=== PATIENT | female | born 1960 | race Two or more races ===

== ENCOUNTER 2017-01-08 14:06 | Inpatient (IN) | payer MEDICAID ==
[~2017-01-08] VITALS: Ht 175.3 cm; Wt 51.3 kg
[2017-01-08 14:10] VITALS: BP 156/83
[2017-01-08] MEDS ORDERED: NS 250 ML IV ONE (14:16)
--- NOTE | 2017-01-08 14:25 | Emergency Room Report ---
History of Present Illness General Chief Complaint: Syncope Source: Patient, Friend, EMS Present Illness HPI Patient presents emergency department today with dizziness and headache and chest pain and syncope. Patient was noted to have 2 syncopal event. Patient does have a history of diabetes and hypertension. Symptoms noted to be moderate to severe. 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 We have requested for any destination sign repairer.No other modifying factors. No other associated signs and symptoms. No other complaints were noted. Allergies: Coded Allergies: No Known Allergies (Unverified , 01/08/17) Patient History Past Medical History: DM, HTN, other - deaf and mute Past Surgical History: none Pertinent Family History: none Social History: Denies: smoking, alcohol use, drug use Reviewed Nursing Documentation: PMH: Agreed, PSxH: Agreed Nursing Documentation-PMH Hx Hypertension: Yes Hx Diabetes: Yes Review of Systems All Other Systems: negative except mentioned in HPI Physical Exam Vital Signs Date Time Temp Pulse Resp B/P (MAP) Pulse Ox O2 Delivery O2 Flow Rate FiO2 01/08/17 13:53 98.2 86 24 188/107 99 Room Air Sp02 EP Interpretation: reviewed, normal General Appearance: normal inspection, well appearing, no apparent distress, alert, GCS 15, non-toxic Head: atraumatic Eyes: bilateral eye normal inspection ENT: normal ENT inspection, hearing grossly normal, normal voice Neck: normal inspection, full range of motion, supple, no bony tend Respiratory: normal inspection, lungs clear, normal breath sounds, no respiratory distress, no retraction, no wheezing Cardiovascular #1: regular rate, rhythm, no edema Gastrointestinal: normal inspection, normal bowel sounds, non tender, soft, no guarding, no hernia Genitourinary: no CVA tenderness Musculoskeletal: normal inspection, back normal, normal range of motion Neurologic: normal inspection, alert, responsive, speech normal Psychiatric: normal inspection, mood/affect normal Skin: normal inspection, normal color, no rash Medical Decision Making Diagnostic Impression: Primary Impression: ACS (acute coronary syndrome) Additional Impression: Syncope Qualified Codes: R55 - Syncope and collapse ER Course Patient presented to the emergency department today complaining of chest pain associate syncope. Differential diagnoses include acute coronary syndrome, pulmonary embolism, pneumothorax, chest wall pain, pleurisy, pericarditis, acute anxiety reaction, CVA, gastritis Just to name a few. Given the severity of the patient's presentation I felt this is a highly complex patient. This patient required extensive workup. CBC, chemistry, EKG, chest x-ray, cardiac enzymes, liver profile were all obtained. 12-lead EKG performed for nontraumatic chest pain. [facility] documentation: EKG was performed. Please refer to below for interpretation. Patient had CBC and chemistry obtained. Both of which were normal. Patient's cardiac enzymes also normal. Patient had normal chest x-ray. Patient's EKG and rhythm strip are also normal. Head CT was normal. However given patient's syncope and chest discomfort felt the patient require admission to the hospital. Case was discussed with Dr. Beto Low who agree with the admission. Patient will be admitted to telemetry for further treatment. Patient also is deaf and mute. Patient was evaluated with a destination sign repairer via the computer monitor. Labs Test 01/08/17 14:57 01/08/17 17:05 White Blood Count 9.9 K/UL (4.8-10.8) Red Blood Count 4.31 M/UL (4.20-5.40) Hemoglobin 12.6 G/DL (12.0-16.0) Hematocrit 38.9 % (37.0-47.0) Mean Corpuscular Volume 90 FL (80-99) Mean Corpuscular Hemoglobin 29.4 PG (27.0-31.0) Mean Corpuscular Hemoglobin Concent 32.5 G/DL (32.0-36.0) Red Cell Distribution Width 11.3 % (11.6-14.8) Platelet Count 274 K/UL (150-450) Mean Platelet Volume 7.9 FL (6.5-10.1) Neutrophils (%) (Auto) 76.9 % (45.0-75.0) Lymphocytes (%) (Auto) 16.8 % (20.0-45.0) Monocytes (%) (Auto) 4.9 % (1.0-10.0) Eosinophils (%) (Auto) 0.6 % (0.0-3.0) Basophils (%) (Auto) 0.8 % (0.0-2.0) Sodium Level 141 MMOL/L (136-145) Potassium Level 3.7 MMOL/L (3.5-5.1) Chloride Level 101 MMOL/L (98-107) Carbon Dioxide Level 29 MMOL/L (21-32) Anion Gap 11 mmol/L (5-15) Blood Urea Nitrogen 19 mg/dL (7-18) Creatinine 0.7 MG/DL (0.55-1.30) Estimat Glomerular Filtration Rate > 60 mL/min (>60) Glucose Level 101 MG/DL (74-106) Calcium Level 9.7 MG/DL (8.5-10.1) Total Bilirubin 0.3 MG/DL (0.2-1.0) Aspartate Amino Transf (AST/SGOT) 19 U/L (15-37) Alanine Aminotransferase (ALT/SGPT) 30 U/L (12-78) Alkaline Phosphatase 88 U/L (46-116) Total Creatine Kinase 48 U/L (26-308) Creatine Kinase MB < 0.5 NG/ML (0.0-3.6) Creatine Kinase MB Relative Index Troponin I 0.009 ng/mL (0.000-0.056) Pro-B-Type Natriuretic Peptide 111 pg/mL (0-125) Total Protein 7.1 G/DL (6.4-8.2) Albumin 3.8 G/DL (3.4-5.0) Globulin 3.3 g/dL Albumin/Globulin Ratio 1.2 (1.0-2.7) Lipase 137 U/L (73-393) EKG Diagnostic Results Rate: normal Rhythm: NSR ST Segments: no acute changes Rhythm Strip Diag. Results EP Interpretation: yes Rate: 85 Rhythm: NSR Chest X-Ray Diagnostic Results Chest X-Ray Diagnostic Results : Chest X-Ray Ordered: Yes # of Views/Limited/Complete: 1 View Indication: Chest Pain EP Interpretation: No Impression: No acute disease CT/MRI/US Diagnostic Results CT/MRI/US Diagnostic Results : Imaging Test Ordered: head CT: Negative Last Vital Signs Date Time Temp Pulse Resp B/P (MAP) Pulse Ox O2 Delivery O2 Flow Rate FiO2 01/08/17 13:53 98.2 86 24 188/107 99 Room Air Status: improved Disposition: ADMITTED INPATIENT Condition: Serious TEENA RAMIREZ M.D. Jan 08, 2017 14:25
[2017-01-08 15:00] VITALS: BP 155/77
--- NOTE | 2017-01-08 15:10 | Diagnostic Imaging Report ---
Indications: Dizziness and headache and syncope, 2 recent syncopal events Technique: Spiral acquisitions obtained through the brain. Angled axial and coronal 5 x 5 mm slices were reconstructed. Total dose length product 1274 mGycm. CTDI vol(s) 70 mGy. Dose reduction achieved using automated exposure control Comparison: None Findings: Normal size ventricles and extra-axial CSF spaces. Calcification is seen at the left high parietal posterior parasagittal wheat-white junction. No acute intracranial hemorrhage or edema. No mass effect nor midline shift. Normal wheat-white differentiation. Intact calvarium. Visualized orbits and sinuses are unremarkable the mastoids are clear. 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
[2017-01-08] MEDS ORDERED: AMLODIPINE BESYL5 MG ORAL (15:13)
[2017-01-08] MEDS ORDERED: BENAZEPRIL HCL10 MG ORAL (15:13)
[2017-01-08] MEDS ORDERED: GABAPENTIN300 MG ORAL (15:13)
[2017-01-08] MEDS ORDERED: VITAMIN D250000 UNI1 ORAL (15:13)
--- NOTE | 2017-01-08 15:16 | Diagnostic Imaging Report ---
Indication: COUGH Technique: One view of the chest Comparison: none Findings: The heart is mildly enlarged. Lungs and pleural spaces are clear. Impression: Cardiomegaly. No acute process
[2017-01-08 15:21] LABS: BASOPHILS % (AUTO) 0.8 % (0.0-2.0); EOSINOPHILS % (AUTO) 0.6 % (0.0-3.0); LYMPHOCYTES % (AUTO) 16.8 % (20.0-45.0); MEAN CORPUSCULAR HEMOGLOBIN 29.4 PG (27.0-31.0); MEAN CORPUSCULAR HGB CONC 32.5 G/DL (32.0-36.0); MEAN CORPUSCULAR VOLUME 90 FL (80-99); MEAN PLATELET VOLUME 7.9 FL (6.5-10.1); MONOCYTES % (AUTO) 4.9 % (1.0-10.0); NEUTROPHILS % (AUTO) 76.9 % (45.0-75.0); PLATELET COUNT 274 K/UL (150-450); RED BLOOD COUNT 4.31 M/UL (4.20-5.40); RED CELL DISTRIBUTION WIDTH 11.3 % (11.6-14.8); WHITE BLOOD COUNT 9.9 K/UL (4.8-10.8)
[2017-01-08 15:56] LABS: ALANINE AMINOTRANSFERASE 30 U/L (12-78); ALBUMIN/GLOBULIN RATIO 1.2 (1.0-2.7); ANION GAP 11 mmol/L (5-15); ASPARTATE AMINO TRANSFERASE 19 U/L (15-37); CALCIUM 9.7 MG/DL (8.5-10.1); CARBON DIOXIDE 29 MMOL/L (21-32); CHLORIDE 101 MMOL/L (98-107); CKMB < 0.5 NG/ML (0.0-3.6); CREATININE 0.7 MG/DL (0.55-1.30); GLOMERULAR FILTRATION RATE > 60 mL/min (>60); LIPASE 137 U/L (73-393); POTASSIUM 3.7 MMOL/L (3.5-5.1); SODIUM 141 MMOL/L (136-145); TOTAL PROTEIN 7.1 G/DL (6.4-8.2)
[2017-01-08 16:00] VITALS: BP 166/78
[2017-01-08] MEDS ORDERED: Norco 5mg/325mg tab ORAL ONE (16:30)
[2017-01-08] MEDS ORDERED: Aspirin Baby 81mg ORAL ONE (16:30)
[2017-01-08] MEDS ORDERED: Nitroglycerin Subl 0.4mg tab SL PRN (16:45)
[2017-01-08] MEDS ORDERED: Enalaprilat 2.5mg/2ml Inj IV PRN (16:45)
[2017-01-08] MEDS ORDERED: dilTIAZem HCl 25mg/5ml Inj IV PRN (16:45)
[2017-01-08] MEDS ORDERED: Morphine Sulfate 2mg/ml Inj IVP PRN (16:45)
[2017-01-08] MEDS ORDERED: Albuterol/Ipratropium 3ml neb HHN PRN (16:45)
[2017-01-08 17:00] VITALS: BP 166/78
[2017-01-08 17:27] LABS: APPEARANCE,URINE CLEAR; KETONES,URINE NEGATIVE (NEGATIVE); LEUKOCYTE ESTERASE ,URINE 1+ (NEGATIVE); NITRITE,URINE NEGATIVE (NEGATIVE); PH,URINE 7 (4.5-8.0); PROTEIN,URINE NEGATIVE (NEGATIVE); UROBILINOGEN,URINE NORMAL MG/DL (0.0-1.0)
[2017-01-08 17:46] LABS: RBC,URINE 0-2 /HPF (0 - 2); SQUAMOUS EPITHELIAL CELL,UR OCCASIONAL /LPF (NONE/OCC); WBC,URINE 0-2 /HPF (0 - 2)
[2017-01-08 17:47] LABS: BACTERIA,URINE FEW /HPF
[2017-01-08 18:55] VITALS: BP 156/83
[2017-01-08 20:00] VITALS: BP 141/87
[2017-01-08] MEDS ORDERED: HYDROCHLOROTHIA25 MG ORAL (20:31)
[2017-01-08] MEDS: Heparin 5000 units/ml inj SUBQ SCH (21:44)
[2017-01-09 00:21] VITALS: BP 154/85
[2017-01-09 04:11] VITALS: BP 151/82
[2017-01-09 07:58] LABS: BASOPHILS % (AUTO) 1.1 % (0.0-2.0); EOSINOPHILS % (AUTO) 2.2 % (0.0-3.0); LYMPHOCYTES % (AUTO) 34.9 % (20.0-45.0); MEAN CORPUSCULAR HEMOGLOBIN 30.9 PG (27.0-31.0); MEAN CORPUSCULAR HGB CONC 34.7 G/DL (32.0-36.0); MEAN CORPUSCULAR VOLUME 89 FL (80-99); MEAN PLATELET VOLUME 8.4 FL (6.5-10.1); MONOCYTES % (AUTO) 6.5 % (1.0-10.0); NEUTROPHILS % (AUTO) 55.4 % (45.0-75.0); PLATELET COUNT 283 K/UL (150-450); RED CELL DISTRIBUTION WIDTH 11.4 % (11.6-14.8); WHITE BLOOD COUNT 6.5 K/UL (4.8-10.8)
[2017-01-09 08:03] LABS: INR 0.9 (0.9-1.1); PROTHROMBIN TIME 9.7 SEC (9.30-11.50)
[2017-01-09 08:17] VITALS: BP 135/81
[2017-01-09] MEDS: Benazepril 10mg tab ORAL SCH (08:27)
[2017-01-09] MEDS: Aspirin Baby 81mg ORAL SCH (08:28)
[2017-01-09] MEDS: Heparin 5000 units/ml inj SUBQ SCH ×2 (08:30→21:22)
[2017-01-09 08:44] LABS: CHOLESTEROL 199 MG/DL (< 200); CHOLESTEROL/HDL RATIO 4.6 (3.3-4.4); THYROID STIMULATING HORMONE 0.686 uiU/mL (0.360-3.740)
[2017-01-09 08:49] LABS: CRP QUANT < 0.4 mg/dL (0.00-0.90)
[2017-01-09 11:23] VITALS: BP 132/76
--- NOTE | 2017-01-09 15:23 | Consultation ---
History of Present Illness General Date patient seen: Jan 09, 2017 Chief Complaint: Syncope Reason for Consultation: chest pain Present Illness HPI 56 year old female with hx of DM, HTN presented to emergency department today with dizziness and headache and chest pain and syncope. . 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 she is admitted to telemetry for further work up. Allergies: Coded Allergies: No Known Allergies (Unverified , 01/08/17) Medication History Scheduled Amlodipine Besylate* (Amlodipine Besylate*), 5 MG ORAL DAILY, (Reported) Benazepril Hcl* (Benazepril Hcl*), 10 MG ORAL DAILY, (Reported) Ergocalciferol (Vitamin D2)* (Vitamin D*), 50,000 UNIT ORAL ONCE A WEEK, ( Reported) Gabapentin* (Gabapentin*), 300 MG ORAL THREE TIMES A DAY, (Reported) Hydrochlorothiazide* (Hydrochlorothiazide*), 25 MG ORAL DAILY, (Reported) Patient History Healthcare decision maker Resuscitation status Full Code Advanced Directive on File Review of Systems All Other Systems: negative except mentioned in HPI Physical Exam General Appearance: WD/WN, alert, lethargic Lines, tubes and drains: peripheral, central line HEENT: normocephalic, atraumatic Neck: non-tender, normal alignment Respiratory/Chest: chest wall non-tender, lungs clear Breasts: no masses Cardiovascular/Chest: normal peripheral pulses, regular rhythm Last 24 Hour Vital Signs Date Time Temp Pulse Resp B/P (MAP) Pulse Ox O2 Delivery O2 Flow Rate FiO2 01/09/17 11:23 97.8 70 18 132/76 99 Room Air 01/09/17 08:27 135/81 01/09/17 08:27 65 135/81 01/09/17 08:17 97.9 65 18 135/81 98 Room Air 01/09/17 08:00 68 01/09/17 04:11 96.0 69 16 151/82 96 Room Air 01/09/17 04:00 68 01/09/17 00:21 97.1 67 16 154/85 97 Room Air 01/09/17 00:00 66 01/08/17 20:00 97.2 79 16 141/87 97 Room Air 01/08/17 20:00 69 01/08/17 18:55 81 20 156/83 94 Room Air 01/08/17 18:55 98.2 81 20 156/83 94 Room Air 01/08/17 17:00 81 18 166/78 93 Room Air 01/08/17 16:00 81 20 166/78 95 Room Air Intake and Output 01/09/17 01/10/17 19:00 07:00 Intake Total 490 ml Balance 490 ml Intake Oral 490 ml # Voids 1 Laboratory Tests Test 01/08/17 17:05 01/09/17 04:50 01/09/17 04:55 Urine Color Pale yellow Urine Appearance Clear Urine pH 7 (4.5-8.0) Urine Specific [place] 1.010 (1.005-1.035) Urine Protein Negative (NEGATIVE) Urine Glucose (UA) Negative (NEGATIVE) Urine Ketones Negative (NEGATIVE) Urine Occult Blood Negative (NEGATIVE) Urine Nitrite Negative (NEGATIVE) Urine Bilirubin Negative (NEGATIVE) Urine Urobilinogen Normal MG/DL (0.0-1.0) Urine Leukocyte Esterase 1+ (NEGATIVE) H Urine RBC 0-2 /HPF (0 - 2) Urine WBC 0-2 /HPF (0 - 2) Urine Squamous Epithelial Cells Occasional /LPF Urine Bacteria Few /HPF (NONE) Prothrombin Time 9.7 SEC (9.30-11.50) Prothromb Time International Ratio 0.9 (0.9-1.1) Activated Partial Thromboplast Time 25 SEC (23-33) Troponin I 0.009 ng/mL (0.000-0.056) C-Reactive Protein, Quantitative < 0.4 mg/dL (0.00-0.90) Triglycerides Level 298 MG/DL (0-200) H Cholesterol Level 199 MG/DL (< 200) LDL Cholesterol 118 mg/dL (<100) H HDL Cholesterol 43 MG/DL (40-60) Cholesterol/HDL Ratio 4.6 (3.3-4.4) H Thyroid Stimulating Hormone (TSH) 0.686 uiU/mL (0.360-3.740) White Blood Count 6.5 K/UL (4.8-10.8) Red Blood Count 4.30 M/UL (4.20-5.40) Hemoglobin 13.3 G/DL (12.0-16.0) Hematocrit 38.3 % (37.0-47.0) Mean Corpuscular Volume 89 FL (80-99) Mean Corpuscular Hemoglobin 30.9 PG (27.0-31.0) Mean Corpuscular Hemoglobin Concent 34.7 G/DL (32.0-36.0) Red Cell Distribution Width 11.4 % (11.6-14.8) L Platelet Count 283 K/UL (150-450) Mean Platelet Volume 8.4 FL (6.5-10.1) Neutrophils (%) (Auto) 55.4 % (45.0-75.0) Lymphocytes (%) (Auto) 34.9 % (20.0-45.0) Monocytes (%) (Auto) 6.5 % (1.0-10.0) Eosinophils (%) (Auto) 2.2 % (0.0-3.0) Basophils (%) (Auto) 1.1 % (0.0-2.0) Height (Feet): 5 Height (Inches): 9.00 Weight (Pounds): 113 Medications Current Medications Medications (Trade) Dose Ordered Sig/Olegario Route PRN Reason Start Time Stop Time Status Last Admin Dose Admin Acetaminophen (Tylenol) 650 mg Q4H PRN ORAL Fever/Headache/Mild Pain 01/09/17 00:45 02/08/17 00:44 01/09/17 12:17 Albuterol/ Ipratropium (Albuterol/ Ipratropium) 3 ml Q4H PRN HHN Shortness of Breath 01/08/17 16:45 01/13/17 16:44 Amlodipine Besylate (Norvasc) 5 mg DAILY ORAL 01/09/17 09:00 02/08/17 08:59 01/09/17 08:27 Aspirin (ASA) 162 mg DAILY ORAL 01/09/17 09:00 02/08/17 08:59 01/09/17 08:28 Benazepril HCl (Lotensin) 10 mg DAILY ORAL 01/09/17 09:00 02/08/17 08:59 01/09/17 08:27 Diltiazem HCl (Cardizem) 10 mg Q1H PRN IV heart rate more than 120, 01/08/17 16:45 02/07/17 16:44 Enalaprilat (Vasotec) 2.5 mg Q6H PRN IV sbp more than 160 01/08/17 16:45 02/07/17 16:44 Gabapentin (Neurontin) 300 mg THREE TIMES A DAY ORAL 01/08/17 18:30 02/07/17 18:29 01/09/17 12:17 Heparin Sodium (Porcine) (Heparin 5000 units/ml) 5,000 units EVERY 12 HOURS SUBQ 01/08/17 21:00 02/07/17 20:59 01/09/17 08:30 Ketorolac Tromethamine (Toradol 30mg) 30 mg Q6H PRN IV moderate pain ( 4-6) 01/08/17 16:45 01/13/17 16:44 Morphine Sulfate (Morphine Sulfate) 2 mg Q4H PRN IVP severe Pain (Pain Scale 7-10) 01/08/17 16:45 01/15/17 16:44 Nitroglycerin (Ntg) 0.4 mg Every 5 Minutes PRN SL Prn Chest Pain 01/08/17 16:45 02/07/17 16:44 Ondansetron HCl (Zofran) 4 mg Q6H PRN IVP Nausea & Vomiting 01/08/17 16:45 02/07/17 16:44 Polyethylene Glycol (Miralax) 17 gm DAILYPRN PRN ORAL Constipation 01/08/17 16:45 02/07/17 16:44 Temazepam (Restoril) 15 mg HSPRN PRN ORAL Insomnia 01/08/17 16:45 01/15/17 16:44 Assessment/Plan Problem List: (1) ACS (acute coronary syndrome) ICD Codes: I24.9 - Acute ischemic heart disease, unspecified SNOMED: 199227908 (2) Diabetes mellitus ICD Codes: E11.9 - Type 2 diabetes mellitus without complications SNOMED: 63945762 (3) Hypertension ICD Codes: I10 - Essential (primary) hypertension SNOMED: 20911578 (4) Syncope ICD Codes: R55 - Syncope and collapse SNOMED: 809286315 Qualifiers: Qualified Codes: R55 - Syncope and collapse (5) Deaf nonspeaking, not elsewhere classifiable ICD Codes: H91.3 - Deaf nonspeaking, not elsewhere classified SNOMED: 92821783 Assessment/Plan serial ekg, troponin sliding scale diabetic diet. RODY HUBBARD Jan 09, 2017 15:23
[2017-01-09 16:00] VITALS: BP 125/58
[2017-01-09] MEDS: Ketorolac 30mg Inj IV PRN (16:40)
--- NOTE | 2017-01-09 17:14 | History & Physical ---
History and Physical History & Physicial Dictated for Int Med-Dr Low no. [id number]. CINDY GARCIA Jan 09, 2017 17:14
[2017-01-09] MEDS ORDERED: Morphine Sulfate 4mg/ml Inj IVP PRN (17:30)
[2017-01-09 20:00] VITALS: BP 133/82
[2017-01-10] VITALS (7 sets, daily range): BP systolic 127–147; BP diastolic 70–85
--- NOTE | 2017-01-10 03:00 | History and Physical Report ---
DATE OF ADMISSION: 01/08/2017 CHIEF COMPLAINT: The patient is a 56-year-old deaf, mute female, presents with chief complaint of chest pain and syncopal episode. HISTORY OF PRESENT ILLNESS: The patient is deaf, mute. There is no magnetic tape typewriter operator present. Much of the history and physical is obtained from the patient's chart. The patient has limited conversation by reading lips. The patient presented to [place] emergency room. The patient was complaining of dizziness and headache for one day. The patient then passed out. The patient complained of chest pain. The patient presented to [place] emergency room. The patient was admitted for chest pain to rule out acute coronary syndrome. REVIEW OF SYSTEMS: CONSTITUTIONAL: The patient denies weight loss or weight gain. The patient denies fevers or chills. HEENT: The patient denies ear or throat pain. The patient denies headache. CARDIOVASCULAR: The patient denies palpitations. The patient complains of chest pain as above. CHEST: The patient denies wheezes or shortness of breath. ABDOMINAL: The patient denies nausea, vomiting, diarrhea, or constipation. GENITOURINARY: The patient denies dysuria or increased frequency of urination. NEUROMUSCULAR: The patient denies seizures or generalized weakness. PAST MEDICAL HISTORY: Significant for: 1. Diabetes type 2. 2. Hypertension. 3. The patient is deaf and mute. PAST SURGICAL HISTORY: The patient denies. CURRENT MEDICATIONS: 1. Amlodipine 5 mg 1 tablet p.o. daily. 2. Benazepril 10 mg 1 tablet p.o. daily. 3. Ergocalciferol 50,000 units weekly on Thursday. 4. Gabapentin 300 mg 1 tablet p.o. 3 times daily. 5. Hydrochlorothiazide 25 mg 1 tablet p.o. daily. ALLERGIES: No known drug allergies. SOCIAL HISTORY: The patient denies tobacco or alcohol use. PHYSICAL EXAMINATION: VITAL SIGNS: Temperature 96.0, respirations 16, pulse 69, and blood pressure 151/82. GENERAL: The patient is a well-developed, well-nourished female, in no apparent distress. HEENT: Eyes, pupils are equal and responsive to light and accommodation. Extraocular movements are intact. NECK: Supple without lymphadenopathy. CHEST: Lungs are clear to auscultation bilaterally without wheezes or rales. CARDIOVASCULAR: Regular rhythm and rate. S1, S2 are normal without murmurs, rubs, or gallops. ABDOMEN: Soft, nontender, and nondistended. Positive bowel sounds. No evidence of hepatosplenomegaly. Currently, no rebound or guarding noted. EXTREMITIES: Negative for clubbing, cyanosis, or edema. RECTAL/GENITAL: Refused. NEUROLOGIC: Cranial nerves II through XII are grossly intact without focal deficits. Motor strength is 5/5 bilaterally. Deep tendon reflexes are 2+ plantar. LABORATORY STUDIES: WBC 9.9, hemoglobin 12.6, hematocrit 38.9, and platelets 274,000. Sodium 141, potassium 3.7, chloride 101, CO2 29, BUN 19, creatinine 0.7, and glucose 101. Troponin 0.009. ASSESSMENT: This is a 56-year-old female with: 1. Chest pain. 2. Diabetes type 2. 3. Hypertension. 4. Dyspnea. 5. Syncopal episode. TREATMENT: 1. Syncopal episode/chest pain. Cardiology consultation is pending with Dr. Jorgito Miramontes. We will follow recommendations of Dr. Miramontes. A Neurology consultation has been obtained with Dr. Hector. We will follow recommendations of Neurology. 2. Diabetes type 2. A regular insulin sliding scale has been instituted. 3. Hypertension. Continue amlodipine and benazepril as above. 4. Deaf and mute. Chencho Jacobson M.D. DR: CARLYLE JOB#: [id number] CC:
[2017-01-10] MEDS: Ketorolac 30mg Inj IV PRN (05:14)
[2017-01-10] MEDS: Aspirin Baby 81mg ORAL SCH (08:34)
[2017-01-10] MEDS: Benazepril 10mg tab ORAL SCH (08:37)
[2017-01-10] MEDS: Heparin 5000 units/ml inj SUBQ SCH ×2 (08:38→21:30)
--- NOTE | 2017-01-10 11:27 | Cardiology Progress Note ---
Assessment/Plan Assessment/Plan syncope htn dm chest wall tender ness ortho static vital all torp neg cpreproduccile ekg neg echo neg if nto orthosttic ok to dc ho if psotive will need ivf aand dc home after no abn so far on tele [id number] Objective Last 24 Hour Vital Signs Date Time Temp Pulse Resp B/P (MAP) Pulse Ox O2 Delivery O2 Flow Rate FiO2 01/10/17 08:37 147/74 01/10/17 08:34 59 147/74 01/10/17 08:00 97.9 70 18 135/77 95 Room Air 01/10/17 08:00 68 01/10/17 04:00 59 01/10/17 04:00 97.3 63 18 147/74 96 Room Air 01/10/17 00:00 72 01/10/17 00:00 98.1 68 18 135/74 95 Room Air 01/09/17 20:00 70 01/09/17 20:00 98.1 71 18 133/82 96 Room Air 01/09/17 16:00 71 01/09/17 16:00 97.5 73 18 125/58 100 Room Air 01/09/17 12:00 70 Intake and Output 01/10/17 01/11/17 19:00 07:00 Intake Total 360 ml Balance 360 ml Intake Oral 360 ml # Voids 1 CHELI PATEL Jan 10, 2017 11:27
--- NOTE | 2017-01-10 12:01 | Neurology Progress Note ---
Objective Physical Exam Last Vital Signs Date Time Temp Pulse Resp B/P (MAP) Pulse Ox O2 Delivery O2 Flow Rate FiO2 01/10/17 11:40 68 68 67 01/10/17 11:37 137/81 147/85 144/78 01/10/17 08:00 97.9 18 95 Room Air Impression/Recommendations Problems: (1) recurrent syncope. (2) HTN (hypertension), malignant (3) Deaf nonspeaking, not elsewhere classifiable (4) ACS (acute coronary syndrome) Status: stable Recommendations # [id number] MAXIMO MEDINA Jan 10, 2017 12:01
--- NOTE | 2017-01-10 12:49 | Internal Med Progress Note ---
Subjective Date of Service: Jan 10, 2017 Physician Name IndiraCindy Attending Physician Beto Low MD Current Medications Medications (Trade) Dose Ordered Sig/Olegario Route PRN Reason Start Time Stop Time Status Last Admin Dose Admin Acetaminophen (Tylenol) 650 mg Q4H PRN ORAL Fever/Headache/Mild Pain 01/09/17 00:45 02/08/17 00:44 01/09/17 12:17 Albuterol/ Ipratropium (Albuterol/ Ipratropium) 3 ml Q4H PRN HHN Shortness of Breath 01/08/17 16:45 01/13/17 16:44 Amlodipine Besylate (Norvasc) 5 mg DAILY ORAL 01/09/17 09:00 02/08/17 08:59 01/10/17 08:34 Aspirin (ASA) 162 mg DAILY ORAL 01/09/17 09:00 02/08/17 08:59 01/10/17 08:34 Benazepril HCl (Lotensin) 10 mg DAILY ORAL 01/09/17 09:00 02/08/17 08:59 01/10/17 08:37 Diltiazem HCl (Cardizem) 10 mg Q1H PRN IV heart rate more than 120, 01/08/17 16:45 02/07/17 16:44 Enalaprilat (Vasotec) 2.5 mg Q6H PRN IV sbp more than 160 01/08/17 16:45 02/07/17 16:44 Gabapentin (Neurontin) 300 mg THREE TIMES A DAY ORAL 01/08/17 18:30 02/07/17 18:29 01/10/17 12:28 Heparin Sodium (Porcine) (Heparin 5000 units/ml) 5,000 units EVERY 12 HOURS SUBQ 01/08/17 21:00 02/07/17 20:59 01/10/17 08:38 Ketorolac Tromethamine (Toradol 30mg) 30 mg Q6H PRN IV moderate pain ( 4-6) 01/08/17 16:45 01/13/17 16:44 01/10/17 05:14 Morphine Sulfate (Morphine Sulfate) 2 mg Q4H PRN IVP severe Pain (Pain Scale 7-10) 01/09/17 17:30 01/15/17 16:44 Nitroglycerin (Ntg) 0.4 mg Every 5 Minutes PRN SL Prn Chest Pain 01/08/17 16:45 02/07/17 16:44 Ondansetron HCl (Zofran) 4 mg Q6H PRN IVP Nausea & Vomiting 01/08/17 16:45 02/07/17 16:44 Polyethylene Glycol (Miralax) 17 gm DAILYPRN PRN ORAL Constipation 01/08/17 16:45 02/07/17 16:44 Temazepam (Restoril) 15 mg HSPRN PRN ORAL Insomnia 01/08/17 16:45 01/15/17 16:44 Allergies: Coded Allergies: No Known Allergies (Unverified , 01/08/17) ROS Limited/Unobtainable: No Constitutional: Reports: no symptoms HEENT: Reports: no symptoms Cardiovascular: Reports: chest pain Respiratory: Reports: no symptoms Gastrointestinal/Abdominal: Reports: no symptoms Genitourinary: Reports: no symptoms Neurologic/Psychiatric: Reports: no symptoms Subjective 56 YO F admitted with chest pain and syncope. Cover for Int Med-Dr Low. Objective Last Vital Signs Date Time Temp Pulse Resp B/P (MAP) Pulse Ox O2 Delivery O2 Flow Rate FiO2 01/10/17 11:40 68 68 67 01/10/17 11:37 137/81 147/85 144/78 01/10/17 08:00 97.9 18 95 Room Air General Appearance: WD/WN, no apparent distress, alert EENT: PERRL/EOMI, normal ENT inspection, TMs normal Neck: non-tender, normal alignment, supple, normal inspection Cardiovascular: normal peripheral pulses, normal rate, regular rhythm, no gallop/murmur, no JVD Respiratory/Chest: chest wall non-tender, lungs clear, normal breath sounds, no respiratory distress, no accessory muscle use Abdomen: normal bowel sounds, non tender, soft, no organomegaly, no mass Extremities: normal range of motion 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 Complete Intake and Output 01/10/17 01/11/17 19:00 07:00 Intake Total 360 ml Balance 360 ml Intake Oral 360 ml # Voids 1 Assessment/Plan Problem List: (1) Syncope Assessment & Plan: ?iorthostatic? See cardiology note. (2) Diabetes mellitus Assessment & Plan: stable off meds (3) HTN (hypertension), malignant Assessment & Plan: Cont norvasc and lotensin (4) Deaf nonspeaking, not elsewhere classifiable Status: not improved CINDY GARCIA Jan 10, 2017 12:49
[2017-01-10] MEDS: Miralax 17gm pkt ORAL PRN (21:26)
--- NOTE | 2017-01-10 22:00 | Consultation ---
DATE OF CONSULTATION: 01/10/2017 CARDIOLOGY CONSULTATION CONSULTING PHYSICIAN: Jorgito Miramontes M.D. REFERRING PHYSICIAN: 1. Luz Arnold M.D. 2. Beto Low M.D. ATTENDING PHYSICIAN: Beto Low M.D. REASON FOR REFERRAL: Syncope and chest pain. HISTORY OF PRESENT ILLNESS: This is a very unfortunate 56-year-old female, who is deaf and mute. Information through video interpretive services hand and sign language. She tells me she has had for the past few days 3 to 4 episodes of chest pains and she has passed out. She has been dizzy when she sits up or stands up. These episodes of chest pain she thinks have lasted approximately 1 or 2 minutes and sometimes she passes out and does not recall the duration. She has been a diabetic. She has been started on some medications approximately a few weeks ago. She has been taking the medication. Unfortunately, she is not able to tell me what the name of her medication. She takes one diabetic medication twice a day and one high blood pressure medication once a day. She does not recall the name. She has had no problems with nausea, vomiting, or diarrhea and her p.o. intake has been okay, but she has been sweating a lot, she indicates. She has not noticed any change in the pain with activity that she is capable of doing. Apparently for the first few days, a few times that she passed out. Nobody saw her, but yesterday apparently somebody saw her and they summoned the paramedics, who eventually brought her to the hospital here at [facility]. Intern Product Marketing Manager run sheet was reviewed. They found the patient supine lay down on the floor of assisted living and by the time paramedics got there, she was alert and oriented x3. They found her to be acting appropriately, but that episode had happened sometime before the paramedics arrival. She was noted to have a blood pressure of 221/119 at the time the paramedics were summoned, subsequently 220/122 and 188/107. She has no PND or orthopnea, but she does get dizzy or lightheaded when she stands up. PAST MEDICAL HISTORY: Positive for diabetes and high blood pressure. ALLERGIES: She has no known drug allergies. SOCIAL HISTORY: She does not smoke. Does not drink alcoholic beverages. 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 MEDICATIONS: The grinder tender run sheet indicates she is on gabapentin, amlodipine, benazepril, and hydrochlorothiazide and I think unfortunately, she is also on a diabetic medication that she does not recall the name of. REVIEW OF SYSTEMS: GASTROINTESTINAL: Apparently negative except for constipation. GENITOURINARY: Negative. PULMONARY: Negative. PHYSICAL EXAMINATION: GENERAL: Physical examination shows her to be middle-aged female, in no apparent respiratory distress. NECK: Supple. No jugular venous distention. No abdominojugular reflux noted. LUNGS: Clear to auscultation and percussion. CARDIAC: S1 is normal. S2 is normal. Regular rate and rhythm. No heaves, thrills, or gallops noted. ABDOMEN: Soft and nontender. Positive bowel sounds. EXTREMITIES: There is no clubbing, cyanosis, or edema. MUSCULOSKELETAL: Chest wall is tender and reproduces the patient's pain that she was experiencing at this time. This, we confirmed on several multiple occasions with hand cloth examiner services that the pain that I am able to reproduce on palpation of the chest wall is exactly the same pain that she has been experiencing for the past few days. LABORATORY VALUES: White count 6.5, hemoglobin 13.3, and platelet count 283,000. Her cardiac enzymes on 2 separate occasions were negative. Her proBNP was only 111. Her triglycerides are 298, her cholesterol was 199, LDL of 118, and HDL of 43. TSH is 0.66. Lipase of 137. Coags, INR was 0.7. Her urinalysis is unremarkable. She did have vital signs performed here. Her blood pressures have been in the 135 to 150s here. They have not documented the blood pressure readings that they have been documented at the time of paramedics arrival at all being that high. She has been receiving amlodipine 5 mg a day as well as aspirin and benazepril 10 mg a day here as well as gabapentin. Hydrochlorothiazide has not been administered here. ASSESSMENT AND PLAN: 1. Chest pain. Chest wall pain. No evidence of myonecrosis. No abnormalities on the electrocardiogram and normal echocardiogram. 2. History of syncope. The etiology not yet apparent. Telemetry data so far is unremarkable. There are no arrhythmias. The patient's electrocardiogram does not show any evidence of arrhythmias. She has been constantly in sinus rhythm. No sinus bradycardia. No sinus tachycardia. No other ventricular arrhythmias noted on the telemetry. She has been started on some medication. She has been on diuretics at home, which may make sense that she would have some component of dehydration. She will require orthostatic vitals to be checked, although she may have already received some fluids. Her blood pressures here have not been significantly elevated despite the fact that she is off of hydrochlorothiazide and I suspect the pain in the chest is likely musculoskeletal in origin as it cannot be reproduced on palpation. We would monitor orthostatic vitals and administer some intravenous fluids if those are positive, otherwise, we will allow her to be discharged home. Jorgito Miramontes M.D. DR: ESTHELA JOB#: [id number] CC:
--- NOTE | 2017-01-10 22:30 | Consultation ---
DATE OF CONSULTATION: 01/10/2017 NEUROLOGICAL CONSULTATION CONSULTING PHYSICIAN: Ananth Hector M.D. REQUESTING PHYSICIAN: Beto Low M.D. HISTORY OF PRESENT ILLNESS: This 56-year-old female is seen in neurological consultation to evaluate recurrent episodes of unresponsiveness. The patient is a resident of a [facility], where paramedics were called to the scene after she had an episode of transient loss of consciousness. This occurred about 10 to 15 minutes prior to the arrival. On examination, she was fully awake with no complaints. Denying using drugs or alcohol. According to the facility personnel, the patient had another similar episode approximately 6 to 7 hours prior. She was described as acting appropriately, answering questions appropriately. Her vital signs in the field with blood pressure 221/119. With this, she was brought to emergency room. The patient, who is deaf and mute, was able to communicate through design drafter chief. Blood pressure on admission down to 188/107, heart rate of 99, and she was afebrile. Her diagnostic studies included laboratory work revealing normal CBC, coagulation, urinalysis. Her chemistry panel unremarkable except BUN of 19, also elevated triglycerides of 298, LDL of 118. Normal TSH, lipase, and troponin. Imaging studies included CAT scan of the brain revealing no evidence of acute abnormalities. 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 Chest x-ray, mildly enlarged heart, no acute process noted. Since admission till present, the patient's condition improved and stabilized. Blood pressure went down to 140/85. PAST MEDICAL HISTORY: The patient has a history of hypertension and coronary artery disease. MEDICATIONS: She was treated with gabapentin, amlodipine, benazepril, and hydrochlorothiazide. No history of seizures. ALLERGIES: None reported. SOCIAL HISTORY: A resident of [facility]. There is no evidence of previous alcohol or drug abuse. Nonsmoker. She is unemployed. REVIEW OF SYSTEMS: At this time, the patient was indicating that she is feeling well except continuous discomfort in her left side of the chest. She denies headache or dizziness. Denies previous seizure activity. No respiratory difficulties. Denies urine or bowel incontinence. PHYSICAL EXAMINATION: GENERAL: A well-developed, well-nourished, pleasant lady, not in acute distress, lying comfortably in bed. VITAL SIGNS: Her blood pressure 138/80 and respirations 14. HEENT: Head, normocephalic. No evidence of injuries. Eyes, ears, and throat are clear. NECK: Supple. No meningeal signs. MUSCULOSKELETAL: Unremarkable. There are no deformities. Peripheral pulses 1+ and symmetric. MENTAL STATUS: The patient is alert, follows all instructions given in sign language, appears coherent. CRANIAL NERVE II: Pupils both responding to light and accommodation. Extraocular movements intact. No nystagmus. CRANIAL NERVE V: Normal corneal responses. CRANIAL NERVE VII: No facial asymmetry. CRANIAL NERVE VIII: Deaf. CRANIAL NERVE IX THROUGH XII: Tongue is in midline. The patient is mute. MOTOR EXAMINATION: Normal muscle tone. Strength 5/5 in all extremities. No involuntary movement. Deep tendon reflexes 1+ and symmetric with downgoing toes on both sides. SENSORY: Normal to pinprick and light touch. Gait is stable. IMPRESSION: 1. History of recurrent syncopal episode, probably vasovagal, rule out cardiogenic causes. 2. Hypertension, out of control on admission. 3. Hyperlipidemia. 4. History of diabetes. RECOMMENDATION: 1. Orthostatic blood pressure measurements. 2. Proper p.o. hydration. 3. Cardiac workup to rule out arrhythmia. 4. Add aspirin 81 mg daily in the setting of multiple stroke risk factors. Thank you for allowing me to see this interesting patient in neurological consultation. Ananth Hector M.D. DR: XIOMY JOB#: [id number] CC:
[2017-01-11] VITALS (8 sets, daily range): BP systolic 126–153; BP diastolic 67–87
[2017-01-11 05:28] LABS: EOSINOPHILS % (AUTO) 1.4 % (0.0-3.0); LYMPHOCYTES % (AUTO) 27.2 % (20.0-45.0); MEAN CORPUSCULAR HEMOGLOBIN 32.8 PG (27.0-31.0); MEAN CORPUSCULAR HGB CONC 36.9 G/DL (32.0-36.0); MEAN CORPUSCULAR VOLUME 89 FL (80-99); MEAN PLATELET VOLUME 8.8 FL (6.5-10.1); MONOCYTES % (AUTO) 5.9 % (1.0-10.0); NEUTROPHILS % (AUTO) 64.5 % (45.0-75.0); PLATELET COUNT 247 K/UL (150-450); RED BLOOD COUNT 3.98 M/UL (4.20-5.40); RED CELL DISTRIBUTION WIDTH 11.4 % (11.6-14.8); WHITE BLOOD COUNT 8.5 K/UL (4.8-10.8)
[2017-01-11 06:04] LABS: ANION GAP 6 mmol/L (5-15); CARBON DIOXIDE 30 MMOL/L (21-32); CHLORIDE 106 MMOL/L (98-107); CREATININE 0.7 MG/DL (0.55-1.30); GLOMERULAR FILTRATION RATE > 60 mL/min (>60); POTASSIUM 3.7 MMOL/L (3.5-5.1); SODIUM 142 MMOL/L (136-145)
[2017-01-11] MEDS: Benazepril 10mg tab ORAL SCH (08:55)
[2017-01-11] MEDS: Aspirin Baby 81mg ORAL SCH (08:56)
[2017-01-11] MEDS: Heparin 5000 units/ml inj SUBQ SCH ×2 (09:00→20:31)
[2017-01-11] MEDS: Miralax 17gm pkt ORAL PRN (09:05)
--- NOTE | 2017-01-11 09:36 | Pulmonology Progress Note ---
Assessment/Plan Problems: (1) Syncope (2) ACS (acute coronary syndrome) (3) Diabetes mellitus (4) Hypertension (5) Deaf nonspeaking, not elsewhere classifiable Assessment/Plan cardio, neuro evaluation in process BP controlled check echo Subjective Interval Events: late note for 01/11 Constitutional: Reports: no symptoms HEENT: Repors: no symptoms Allergies: Coded Allergies: No Known Allergies (Unverified , 01/08/17) Objective Last 24 Hour Vital Signs Date Time Temp Pulse Resp B/P (MAP) Pulse Ox O2 Delivery O2 Flow Rate FiO2 01/11/17 08:57 97.8 76 18 140/76 98 Room Air 01/11/17 08:55 143/85 01/11/17 08:55 70 143/85 01/11/17 04:28 71 70 70 01/11/17 04:18 97.7 71 22 140/81 98 Room Air 01/11/17 04:00 68 01/11/17 00:00 68 01/11/17 00:00 97.7 68 20 147/67 98 Room Air 01/10/17 20:25 98.2 70 20 129/74 96 Room Air 01/10/17 20:00 71 01/10/17 16:57 98.0 75 18 127/70 99 Room Air 01/10/17 16:00 70 01/10/17 12:00 64 01/10/17 12:00 98.7 65 18 141/84 98 Room Air 01/10/17 11:40 68 68 67 01/10/17 11:37 137/81 147/85 144/78 Intake and Output 01/11/17 01/12/17 19:00 07:00 Intake Total 360 ml Balance 360 ml Intake Oral 360 ml # Voids 1 General Appearance: WD/WN HEENT: normocephalic, atraumatic Respiratory/Chest: chest wall non-tender, lungs clear Cardiovascular: normal peripheral pulses, regular rhythm, no JVD Abdomen: normal bowel sounds, soft, non tender Genitourinary: normal external genitalia Extremities: no clubbing Skin: no lesions Neurologic/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 Complete Laboratory Tests 01/10/17 16:15: Troponin I 0.000 01/11/17 04:15: White Blood Count 8.5, Red Blood Count 3.98L, Hemoglobin 13.1, Hematocrit 35.4L , Mean Corpuscular Volume 89, Mean Corpuscular Hemoglobin 32.8H, Mean Corpuscular Hemoglobin Concent 36.9H, Red Cell Distribution Width 11.4L, Platelet Count 247, Mean Platelet Volume 8.8, Neutrophils (%) (Auto) 64.5, Lymphocytes (%) (Auto) 27.2, Monocytes (%) (Auto) 5.9, Eosinophils (%) (Auto) 1.4, Basophils (%) (Auto) 1.0, Sodium Level 142, Potassium Level 3.7, Chloride Level 106, Carbon Dioxide Level 30, Anion Gap 6, Blood Urea Nitrogen 23H, Creatinine 0.7, Estimat Glomerular Filtration Rate > 60, Glucose Level 138H, Calcium Level 9.0 Current Medications Medications (Trade) Dose Ordered Sig/Olegario Route PRN Reason Start Time Stop Time Status Last Admin Dose Admin Acetaminophen (Tylenol) 650 mg Q4H PRN ORAL Fever/Headache/Mild Pain 01/09/17 00:45 02/08/17 00:44 01/11/17 05:01 Albuterol/ Ipratropium (Albuterol/ Ipratropium) 3 ml Q4H PRN HHN Shortness of Breath 01/08/17 16:45 01/13/17 16:44 Amlodipine Besylate (Norvasc) 5 mg DAILY ORAL 01/09/17 09:00 02/08/17 08:59 01/11/17 08:55 Aspirin (ASA) 162 mg DAILY ORAL 01/09/17 09:00 02/08/17 08:59 01/11/17 08:56 Benazepril HCl (Lotensin) 10 mg DAILY ORAL 01/09/17 09:00 02/08/17 08:59 01/11/17 08:55 Diltiazem HCl (Cardizem) 10 mg Q1H PRN IV heart rate more than 120, 01/08/17 16:45 02/07/17 16:44 Enalaprilat (Vasotec) 2.5 mg Q6H PRN IV sbp more than 160 01/08/17 16:45 02/07/17 16:44 Gabapentin (Neurontin) 300 mg THREE TIMES A DAY ORAL 01/08/17 18:30 02/07/17 18:29 01/11/17 08:54 Heparin Sodium (Porcine) (Heparin 5000 units/ml) 5,000 units EVERY 12 HOURS SUBQ 01/08/17 21:00 02/07/17 20:59 01/11/17 09:00 Ketorolac Tromethamine (Toradol 30mg) 30 mg Q6H PRN IV moderate pain ( 4-6) 01/08/17 16:45 01/13/17 16:44 01/10/17 05:14 Morphine Sulfate (Morphine Sulfate) 2 mg Q4H PRN IVP severe Pain (Pain Scale 7-10) 01/09/17 17:30 01/15/17 16:44 Nitroglycerin (Ntg) 0.4 mg Every 5 Minutes PRN SL Prn Chest Pain 01/08/17 16:45 02/07/17 16:44 Ondansetron HCl (Zofran) 4 mg Q6H PRN IVP Nausea & Vomiting 01/08/17 16:45 02/07/17 16:44 Polyethylene Glycol (Miralax) 17 gm DAILYPRN PRN ORAL Constipation 01/08/17 16:45 02/07/17 16:44 01/11/17 09:05 Temazepam (Restoril) 15 mg HSPRN PRN ORAL Insomnia 01/08/17 16:45 01/15/17 16:44 RODY HUBBARD Jan 11, 2017 09:36
--- NOTE | 2017-01-11 09:37 | Pulmonology Progress Note ---
Assessment/Plan Problems: (1) Syncope (2) ACS (acute coronary syndrome) (3) Diabetes mellitus (4) Hypertension (5) Deaf nonspeaking, not elsewhere classifiable Assessment/Plan orthostatic evaluation cardio, neuro evaluation in process BP controlled check echo Subjective ROS Limited/Unobtainable: No Interval Events: 7 beats of PVC Allergies: Coded Allergies: No Known Allergies (Unverified , 01/08/17) Objective Last 24 Hour Vital Signs Date Time Temp Pulse Resp B/P (MAP) Pulse Ox O2 Delivery O2 Flow Rate FiO2 01/11/17 08:57 97.8 76 18 140/76 98 Room Air 01/11/17 08:55 143/85 01/11/17 08:55 70 143/85 01/11/17 04:28 71 70 70 01/11/17 04:18 97.7 71 22 140/81 98 Room Air 01/11/17 04:00 68 01/11/17 00:00 68 01/11/17 00:00 97.7 68 20 147/67 98 Room Air 01/10/17 20:25 98.2 70 20 129/74 96 Room Air 01/10/17 20:00 71 01/10/17 16:57 98.0 75 18 127/70 99 Room Air 01/10/17 16:00 70 01/10/17 12:00 64 01/10/17 12:00 98.7 65 18 141/84 98 Room Air 01/10/17 11:40 68 68 67 01/10/17 11:37 137/81 147/85 144/78 Intake and Output 01/11/17 01/12/17 19:00 07:00 Intake Total 360 ml Balance 360 ml Intake Oral 360 ml # Voids 1 General Appearance: WD/WN HEENT: normocephalic, atraumatic, mucous membranes moist Respiratory/Chest: lungs clear, normal breath sounds Breasts: no masses Cardiovascular: normal peripheral pulses Abdomen: normal bowel sounds, no organomegaly Extremities: no cyanosis Skin: no rash 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 Complete Laboratory Tests 01/10/17 16:15: Troponin I 0.000 01/11/17 04:15: White Blood Count 8.5, Red Blood Count 3.98L, Hemoglobin 13.1, Hematocrit 35.4L , Mean Corpuscular Volume 89, Mean Corpuscular Hemoglobin 32.8H, Mean Corpuscular Hemoglobin Concent 36.9H, Red Cell Distribution Width 11.4L, Platelet Count 247, Mean Platelet Volume 8.8, Neutrophils (%) (Auto) 64.5, Lymphocytes (%) (Auto) 27.2, Monocytes (%) (Auto) 5.9, Eosinophils (%) (Auto) 1.4, Basophils (%) (Auto) 1.0, Sodium Level 142, Potassium Level 3.7, Chloride Level 106, Carbon Dioxide Level 30, Anion Gap 6, Blood Urea Nitrogen 23H, Creatinine 0.7, Estimat Glomerular Filtration Rate > 60, Glucose Level 138H, Calcium Level 9.0 Current Medications Medications (Trade) Dose Ordered Sig/Olegario Route PRN Reason Start Time Stop Time Status Last Admin Dose Admin Acetaminophen (Tylenol) 650 mg Q4H PRN ORAL Fever/Headache/Mild Pain 01/09/17 00:45 02/08/17 00:44 01/11/17 05:01 Albuterol/ Ipratropium (Albuterol/ Ipratropium) 3 ml Q4H PRN HHN Shortness of Breath 01/08/17 16:45 01/13/17 16:44 Amlodipine Besylate (Norvasc) 5 mg DAILY ORAL 01/09/17 09:00 02/08/17 08:59 01/11/17 08:55 Aspirin (ASA) 162 mg DAILY ORAL 01/09/17 09:00 02/08/17 08:59 01/11/17 08:56 Benazepril HCl (Lotensin) 10 mg DAILY ORAL 01/09/17 09:00 02/08/17 08:59 01/11/17 08:55 Diltiazem HCl (Cardizem) 10 mg Q1H PRN IV heart rate more than 120, 01/08/17 16:45 02/07/17 16:44 Enalaprilat (Vasotec) 2.5 mg Q6H PRN IV sbp more than 160 01/08/17 16:45 02/07/17 16:44 Gabapentin (Neurontin) 300 mg THREE TIMES A DAY ORAL 01/08/17 18:30 02/07/17 18:29 01/11/17 08:54 Heparin Sodium (Porcine) (Heparin 5000 units/ml) 5,000 units EVERY 12 HOURS SUBQ 01/08/17 21:00 02/07/17 20:59 01/11/17 09:00 Ketorolac Tromethamine (Toradol 30mg) 30 mg Q6H PRN IV moderate pain ( 4-6) 01/08/17 16:45 01/13/17 16:44 01/10/17 05:14 Morphine Sulfate (Morphine Sulfate) 2 mg Q4H PRN IVP severe Pain (Pain Scale 7-10) 01/09/17 17:30 01/15/17 16:44 Nitroglycerin (Ntg) 0.4 mg Every 5 Minutes PRN SL Prn Chest Pain 01/08/17 16:45 02/07/17 16:44 Ondansetron HCl (Zofran) 4 mg Q6H PRN IVP Nausea & Vomiting 01/08/17 16:45 02/07/17 16:44 Polyethylene Glycol (Miralax) 17 gm DAILYPRN PRN ORAL Constipation 01/08/17 16:45 02/07/17 16:44 01/11/17 09:05 Temazepam (Restoril) 15 mg HSPRN PRN ORAL Insomnia 01/08/17 16:45 01/15/17 16:44 RODY HUBBARD Jan 11, 2017 09:37
--- NOTE | 2017-01-11 14:52 | Internal Med Progress Note ---
Subjective Date of Service: Jan 11, 2017 Physician Name IndiraCindy Attending Physician Beto Low MD Current Medications Medications (Trade) Dose Ordered Sig/Olegario Route PRN Reason Start Time Stop Time Status Last Admin Dose Admin Acetaminophen (Tylenol) 650 mg Q4H PRN ORAL Fever/Headache/Mild Pain 01/09/17 00:45 02/08/17 00:44 01/11/17 05:01 Albuterol/ Ipratropium (Albuterol/ Ipratropium) 3 ml Q4H PRN HHN Shortness of Breath 01/08/17 16:45 01/13/17 16:44 Amlodipine Besylate (Norvasc) 5 mg DAILY ORAL 01/09/17 09:00 02/08/17 08:59 01/11/17 08:55 Aspirin (ASA) 162 mg DAILY ORAL 01/09/17 09:00 02/08/17 08:59 01/11/17 08:56 Benazepril HCl (Lotensin) 10 mg DAILY ORAL 01/09/17 09:00 02/08/17 08:59 01/11/17 08:55 Diltiazem HCl (Cardizem) 10 mg Q1H PRN IV heart rate more than 120, 01/08/17 16:45 02/07/17 16:44 Enalaprilat (Vasotec) 2.5 mg Q6H PRN IV sbp more than 160 01/08/17 16:45 02/07/17 16:44 Gabapentin (Neurontin) 300 mg THREE TIMES A DAY ORAL 01/08/17 18:30 02/07/17 18:29 01/11/17 14:16 Heparin Sodium (Porcine) (Heparin 5000 units/ml) 5,000 units EVERY 12 HOURS SUBQ 01/08/17 21:00 02/07/17 20:59 01/11/17 09:00 Ketorolac Tromethamine (Toradol 30mg) 30 mg Q6H PRN IV moderate pain ( 4-6) 01/08/17 16:45 01/13/17 16:44 01/10/17 05:14 Morphine Sulfate (Morphine Sulfate) 2 mg Q4H PRN IVP severe Pain (Pain Scale 7-10) 01/09/17 17:30 01/15/17 16:44 Nitroglycerin (Ntg) 0.4 mg Every 5 Minutes PRN SL Prn Chest Pain 01/08/17 16:45 02/07/17 16:44 Ondansetron HCl (Zofran) 4 mg Q6H PRN IVP Nausea & Vomiting 01/08/17 16:45 02/07/17 16:44 Polyethylene Glycol (Miralax) 17 gm DAILYPRN PRN ORAL Constipation 01/08/17 16:45 02/07/17 16:44 01/11/17 09:05 Temazepam (Restoril) 15 mg HSPRN PRN ORAL Insomnia 01/08/17 16:45 01/15/17 16:44 Allergies: Coded Allergies: No Known Allergies (Unverified , 01/08/17) ROS Limited/Unobtainable: No Constitutional: Reports: no symptoms HEENT: Reports: no symptoms Cardiovascular: Reports: no symptoms Respiratory: Reports: no symptoms Gastrointestinal/Abdominal: Reports: no symptoms Genitourinary: Reports: no symptoms Neurologic/Psychiatric: Reports: no symptoms Subjective 56 YO F admitted with chest pain and syncope. Cover for Int Med-Dr Low. Objective Last Vital Signs Date Time Temp Pulse Resp B/P (MAP) Pulse Ox O2 Delivery O2 Flow Rate FiO2 01/11/17 12:43 98.0 97 18 145/80 98 Room Air Laboratory Tests Test 01/10/17 16:15 01/11/17 04:15 Troponin I 0.000 ng/mL (0.000-0.056) White Blood Count 8.5 K/UL (4.8-10.8) Red Blood Count 3.98 M/UL (4.20-5.40) L Hemoglobin 13.1 G/DL (12.0-16.0) Hematocrit 35.4 % (37.0-47.0) L Mean Corpuscular Volume 89 FL (80-99) Mean Corpuscular Hemoglobin 32.8 PG (27.0-31.0) H Mean Corpuscular Hemoglobin Concent 36.9 G/DL (32.0-36.0) H Red Cell Distribution Width 11.4 % (11.6-14.8) L Platelet Count 247 K/UL (150-450) Mean Platelet Volume 8.8 FL (6.5-10.1) Neutrophils (%) (Auto) 64.5 % (45.0-75.0) Lymphocytes (%) (Auto) 27.2 % (20.0-45.0) Monocytes (%) (Auto) 5.9 % (1.0-10.0) Eosinophils (%) (Auto) 1.4 % (0.0-3.0) Basophils (%) (Auto) 1.0 % (0.0-2.0) Sodium Level 142 MMOL/L (136-145) Potassium Level 3.7 MMOL/L (3.5-5.1) Chloride Level 106 MMOL/L (98-107) Carbon Dioxide Level 30 MMOL/L (21-32) Anion Gap 6 mmol/L (5-15) Blood Urea Nitrogen 23 mg/dL (7-18) H Creatinine 0.7 MG/DL (0.55-1.30) Estimat Glomerular Filtration Rate > 60 mL/min (>60) Glucose Level 138 MG/DL (74-106) H Calcium Level 9.0 MG/DL (8.5-10.1) Microbiology Date/Time Source Procedure Growth Status 01/09/17 06:28 Nasal Nares Right MRSA Culture - Final NO METHICILLIN RESISTANT STAPH AUREUS... Complete 01/09/17 06:28 Rectal Mucosa VRE Culture - Final NO VANCOMYCIN RESISTANT ENTEROCOCCUS ... Complete Intake and Output 01/11/17 01/12/17 19:00 07:00 Intake Total 1080 ml Balance 1080 ml Intake Oral 1080 ml # Voids 3 Objective General Appearance: WD/WN, no apparent distress, alert EENT: PERRL/EOMI, normal ENT inspection, TMs normal Neck: non-tender, normal alignment, supple, normal inspection Cardiovascular: normal peripheral pulses, normal rate, regular rhythm, no gallop/murmur, no JVD Respiratory/Chest: chest wall non-tender, lungs clear, normal breath sounds, no respiratory distress, no accessory muscle use Abdomen: normal bowel sounds, non tender, soft, no organomegaly, no mass Extremities: normal range of motion 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 See cardiology note. (2) Diabetes mellitus Assessment & Plan: stable off meds (3) HTN (hypertension), malignant Assessment & Plan: Cont norvasc and lotensin (4) Deaf nonspeaking, not elsewhere classifiable Status: CIND[employer] Gaming Jan 11, 2017 14:52
--- NOTE | 2017-01-11 17:55 | Cardiology Report ---
APPROVED REPORT EXAM: Two-dimensional and M-mode echocardiogram with Doppler and color Doppler. INDICATION LV function M-Mode DIMENSIONS IVSd1.6 (0.7-1.1cm)Left Atrium (MM)3.2 (1.6-4.0cm) LVDd3.7 (3.5-5.6cm)Aortic Root2.8 (2.0-3.7cm) PWd1.6 (0.7-1.1cm)Aortic Cusp Exc.1.6 (1.5-2.0cm) LVDs1.8 (2.5-4.0cm) PWs2.6 cm Normal left ventricular chamber size, systolic function and wall motion. Left ventricular ejection fraction estimated to be 60-65 %. Mild left ventricular hypertrophy. No evidence of pericardial effusion. All other cardiac chamber sizes are within normal limits. Mild focal aortic valve sclerosis with adequate cusp excursion. Mildly thickened mitral valve leaflets with normal excursion. Mild mitral annulus and aortic root calcification. Pulmonic valve not well visualized. Normal tricuspid valve structure. IVC at normal size with physiologic collapse. A color flow and spectral Doppler study was performed and revealed: Trace aortic regurgitation. Trace mitral regurgitation. Mitral diastolic velocities showed normal diastolic function. Trace tricuspid regurgitation. Tricuspid systolic velocities suggests peak right ventricular systolic pressure of 25 mmHg Mild pulmonic regurgitation present.
--- NOTE | 2017-01-11 18:46 | Cardiology Report ---
APPROVED REPORT EKG Measurement Heart [id number] Normal sinus rhythm Incomplete right bundle branch block Anterior infarct, age undetermined Abnormal ECG
[2017-01-11] MEDS: Fleet's Mineral Oil Enema RECTAL SCH (20:29)
[2017-01-11] MEDS: Sennosides 8.6mg ORAL SCH (20:30)
[2017-01-12 03:55] VITALS: BP 145/72
[2017-01-12 04:47] LABS: BASOPHILS % (AUTO) 1.2 % (0.0-2.0); EOSINOPHILS % (AUTO) 2.2 % (0.0-3.0); LYMPHOCYTES % (AUTO) 34.7 % (20.0-45.0); MEAN CORPUSCULAR HEMOGLOBIN 31.7 PG (27.0-31.0); MEAN CORPUSCULAR HGB CONC 35.3 G/DL (32.0-36.0); MEAN CORPUSCULAR VOLUME 90 FL (80-99); MEAN PLATELET VOLUME 8.8 FL (6.5-10.1); MONOCYTES % (AUTO) 5.4 % (1.0-10.0); NEUTROPHILS % (AUTO) 56.5 % (45.0-75.0); PLATELET COUNT 266 K/UL (150-450); RED BLOOD COUNT 4.04 M/UL (4.20-5.40); RED CELL DISTRIBUTION WIDTH 11.5 % (11.6-14.8); WHITE BLOOD COUNT 8.3 K/UL (4.8-10.8)
[2017-01-12 05:16] LABS: ANION GAP 10 mmol/L (5-15); CALCIUM 9.1 MG/DL (8.5-10.1); CARBON DIOXIDE 25 MMOL/L (21-32); CHLORIDE 105 MMOL/L (98-107); CREATININE 0.8 MG/DL (0.55-1.30); GLOMERULAR FILTRATION RATE > 60 mL/min (>60); POTASSIUM 3.7 MMOL/L (3.5-5.1); SODIUM 139 MMOL/L (136-145)
[2017-01-12 07:57] VITALS: BP 134/93
[2017-01-12] MEDS ORDERED: Fleet's Mineral Oil Enema RECTAL SCH (09:00)
[2017-01-12] MEDS: Benazepril 10mg tab ORAL SCH (09:00)
[2017-01-12] MEDS: Aspirin Baby 81mg ORAL SCH (09:00)
[2017-01-12] MEDS: Sennosides 8.6mg ORAL SCH (09:34)
[2017-01-12] MEDS: Fleet's Mineral Oil Enema RECTAL SCH (09:37)
[2017-01-12] MEDS: Heparin 5000 units/ml inj SUBQ SCH (09:38)
--- NOTE | 2017-01-12 10:25 | Internal Med Progress Note ---
Subjective Date of Service: Jan 12, 2017 Physician Name Garcia,Cindy Attending Physician Beto Low MD Current Medications Medications (Trade) Dose Ordered Sig/Olegario Route PRN Reason Start Time Stop Time Status Last Admin Dose Admin Acetaminophen (Tylenol) 650 mg Q4H PRN ORAL Fever/Headache/Mild Pain 01/09/17 00:45 02/08/17 00:44 01/12/17 09:34 Albuterol/ Ipratropium (Albuterol/ Ipratropium) 3 ml Q4H PRN HHN Shortness of Breath 01/08/17 16:45 01/13/17 16:44 Amlodipine Besylate (Norvasc) 5 mg DAILY ORAL 01/09/17 09:00 02/08/17 08:59 01/12/17 09:36 Aspirin (ASA) 162 mg DAILY ORAL 01/09/17 09:00 02/08/17 08:59 01/12/17 09:00 Benazepril HCl (Lotensin) 10 mg DAILY ORAL 01/09/17 09:00 02/08/17 08:59 01/12/17 09:00 Diltiazem HCl (Cardizem) 10 mg Q1H PRN IV heart rate more than 120, 01/08/17 16:45 02/07/17 16:44 Enalaprilat (Vasotec) 2.5 mg Q6H PRN IV sbp more than 160 01/08/17 16:45 02/07/17 16:44 Gabapentin (Neurontin) 300 mg THREE TIMES A DAY ORAL 01/08/17 18:30 02/07/17 18:29 01/12/17 09:32 Heparin Sodium (Porcine) (Heparin 5000 units/ml) 5,000 units EVERY 12 HOURS SUBQ 01/08/17 21:00 02/07/17 20:59 01/12/17 09:38 Ketorolac Tromethamine (Toradol 30mg) 30 mg Q6H PRN IV moderate pain ( 4-6) 01/08/17 16:45 01/13/17 16:44 01/10/17 05:14 Mineral Oil (Fleet's Mineral Oil Enema) 133 ml DAILY RECTAL 01/11/17 20:00 02/10/17 19:59 01/12/17 09:37 Morphine Sulfate (Morphine Sulfate) 2 mg Q4H PRN IVP severe Pain (Pain Scale 7-10) 01/09/17 17:30 01/15/17 16:44 Nitroglycerin (Ntg) 0.4 mg Every 5 Minutes PRN SL Prn Chest Pain 01/08/17 16:45 02/07/17 16:44 Ondansetron HCl (Zofran) 4 mg Q6H PRN IVP Nausea & Vomiting 01/08/17 16:45 02/07/17 16:44 Polyethylene Glycol (Miralax) 17 gm DAILYPRN PRN ORAL Constipation 01/08/17 16:45 02/07/17 16:44 01/11/17 09:05 Sennosides (Senokot) 8.6 mg DAILY ORAL 01/11/17 20:00 02/10/17 19:59 01/12/17 09:34 Temazepam (Restoril) 15 mg HSPRN PRN ORAL Insomnia 01/08/17 16:45 01/15/17 16:44 Allergies: Coded Allergies: No Known Allergies (Unverified , 01/08/17) ROS Limited/Unobtainable: No Constitutional: Reports: no symptoms HEENT: Reports: no symptoms Cardiovascular: Reports: no symptoms Respiratory: Reports: no symptoms Gastrointestinal/Abdominal: Reports: no symptoms Genitourinary: Reports: no symptoms Neurologic/Psychiatric: Reports: no symptoms Subjective 56 YO F admitted with chest pain and syncope. Cover for Int J Luis-Dr Low. Objective Last Vital Signs Date Time Temp Pulse Resp B/P (MAP) Pulse Ox O2 Delivery O2 Flow Rate FiO2 01/12/17 09:36 71 134/93 01/12/17 07:57 97.3 18 98 Room Air Laboratory Tests Test 01/12/17 04:06 White Blood Count 8.3 K/UL (4.8-10.8) Red Blood Count 4.04 M/UL (4.20-5.40) L Hemoglobin 12.8 G/DL (12.0-16.0) Hematocrit 36.2 % (37.0-47.0) L Mean Corpuscular Volume 90 FL (80-99) Mean Corpuscular Hemoglobin 31.7 PG (27.0-31.0) H Mean Corpuscular Hemoglobin Concent 35.3 G/DL (32.0-36.0) Red Cell Distribution Width 11.5 % (11.6-14.8) L Platelet Count 266 K/UL (150-450) Mean Platelet Volume 8.8 FL (6.5-10.1) Neutrophils (%) (Auto) 56.5 % (45.0-75.0) Lymphocytes (%) (Auto) 34.7 % (20.0-45.0) Monocytes (%) (Auto) 5.4 % (1.0-10.0) Eosinophils (%) (Auto) 2.2 % (0.0-3.0) Basophils (%) (Auto) 1.2 % (0.0-2.0) Sodium Level 139 MMOL/L (136-145) Potassium Level 3.7 MMOL/L (3.5-5.1) Chloride Level 105 MMOL/L (98-107) Carbon Dioxide Level 25 MMOL/L (21-32) Anion Gap 10 mmol/L (5-15) Blood Urea Nitrogen 21 mg/dL (7-18) H Creatinine 0.8 MG/DL (0.55-1.30) Estimat Glomerular Filtration Rate > 60 mL/min (>60) Glucose Level 152 MG/DL (74-106) H Calcium Level 9.1 MG/DL (8.5-10.1) Intake and Output 01/12/17 01/13/17 19:00 07:00 Intake Total 240 ml Balance 240 ml Intake Oral 240 ml Objective General Appearance: WD/WN, no apparent distress, alert EENT: PERRL/EOMI, normal ENT inspection, TMs normal Neck: non-tender, normal alignment, supple, normal inspection Cardiovascular: normal peripheral pulses, normal rate, regular rhythm, no gallop/murmur, no JVD Respiratory/Chest: chest wall non-tender, lungs clear, normal breath sounds, no respiratory distress, no accessory muscle use Abdomen: normal bowel sounds, non tender, soft, no organomegaly, no mass Extremities: normal range of motion Neurologic: outbound sales executive II-XII grossly normal, no motor/sensory deficits, alert Skin: normal pigmentation, warm/dry Assessment/Plan Problem List: (1) Syncope Assessment & Plan: ?iorthostatic? See cardiology note. (2) Diabetes mellitus Assessment & Plan: stable off meds (3) HTN (hypertension), malignant Assessment & Plan: Cont norvasc and lotensin (4) Deaf nonspeaking, not elsewhere classifiable Assessment/Plan D/C home today. F/U PCP in 1 week. CINDY GARCIA Jan 12, 2017 10:25
[2017-01-12 11:39] VITALS: BP 132/80
[2017-01-12] MEDS ORDERED: Magnesium Citrate Liq Btl ORAL ONE (12:00)
--- NOTE | 2017-01-12 12:09 | Pulmonology Progress Note ---
Assessment/Plan Problems: (1) Syncope (2) ACS (acute coronary syndrome) (3) Diabetes mellitus (4) Hypertension (5) Deaf nonspeaking, not elsewhere classifiable Assessment/Plan cardio, neuro cleared BP controlled dc planning Subjective ROS Limited/Unobtainable: No Constitutional: Reports: no symptoms HEENT: Repors: no symptoms Respiratory: Reports: no symptoms Allergies: Coded Allergies: No Known Allergies (Unverified , 01/08/17) Objective Last 24 Hour Vital Signs Date Time Temp Pulse Resp B/P (MAP) Pulse Ox O2 Delivery O2 Flow Rate FiO2 01/12/17 11:39 97.5 69 18 132/80 99 Room Air 01/12/17 09:36 71 134/93 01/12/17 09:00 71 01/12/17 09:00 134/93 01/12/17 08:55 70 01/12/17 08:50 72 01/12/17 07:57 97.3 71 18 134/93 98 Room Air 01/12/17 04:00 62 01/12/17 03:55 97.3 62 20 145/72 96 Room Air 01/12/17 00:16 67 66 68 01/12/17 00:00 74 01/11/17 23:58 97.9 67 20 141/84 96 Room Air 01/11/17 20:00 66 01/11/17 19:55 98.2 64 20 126/77 96 Room Air 01/11/17 16:08 97.7 69 18 153/87 99 Room Air 01/11/17 16:00 69 01/11/17 12:43 98.0 97 18 145/80 98 Room Air Intake and Output 01/12/17 01/13/17 19:00 07:00 Intake Total 240 ml Balance 240 ml Intake Oral 240 ml # Voids 2 General Appearance: WD/WN HEENT: normocephalic, atraumatic Respiratory/Chest: chest wall non-tender, lungs clear, chest wall tender Breasts: no masses Cardiovascular: normal peripheral pulses Abdomen: no organomegaly Genitourinary: normal external genitalia Extremities: no clubbing Skin: no lesions Laboratory Tests 01/12/17 04:06: White Blood Count 8.3, Red Blood Count 4.04L, Hemoglobin 12.8, Hematocrit 36.2L , Mean Corpuscular Volume 90, Mean Corpuscular Hemoglobin 31.7H, Mean Corpuscular Hemoglobin Concent 35.3, Red Cell Distribution Width 11.5L, Platelet Count 266, Mean Platelet Volume 8.8, Neutrophils (%) (Auto) 56.5, Lymphocytes (%) (Auto) 34.7, Monocytes (%) (Auto) 5.4, Eosinophils (%) (Auto) 2.2, Basophils (%) (Auto) 1.2, Sodium Level 139, Potassium Level 3.7, Chloride Level 105, Carbon Dioxide Level 25, Anion Gap 10, Blood Urea Nitrogen 21H, Creatinine 0.8, Estimat Glomerular Filtration Rate > 60, Glucose Level 152H, Calcium Level 9.1 Current Medications Medications (Trade) Dose Ordered Sig/Olegario Route PRN Reason Start Time Stop Time Status Last Admin Dose Admin Acetaminophen (Tylenol) 650 mg Q4H PRN ORAL Fever/Headache/Mild Pain 01/09/17 00:45 02/08/17 00:44 01/12/17 09:34 Albuterol/ Ipratropium (Albuterol/ Ipratropium) 3 ml Q4H PRN HHN Shortness of Breath 01/08/17 16:45 01/13/17 16:44 Amlodipine Besylate (Norvasc) 5 mg DAILY ORAL 01/09/17 09:00 02/08/17 08:59 01/12/17 09:36 Aspirin (ASA) 162 mg DAILY ORAL 01/09/17 09:00 02/08/17 08:59 01/12/17 09:00 Benazepril HCl (Lotensin) 10 mg DAILY ORAL 01/09/17 09:00 02/08/17 08:59 01/12/17 09:00 Diltiazem HCl (Cardizem) 10 mg Q1H PRN IV heart rate more than 120, 01/08/17 16:45 02/07/17 16:44 Enalaprilat (Vasotec) 2.5 mg Q6H PRN IV sbp more than 160 01/08/17 16:45 02/07/17 16:44 Gabapentin (Neurontin) 300 mg THREE TIMES A DAY ORAL 01/08/17 18:30 02/07/17 18:29 01/12/17 09:32 Heparin Sodium (Porcine) (Heparin 5000 units/ml) 5,000 units EVERY 12 HOURS SUBQ 01/08/17 21:00 02/07/17 20:59 01/12/17 09:38 Ketorolac Tromethamine (Toradol 30mg) 30 mg Q6H PRN IV moderate pain ( 4-6) 01/08/17 16:45 01/13/17 16:44 01/10/17 05:14 Mineral Oil (Fleet's Mineral Oil Enema) 133 ml DAILY RECTAL 01/11/17 20:00 02/10/17 19:59 01/12/17 09:37 Morphine Sulfate (Morphine Sulfate) 2 mg Q4H PRN IVP severe Pain (Pain Scale 7-10) 01/09/17 17:30 01/15/17 16:44 Nitroglycerin (Ntg) 0.4 mg Every 5 Minutes PRN SL Prn Chest Pain 01/08/17 16:45 02/07/17 16:44 Ondansetron HCl (Zofran) 4 mg Q6H PRN IVP Nausea & Vomiting 01/08/17 16:45 02/07/17 16:44 Polyethylene Glycol (Miralax) 17 gm DAILYPRN PRN ORAL Constipation 01/08/17 16:45 02/07/17 16:44 01/11/17 09:05 Sennosides (Senokot) 8.6 mg DAILY ORAL 01/11/17 20:00 02/10/17 19:59 01/12/17 09:34 Temazepam (Restoril) 15 mg HSPRN PRN ORAL Insomnia 01/08/17 16:45 01/15/17 16:44 RODY HUBBARD Jan 12, 2017 12:09
[2017-01-13] MEDS ORDERED: ASPIR 8181 MG ORAL (10:50)
[2017-01-13] MEDS ORDERED: ATORVASTATIN CA10 MG ORAL (10:50)
--- NOTE | 2017-01-13 10:56 | Discharge Summary ---
Discharge Summary Hospital Course Date of Admission Jan 08, 2017 at 16:00 Date of Discharge Jan 12, 2017 at 13:10 Admitting Diagnosis ACUTE CORONARY SYNDROM HPI Stella Horne is a 56 year old female who was admitted on Jan 08, 2017 at 16:00 for Acute Coronary Syndrome Hospital Course dc summary #[id number] Discharge Medications New Medications: Aspirin* (Aspir 81*) 81 Mg Tablet.dr 81 MG ORAL DAILY, #30 TAB Atorvastatin Calcium* (Lipitor*) 10 Mg Tablet 10 MG ORAL BEDTIME, #30 TAB Continued Medications: Amlodipine Besylate* (Amlodipine Besylate*) 5 Mg Tablet 5 MG ORAL DAILY, TAB Benazepril Hcl* (Benazepril Hcl*) 10 Mg Tablet 10 MG ORAL DAILY, TAB Ergocalciferol (Vitamin D2)* (Vitamin D*) 50,000 Unit Capsule [id number] UNIT ORAL ONCE A WEEK, CAP Gabapentin* (Gabapentin*) 300 Mg Capsule 300 MG ORAL THREE TIMES A DAY, CAP 0 Refills Discontinued Medications: Hydrochlorothiazide* (Hydrochlorothiazide*) 25 Mg Tablet 25 MG ORAL DAILY, TAB Discharge Discharge Disposition Patient was discharged to [facility] ([facility]) Discharge Diagnoses: Mirza (Vancbereketein)Kassy NP Jan 13, 2017 10:56
--- NOTE | 2017-01-13 21:00 | Discharge Summary 2 SIG ---
DATE OF ADMISSION: 01/08/2017 DATE OF DISCHARGE: 01/12/2017 REASON FOR ADMISSION: 56-year-old female, deaf and mute, with history of diabetes and hypertension, presented to emergency room with dizziness, headache, chest pain, and recurrent syncopal episodes. Workup in the emergency room revealed uncontrolled blood pressure- 188/107, otherwise vital signs were stable. Troponin was negative. No leukocytosis. Stable hemoglobin and hematocrit. Stable electrolytes. CT of the head revealed no evidence of acute intracranial pathology. EKG revealed normal sinus rhythm. Troponin was negative. Chest x-ray revealed no acute cardiopulmonary pathology. The patient was admitted for chest pain, rule out acute coronary syndrome and recurrent syncopal episodes. HOSPITAL STAY: The patient was admitted to telemetry floor. Neurology, Cardiology, and Pulmonology consults were requested. According to architecture internship, the patient had a chest wall pain reproducible on palpation, likely of musculoskeletal origin. The patient denied any associated shortness of breath. Pulse oximetry was stable on the room air. Echocardiogram revealed preserved ejection fraction of 60% to 65%, right ventricular systolic pressure of 25, and mild left ventricular hypertrophy. Lipid panel revealed elevated triglycerides of 298 and elevated LDL of 118 with total cholesterol borderline 199. TSH was within normal limits. The patient was educated on cardiac, low fat, low-cholesterol diabetic diet and started on the statin. The patient had no paroxysmal nocturnal dyspnea. No orthopnea. There was no evidence of arrhythmia on EKG. EKG revealed sinus rhythm. Telemetry was personally reviewed by architecture internship. Kitchen Bath Designer recommended orthostatic vital signs. Orthostatic vital signs revealed no evidence of orthostatic changes. Syncope was likely vasovagal. Neurologist closely followed the patient. As mentioned above, CT of the head was negative. Neurologist also recommended orthostatic vital signs check and hydrate with IV fluids if positive. There was no orthostatic changes as mentioned above. Proper oral hydration was encouraged. Due to the multiple stroke risk factors, the patient was started on low dose aspirin. DVT prophylaxis was provided. Per neurologist, syncope was likely vasovagal in origin. The patient was on diuretic prior to admission, at home. Diuretics were stopped. Blood pressure was controlled with HANNAH inhibitor and calcium channel xavi. As mentioned above, statin and aspirin were added to existing regimen. Pro BNP was only 111. Pulse oximetry was stable on room air. No evidence of respiratory insufficiency. No dizziness. No chest pain. Blood sugar was managed with sliding scale of insulin and was stable. Pain management was provided. Bowel regimen was instituted. The patient was stable for discharge. FINAL DIAGNOSES: 1. Chest wall pain, likely of musculoskeletal origin. 2. Recurrent syncope, likely vasovagal. 3. Possible dehydration. 4. Hyperlipidemia. 5. Diabetes. 6. Hypertension. DISCHARGE MEDICATIONS: See medication reconciliation list. DISCHARGE INSTRUCTIONS: The patient was discharged to [facility] FOLLOWUP: Follow up with the primary medical doctor. Beto Low M.D. I have been assigned to dictate discharge summary on this account and I was not involved in the patient's management. Kassy LomasBath Va Medical CenterRio N.PGarland DR: LEE JOB#: [id number] CC: ROME
== END 2017-01-12 13:10 | disposition home or self-care (01) | DRG 313 ==
LOC: EDBD 14:06 → EMR 14:44 → 2E 16:00 → EDBEDREQ 17:47 → 2E 01-09 14:46
DX: R07.89 Other chest pain (principal); I10 Essential (primary) hypertension; E11.9 Type 2 diabetes mellitus without complications; H91.3 Deaf nonspeaking, not elsewhere classified; E86.0 Dehydration; E78.5 Hyperlipidemia, unspecified; Z79.84 Long term (current) use of oral hypoglycemic drugs
CPT/HCPCS: 36415; 70450; 71010; 80048; 80053; 80061; 81003; 82550; 82553; 83690; 83880; 84443; 84484; 85025; 85610; 85730; 86140; 87081; 93005; 93306; 99285

== ENCOUNTER 2017-06-20 23:23 | Emergency (ER) | payer MEDICAID, OTHER ==
[~2017-06-20] VITALS: Ht 160 cm; Wt 68.0 kg
[~2017-06-20 23:23] MED LIST: AMLODIPINE BESYL5 MG ORAL; ASPIR 8181 MG ORAL; ATORVASTATIN CA10 MG ORAL; BENAZEPRIL HCL10 MG ORAL; GABAPENTIN300 MG ORAL; HYDROCHLOROTHIA25 MG ORAL; VITAMIN D250000 UNI1 ORAL
[2017-06-20 23:35] VITALS: BP 123/68
[2017-06-21 01:00] VITALS: BP 130/58
[2017-06-21] MEDS ORDERED: IBUPROFEN600 MG ORAL (01:19)
[2017-06-21 01:54] VITALS: BP 145/64
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
--- NOTE | 2017-06-21 10:47 | Diagnostic Imaging Report ---
Indication: Head trauma. Headache Technique: Contiguous 5 mm thick transaxial imaging of the head obtained in a Siemens Sensation [address] scanner. Soft tissue and bone windows generated. Automatic Exposure Control was utilized. Total Dose length Product (DLP): 1323.[address] Dose Index Volume (CTDIvol): 70.38 mGy Comparison: 01/08/2017 Findings: The size and configuration of the cortical sulci, basal cisterns, and ventricles are within normal limits for age. There is no mass effect, midline shift, or edema identified. There is no evidence of acute hemorrhage or abnormal intra-axial or extra-axial fluid collections. The bones and soft tissues are unremarkable. Impression: No mass effect, edema or acute bleed. [facility] has communicated the preliminary results to the Emergency Department. Their findings are largely concordant with this report. The CT scanner at [facility] is accredited by the [employer] 01/08/2017 of Radiology and the scans are performed using dose optimization techniques as appropriate to a performed exam including Automatic Exposure control.
== END 2017-06-21 01:54 | disposition home or self-care (01) ==
LOC: EMR 23:55
DX: S09.90XA Unspecified injury of head, initial encounter (principal); S00.511A Abrasion of lip, initial encounter; W19.XXXA Unspecified fall, initial encounter; Y93.9 Activity, unspecified; Y92.9 Unspecified place or not applicable; E11.9 Type 2 diabetes mellitus without complications; I10 Essential (primary) hypertension
CPT/HCPCS: 70450; 99284

== ENCOUNTER 2017-07-02 21:44 | Emergency (ER) | payer OTHER ==
[~2017-07-02] VITALS: Ht 144.8 cm; Wt 53.5 kg
[~2017-07-02 21:44] MED LIST changes: +IBUPROFEN600 MG ORAL
[2017-07-02] MEDS ORDERED: CRESTOR40 MG ORAL (21:58)
[2017-07-02] MEDS ORDERED: METFORMIN HCL1000 M1 ORAL (21:58)
[2017-07-02] MEDS ORDERED: HYDROCHLOROTHIA25 MG ORAL (21:58)
[2017-07-02] MEDS ORDERED: ATORVASTATIN CA40 MG ORAL (21:58)
[2017-07-02] MEDS ORDERED: ASPIR 8181 MG ORAL (21:58)
[2017-07-02] MEDS ORDERED: ZANTAC150 MG ORAL (21:58)
[2017-07-02] MEDS ORDERED: Aspirin Baby 81mg ORAL ONE (22:15)
[2017-07-02] MEDS ORDERED: Ketorolac 30mg Inj IV ONE (22:15)
--- NOTE | 2017-07-02 22:24 | Emergency Room Report ---
History of Present Illness General Chief Complaint: Chest Pain Source: Patient, Medical Record Present Illness HPI This is a 56-year-old female who is deaf and mute. She communicated by writing. She also has history of high blood pressure and diabetes. She currently lives in her intermediate. She was brought in by the eye care professional because of chief complaint of chest pain. Has been ongoing for 4-5 days. Pain is 10 out of 10. Going to her back. Pain to her chest into her whole body. No cough congestion. No fever chills but no nausea no vomiting. No shortness of breath. She was admitted here in 2017 for chest pain. Workup showed normal labs and echocardiogram showed normal ejection fraction with mild LVH. Allergies: Coded Allergies: No Known Allergies (Unverified , 01/08/17) Patient History Past Medical History: see triage record, old chart reviewed, DM, HTN Past Surgical History: other Pertinent Family History: none Social History: Denies: smoking Last Menstrual Period: NA Now: No Immunizations: other Reviewed Nursing Documentation: PMH: Agreed; PSxH: Agreed Nursing Documentation-PMH Hx Hypertension: Yes Hx Diabetes: Yes Hx Cancer: No Hx Gastrointestinal Problems: No Hx Neurological Problems: No Review of Systems Eye: Denies: eye pain, blurred vision ENT: Denies: ear pain, nose congestion, throat swelling Respiratory: Denies: cough, shortness of breath Cardiovascular: Reports: chest pain; Denies: palpitations Gastrointestinal: Denies: abdominal pain, diarrhea, nausea, vomiting Musculoskeletal: Denies: back pain, joint pain Skin: Denies: rash Neurological: Denies: headache, numbness Endocrine: Denies: increased thirst, increased urine Hematologic/Lymphatic: Denies: easy bruising All Other Systems: negative except mentioned in HPI Physical Exam Vital Signs Date Time Temp Pulse Resp B/P (MAP) Pulse Ox O2 Delivery O2 Flow Rate FiO2 07/02/17 21:48 98.5 79 18 149/80 98 Room Air 98.4 vitals with high blood pressure Sp02 EP Interpretation: reviewed, normal General Appearance: well appearing, no apparent distress, alert Head: normocephalic, atraumatic Eyes: bilateral eye PERRL, bilateral eye EOMI ENT: hearing grossly normal, normal pharynx Neck: full range of motion, supple, no meningismus Respiratory: chest non-tender, lungs clear, normal breath sounds Cardiovascular #1: regular rate, rhythm, no murmur Gastrointestinal: normal bowel sounds, non tender, no mass, no organomegaly, no bruit, non-distended Musculoskeletal: back normal, gait/station normal, normal range of motion Psychiatric: mood/affect normal Skin: warm/dry Medical Decision Making Diagnostic Impression: Primary Impression: Chest pain Qualified Codes: R07.9 - Chest pain, unspecified ER Course Patient with atypical chest pain ongoing for for 5 days. Troponin negative 2. Unlikely to be ACS. EKG is unchanged from before. She appeared to be very nervous and complaining of palpitation with heart rate was only in the 80s. When I examine her she was shaking and crying. Better after Ativan. Lab Results Impression labs unremarkable EKG Diagnostic Results Rate: normal Rhythm: NSR ST Segments: other - incomplete RBBB. NSST changes. no change from 01/11/17 ASA given to the pt in ED: Yes Rhythm Strip Diag. Results Rhythm Strip Time: 22:23 EP Interpretation: yes Rate: 72 Rhythm: NSR, no PVC's, no ectopy Chest X-Ray Diagnostic Results Chest X-Ray Diagnostic Results : Chest X-Ray Ordered: Yes # of Views/Limited/Complete: 1 View Indication: Chest Pain EP Interpretation: Yes Interpretation: no consolidation, no effusion, no pneumothorax, no acute cardiopulmonary disease Impression: No acute disease Electronically Signed by: Nicolas Hanna MD Last Vital Signs Date Time Temp Pulse Resp B/P (MAP) Pulse Ox O2 Delivery O2 Flow Rate FiO2 07/02/17 21:48 98.5 79 18 149/80 98 Room Air 98.4 Status: improved Disposition: HOME, SELF-CARE Condition: Stable Patient Instructions: Nonspecific Chest Pain Additional Instructions: follow-up with your doctor in 3-5 days. Return if worse. NICOLAS HANNA M.D. Jul 02, 2017 22:24
[2017-07-02 22:34] LABS: APPEARANCE,URINE CLEAR; BILIRUBIN, URINE NEGATIVE (NEGATIVE); COLOR,URINE PALE YELLOW; GLUCOSE, URINE (UA) NEGATIVE (NEGATIVE); KETONES,URINE NEGATIVE (NEGATIVE); LEUKOCYTE ESTERASE ,URINE 2+ (NEGATIVE); NITRITE,URINE NEGATIVE (NEGATIVE); PH,URINE 6 (4.5-8.0); PROTEIN,URINE 1+ (NEGATIVE); UROBILINOGEN,URINE NORMAL MG/DL (0.0-1.0)
[2017-07-02 22:34] LABS: EOSINOPHILS % (AUTO) 0.9 % (0.0-3.0); HEMATOCRIT 37.2 % (37.0-47.0); HEMOGLOBIN 13.3 G/DL (12.0-16.0); LYMPHOCYTES % (AUTO) 21.7 % (20.0-45.0); MEAN CORPUSCULAR VOLUME 85 FL (80-99); MONOCYTES % (AUTO) 5.1 % (1.0-10.0); NEUTROPHILS % (AUTO) 71.3 % (45.0-75.0); PLATELET COUNT 264 K/UL (150-450); RED BLOOD COUNT 4.37 M/UL (4.20-5.40); RED CELL DISTRIBUTION WIDTH 11.5 % (11.6-14.8); WHITE BLOOD COUNT 12.7 K/UL (4.8-10.8)
[2017-07-02 22:57] LABS: ALANINE AMINOTRANSFERASE 39 U/L (12-78); ALBUMIN/GLOBULIN RATIO 1.1 (1.0-2.7); ALKALINE PHOSPHATASE 118 U/L (46-116); ANION GAP 10 mmol/L (5-15); ASPARTATE AMINO TRANSFERASE 27 U/L (15-37); BILIRUBIN,TOTAL 0.3 MG/DL (0.2-1.0); BLOOD UREA NITROGEN 17 mg/dL (7-18); CALCIUM 9.5 MG/DL (8.5-10.1); CARBON DIOXIDE 33 MMOL/L (21-32); CHLORIDE 98 MMOL/L (98-107); CKMB 0.9 NG/ML (0.0-3.6); CREATINE KINASE 128 U/L (26-308); CREATININE 0.9 MG/DL (0.55-1.30); SODIUM 141 MMOL/L (136-145)
[2017-07-02 22:58] LABS: POTASSIUM 2.6 MMOL/L (3.5-5.1)
[2017-07-02] MEDS ORDERED: LORazepam Inj 2mg/ml 1ml IV ONE (23:15)
[2017-07-03] VITALS: BP 134/73
[2017-07-03] MEDS ORDERED: IBUPROFEN600 MG ORAL (00:46)
[2017-07-03 05:00] VITALS: BP 134/73
--- NOTE | 2017-07-03 18:44 | Diagnostic Imaging Report ---
Indication: Chest pain Technique: XRAY Chest 1v Comparison: 01/08/2017 Findings: Stable cardiomegaly. Mediastinal contours are sharp. There is no focal consolidation, pneumothorax or pleural effusion. Osseous structures demonstrate no acute abnormality. IMPRESSION: No radiographic evidence of acute cardiopulmonary disease. Stable cardiomegaly.
== END 2017-07-03 05:32 | disposition home or self-care (01) ==
LOC: EMR 21:55
DX: R07.89 Other chest pain (principal); I10 Essential (primary) hypertension; E11.9 Type 2 diabetes mellitus without complications
CPT/HCPCS: 36415; 71045; 80053; 81003; 82550; 82553; 84484; 85025; 93005; 96374; 96375; 99284; J1885; J8499

== ENCOUNTER 2017-10-28 12:21 | Emergency (ER) | payer OTHER ==
[~2017-10-28] VITALS: Ht 162.6 cm; Wt 59.0 kg
[~2017-10-28 12:21] MED LIST changes: +ATORVASTATIN CA40 MG ORAL; +CRESTOR40 MG ORAL; +METFORMIN HCL1000 M1 ORAL; +ZANTAC150 MG ORAL
--- NOTE | 2017-10-28 13:56 | Emergency Room Report ---
History of Present Illness General Chief Complaint: Headache Source: Patient Present Illness HPI This patient c/o 1-2 days headache but also for about a week. Unclear if there is a pattern due to language barrier (deaf) but it seems like constant. Frontal and right. Pt. is pre-dental work either multiple root canals or extractions right upper. No fever, no known trauma. No URI complaint. No neck pain not altered. Pt. is living at a transitional housing and is with her caser shoe parts. No vomiting. Allergies: Coded Allergies: No Known Allergies (Unverified , 01/08/17) Nursing Documentation-[facility] Past Medical History: No History, Except For Hx Hypertension: Yes Hx Diabetes: Yes Hx Cancer: No Hx Gastrointestinal Problems: No Hx Neurological Problems: No Review of Systems Constitutional: Denies: fever Eye: Denies: acuity changes Respiratory: Denies: cough, shortness of breath Cardiovascular: Denies: chest pain Gastrointestinal: Denies: nausea, vomiting Skin: Denies: rash Neurological: Reports: headache All Other Systems: limited Physical Exam Vital Signs Date Time Temp Pulse Resp B/P (MAP) Pulse Ox O2 Delivery O2 Flow Rate FiO2 10/28/17 12:25 98.5 72 16 144/77 94 Room Air 98.4 General Appearance: well appearing, no apparent distress Head: normocephalic, other - abrasion at midline/hairline ENT: other - +TTP right upper posterior teeth. partial dentures bilaterallly. several missing teeth. no definite abscess Neck: full range of motion, supple Respiratory: no respiratory distress, speaking full sentences Gastrointestinal: normal inspection, normal bowel sounds, non tender, soft Musculoskeletal: normal inspection, gait/station normal, normal range of motion , no calf tenderness Neurologic: alert, normal gait Psychiatric: mood/affect normal Skin: no rash Medical Decision Making Diagnostic Impression: Primary Impression: Headache ER Course I think headache likely related to dental caries but there is an abrasion at mid frontal near hairline. This is very tender and want to r/o occult intracerebral pathology. I have asked next MD Jones to check CT result but I anticipate d/c. The dental caries etiology - does not need antibiotics. There is no sign of infection. Continue to get dental care as outpt. Last Vital Signs Date Time Temp Pulse Resp B/P (MAP) Pulse Ox O2 Delivery O2 Flow Rate FiO2 10/28/17 12:25 98.5 72 16 144/77 94 Room Air 98.4 Disposition: HOME, SELF-CARE Condition: Stable Referrals: NON PHYSICIAN (PCP) Patient Instructions: General Headache Without Cause Mitch Michel M.D. Oct 28, 2017 13:56
--- NOTE | 2017-10-28 14:01 | Diagnostic Imaging Report ---
Indications: Headache Technique: Spiral acquisitions obtained through the brain. Angled axial and coronal 5 x 5 mm slices were reconstructed. Total dose length product 1245.72 mGycm. CTDI vol(s) 70.38 mGy. Dose reduction achieved using automated exposure control Comparison: None. Findings: No acute intracranial hemorrhage or edema, mass effect, nor midline shift. A parenchymal calcification is seen in the left parasagittal parietal lobe. Normal wheat-white differentiation. Visualized orbits and sinuses are unremarkable. The calvarium is intact. No significant interim change Impression: Negative for acute intracranial bleed or mass effect Left parietal parenchymal calcification,, likely old cysticercosis The CT scanner at [facility] is accredited by the [employer] and the scans are performed using protocols designed to limit radiation exposure to as low as reasonably achievable to attain images of sufficient resolution adequate for diagnostic evaluation.
[2017-10-28 14:06] VITALS: BP 114/72
[2017-10-28 14:12] LABS: EOSINOPHILS % (AUTO) 0.9 % (0.0-3.0); HEMATOCRIT 37.1 % (37.0-47.0); HEMOGLOBIN 12.9 G/DL (12.0-16.0); MEAN CORPUSCULAR VOLUME 85 FL (80-99); MONOCYTES % (AUTO) 4.6 % (1.0-10.0); NEUTROPHILS % (AUTO) 76.4 % (45.0-75.0); PLATELET COUNT 265 K/UL (150-450); RED BLOOD COUNT 4.38 M/UL (4.20-5.40); RED CELL DISTRIBUTION WIDTH 11.2 % (11.6-14.8); WHITE BLOOD COUNT 10.4 K/UL (4.8-10.8)
[2017-10-28 14:32] LABS: ANION GAP 10 mmol/L (5-15); BLOOD UREA NITROGEN 19 mg/dL (7-18); CALCIUM 8.9 MG/DL (8.5-10.1); CARBON DIOXIDE 27 MMOL/L (21-32); CHLORIDE 104 MMOL/L (98-107); CREATININE 0.8 MG/DL (0.55-1.30); SODIUM 141 MMOL/L (136-145)
[2017-10-28 14:37] LABS: ALANINE AMINOTRANSFERASE 24 U/L (12-78); ALBUMIN 3.6 G/DL (3.4-5.0); ALKALINE PHOSPHATASE 96 U/L (46-116); ASPARTATE AMINO TRANSFERASE 18 U/L (15-37); BILIRUBIN,TOTAL 0.2 MG/DL (0.2-1.0)
[2017-10-28 15:01] VITALS: BP 122/70
== END 2017-10-28 15:01 | disposition home or self-care (01) ==
LOC: EMR 13:40
DX: R51 Headache (principal); E11.9 Type 2 diabetes mellitus without complications; I10 Essential (primary) hypertension; H91.90 Unspecified hearing loss, unspecified ear
CPT/HCPCS: 36415; 70450; 80053; 85025; 99284

== ENCOUNTER 2017-11-01 17:54 | Emergency (ER) | payer OTHER ==
[~2017-11-01] VITALS: Ht 154.9 cm; Wt 65.8 kg
[2017-11-01 18:04] VITALS: BP 146/78
--- NOTE | 2017-11-01 18:34 | Emergency Room Report ---
History of Present Illness General Chief Complaint: Syncope Source: Patient, Medical Record Present Illness HPI Patient is a 56-year-old female brought in by EMS after reported syncopal episode. Patient had prior history of the deaf and mute. The patient was noted to have prior history of syncopal episode. She had not been vomiting. Patient was noted to have some pale discoloration after syncopal episode.The patient reportedly had been having increased vertigo sensation as well as a throbbing headache on the right side. The patient denied any numbness or weakness to her extremities. Allergies: Coded Allergies: No Known Allergies (Unverified , 01/08/17) Patient History Past Medical History: see triage record Reviewed Nursing Documentation: PMH: Agreed; PSxH: Agreed Nursing Documentation-PMH Past Medical History: No History, Except For Hx Hypertension: Yes Hx Diabetes: Yes Hx Cancer: No Hx Gastrointestinal Problems: No Hx Neurological Problems: No Review of Systems All Other Systems: negative except mentioned in HPI Physical Exam Vital Signs Date Time Temp Pulse Resp B/P (MAP) Pulse Ox O2 Delivery O2 Flow Rate FiO2 11/01/17 17:51 97.8 77 16 175/98 98 Room Air 97.9 Sp02 EP Interpretation: reviewed, normal General Appearance: normal inspection, well appearing, no apparent distress, alert, GCS 15, non-toxic ENT: normal ENT inspection, hearing grossly normal, normal voice Neck: normal inspection, full range of motion, supple, no bony tend, other - c collar Respiratory: normal inspection, lungs clear, normal breath sounds, no respiratory distress, no retraction, no wheezing Cardiovascular #1: regular rate, rhythm, no edema Gastrointestinal: normal inspection, normal bowel sounds, non tender, soft, no guarding, no hernia Genitourinary: no CVA tenderness Musculoskeletal: normal inspection, back normal, normal range of motion Neurologic: normal inspection, alert, oriented x3, responsive, slate splitter III-XII nml as tested, speech normal Psychiatric: normal inspection, judgement/insight normal, mood/affect normal Skin: normal inspection, normal color, no rash Medical Decision Making Diagnostic Impression: Primary Impression: Syncope ER Course Patient presented for syncope. Differential diagnosis included but was not limited to arrhythmia, orthostatic hypotension, hypovolemia, vasovagal, anemia among others.Because of complexity of patient's case laboratory testing and imaging studies were ordered.The laboratory testing was unremarkable. Patient was noted to have EKG with incomplete right bundle-branch block. CT of the head read by radiology showed no evidence of acute intracranial hemorrhage. The CT cervical spine read by radiology showed degenerative changes without evident acute malalignment or fracture. The patient was given Reglan for headache. The patient was discussed with Dr. Coates who agreed to accept the patient in transfer. Labs Test 11/01/17 18:05 White Blood Count 10.4 K/UL (4.8-10.8) Red Blood Count 4.22 M/UL (4.20-5.40) Hemoglobin 12.5 G/DL (12.0-16.0) Hematocrit 35.7 % (37.0-47.0) Mean Corpuscular Volume 85 FL (80-99) Mean Corpuscular Hemoglobin 29.7 PG (27.0-31.0) Mean Corpuscular Hemoglobin Concent 35.1 G/DL (32.0-36.0) Red Cell Distribution Width 11.0 % (11.6-14.8) Platelet Count 261 K/UL (150-450) Mean Platelet Volume 8.2 FL (6.5-10.1) Neutrophils (%) (Auto) 74.5 % (45.0-75.0) Lymphocytes (%) (Auto) 19.5 % (20.0-45.0) Monocytes (%) (Auto) 4.3 % (1.0-10.0) Eosinophils (%) (Auto) 0.9 % (0.0-3.0) Basophils (%) (Auto) 0.8 % (0.0-2.0) Prothrombin Time 10.1 SEC (9.30-11.50) Prothromb Time International Ratio 1.0 (0.9-1.1) Activated Partial Thromboplast Time 24 SEC (23-33) Sodium Level 139 MMOL/L (136-145) Potassium Level 3.5 MMOL/L (3.5-5.1) Chloride Level 103 MMOL/L (98-107) Carbon Dioxide Level 25 MMOL/L (21-32) Anion Gap 11 mmol/L (5-15) Blood Urea Nitrogen 20 mg/dL (7-18) Creatinine 0.7 MG/DL (0.55-1.30) Estimat Glomerular Filtration Rate > 60 mL/min (>60) Glucose Level 107 MG/DL (74-106) Calcium Level 9.6 MG/DL (8.5-10.1) Total Bilirubin 0.3 MG/DL (0.2-1.0) Aspartate Amino Transf (AST/SGOT) 15 U/L (15-37) Alanine Aminotransferase (ALT/SGPT) 32 U/L (12-78) Alkaline Phosphatase 96 U/L (46-116) Total Protein 7.3 G/DL (6.4-8.2) Albumin 4.0 G/DL (3.4-5.0) Globulin 3.3 g/dL Albumin/Globulin Ratio 1.2 (1.0-2.7) EKG Diagnostic Results Rate: normal Rhythm: NSR ST Segments: no acute changes Rhythm Strip Diag. Results EP Interpretation: yes Rhythm: NSR, no PVC's, no ectopy Last Vital Signs Date Time Temp Pulse Resp B/P (MAP) Pulse Ox O2 Delivery O2 Flow Rate FiO2 11/01/17 18:04 97.9 63 18 146/78 98 Room Air 97.9 Status: unchanged Disposition: XFER SHT-TRM HOSP Condition: Serious Referrals: [facility]ERR[facility] (PCP) Carl Jones MD Nov 01, 2017 18:34
[2017-11-01 18:37] LABS: BASOPHILS % (AUTO) 0.8 % (0.0-2.0); EOSINOPHILS % (AUTO) 0.9 % (0.0-3.0); HEMATOCRIT 35.7 % (37.0-47.0); HEMOGLOBIN 12.5 G/DL (12.0-16.0); LYMPHOCYTES % (AUTO) 19.5 % (20.0-45.0); MEAN CORPUSCULAR VOLUME 85 FL (80-99); MONOCYTES % (AUTO) 4.3 % (1.0-10.0); NEUTROPHILS % (AUTO) 74.5 % (45.0-75.0); PLATELET COUNT 261 K/UL (150-450); RED BLOOD COUNT 4.22 M/UL (4.20-5.40); WHITE BLOOD COUNT 10.4 K/UL (4.8-10.8)
[2017-11-01 18:40] LABS: ANION GAP 11 mmol/L (5-15); BLOOD UREA NITROGEN 20 mg/dL (7-18); CALCIUM 9.6 MG/DL (8.5-10.1); CARBON DIOXIDE 25 MMOL/L (21-32); CHLORIDE 103 MMOL/L (98-107); CREATININE 0.7 MG/DL (0.55-1.30); POTASSIUM 3.5 MMOL/L (3.5-5.1); SODIUM 139 MMOL/L (136-145)
[2017-11-01 18:45] LABS: ALANINE AMINOTRANSFERASE 32 U/L (12-78); ALBUMIN/GLOBULIN RATIO 1.2 (1.0-2.7); ALKALINE PHOSPHATASE 96 U/L (46-116); ASPARTATE AMINO TRANSFERASE 15 U/L (15-37); BILIRUBIN,TOTAL 0.3 MG/DL (0.2-1.0)
[2017-11-01] MEDS ORDERED: Meclizine 25mg tab ORAL ONE (18:45)
[2017-11-01 19:30] VITALS: BP 151/72
[2017-11-01] MEDS ORDERED: Metoclopramide 10mg/2ml Inj IVP ONE (20:00)
[2017-11-01 20:19] LABS: APPEARANCE,URINE CLEAR; BILIRUBIN, URINE NEGATIVE (NEGATIVE); COLOR,URINE PALE YELLOW; GLUCOSE, URINE (UA) NEGATIVE (NEGATIVE); KETONES,URINE NEGATIVE (NEGATIVE); LEUKOCYTE ESTERASE ,URINE 1+ (NEGATIVE); NITRITE,URINE NEGATIVE (NEGATIVE); PH,URINE 5 (4.5-8.0); PROTEIN,URINE NEGATIVE (NEGATIVE); UROBILINOGEN,URINE NORMAL MG/DL (0.0-1.0)
[2017-11-01 21:00] VITALS: BP 141/80
[2017-11-01 21:30] VITALS: BP 141/80
--- NOTE | 2017-11-02 09:39 | Diagnostic Imaging Report ---
Indication: Neck pain, status post recent syncopal episode Technique: Spiral acquisitions obtained through the cervical spine. No IV contrast utilized. Multiplanar reconstructions were generated. Total dose length product 1568 mGycm. CTDIvol(s) 70.38,11.77 mGy. Dose reduction achieved using automated exposure control. Comparison: none Findings: Bony alignment is normal. 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 No acute fractures. No dislocations. No prevertebral soft tissue swelling. There is also congenital appearing fusion of the right first and second ribs At C3-4, mild circumferential annular bulge results in borderline narrowing of the spinal canal. This is exacerbated by short pedicles and midline protrusion of the posterior aspect of C4 impinges slightly on the anterior aspect of the cord below the disc. The neural foramina are preserved. At C4-5, there is broad-based right paracentral disc protrusion. This impinges somewhat on the central cord, more significantly on the right lateral cord and lateral recess, and also extends well into and likely compromises the right neural foramen. There is very mild narrowing of the left neural foramen. At C5-6, there is mild degenerative disc narrowing. Posterior osteophytes result in borderline narrowing of the spinal canal. There is mild left and moderate right neural foraminal stenosis. At C6-7, no significant disc bulge or protrusion or neural foraminal stenosis or spinal stenosis At C7-T1, no significant disc bulge or protrusion or spinal stenosis. There is mild narrowing of the left neural foramen. The right thyroid lobe is heterogeneous with multiple small nodules. Impression: No acute bony trauma Multilevel degenerative changes, as detailed on a level by level basis above. This agrees with the preliminary interpretation provided overnight by [employer] service. The CT scanner at [facility] is accredited by the [employer] and the scans are performed using protocols designed to limit radiation exposure to as low as reasonably achievable to attain images of sufficient resolution adequate for diagnostic evaluation.
--- NOTE | 2017-11-02 09:41 | Diagnostic Imaging Report ---
Indications: Head pain, syncope Technique: Spiral acquisitions obtained through the brain. Angled axial and coronal 5 x 5 mm slices were reconstructed. Total dose length product 1568 mGycm. CTDI vol(s) 70.38,11.77 mGy. Dose reduction achieved using automated exposure control Comparison: 10/28/2017 Findings: Calcification is again demonstrated in the left parietal lobe. No acute intracranial hemorrhage or edema, mass effect, nor midline shift. Normal size ventricles and extra-axial CSF spaces. Normal wheat-white differentiation. Visualized orbits and sinuses are unremarkable. The calvarium is intact. No significant interim change Impression: . Negative for acute intracranial bleed or mass effect Left parietal parenchymal calcification, may represent prior cysticercosis infection. This agrees with the preliminary interpretation provided overnight by [facility] service. The CT scanner at [facility] is accredited by the [employer] and the scans are performed using protocols designed to limit radiation exposure to as low as reasonably achievable to attain images of sufficient resolution adequate for diagnostic evaluation.
--- NOTE | 2017-11-09 18:50 | Cardiology Report ---
APPROVED REPORT EKG Measurement Heart [id number] [id number] Normal sinus rhythm Incomplete right bundle branch block Borderline ECG
== END 2017-11-01 21:30 | disposition short-term general hospital (02) ==
LOC: EDBD 17:54 → EMR 18:11 → EDBEDREQ 19:33 → EMR 21:30
DX: R55 Syncope and collapse (principal); R51 Headache; E11.9 Type 2 diabetes mellitus without complications; I10 Essential (primary) hypertension
CPT/HCPCS: 36415; 70450; 72125; 80053; 80307; 81001; 81025; 84484; 85025; 85610; 85730; 87086; 87181; 93005; 96374; 99285; J2765

== ENCOUNTER 2018-02-17 19:39 | Inpatient (IN) | payer MEDICAID, OTHER ==
[~2018-02-17] VITALS: Ht 157.5 cm; Wt 65.8 kg
[2018-02-17] MEDS ORDERED: Aspirin Baby 81mg ORAL ONE (20:00)
[2018-02-17 20:42] LABS: BASOPHILS % (AUTO) 0.6 % (0.0-2.0); EOSINOPHILS % (AUTO) 0.7 % (0.0-3.0); HEMATOCRIT 40.7 % (37.0-47.0); HEMOGLOBIN 13.8 G/DL (12.0-16.0); LYMPHOCYTES % (AUTO) 18.6 % (20.0-45.0); MEAN CORPUSCULAR VOLUME 84 FL (80-99); MONOCYTES % (AUTO) 4.7 % (1.0-10.0); NEUTROPHILS % (AUTO) 75.3 % (45.0-75.0); PLATELET COUNT 295 K/UL (150-450); RED BLOOD COUNT 4.87 M/UL (4.20-5.40); RED CELL DISTRIBUTION WIDTH 10.5 % (11.6-14.8); WHITE BLOOD COUNT 11.5 K/UL (4.8-10.8)
[2018-02-17 20:50] LABS: ANION GAP 11 mmol/L (5-15); BLOOD UREA NITROGEN 27 mg/dL (7-18); CALCIUM 9.5 MG/DL (8.5-10.1); CARBON DIOXIDE 29 MMOL/L (21-32); CHLORIDE 101 MMOL/L (98-107); CREATININE 1.3 MG/DL (0.55-1.30); POTASSIUM 3.2 MMOL/L (3.5-5.1); SODIUM 141 MMOL/L (136-145)
[2018-02-17 20:59] VITALS: BP 140/72
[2018-02-17 21:04] LABS: ALANINE AMINOTRANSFERASE 33 U/L (12-78); ALBUMIN 3.8 G/DL (3.4-5.0); ALBUMIN/GLOBULIN RATIO 0.9 (1.0-2.7); ALKALINE PHOSPHATASE 105 U/L (46-116); ASPARTATE AMINO TRANSFERASE 20 U/L (15-37); BILIRUBIN,TOTAL 0.2 MG/DL (0.2-1.0); CKMB 0.5 NG/ML (0.0-3.6); CREATINE KINASE 77 U/L (26-308)
--- NOTE | 2018-02-17 21:19 | Emergency Room Report ---
History of Present Illness General Chief Complaint: Chest Pain Source: Patient Present Illness [facility] Patient presents emergency department today complaining of chest discomfort radiating to left arm. Patient is a diabetic hypertensive. Patient is also deaf and reads lips. She denies any cough or runny nose and symptoms noted to be moderate 5 out of 10. Patient states that the pain lasts for about 30 minutes or so. It is not exertional. Patient has not had a cardiac workup in the past percent noted to be moderate to severe.No other modifying factors. No other associated signs and symptoms. No other complaints were noted. Allergies: Coded Allergies: No Known Allergies (Unverified , 01/08/17) Patient History Past Medical History: DM, HTN Past Surgical History: none Pertinent Family History: none Social History: Denies: smoking, alcohol use, drug use Now: No Reviewed Nursing Documentation: PMH: Agreed; PSxH: Agreed Nursing Documentation-PMH Past Medical History: No History, Except For Hx Hypertension: Yes Hx Diabetes: Yes Hx Cancer: No Hx Gastrointestinal Problems: No Hx Neurological Problems: No Review of Systems All Other Systems: negative except mentioned in HPI Physical Exam Vital Signs Date Time Temp Pulse Resp B/P (MAP) Pulse Ox O2 Delivery O2 Flow Rate FiO2 02/17/18 19:47 98.8 85 18 151/86 97 Room Air Sp02 EP Interpretation: reviewed, normal General Appearance: normal inspection, well appearing, no apparent distress, alert Head: atraumatic Eyes: bilateral eye normal inspection ENT: normal ENT inspection, hearing grossly normal, normal voice Neck: normal inspection, full range of motion, supple, no bony tend Respiratory: normal inspection, lungs clear, normal breath sounds, no respiratory distress, no retraction, no wheezing Cardiovascular #1: regular rate, rhythm, no edema Gastrointestinal: normal inspection, normal bowel sounds, non tender, soft, no guarding, no hernia Genitourinary: no CVA tenderness Musculoskeletal: normal inspection, back normal, normal range of motion Neurologic: normal inspection, alert, responsive, speech normal Psychiatric: normal inspection, judgement/insight normal, mood/affect normal Skin: normal inspection, normal color, no rash Medical Decision Making Diagnostic Impression: Primary Impression: ACS (acute coronary syndrome) ER Course Patient presented to the emergency department today complaining of chest pain. Differential diagnoses include acute coronary syndrome, pulmonary embolism, pneumothorax, chest wall pain, pleurisy, pericarditis, acute anxiety reaction just to name a few. Given the severity of the patient's presentation I felt this is a highly complex patient. This patient required extensive workup. CBC , chemistry, EKG, chest x-ray, cardiac enzymes, liver profile were all obtained. 12-lead EKG performed for nontraumatic chest pain. [facility] documentation: EKG was performed. Please refer to below for interpretation. Given the severity of the patient's presentation I felt this is a highly complex patient. This patient required extensive workup. Patient laboratory workup was negative chest x-ray EKG were also normal. However given patient's presentation I felt the patient require admission given risk factors. We'll discussed with admitting physician. Labs Test 02/17/18 20:17 White Blood Count 11.5 K/UL (4.8-10.8) Red Blood Count 4.87 M/UL (4.20-5.40) Hemoglobin 13.8 G/DL (12.0-16.0) Hematocrit 40.7 % (37.0-47.0) Mean Corpuscular Volume 84 FL (80-99) Mean Corpuscular Hemoglobin 28.4 PG (27.0-31.0) Mean Corpuscular Hemoglobin Concent 34.0 G/DL (32.0-36.0) Red Cell Distribution Width 10.5 % (11.6-14.8) Platelet Count 295 K/UL (150-450) Mean Platelet Volume 8.0 FL (6.5-10.1) Neutrophils (%) (Auto) 75.3 % (45.0-75.0) Lymphocytes (%) (Auto) 18.6 % (20.0-45.0) Monocytes (%) (Auto) 4.7 % (1.0-10.0) Eosinophils (%) (Auto) 0.7 % (0.0-3.0) Basophils (%) (Auto) 0.6 % (0.0-2.0) Sodium Level 141 MMOL/L (136-145) Potassium Level 3.2 MMOL/L (3.5-5.1) Chloride Level 101 MMOL/L (98-107) Carbon Dioxide Level 29 MMOL/L (21-32) Anion Gap 11 mmol/L (5-15) Blood Urea Nitrogen 27 mg/dL (7-18) Creatinine 1.3 MG/DL (0.55-1.30) Estimat Glomerular Filtration Rate 42.4 mL/min (>60) Glucose Level 118 MG/DL (74-106) Calcium Level 9.5 MG/DL (8.5-10.1) Total Bilirubin 0.2 MG/DL (0.2-1.0) Aspartate Amino Transf (AST/SGOT) 20 U/L (15-37) Alanine Aminotransferase (ALT/SGPT) 33 U/L (12-78) Alkaline Phosphatase 105 U/L (46-116) Total Creatine Kinase 77 U/L (26-308) Creatine Kinase MB 0.5 NG/ML (0.0-3.6) Creatine Kinase MB Relative Index 0.6 Troponin I 0.000 ng/mL (0.000-0.056) Pro-B-Type Natriuretic Peptide 56 pg/mL (0-125) Total Protein 8.2 G/DL (6.4-8.2) Albumin 3.8 G/DL (3.4-5.0) Globulin 4.4 g/dL Albumin/Globulin Ratio 0.9 (1.0-2.7) Lipase 150 U/L (73-393) EKG Diagnostic Results Rate: normal Rhythm: NSR ST Segments: other - Incomplete right bundle Rhythm Strip Diag. Results EP Interpretation: yes Rate: 80 Rhythm: NSR, no PVC's, no ectopy Chest X-Ray Diagnostic Results Chest X-Ray Diagnostic Results : Chest X-Ray Ordered: Yes # of Views/Limited/Complete: 1 View Indication: Chest Pain EP Interpretation: Yes Interpretation: no consolidation, no effusion, no pneumothorax, no acute cardiopulmonary disease Impression: No acute disease Electronically Signed by: Electronically signed by Campos Chadwick MD Last Vital Signs Date Time Temp Pulse Resp B/P (MAP) Pulse Ox O2 Delivery O2 Flow Rate FiO2 02/17/18 21:06 72 17 Room Air 02/17/18 20:59 98.8 140/72 99 Status: improved Disposition: ADMITTED INPATIENT Condition: Serious Referrals: [facility]ERR[facility] (PCP) Campos Chadwick MD Feb 17, 2018 21:19
[2018-02-17] MEDS ORDERED: Norco 5mg/325mg tab ORAL ONE (21:30)
[2018-02-17] MEDS ORDERED: Albuterol ud Inhalation HHN ONE (21:30)
[2018-02-17 23:10] VITALS: BP 137/69
[2018-02-17] MEDS ORDERED: LORazepam 1mg tab ORAL PRN (23:15)
[2018-02-17] MEDS ORDERED: Heparin 25,000u/D5W 500ml 500 ML IV SCH (23:15)
[2018-02-17] MEDS ORDERED: Zolpidem 5mg tab ORAL PRN (23:15)
[2018-02-17] MEDS ORDERED: Heparin 5000 units/ml inj IV ONE (23:15)
[2018-02-17] MEDS ORDERED: Albuterol/Ipratropium 3ml neb HHN PRN (23:15)
[2018-02-17] MEDS ORDERED: Nitroglycerin Subl 0.4mg tab SL PRN (23:15)
[2018-02-17 23:33] LABS: CHOLESTEROL 129 MG/DL (< 200); HDL CHOLESTEROL 50 MG/DL (40-60); TRIGLYCERIDES 126 MG/DL (30-150)
[2018-02-17 23:55] VITALS: BP 145/77
[2018-02-18] MEDS: Docusate 100mg cap ORAL SCH ×3 (00:14→20:23)
[2018-02-18] MEDS: Morphine Sulfate 2mg/ml Inj IVP PRN (01:57)
[2018-02-18] MEDS ORDERED: ENALAPRIL MALEA20 MG ORAL (03:23)
[2018-02-18 04:00] VITALS: BP 120/76
[2018-02-18 07:20] LABS: BASOPHILS % (AUTO) 0.9 % (0.0-2.0); HEMATOCRIT 36.2 % (37.0-47.0); HEMOGLOBIN 12.7 G/DL (12.0-16.0); LYMPHOCYTES % (AUTO) 25.7 % (20.0-45.0); MEAN CORPUSCULAR VOLUME 84 FL (80-99); MONOCYTES % (AUTO) 5.4 % (1.0-10.0); PLATELET COUNT 258 K/UL (150-450); RED BLOOD COUNT 4.32 M/UL (4.20-5.40); RED CELL DISTRIBUTION WIDTH 10.7 % (11.6-14.8); WHITE BLOOD COUNT 9.8 K/UL (4.8-10.8)
[2018-02-18 08:00] VITALS: BP 137/76
--- NOTE | 2018-02-18 08:34 | History & Physical ---
History and Physical History & Physicial Dictation completed #[id number] Alcides Ashford MD Feb 18, 2018 08:34
--- NOTE | 2018-02-18 08:43 | General Progress Note ---
Assessment/Plan Assessment/Plan Dictation completed Full note in progress Cardiology: Dr Kim Subjective Allergies: Coded Allergies: No Known Allergies (Unverified , 01/08/17) Objective Last 24 Hour Vital Signs Date Time Temp Pulse Resp B/P (MAP) Pulse Ox O2 Delivery O2 Flow Rate FiO2 02/18/18 08:00 97.2 65 19 137/76 (96) 97 02/18/18 04:00 66 02/18/18 04:00 97.6 68 19 120/76 (91) 97 02/18/18 00:00 73 02/17/18 23:55 97.8 73 17 145/77 (99) 96 02/17/18 23:14 98.8 75 19 137/69 100 Room Air 21 02/17/18 23:10 98.8 75 19 137/69 100 Room Air 02/17/18 22:57 Room Air 02/17/18 22:34 98.8 02/17/18 21:57 72 19 100 Room Air 21 02/17/18 21:47 72 22 Room Air 21 02/17/18 21:47 74 22 99 Room Air 21 02/17/18 21:06 72 17 Room Air 02/17/18 20:59 98.8 72 17 140/72 99 Room Air 02/17/18 19:47 98.8 85 18 151/86 97 Room Air Intake and Output 02/17/18 02/18/18 18:59 06:59 Intake Total 0 ml Balance 0 ml Intake Oral 0 ml # Bowel Movements 1 Laboratory Tests 02/17/18 20:17: White Blood Count 11.5H, Red Blood Count 4.87, Hemoglobin 13.8, Hematocrit 40.7 , Mean Corpuscular Volume 84, Mean Corpuscular Hemoglobin 28.4, Mean Corpuscular Hemoglobin Concent 34.0, Red Cell Distribution Width 10.5L, Platelet Count 295, Mean Platelet Volume 8.0, Neutrophils (%) (Auto) 75.3H, Lymphocytes (%) (Auto) 18.6L, Monocytes (%) (Auto) 4.7, Eosinophils (%) (Auto) 0.7, Basophils (%) (Auto) 0.6, Activated Partial Thromboplast Time 26, Sodium Level 141, Potassium Level 3.2L, Chloride Level 101, Carbon Dioxide Level 29, Anion Gap 11, Blood Urea Nitrogen 27H, Creatinine 1.3, Estimat Glomerular Filtration Rate 42.4, Glucose Level 118H, Hemoglobin A1c 6.3H, Calcium Level 9.5 , Total Bilirubin 0.2, Aspartate Amino Transf (AST/SGOT) 20, Alanine Aminotransferase (ALT/SGPT) 33, Alkaline Phosphatase 105, Total Creatine Kinase 77, Creatine Kinase MB 0.5, Creatine Kinase MB Relative Index 0.6, Troponin I 0.000, Pro-B-Type Natriuretic Peptide 56, Total Protein 8.2, Albumin 3.8, Globulin 4.4, Albumin/Globulin Ratio 0.9L, Triglycerides Level 126, Cholesterol Level 129, LDL Cholesterol 66, HDL Cholesterol 50, Cholesterol/HDL Ratio 2.6L, Lipase 150 02/18/18 06:19: White Blood Count 9.8, Red Blood Count 4.32, Hemoglobin 12.7, Hematocrit 36.2L, Mean Corpuscular Volume 84, Mean Corpuscular Hemoglobin 29.4, Mean Corpuscular Hemoglobin Concent 35.1, Red Cell Distribution Width 10.7L, Platelet Count 258, Mean Platelet Volume 8.3, Neutrophils (%) (Auto) 66.0, Lymphocytes (%) (Auto) 25.7, Monocytes (%) (Auto) 5.4, Eosinophils (%) (Auto) 2.0, Basophils (%) (Auto ) 0.9, Troponin I 0.017 Height (Feet): 5 Height (Inches): 2.00 Weight (Pounds): 145 Alcides Ashford MD Feb 18, 2018 08:43
[2018-02-18] MEDS: Aspirin Baby 81mg ORAL SCH (09:05)
--- NOTE | 2018-02-18 09:08 | Diagnostic Imaging Report ---
Indication: Reason For Exam: COUGH Technique: One view of the chest Comparison: 07/02/2017 Findings: Lungs and pleural spaces are clear. Heart size is normal . Right paratracheal prominence is stable on prior exams dating back to December 2016 Impression: No acute process This agrees with the preliminary interpretation provided by the emergency room physician
[2018-02-18] MEDS: Heparin 5000 units/ml inj SUBQ SCH ×2 (09:09→20:27)
--- NOTE | 2018-02-18 10:47 | Cardiology Progress Note ---
Assessment/Plan Assessment/Plan The patient is seen and examined, full consult report is dictated. Objective Last 24 Hour Vital Signs Date Time Temp Pulse Resp B/P (MAP) Pulse Ox O2 Delivery O2 Flow Rate FiO2 02/18/18 09:00 Room Air 02/18/18 08:00 97.2 65 19 137/76 (96) 97 02/18/18 07:44 61 02/18/18 04:00 66 02/18/18 04:00 97.6 68 19 120/76 (91) 97 02/18/18 00:00 73 02/17/18 23:55 97.8 73 17 145/77 (99) 96 02/17/18 23:14 98.8 75 19 137/69 100 Room Air 21 02/17/18 23:10 98.8 75 19 137/69 100 Room Air 02/17/18 22:57 Room Air 02/17/18 22:34 98.8 02/17/18 21:57 72 19 100 Room Air 21 02/17/18 21:47 72 22 Room Air 21 02/17/18 21:47 74 22 99 Room Air 21 02/17/18 21:06 72 17 Room Air 02/17/18 20:59 98.8 72 17 140/72 99 Room Air 02/17/18 19:47 98.8 85 18 151/86 97 Room Air Intake and Output 02/17/18 02/18/18 18:59 06:59 Intake Total 0 ml Balance 0 ml Intake Oral 0 ml # Bowel Movements 1 Laboratory Tests Test 02/17/18 20:17 02/18/18 06:19 White Blood Count 11.5 K/UL (4.8-10.8) H 9.8 K/UL (4.8-10.8) Red Blood Count 4.87 M/UL (4.20-5.40) 4.32 M/UL (4.20-5.40) Hemoglobin 13.8 G/DL (12.0-16.0) 12.7 G/DL (12.0-16.0) Hematocrit 40.7 % (37.0-47.0) 36.2 % (37.0-47.0) L Mean Corpuscular Volume 84 FL (80-99) 84 FL (80-99) Mean Corpuscular Hemoglobin 28.4 PG (27.0-31.0) 29.4 PG (27.0-31.0) Mean Corpuscular Hemoglobin Concent 34.0 G/DL (32.0-36.0) 35.1 G/DL (32.0-36.0) Red Cell Distribution Width 10.5 % (11.6-14.8) L 10.7 % (11.6-14.8) L Platelet Count 295 K/UL (150-450) 258 K/UL (150-450) Mean Platelet Volume 8.0 FL (6.5-10.1) 8.3 FL (6.5-10.1) Neutrophils (%) (Auto) 75.3 % (45.0-75.0) H 66.0 % (45.0-75.0) Lymphocytes (%) (Auto) 18.6 % (20.0-45.0) L 25.7 % (20.0-45.0) Monocytes (%) (Auto) 4.7 % (1.0-10.0) 5.4 % (1.0-10.0) Eosinophils (%) (Auto) 0.7 % (0.0-3.0) 2.0 % (0.0-3.0) Basophils (%) (Auto) 0.6 % (0.0-2.0) 0.9 % (0.0-2.0) Activated Partial Thromboplast Time 26 SEC (23-33) Sodium Level 141 MMOL/L (136-145) Potassium Level 3.2 MMOL/L (3.5-5.1) L Chloride Level 101 MMOL/L (98-107) Carbon Dioxide Level 29 MMOL/L (21-32) Anion Gap 11 mmol/L (5-15) Blood Urea Nitrogen 27 mg/dL (7-18) H Creatinine 1.3 MG/DL (0.55-1.30) Estimat Glomerular Filtration Rate 42.4 mL/min (>60) Glucose Level 118 MG/DL (74-106) H Hemoglobin A1c 6.3 % (4.3-6.0) H Calcium Level 9.5 MG/DL (8.5-10.1) Total Bilirubin 0.2 MG/DL (0.2-1.0) Aspartate Amino Transf (AST/SGOT) 20 U/L (15-37) Alanine Aminotransferase (ALT/SGPT) 33 U/L (12-78) Alkaline Phosphatase 105 U/L (46-116) Total Creatine Kinase 77 U/L (26-308) Creatine Kinase MB 0.5 NG/ML (0.0-3.6) Creatine Kinase MB Relative Index 0.6 Troponin I 0.000 ng/mL (0.000-0.056) 0.017 ng/mL (0.000-0.056) Pro-B-Type Natriuretic Peptide 56 pg/mL (0-125) Total Protein 8.2 G/DL (6.4-8.2) Albumin 3.8 G/DL (3.4-5.0) Globulin 4.4 g/dL Albumin/Globulin Ratio 0.9 (1.0-2.7) L Triglycerides Level 126 MG/DL (30-150) Cholesterol Level 129 MG/DL (< 200) LDL Cholesterol 66 mg/dL (<100) HDL Cholesterol 50 MG/DL (40-60) Cholesterol/HDL Ratio 2.6 (3.3-4.4) L Lipase 150 U/L (73-393) Benjamín Kim MD Feb 18, 2018 10:47
[2018-02-18] MEDS: Lisinopril 2.5mg tab ORAL SCH (11:48)
[2018-02-18] MEDS: NovoLOG Insulin Flexpen SUBQ SCH ×3 (11:49→20:27)
[2018-02-18 12:00] VITALS: BP 127/73
[2018-02-18 16:00] VITALS: BP 126/69
--- NOTE | 2018-02-18 17:00 | History and Physical Report ---
DATE OF ADMISSION: 02/17/2018 SOURCE OF INFORMATION: Patient and EMR. HISTORY OF PRESENT ILLNESS: The patient is a pleasant 57-year-old female, not able to use good ____ fine language for communication. At the time of evaluation, the patient complains of the episodes of the chest pain in the left side with radiation to the left arm. The patient described it as a tingling and a sharp pain getting worse by taking deep breath and continued at rest. The patient denies any cough, shortness of breath, fever, or chills. PAST MEDICAL HISTORY: Hyperlipidemia, hypertension, and diabetes. PAST SURGICAL HISTORY: Patient denies. ALLERGIES: NKDA. FAMILY HISTORY: Reviewed. Noncontributory. SOCIAL HISTORY: The patient denies history of illicit drug abuse, smoking, or alcohol abuse. The patient has 6 children. REVIEW OF SYSTEMS: All 12-elements of review of systems reviewed. Pertinent positive and negative as above. PHYSICAL EXAMINATION: VITAL SIGNS: Blood pressure 120/80, temperature 98.2, pulse ox 98 percent on room air, and respiratory rate 18. HEAD AND NECK: Atraumatic and normocephalic. CHEST: Clear to auscultation. HEART: S1, S2. Regular rate and rhythm. Negative for S3. Negative for S4. ABDOMEN: Soft. No organomegaly. Bowel sounds are normal. MUSCULOSKELETAL: No gross lateralized motor deficit. NEUROLOGY: Awake, alert, and oriented x3. LABORATORY DATA: Labs dated 02/17/2018 shows WBC 11.5, hemoglobin 13.8, and platelet count of 295,000. Sodium 141, potassium 3.2, BUN 27, and creatinine 1.3. LDL 63 and total cholesterol of 129. ASSESSMENT AND PLAN: 1. Chest pain, possibility of acute coronary syndrome cannot be excluded in this patient with at least a moderate risk. 2. Diabetes type 2, status unknown. 3. Leukocytosis, likely stress induced. 4. Hyperlipidemia. 5. Hypertension. 6. GI and DVT prophylaxis. PLAN OF CARE: We will continue with monitoring the patient. We will resume her home medications. A 2D echo and Cardiology consult has been requested. We will follow up with monitoring the troponin levels. COMMENT: The time of this dictation does not reflect the actual time of encounter. Mohammad Heriberto Ashford DR: ARIES JOB#: [id number] CC:
[2018-02-18 20:00] VITALS: BP 112/64
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
[2018-02-19] VITALS: BP 128/70
[2018-02-19] MEDS: Morphine Sulfate 2mg/ml Inj IVP PRN ×2 (03:11→19:07)
[2018-02-19 03:58] VITALS: BP 146/77
[2018-02-19] MEDS: NovoLOG Insulin Flexpen SUBQ SCH ×4 (05:49→21:06)
[2018-02-19 08:00] VITALS: BP 125/67
[2018-02-19] MEDS: Aspirin Baby 81mg ORAL SCH (08:16)
[2018-02-19] MEDS: Docusate 100mg cap ORAL SCH ×2 (08:26→20:59)
[2018-02-19] MEDS: Heparin 5000 units/ml inj SUBQ SCH ×2 (08:27→21:04)
[2018-02-19] MEDS: Lisinopril 2.5mg tab ORAL SCH (08:27)
[2018-02-19] MEDS ORDERED: Lexiscan 0.4mg/5ml syringe IV SCH (09:30)
--- NOTE | 2018-02-19 11:35 | General Progress Note ---
Assessment/Plan Assessment/Plan S: I have tingling on my left arm O: appears comfortable. persistent chest pain PHYSICAL EXAMINATION: HEAD AND NECK: Atraumatic and normocephalic. CHEST: Clear to auscultation. HEART: S1, S2. Regular rate and rhythm. Negative for S3. Negative for S4. ABDOMEN: Soft. No organomegaly. Bowel sounds are normal. MUSCULOSKELETAL: No gross lateralized motor deficit. NEUROLOGY: Awake, alert, and oriented x3. LABORATORY DATA: Labs dated 02/17/2018 reviewed ASSESSMENT AND PLAN: 1. Chest pain, possibility of acute coronary syndrome cannot be excluded in this patient with at least a moderate risk. 2. Diabetes type 2, status unknown. 3. Leukocytosis, likely stress induced. 4. Hyperlipidemia. 5. Hypertension. 6. GI and DVT prophylaxis. PLAN OF CARE: We will continue with monitoring the patient. Pending cardiac sress test. Following note reviewed Cardiology: Dr Kim Subjective Allergies: Coded Allergies: No Known Allergies (Unverified , 01/08/17) Objective Last 24 Hour Vital Signs Date Time Temp Pulse Resp B/P (MAP) Pulse Ox O2 Delivery O2 Flow Rate FiO2 02/19/18 09:18 72 18 Room Air 21 02/19/18 09:00 Room Air 02/19/18 08:00 97.2 58 18 125/67 (86) 97 02/19/18 04:00 54 02/19/18 03:58 97.6 60 18 146/77 (100) 97 02/19/18 00:00 98.3 60 18 128/70 (89) 96 02/19/18 00:00 64 02/18/18 21:00 Room Air 02/18/18 20:00 64 16 Room Air 21 02/18/18 20:00 64 02/18/18 20:00 97.5 64 18 112/64 (80) 97 02/18/18 16:00 97.9 70 20 126/69 (88) 96 02/18/18 15:53 64 02/18/18 15:46 97.5 02/18/18 12:00 97.5 67 20 127/73 (91) 98 02/18/18 11:48 127/73 02/18/18 11:45 72 Intake and Output 02/18/18 02/19/18 18:59 06:59 Intake Total 300 ml 300 ml Balance 300 ml 300 ml Intake Oral 300 ml 300 ml # Voids 1 Laboratory Tests 02/19/18 04:50: Troponin I 0.010 Height (Feet): 5 Height (Inches): 2.00 Weight (Pounds): 145 Alcides Ashford MD Feb 19, 2018 11:35
[2018-02-19 12:00] VITALS: BP 121/68
--- NOTE | 2018-02-19 14:36 | Diagnostic Imaging Report ---
Indications: Chest pain Technique: Single day single isotope protocol utilized. Initially, resting images obtained using IV administration 10.7 millicuries 99M technetium Myoview. Subsequently, patient underwent lexiscan stress testing. See cardiology report for details. During Lexiscan infusion, IV administration 31.5 mCi 99 M technetium Myoview. SPECT and planar images obtained. SPECT images gated to 8 phases of the cardiac cycle were also obtained, and reformatted into cine images for evaluation of ejection fraction. Comparison: none Findings: Presence or absence of symptoms is not described on the cardiology report.. Per cardiology report, resting EKG demonstrates normal sinus rhythm, inferior SD, age indeterminant. Presence or absence of ST T wave changes is not described on the cardiology report. Imaging demonstrates normal poststress perfusion. No fixed nor reversible perfusion defects. Normal cardiac chamber size. Calculated post stress ejection fraction 76%. No focal wall motion abnormality Impression: Nonischemic clinical response to pharmacologic stress, per cardiology report Nonischemic electrocardiographic response to pharmacologic stress, per cardiology report No imaging findings to suggest ischemia, at level of stress achieved. Calculated post stress ejection fraction greater than 70%
[2018-02-19 16:00] VITALS: BP 124/67
[2018-02-19 20:00] VITALS: BP 131/73
--- NOTE | 2018-02-19 23:53 | Cardiology Progress Note ---
Assessment/Plan Assessment/Plan 1. Atypical chest pain, most likely due to stress and anxiety. Acute myocardial infarction is ruled out by two negative cardiac enzymes. We will proceed with obtaining nuclear stress test in the a.m. to rule out coronary artery disease. A 2D echocardiogram will be done to assess LV systolic and diastolic function. 2. History of diabetes mellitus. We will recommend aspirin and statins. LDL is at target. 3. History of hypertension. Currently, blood pressure is well controlled. We will continue the patient on small dose of the HANNAH inhibitors. 4. Dyslipidemia with low HDL. The patient will be continued on statins. Subjective Subjective Sinus rhythm at rate of 75. Objective Last 24 Hour Vital Signs Date Time Temp Pulse Resp B/P (MAP) Pulse Ox O2 Delivery O2 Flow Rate FiO2 02/19/18 21:03 75 18 Room Air 21 02/19/18 21:00 Room Air 02/19/18 20:00 98.1 63 18 131/73 (92) 98 02/19/18 20:00 60 02/19/18 16:00 98.4 73 18 124/67 (86) 95 02/19/18 16:00 72 02/19/18 12:00 97.2 79 18 121/68 (85) 96 02/19/18 12:00 69 02/19/18 09:18 72 18 Room Air 21 02/19/18 09:00 Room Air 02/19/18 08:00 97.2 58 18 125/67 (86) 97 02/19/18 08:00 59 02/19/18 04:00 54 02/19/18 03:58 97.6 60 18 146/77 (100) 97 02/19/18 00:00 98.3 60 18 128/70 (89) 96 02/19/18 00:00 64 Intake and Output 02/18/18 02/19/18 19:00 07:00 Intake Total 300 ml 300 ml Balance 300 ml 300 ml Intake Oral 300 ml 300 ml # Voids 1 2D Echo: LVEF 65%, RVSP 32 mmHG, Mild VT Laboratory Tests Test 02/19/18 04:50 Troponin I 0.010 ng/mL (0.000-0.056) Objective HEENT: Atraumatic and normocephalic. Anicteric. Pupils are equal, round, and reactive to light and accommodation. Extraocular muscles intact. NECK: JVP less than 5 cm. No carotid bruit. Carotid upstrokes 2+ bilaterally. CARDIOVASCULAR: Normal S1 and S2. Regular rate and rhythm. No murmurs, gallops, or rubs. PMI is at fourth intercostal space in the midclavicular line. LUNGS: Clear to auscultation bilaterally. ABDOMEN: Soft, nontender, and nondistended. No hepatosplenomegaly. Positive bowel sounds. EXTREMITIES: No evidence of edema, clubbing, or cyanosis. Benjamín Kim MD Feb 19, 2018 23:53
[2018-02-20] VITALS: BP 142/70
[2018-02-20 04:00] VITALS: BP 140/78
[2018-02-20] MEDS: NovoLOG Insulin Flexpen SUBQ SCH ×2 (06:45→11:38)
--- NOTE | 2018-02-20 07:53 | General Progress Note ---
Assessment/Plan Assessment/Plan S: I dont have chest pain O: appears comfortable. denies sob or cp PHYSICAL EXAMINATION: HEAD AND NECK: Atraumatic and normocephalic. CHEST: Clear to auscultation.HEART: S1, S2. Regular rate and rhythm. Negative for S3. Negative for S4. ABDOMEN: Soft. No organomegaly. Bowel sounds are normal. MUSCULOSKELETAL: No gross lateralized motor deficit. NEUROLOGY: Awake, alert, and oriented x3. Medication: dated Feb 20 reviewed and reconciled ASSESSMENT AND PLAN: 1. Chest pain, possibility of acute coronary syndrome cannot be excluded in this patient with at least a moderate risk. 2. Diabetes type 2, status unknown. 3. Leukocytosis, likely stress induced. 4. Hyperlipidemia. 5. Hypertension. 6. GI and DVT prophylaxis. PLAN OF CARE: Ok to followup as outpatient , once cleared by cardiology Home Med Recon is completed Subjective Allergies: Coded Allergies: No Known Allergies (Unverified , 01/08/17) Objective Last 24 Hour Vital Signs Date Time Temp Pulse Resp B/P (MAP) Pulse Ox O2 Delivery O2 Flow Rate FiO2 02/20/18 04:00 97.3 69 18 140/78 (98) 98 02/20/18 04:00 68 02/20/18 00:00 65 02/20/18 00:00 97.7 62 18 142/70 (94) 99 02/19/18 21:03 75 18 Room Air 21 02/19/18 21:00 Room Air 02/19/18 20:00 98.1 63 18 131/73 (92) 98 02/19/18 20:00 60 02/19/18 16:00 98.4 73 18 124/67 (86) 95 02/19/18 16:00 72 02/19/18 12:00 97.2 79 18 121/68 (85) 96 02/19/18 12:00 69 02/19/18 09:18 72 18 Room Air 21 02/19/18 09:00 Room Air 02/19/18 08:00 97.2 58 18 125/67 (86) 97 02/19/18 08:00 59 Intake and Output 02/19/18 02/20/18 19:00 07:00 Intake Total 360 ml Balance 360 ml Intake Oral 360 ml # Voids 3 Height (Feet): 5 Height (Inches): 2.00 Weight (Pounds): 145 Alcides Ashford MD Feb 20, 2018 07:53
[2018-02-20 08:00] VITALS: BP 139/82
[2018-02-20] MEDS: Heparin 5000 units/ml inj SUBQ SCH (08:59)
[2018-02-20] MEDS: Lisinopril 2.5mg tab ORAL SCH (08:59)
[2018-02-20] MEDS: Aspirin Baby 81mg ORAL SCH (08:59)
[2018-02-20] MEDS: Docusate 100mg cap ORAL SCH (08:59)
[2018-02-20 12:00] VITALS: BP 153/74
--- NOTE | 2018-02-20 22:45 | Cardiology Progress Note ---
Assessment/Plan Assessment/Plan 1. Atypical chest pain, non-ischemic nuclear stress test with LVEF at 70%. 2. History of diabetes mellitus, recommend aspirin and statins. LDL is at target. 3. History of hypertension, continue lisinopril. 4. Dyslipidemia with low HDL, recommend statins in face of DM> Subjective Subjective Sinus rhythm at rate of 69. Objective Last 24 Hour Vital Signs Date Time Temp Pulse Resp B/P (MAP) Pulse Ox O2 Delivery O2 Flow Rate FiO2 02/20/18 12:00 97.1 69 17 153/74 (100) 98 02/20/18 09:00 Room Air 02/20/18 08:59 139/82 02/20/18 08:41 68 18 Room Air 21 02/20/18 08:00 98.9 67 17 139/82 (101) 98 02/20/18 08:00 70 02/20/18 04:00 97.3 69 18 140/78 (98) 98 02/20/18 04:00 68 02/20/18 00:00 65 02/20/18 00:00 97.7 62 18 142/70 (94) 99 Intake and Output 02/19/18 02/20/18 19:00 07:00 Intake Total 360 ml Balance 360 ml Intake Oral 360 ml # Voids 3 2D Echo: LVEF 65%, RVSP 32 mmHG, Mild RI Objective HEENT: Atraumatic and normocephalic. Anicteric. Pupils are equal, round, and reactive to light and accommodation. Extraocular muscles intact. NECK: JVP less than 5 cm. No carotid bruit. Carotid upstrokes 2+ bilaterally. CARDIOVASCULAR: Normal S1 and S2. Regular rate and rhythm. No murmurs, gallops, or rubs. PMI is at fourth intercostal space in the midclavicular line. LUNGS: Clear to auscultation bilaterally. ABDOMEN: Soft, nontender, and nondistended. No hepatosplenomegaly. Positive bowel sounds. EXTREMITIES: No evidence of edema, clubbing, or cyanosis. Benjamín Kim MD Feb 20, 2018 22:45
--- NOTE | 2018-02-22 07:28 | Discharge Summary ---
Discharge Summary Discharge Summary _ DATE OF ADMISSION:: 02/17/2018 DATE OF DISCHARGE: 02/20/2018 REASON FOR ADMISSION: 57 years old female with past medical history of hypertension, diabetes, hyperlipidemia , presented to emergency department complaining of left-sided chest pain. with radiation to left arm. Patient described pain as tingling, sharp, worse while taking deep breath and continued at rest. Patient denied cough, shortness of breath, fever and chills. Vital signs were stable. Laboratory workup revealed potassium 3.2, stable renal parameters. Troponin negative . EKG revealed normal sinus rhythm, no acute ischemic changes WBC 11.5, stable hemoglobin and hematocrit. Chest x-ray revealed no acute cardiopulmonary process . Patient admitted with diagnosis of chest pain , acute coronary syndrome. CONSULTANTS: chef's assistant Dr. Kim [facility]SE: Patient admitted to telemetry floor. Patient was started on antiplatelet therapy with aspirin. Echocardiogram revealed preserved ejection fraction of 60-65%. No evidence of pericardial effusion. No evidence of wall motion abnormality. Right ventricular systolic pressure of 32. [employer] closely followed. Serial troponin were negative. EKG revealed no acute ischemic changes. Patient was ruled out for acute myocardial infarction. Lipid panel was stable. LDL at target. Statin was continued. Patient undergone nuclear stress test due to multiple risk factors , including hypertension, diabetes mellitus and hyperlipidemia. Nuclear stress test was nonischemic. According to chef's assistant patient had atypical chest pain, likely due to anxiety and stress. Blood pressure was managed with HANNAH inhibitor and remained stable. Continue HANNAH inhibitor/ beneficial for diabetic patient. Hemoglobin A1c 6.3 - at goal. Metformin was continued. DVT and GI prophylaxis provided. Potassium was replaced. Renal parameters and electrolytes were closely monitored, and electrolytes replaced as needed . Initial mild leukocytosis resolved, likely reactive due to stress. No evidence of infection. No further chest pain. Patient was stable for discharge home. FINAL DIAGNOSES: Atypical chest pain likely due to anxiety and stress Hypertension Hyperlipidemia Diabetes mellitus type 2 Hypokalemia Leukocytosis likely reactive, stress induced -resolved DISCHARGE MEDICATIONS: See Medication Reconciliation list. DISCHARGE INSTRUCTIONS: Patient was discharged home . Follow up with primary care provider in one week. I have been assigned to dictate discharge summary for this account. I was not involved in the patient's management. Kassy Blue NP Feb 22, 2018 07:28
--- NOTE | 2018-02-22 11:41 | Cardiology Report ---
APPROVED REPORT EXAM: Two-dimensional and M-mode echocardiogram with Doppler and color Doppler. INDICATION Palpitation M-Mode DIMENSIONS IVSd1.1 (0.7-1.1cm)Left Atrium (MM)3.2 (1.6-4.0cm) LVDd3.9 (3.5-5.6cm)Aortic Root3.2 (2.0-3.7cm) PWd1.1 (0.7-1.1cm)Aortic Cusp Exc.1.8 (1.5-2.0cm) LVDs2.5 (2.5-4.0cm) PWs1.5 cm Normal left ventricular chamber size, systolic function and wall motion. Left ventricular ejection fraction estimated to be 60-65 %. No evidence of left ventricular hypertrophy by 2-D. No evidence of pericardial effusion. All other cardiac chamber sizes are within normal limits. Focal aortic valve sclerosis with adequate cusp excursion. Thickened mitral valve leaflets with normal excursion. Mitral annulus and aortic root calcification. Pulmonic valve not well visualized. Normal tricuspid valve structure. IVC at normal size with physiologic collapse. A color flow and spectral Doppler study was performed and revealed: Trace mitral regurgitation. Mitral inflow indicates normal left ventricular diastolic function. Trace to mild tricuspid regurgitation. Tricuspid systolic velocities suggests peak right ventricular systolic pressure of 32 mmHg. Mild pulmonic regurgitation present.
== END 2018-02-20 12:34 | disposition home or self-care (01) | DRG 203 ==
LOC: EMR 20:51 → 2E 21:19 → EDBEDREQ 21:47 → 2E 22:24
DX: R07.89 Other chest pain (principal); E11.9 Type 2 diabetes mellitus without complications; F41.9 Anxiety disorder, unspecified; F43.9 Reaction to severe stress, unspecified; I10 Essential (primary) hypertension; E78.5 Hyperlipidemia, unspecified; E87.6 Hypokalemia; H91.90 Unspecified hearing loss, unspecified ear
CPT/HCPCS: 36415; 71045; 78452; 80053; 80061; 82550; 82553; 82962; 83036; 83690; 83880; 84484; 85025; 85730; 93005; 93017; 93306; 94640; 94664; 96365; 96375; 99285; J1815; J2785; J8499

== ENCOUNTER 2018-05-16 21:22 | Emergency (ER) | payer MEDICAID ==
[~2018-05-16] VITALS: Ht 142.2 cm; Wt 52.2 kg
[~2018-05-16 21:22] MED LIST changes: +ENALAPRIL MALEA20 MG ORAL
--- NOTE | 2018-05-16 21:40 | NUR ---
ED Nurse Note: Pt presents to the ED with c/o cough, fever and chestpain x3 days. Temp 101.2. Patient reports chest pain upon coughing; non productive cough. Accompanied by friend. Pt AO4. NAD.
--- NOTE | 2018-05-16 21:45 | NUR ---
ED Nurse Note: IV access established. Blood, urine, flu swab collected; sent down to lab with entry level lab technician.
[2018-05-16] MEDS ORDERED: Ipratropium 0.02% Inh Soln 2.5ml UD HHN ONE (22:00)
[2018-05-16] MEDS ORDERED: Albuterol ud Inhalation HHN ONE (22:00)
[2018-05-16] MEDS ORDERED: Ketorolac 30mg Inj IV ONE (22:00)
--- NOTE | 2018-05-16 22:04 | NUR ---
ED Nurse Note: Unable to scan toradol barcode. manual admin on eMAR. adminitstered medication to pt. RT at bedside.
[2018-05-16 22:07] LABS: APPEARANCE,URINE CLEAR; BILIRUBIN, URINE NEGATIVE (NEGATIVE); COLOR,URINE PALE YELLOW; GLUCOSE, URINE (UA) NEGATIVE (NEGATIVE); KETONES,URINE NEGATIVE (NEGATIVE); LEUKOCYTE ESTERASE ,URINE NEGATIVE (NEGATIVE); NITRITE,URINE NEGATIVE (NEGATIVE); PH,URINE 8 (4.5-8.0); PROTEIN,URINE 2+ (NEGATIVE); UROBILINOGEN,URINE NORMAL MG/DL (0.0-1.0)
[2018-05-16 22:08] VITALS: BP 154/84
[2018-05-16 22:10] LABS: BASOPHILS % (AUTO) 1.1 % (0.0-2.0); EOSINOPHILS % (AUTO) 0.8 % (0.0-3.0); HEMATOCRIT 39.5 % (37.0-47.0); HEMOGLOBIN 13.7 G/DL (12.0-16.0); LYMPHOCYTES % (AUTO) 19.2 % (20.0-45.0); MEAN CORPUSCULAR VOLUME 85 FL (80-99); MONOCYTES % (AUTO) 13.1 % (1.0-10.0); NEUTROPHILS % (AUTO) 65.8 % (45.0-75.0); PLATELET COUNT 243 K/UL (150-450); RED BLOOD COUNT 4.65 M/UL (4.20-5.40); RED CELL DISTRIBUTION WIDTH 11.5 % (11.6-14.8); WHITE BLOOD COUNT 7.4 K/UL (4.8-10.8)
[2018-05-16 22:33] LABS: ANION GAP 14 mmol/L (5-15); BLOOD UREA NITROGEN 14 mg/dL (7-18); CALCIUM 9.8 MG/DL (8.5-10.1); CARBON DIOXIDE 27 MMOL/L (21-32); CHLORIDE 101 MMOL/L (98-107); POTASSIUM 3.1 MMOL/L (3.5-5.1); SODIUM 142 MMOL/L (136-145)
[2018-05-16 22:48] LABS: ALANINE AMINOTRANSFERASE 48 U/L (12-78); ALBUMIN 4.2 G/DL (3.4-5.0); ALBUMIN/GLOBULIN RATIO 1.2 (1.0-2.7); ALKALINE PHOSPHATASE 108 U/L (46-116); ASPARTATE AMINO TRANSFERASE 23 U/L (15-37); BILIRUBIN,TOTAL 0.3 MG/DL (0.2-1.0); CKMB < 0.5 NG/ML (0.0-3.6); CREATINE KINASE 133 U/L (26-308)
[2018-05-16 23:04] VITALS: BP 131/62
[2018-05-16] MEDS ORDERED: AMOXICILLIN500 MG ORAL (23:18)
[2018-05-16] MEDS ORDERED: TAMIFLU75 MG ORAL (23:18)
[2018-05-16] MEDS ORDERED: IBUPROFEN600 MG ORAL (23:18)
[2018-05-16] MEDS ORDERED: PROMETHAZINE-C118 M1 ORAL (23:18)
[2018-05-16 23:20] VITALS: BP 118/62
--- NOTE | 2018-05-16 23:20 | NUR ---
ED Nurse Note: Patient cleared cleared for discharge per ERMD. AO4. NAD. VSS. Accompanied by friend. Patient given prescriptions and discharge instructions; verbalized understanding. IV and ID removed. Patient ambulated steady out of ED with all belongings.
--- NOTE | 2018-05-16 23:32 | Emergency Room Report ---
History of Present Illness General Chief Complaint: Fever Source: Patient Present Illness HPI 57-year-old female presents to ED complaining of body aches, cough, congestion and chest pain 3 days. Temp 100 in triage. Pain is dull, 8 out of 10, nonradiating. Cough is productive with greenish phlegm. Denies sick contacts or recent travel. Did not receive flu shot this year. Notes chest pain with cough. No other aggravating relieving factors. Denies any other associated symptoms Allergies: Coded Allergies: No Known Allergies (Unverified , 01/08/17) Patient History Past Medical History: DM, HTN, other - deaf Past Surgical History: none Pertinent Family History: none Social History: Denies: smoking, alcohol use, drug use Last Menstrual Period: IAM Now: No Immunizations: UTD Reviewed Nursing Documentation: PMH: Agreed; PSxH: Agreed Nursing Documentation-PMH Past Medical History: No History, Except For Hx Cardiac Problems: Yes Hx Hypertension: Yes Hx Diabetes: Yes Hx Cancer: No Hx Gastrointestinal Problems: No Hx Neurological Problems: No Review of Systems All Other Systems: negative except mentioned in HPI Physical Exam Vital Signs Date Time Temp Pulse Resp B/P (MAP) Pulse Ox O2 Delivery O2 Flow Rate FiO2 05/16/18 21:28 100.0 118 16 172/80 96 Room Air 05/16/18 21:59 21 Sp02 EP Interpretation: reviewed, normal General Appearance: no apparent distress, alert, GCS 15, non-toxic Head: normocephalic, atraumatic Eyes: bilateral eye normal inspection, bilateral eye PERRL ENT: hearing grossly normal, normal pharynx, no angioedema, normal voice Neck: full range of motion, supple/symm/no masses Respiratory: chest non-tender, normal breath sounds, crackles, speaking full sentences Cardiovascular #1: regular rate, rhythm, no edema Cardiovascular #2: 2+ carotid (R), 2+ carotid (L), 2+ radial (R), 2+ radial (L) , 2+ dorsalis pedis (R), 2+ dorsalis pedis (L) Gastrointestinal: normal bowel sounds, non tender, soft, non-distended, no guarding, no rebound Rectal: deferred Genitourinary: normal inspection, no CVA tenderness Musculoskeletal: back normal, gait/station normal, normal range of motion, non- tender Neurologic: alert, oriented x3, responsive, motor strength/tone normal, sensory intact, speech normal Psychiatric: judgement/insight normal, memory normal, mood/affect normal, no suicidal/homicidal ideation Reflexes: 3+ bicep (R), 3+ bicep (L), 3+ tricep (R), 3+ tricep (L), 3+ knee (R) , 3+ knee (L) Skin: normal color, no rash, warm/dry, well hydrated Lymphatic: no adenopathy Medical Decision Making Diagnostic Impression: Primary Impression: Pneumonia Qualified Codes: J18.1 - Lobar pneumonia, unspecified organism ER Course Hospital Course 57-year-old female presents to ED complaining of bodyaches, cough, fever Differential diagnoses include: URI, bronchitis, asthma/COPD, pneumonia Clinical course Patient placed on stretcher. After initial history, physical exam reveals a middle aged female in no acute distress. Bilateral TM unremarkable. No pharyngeal erythema. No tonsillar exudates. No lymphadenopathy. crackles on exam I ordered labs, IV fluids, Toradol, nebs, chest x-ray. Labs reviewed-no leukocytosis noted, hemoglobin/hematocrit stable, electrolytes okay, trop negative, flu swab negative EKG - sinus tachycardia, no acute ischemic changes interpreted by me Chest x-ray shows possible L infiltrate On reassessment patient states she feels better. Per curb-65 criteria, patient does not require admission. Discussed findings with patient. Safe for discharge close outpatient follow- up. States she has a PMD Diagnosis - pneumonia Stable and discharged home with prescriptions for amoxicillin, tamiflu, promethazine/codeine, motrin. Instructed to followup with PMD. Return to ED if symptoms recur or worsen Labs Test 05/16/18 21:45 White Blood Count 7.4 K/UL (4.8-10.8) Red Blood Count 4.65 M/UL (4.20-5.40) Hemoglobin 13.7 G/DL (12.0-16.0) Hematocrit 39.5 % (37.0-47.0) Mean Corpuscular Volume 85 FL (80-99) Mean Corpuscular Hemoglobin 29.4 PG (27.0-31.0) Mean Corpuscular Hemoglobin Concent 34.6 G/DL (32.0-36.0) Red Cell Distribution Width 11.5 % (11.6-14.8) Platelet Count 243 K/UL (150-450) Mean Platelet Volume 7.3 FL (6.5-10.1) Neutrophils (%) (Auto) 65.8 % (45.0-75.0) Lymphocytes (%) (Auto) 19.2 % (20.0-45.0) Monocytes (%) (Auto) 13.1 % (1.0-10.0) Eosinophils (%) (Auto) 0.8 % (0.0-3.0) Basophils (%) (Auto) 1.1 % (0.0-2.0) Urine Color Pale yellow Urine Appearance Clear Urine pH 8 (4.5-8.0) Urine Specific [place] 1.010 (1.005-1.035) Urine Protein 2+ (NEGATIVE) Urine Glucose (UA) Negative (NEGATIVE) Urine Ketones Negative (NEGATIVE) Urine Blood 2+ (NEGATIVE) Urine Nitrite Negative (NEGATIVE) Urine Bilirubin Negative (NEGATIVE) Urine Urobilinogen Normal MG/DL (0.0-1.0) Urine Leukocyte Esterase Negative (NEGATIVE) Urine RBC 2-4 /HPF (0 - 2) Urine WBC 0-2 /HPF (0 - 2) Urine Squamous Epithelial Cells Few /LPF (NONE/OCC) Urine Bacteria Few /HPF (NONE) Sodium Level 142 MMOL/L (136-145) Potassium Level 3.1 MMOL/L (3.5-5.1) Chloride Level 101 MMOL/L (98-107) Carbon Dioxide Level 27 MMOL/L (21-32) Anion Gap 14 mmol/L (5-15) Blood Urea Nitrogen 14 mg/dL (7-18) Creatinine 1.0 MG/DL (0.55-1.30) Estimat Glomerular Filtration Rate 57.4 mL/min (>60) Glucose Level 164 MG/DL (74-106) Calcium Level 9.8 MG/DL (8.5-10.1) Total Bilirubin 0.3 MG/DL (0.2-1.0) Aspartate Amino Transf (AST/SGOT) 23 U/L (15-37) Alanine Aminotransferase (ALT/SGPT) 48 U/L (12-78) Alkaline Phosphatase 108 U/L (46-116) Total Creatine Kinase 133 U/L (26-308) Creatine Kinase MB < 0.5 NG/ML (0.0-3.6) Creatine Kinase MB Relative Index 0.3 Troponin I 0.000 ng/mL (0.000-0.056) Pro-B-Type Natriuretic Peptide 99 pg/mL (0-125) Total Protein 7.7 G/DL (6.4-8.2) Albumin 4.2 G/DL (3.4-5.0) Globulin 3.5 g/dL Albumin/Globulin Ratio 1.2 (1.0-2.7) EKG Diagnostic Results Rate: normal Rhythm: NSR ST Segments: no acute changes ASA given to the pt in ED: No Rhythm Strip Diag. Results EP Interpretation: yes Rhythm: NSR, no PVC's, no ectopy Chest X-Ray Diagnostic Results Chest X-Ray Diagnostic Results : Chest X-Ray Ordered: Yes # of Views/Limited/Complete: 1 View Indication: Chest Pain EP Interpretation: Yes Interpretation: no pneumothorax, other - L sided haziness Impression: Other - pneumonia Electronically Signed by: Electronically signed by Telly Correia MD Last Vital Signs Date Time Temp Pulse Resp B/P (MAP) Pulse Ox O2 Delivery O2 Flow Rate FiO2 05/16/18 23:04 101.2 90 18 131/62 100 Room Air 21 Status: improved Disposition: HOME, SELF-CARE Condition: Stable Scripts Ibuprofen* (MOTRIN*) 600 Mg Tablet 600 MG ORAL Q8H PRN for For Pain, #30 TAB 0 Refills Prov: Telly Correia MD 05/16/18 Codeine/Promethazine Hcl* (PROMETHAZINE-CODEINE SYRUP*) 118 Ml Syrup 5 ML ORAL Q6H PRN for For Cough, #118 ML 0 Refills Prov: Telly Correia MD 05/16/18 Oseltamivir Phosphate (Tamiflu) 75 Mg Capsule 75 MG ORAL TWICE A DAY for 5 Days, CAP Prov: Telly Correia MD 05/16/18 Amoxicillin* (AMOXIL*) 500 Mg Capsule 500 MG ORAL THREE TIMES A DAY, #21 CAP Prov: Telly Correia MD 05/16/18 Patient Instructions: Community-Acquired Pneumonia, Adult, [id number] Telly Correia MD May 16, 2018 23:32
--- NOTE | 2018-05-17 12:04 | Diagnostic Imaging Report ---
Indication: Chest Technique: One view of the chest Comparison: 02/17/2018 Findings: Patchy infiltrate is seen in the left perihilar region. The right lung and bilateral pleural spaces are clear. The heart size is upper limits of normal Impression: Patchy left perihilar infiltrate
--- NOTE | 2018-05-19 01:27 | Cardiology Report ---
APPROVED REPORT EKG Measurement Heart [id number] Sinus tachycardia Incomplete right bundle branch block Borderline ECG
== END 2018-05-16 23:20 | disposition home or self-care (01) ==
LOC: EMR 21:43
DX: J18.9 Pneumonia, unspecified organism (principal); I10 Essential (primary) hypertension; E11.9 Type 2 diabetes mellitus without complications
CPT/HCPCS: 36415; 71045; 80053; 81003; 82550; 82553; 83880; 84484; 85025; 86710; 93005; 94640; 94664; 96361; 96374; 99284; J1885

== ENCOUNTER 2018-08-18 22:20 | Emergency (ER) | payer MEDICAID ==
[~2018-08-18] VITALS: Ht 144.8 cm; Wt 55.3 kg
[~2018-08-18 22:20] MED LIST changes: +AMOXICILLIN500 MG ORAL; +PROMETHAZINE-C118 M1 ORAL; +TAMIFLU75 MG ORAL
[2018-08-18 22:45] VITALS: BP 170/88
[2018-08-18] MEDS ORDERED: Ketorolac 30mg Inj IV ONE (23:15)
[2018-08-18 23:18] LABS: APPEARANCE,URINE CLEAR; BILIRUBIN, URINE NEGATIVE (NEGATIVE); COLOR,URINE PALE YELLOW; GLUCOSE, URINE (UA) NEGATIVE (NEGATIVE); KETONES,URINE NEGATIVE (NEGATIVE); LEUKOCYTE ESTERASE ,URINE NEGATIVE (NEGATIVE); NITRITE,URINE NEGATIVE (NEGATIVE); PH,URINE 6 (4.5-8.0); PROTEIN,URINE 2+ (NEGATIVE); UROBILINOGEN,URINE NORMAL MG/DL (0.0-1.0)
[2018-08-18 23:56] LABS: BASOPHILS % (AUTO) 0.8 % (0.0-2.0); EOSINOPHILS % (AUTO) 1.5 % (0.0-3.0); HEMATOCRIT 36.5 % (37.0-47.0); HEMOGLOBIN 12.9 G/DL (12.0-16.0); LYMPHOCYTES % (AUTO) 23.4 % (20.0-45.0); MEAN CORPUSCULAR VOLUME 84 FL (80-99); MONOCYTES % (AUTO) 5.6 % (1.0-10.0); NEUTROPHILS % (AUTO) 68.6 % (45.0-75.0); PLATELET COUNT 239 K/UL (150-450); RED BLOOD COUNT 4.37 M/UL (4.20-5.40); WHITE BLOOD COUNT 10.2 K/UL (4.8-10.8)
[2018-08-19 00:05] LABS: ANION GAP 10 mmol/L (5-15); BLOOD UREA NITROGEN 17 mg/dL (7-18); CALCIUM 9.9 MG/DL (8.5-10.1); CARBON DIOXIDE 27 MMOL/L (21-32); CHLORIDE 102 MMOL/L (98-107); CREATININE 0.7 MG/DL (0.55-1.30); POTASSIUM 3.3 MMOL/L (3.5-5.1); SODIUM 139 MMOL/L (136-145)
[2018-08-19 00:10] LABS: ALANINE AMINOTRANSFERASE 28 U/L (12-78); ALBUMIN 3.9 G/DL (3.4-5.0); ALBUMIN/GLOBULIN RATIO 1.1 (1.0-2.7); ALKALINE PHOSPHATASE 114 U/L (46-116); ASPARTATE AMINO TRANSFERASE 17 U/L (15-37); BILIRUBIN,TOTAL 0.2 MG/DL (0.2-1.0)
[2018-08-19] MEDS ORDERED: Morphine Sulfate 4mg/ml Inj (IV USE ONLY) IVP ONE (01:15)
[2018-08-19] MEDS ORDERED: IBUPROFEN600 MG ORAL (01:20)
[2018-08-19] MEDS ORDERED: HYDROCODON-ACE1 EA15 ORAL (01:20)
--- NOTE | 2018-08-19 01:20 | Emergency Room Report ---
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 Patient presents with back pain and abdominal pain. This onset for last 4 days. 4 days ago she helped somebody move and was doing some heavy lifting. Since then she having back pain rating to the front. Sharp and crampy. 10 out of 10 pain. No nausea no vomiting. No diarrhea. No incontinence of bowel or urine. She does have pain going down her left leg. Denies any other complaint. Movement made it worse. Rest made it better. Allergies: Coded Allergies: No Known Allergies (Unverified , 01/08/17) Patient History Past Medical History: see triage record, old chart reviewed, HTN Past Surgical History: other Pertinent Family History: none Social History: Denies: smoking Now: No Immunizations: other Reviewed Nursing Documentation: PMH: Agreed; PSxH: Agreed Nursing Documentation-PMH Past Medical History: No History, Except For Hx Cardiac Problems: Yes Hx Hypertension: Yes Hx Diabetes: Yes Hx Cancer: No Hx Gastrointestinal Problems: No Hx Neurological Problems: No Review of Systems Eye: Denies: eye pain, blurred vision ENT: Denies: ear pain, nose congestion, throat swelling Respiratory: Denies: cough, shortness of breath Cardiovascular: Denies: chest pain, palpitations Gastrointestinal: Reports: abdominal pain; Denies: diarrhea, nausea, vomiting Musculoskeletal: Reports: back pain; Denies: joint pain Skin: Denies: rash Neurological: Denies: headache, numbness Endocrine: Denies: increased thirst, increased urine Hematologic/Lymphatic: Denies: easy bruising All Other Systems: negative except mentioned in HPI Physical Exam Vital Signs Date Time Temp Pulse Resp B/P (MAP) Pulse Ox O2 Delivery O2 Flow Rate FiO2 08/18/18 22:28 98.2 69 18 170/88 (115) 95 Room Air vitals with high blood pressure Sp02 EP Interpretation: reviewed, normal General Appearance: well appearing, no apparent distress, alert Head: normocephalic, atraumatic Eyes: bilateral eye PERRL, bilateral eye EOMI ENT: hearing grossly normal, normal pharynx Neck: full range of motion, supple, no meningismus Respiratory: chest non-tender, lungs clear, normal breath sounds Cardiovascular #1: regular rate, rhythm, no murmur Gastrointestinal: normal bowel sounds, no mass, no organomegaly, no bruit, non- distended, tenderness - Diffuse Musculoskeletal: back normal, gait/station normal, normal range of motion Psychiatric: mood/affect normal Skin: warm/dry Medical Decision Making Diagnostic Impression: Primary Impression: Abdominal pain Qualified Codes: R10.84 - Generalized abdominal pain Additional Impressions: Low back pain Qualified Codes: M54.5 - Low back pain Hypertension Qualified Codes: I10 - Essential (primary) hypertension ER Course Patient presents with back pain and abdominal pain. No evidence of acute abdomen. No evidence of cauda equina syndrome, spinal epidural abscess or neoplastic process. Better now. We'll discharge home. Lab Results Impression labs unremarkable CT/MRI/US Diagnostic Results CT/MRI/US Diagnostic Results : Imaging Test Ordered: CT abdomen and pelvis Impression Read by radiologist. No bowel obstruction. No appendicitis. Moderately distended stomach with recently ingested material and fluid-filled small bowel, currently with gastroenteritis. Last Vital Signs Date Time Temp Pulse Resp B/P (MAP) Pulse Ox O2 Delivery O2 Flow Rate FiO2 08/19/18 00:12 98.2 08/18/18 22:45 80 18 170/88 95 Room Air Status: improved Disposition: HOME, SELF-CARE Condition: Stable Scripts Ibuprofen* (MOTRIN*) 600 Mg Tablet 600 MG ORAL THREE TIMES A DAY, #30 TAB 0 Refills Prov: Nicolas Hanna MD 08/19/18 Hydrocodone/Acetaminophen 5-325* (HYDROCODONE/ACETAMINOPHEN 5-325*) 1 Each Tablet 1 TAB ORAL Q6H PRN for For Pain, #10 TAB 0 Refills Prov: Nicolas Hanna MD 08/19/18 Referrals: [facility] (PCP) Additional Instructions: Follow-up with your [facility]Garland in 3-5 days. Return if worse. Nicolas Hanna MD Aug 19, 2018 01:20
[2018-08-19 01:30] VITALS: BP 143/68
--- NOTE | 2018-08-19 09:43 | Diagnostic Imaging Report ---
Indication: Abdominal pain Technique: Continuous helical transaxial imaging of the abdomen and pelvis was obtained from the lung bases to the pubic symphysis. No intravenous contrast was administered. Coronal 2-D reformats were also obtained. Automatic Exposure Control was utilized. Total Dose length Product (DLP): 504.[address] Dose Index Volume (CTDIvol): 10.62 mGy Comparison: none Findings: Small hiatal hernia noted. Cardiomegaly is present. Gallbladder is contracted. Aorta is mildly calcified. Bowel gas pattern is nonobstructive. The appendix is normal. There is suggestion of a right ovarian cyst measuring about 3.5 x 2.6 cm. Uterus noted. Bladder is unremarkable. IMPRESSION: No acute findings appreciated. Suggestion of a right ovarian cyst. This may be better evaluated with ultrasound. Normal appendix. No evidence of bowel obstruction, free fluid or free air. Multiple incidental findings as described above. [facility] has communicated the preliminary results to the Emergency Department. Their findings are largely concordant with this report. The CT scanner at [facility] is accredited by the [employer] and the scans are performed using dose optimization techniques as appropriate to a performed exam including Automatic Exposure control.
== END 2018-08-19 01:30 | disposition home or self-care (01) ==
LOC: EMR 22:44
DX: R10.9 Unspecified abdominal pain (principal); M54.5 Low back pain; I10 Essential (primary) hypertension; E11.9 Type 2 diabetes mellitus without complications
CPT/HCPCS: 36415; 74176; 80053; 81003; 83690; 85025; 96361; 96374; 96375; 99284; J1885; J2270; J2405

== ENCOUNTER 2018-09-23 02:25 | Emergency (ER) | payer MEDICAID ==
[~2018-09-23] VITALS: Ht 157.5 cm; Wt 63.5 kg
[~2018-09-23 02:25] MED LIST changes: +HYDROCODON-ACE1 EA15 ORAL
[2018-09-23 02:44] VITALS: BP 132/71
[2018-09-23] MEDS ORDERED: Tylenol #3 tab (300mg/30mg) ORAL ONE (02:45)
--- NOTE | 2018-09-23 02:46 | NUR ---
ED Nurse Note: Patient walked in to ER c/o headache. Patient is here from [facility]. [facility], with healthcare network pricing consultant. Patient is legally deaf. AAO x4, VSS at this time, skin is warm to touch.
--- NOTE | 2018-09-23 02:55 | Emergency Room Report ---
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 reports complaints of pain to the left forehead and temporal area Patient had come downstairs and notified the staff of her headache and was brought to the emergency room There was no reports of vomiting or diarrhea Denies any chest pain denies any back or flank pain denies any photophobia Patient has had headaches in the past Has not been given any medications as of yet Initially history was obtained from the staff patient has previously presented with her, [employer] system for hearing and deaf however presented without her instrumentation Allergies: Coded Allergies: No Known Allergies (Unverified , 01/08/17) Patient History Past Medical History: see triage record Pertinent Family History: none Last Menstrual Period: na Reviewed Nursing Documentation: PMH: Agreed; PSxH: Agreed Nursing Documentation-PMH Hx Cardiac Problems: Yes Hx Hypertension: Yes Hx Diabetes: Yes Hx Cancer: No Hx Gastrointestinal Problems: No Hx Neurological Problems: No Review of Systems All Other Systems: negative except mentioned in HPI Physical Exam Vital Signs Date Time Temp Pulse Resp B/P (MAP) Pulse Ox O2 Delivery O2 Flow Rate FiO2 09/23/18 02:27 98.2 79 16 132/71 (91) 96 Room Air Sp02 EP Interpretation: reviewed, normal General Appearance: no apparent distress Head: normocephalic, atraumatic Eyes: bilateral eye PERRL, bilateral eye EOMI ENT: normal pharynx Neck: supple Respiratory: lungs clear, no respiratory distress, no retraction Cardiovascular #1: regular rate, rhythm Gastrointestinal: non tender, soft Musculoskeletal: normal inspection Neurologic: alert, responsive Skin: no rash Lymphatic: no adenopathy Medical Decision Making Diagnostic Impression: Primary Impression: Headache ER Course Speaking further with the patient using the sign language system on our computers patient reports that she was starting to develop a headache earlier this morning She shows me a bottle of Motrin which she had taken 1 to 2 pills with minimal improvement And reports increased pain in the left forehead and parietal region of the head Patient has had 4 CAT scans in the past 2 years also now shows me referral to neurologist My consideration for intracranial, neurological, neurosurgical differentials is made patient has a benign neurological exam however I did not want to repeat CAT scan imaging without any focal deficit and the multiple imaging from previous Sed rate was obtained which was normal patient feels better after acute intervention and is stable for close outpatient follow-up Labs Test 09/23/18 03:00 White Blood Count 11.4 K/UL (4.8-10.8) Red Blood Count 4.45 M/UL (4.20-5.40) Hemoglobin 13.1 G/DL (12.0-16.0) Hematocrit 38.6 % (37.0-47.0) Mean Corpuscular Volume 87 FL (80-99) Mean Corpuscular Hemoglobin 29.4 PG (27.0-31.0) Mean Corpuscular Hemoglobin Concent 33.8 G/DL (32.0-36.0) Red Cell Distribution Width 11.4 % (11.6-14.8) Platelet Count 245 K/UL (150-450) Mean Platelet Volume 7.9 FL (6.5-10.1) Neutrophils (%) (Auto) 65.8 % (45.0-75.0) Lymphocytes (%) (Auto) 25.8 % (20.0-45.0) Monocytes (%) (Auto) 6.0 % (1.0-10.0) Eosinophils (%) (Auto) 1.8 % (0.0-3.0) Basophils (%) (Auto) 0.5 % (0.0-2.0) Erythrocyte Sedimentation Rate 10 MM/HR (0-30) Sodium Level 139 MMOL/L (136-145) Potassium Level 3.1 MMOL/L (3.5-5.1) Chloride Level 102 MMOL/L (98-107) Carbon Dioxide Level 28 MMOL/L (21-32) Anion Gap 9 mmol/L (5-15) Blood Urea Nitrogen 19 mg/dL (7-18) Creatinine 0.9 MG/DL (0.55-1.30) Estimat Glomerular Filtration Rate > 60 mL/min (>60) Glucose Level 133 MG/DL (74-106) Calcium Level 9.6 MG/DL (8.5-10.1) Last Vital Signs Date Time Temp Pulse Resp B/P (MAP) Pulse Ox O2 Delivery O2 Flow Rate FiO2 09/23/18 02:44 98.2 16 132/71 96 Room Air 09/23/18 02:27 79 Status: improved Disposition: HOME, SELF-CARE Condition: Improved Scripts Alprazolam* (XANAX*) 0.5 Mg Tablet 0.5 MG ORAL QHS, #7 TAB Prov: Samuel Hadley DO 09/23/18 Referrals: [facility] (PCP) Additional Instructions: Patient is provided with the discharge instructions notified to follow up with primary doctor in the next 2-3 days otherwise return to the er with any worsening symptoms. Please note that this report is being documented using DRAGON technology. This can lead to erroneous entry secondary to incorrect interpretation by the dictating instrument. Samuel Hadley DO Sep 23, 2018 02:55
[2018-09-23 03:16] LABS: BASOPHILS % (AUTO) 0.5 % (0.0-2.0); EOSINOPHILS % (AUTO) 1.8 % (0.0-3.0); HEMATOCRIT 38.6 % (37.0-47.0); HEMOGLOBIN 13.1 G/DL (12.0-16.0); LYMPHOCYTES % (AUTO) 25.8 % (20.0-45.0); MEAN CORPUSCULAR VOLUME 87 FL (80-99); NEUTROPHILS % (AUTO) 65.8 % (45.0-75.0); PLATELET COUNT 245 K/UL (150-450); RED BLOOD COUNT 4.45 M/UL (4.20-5.40); RED CELL DISTRIBUTION WIDTH 11.4 % (11.6-14.8); WHITE BLOOD COUNT 11.4 K/UL (4.8-10.8)
[2018-09-23 03:20] LABS: ANION GAP 9 mmol/L (5-15); BLOOD UREA NITROGEN 19 mg/dL (7-18); CALCIUM 9.6 MG/DL (8.5-10.1); CARBON DIOXIDE 28 MMOL/L (21-32); CHLORIDE 102 MMOL/L (98-107); CREATININE 0.9 MG/DL (0.55-1.30); POTASSIUM 3.1 MMOL/L (3.5-5.1); SODIUM 139 MMOL/L (136-145)
[2018-09-23] MEDS ORDERED: LORazepam 1mg tab ORAL ONE (03:45)
--- NOTE | 2018-09-23 03:55 | NUR ---
ED Nurse Note: For interpritation [employer] was used. Kem # [id number] justin language interoreter.
[2018-09-23] MEDS ORDERED: XANAX0.5 MG ORAL (04:26)
[2018-09-23 04:44] VITALS: BP 132/71
--- NOTE | 2018-09-23 04:46 | NUR ---
ED Nurse Note: Pt cleared by health care Provider for discharge. DC instructions/prescription was given and explained to pt and verbalized understanding of teachings. All medical deviecs such as ID band removed. Pt is AAO x4, ambulatory and left with all personal belongings.
== END 2018-09-23 04:59 | disposition home or self-care (01) ==
LOC: EMR 02:44
DX: R51 Headache (principal); I10 Essential (primary) hypertension; E11.9 Type 2 diabetes mellitus without complications
CPT/HCPCS: 36415; 80048; 82962; 85025; 85651; 99284; J8499

== ENCOUNTER 2019-02-15 18:11 | Emergency (ER) | payer MEDICAID ==
[~2019-02-15] VITALS: Ht 144.8 cm; Wt 56.7 kg
[~2019-02-15 18:11] MED LIST changes: +XANAX0.5 MG ORAL
--- NOTE | 2019-02-15 18:35 | NUR ---
ED Nurse Note: Patient walked into ER accompanied by valance cutter and friend d/t vision disturbances. Per pt, first time she experienced this, vision is blurry and becomes black and comes and goes. Pt stated she started feeling dizzy and disoriented. No history of head injury. Pt aao x4 and ambulatory. Pt refused eye assessment, ERMD able to check eyes. Pt c/o severe anxiety. Per pt, blood sugar checked at home and monitor said "high". No c/o chest pain. 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 No acute distress noted at this time.
--- NOTE | 2019-02-15 18:42 | NUR ---
ED Nurse Note: ERMD at bedside.
[2019-02-15] MEDS ORDERED: LORazepam Inj 2mg/ml 1ml IV ONE (18:45)
--- NOTE | 2019-02-15 18:45 | NUR ---
ED Nurse Note: Blood sugar and blood pressure results reported to ERMD and documented.
--- NOTE | 2019-02-15 18:49 | Emergency Room Report ---
History of Present Illness General Chief Complaint: Eye Problems Source: Patient Present Illness [facility] Disclaimer: Please note that this report is being documented using [employer] technology. This can lead to erroneous entry secondary to incorrect interpretation by the dictating instrument. HPI: 58-year-old female presents for evaluation of blurred vision and elevated blood sugar readings. She is mute and deaf but presents with senior design engineering specialist through which history was obtained. Reports bilateral blurred vision and intermittent cuts in her visual cole over the past day. Denies headache or facial trauma. Denies eye pain, burning or increased lacrimation. She does report some photophobia. She wears corrective lenses but does not wear contacts. Blood sugar readings were "high" prior to arrival. She takes metformin does not use insulin. No prior history of DKA. Denies chest pain, shortness of breath, vomiting, diarrhea, fevers. She does feel very anxious. PMH: Hypertension, diabetes, mute, deaf PSH: Reviewed Allergies: None reported Social Hx: Denies drug or alcohol use Allergies: Coded Allergies: No Known Allergies (Unverified , 01/08/17) Patient History Last Menstrual Period: 30 yrs ago Nursing Documentation-PMH Past Medical History: No History, Except For Hx Hypertension: Yes Hx Diabetes: Yes Hx Cancer: No Hx Gastrointestinal Problems: No Hx Neurological Problems: No Review of Systems All Other Systems: negative except mentioned in HPI Physical Exam Vital Signs Date Time Temp Pulse Resp B/P (MAP) Pulse Ox O2 Delivery O2 Flow Rate FiO2 02/15/19 18:16 99.1 92 15 140/84 (102) 96 Room Air General: Awake and alert, anxious appearing HEENT: NC/AT. EOMI. PERRLA. Pupils are 4 mm and reactive bilaterally. Increased lacrimation bilaterally. No purulent drainage. No lid edema. Visual acuity: 20/200 bilaterally. Visual cole appear full. Cardiovascular: Slightly tachycardic. S1 and S2 normal. No murmur appreciated Resp: Normal work of breathing. No cough, wheezing or crackles appreciated Abdomen: Abdomen is soft, nondistended. Nontender Skin: Intact. No abrasions, laceration or rash over the exposed skin MSK: Normal tone and bulk. Moving all extremities. No obvious deformity. Neuro: Awake and alert. Mentating appropriately. Moving all extremities. Ambulate with a steady gait. Answering questions appropriately. Medical Decision Making Diagnostic Impression: Primary Impression: Blurred vision Additional Impression: Hyperglycemia ER Course 58-year-old female with a history of diabetes presents for evaluation of elevated blood sugar readings at home as well as blurred vision and changes in her visual cole. Her visual acuity appears to be fluctuating as she is now able to see her senior design engineering specialist but reports intermittent changes in her visual cole. Denies head trauma or headache at this time. Otherwise has been in her usual state of health. Differential includes was not limited to DKA , diabetic retinopathy, optic neuritis, retinal detachment, vitreous detachment , space-occupying lesion. We will start broad metabolic infectious work-up as well as sent for CT scan of the head. Ativan given for anxiety. Laboratory Tests Test 02/15/19 18:45 White Blood Count 12.0 K/UL (4.8-10.8) H Red Blood Count 5.28 M/UL (4.20-5.40) Hemoglobin 15.8 G/DL (12.0-16.0) Hematocrit 43.5 % (37.0-47.0) Mean Corpuscular Volume 82 FL (80-99) Mean Corpuscular Hemoglobin 30.0 PG (27.0-31.0) Mean Corpuscular Hemoglobin Concent 36.4 G/DL (32.0-36.0) H Red Cell Distribution Width 9.5 % (11.6-14.8) L Platelet Count 298 K/UL (150-450) Mean Platelet Volume 8.0 FL (6.5-10.1) Neutrophils (%) (Auto) 76.1 % (45.0-75.0) H Lymphocytes (%) (Auto) 17.8 % (20.0-45.0) L Monocytes (%) (Auto) 4.3 % (1.0-10.0) Eosinophils (%) (Auto) 0.8 % (0.0-3.0) Basophils (%) (Auto) 1.0 % (0.0-2.0) Urine Color Pale yellow Urine Appearance Slightly cloudy Urine pH 6 (4.5-8.0) Urine Specific [place] 1.010 (1.005-1.035) Urine Protein 3+ (NEGATIVE) H Urine Glucose (UA) 4+ (NEGATIVE) H Urine Ketones 2+ (NEGATIVE) H Urine Blood 1+ (NEGATIVE) H Urine Nitrite Negative (NEGATIVE) Urine Bilirubin Negative (NEGATIVE) Urine Urobilinogen Normal MG/DL (0.0-1.0) Urine Leukocyte Esterase Negative (NEGATIVE) Urine RBC 0-2 /HPF (0 - 2) Urine WBC 5-10 /HPF (0 - 2) H Urine Squamous Epithelial Cells Few /LPF (NONE/OCC) Urine Bacteria Few /HPF (NONE) Sodium Level 132 MMOL/L (136-145) L Potassium Level 4.2 MMOL/L (3.5-5.1) Chloride Level 94 MMOL/L (98-107) L Carbon Dioxide Level 30 MMOL/L (21-32) Anion Gap 8 mmol/L (5-15) Blood Urea Nitrogen 17 mg/dL (7-18) Creatinine 1.0 MG/DL (0.55-1.30) Estimate Glomerular Filtration Rate 57.1 mL/min (>60) Glucose Level 539 MG/DL (74-106) *H Calcium Level 10.0 MG/DL (8.5-10.1) Magnesium Level 2.0 MG/DL (1.8-2.4) Total Bilirubin 0.5 MG/DL (0.2-1.0) Aspartate Amino Transferase (AST) 19 U/L (15-37) Alanine Aminotransferase (ALT) 42 U/L (12-78) Alkaline Phosphatase 194 U/L (46-116) H Troponin I 0.000 ng/mL (0.000-0.056) Total Protein 8.6 G/DL (6.4-8.2) H Albumin 4.7 G/DL (3.4-5.0) Globulin 3.9 g/dL Albumin/Globulin Ratio 1.2 (1.0-2.7) Acetone Level Positive-small (NEGATIVE) Reevaluation Time: 21:10 Last Vital Signs Date Time Temp Pulse Resp B/P (MAP) Pulse Ox O2 Delivery O2 Flow Rate FiO2 02/15/19 18:16 99.1 92 15 140/84 (102) 96 Room Air Reevaluation Impression CT scan of the head showed no acute cranial processes. Patient's labs showed a hyperglycemia with no anion gap and only trace ketones. No evidence of acute urinary tract infection. The patient received IV fluids and 10 units of IV insulin which improved her blood sugar and resolved her blurred vision. She has no complaints at this time and is resting comfortably. The patient does not use insulin at home but states that she has not been eating regular meals lately. She will continue to take her metformin. I discussed with the patient whether or not she would like to be admitted for observation versus discharged home however she elected to return home at this time. We will give her copies of her labs and imaging reports. She will follow-up with your doctor tomorrow or the following day to discuss her ER visit and to reevaluate her medications. I discussed reasons to return to the emergency department with patient through the use of the all source intelligence technician. She understands and agrees with this treatment plan will be discharged home. Disposition: HOME, SELF-CARE Condition: Improved Graeme Desai MD Feb 15, 2019 18:49
--- NOTE | 2019-02-15 19:05 | NUR ---
ED Nurse Note: pt taken to CT scan, assisted with WC in stable condition.
[2019-02-15 19:06] VITALS: BP 220/98
--- NOTE | 2019-02-15 19:08 | NUR ---
ED Nurse Note: pt came back from CT scan in stable condition.
[2019-02-15 19:13] LABS: BILIRUBIN, URINE NEGATIVE (NEGATIVE); COLOR,URINE PALE YELLOW; GLUCOSE, URINE (UA) 4+ (NEGATIVE); KETONES,URINE 2+ (NEGATIVE); LEUKOCYTE ESTERASE ,URINE NEGATIVE (NEGATIVE); NITRITE,URINE NEGATIVE (NEGATIVE); PH,URINE 6 (4.5-8.0); PROTEIN,URINE 3+ (NEGATIVE); UROBILINOGEN,URINE NORMAL MG/DL (0.0-1.0)
[2019-02-15 19:15] LABS: APPEARANCE,URINE SLIGHTLY CLOUDY
[2019-02-15 19:16] LABS: EOSINOPHILS % (AUTO) 0.8 % (0.0-3.0); HEMATOCRIT 43.5 % (37.0-47.0); HEMOGLOBIN 15.8 G/DL (12.0-16.0); LYMPHOCYTES % (AUTO) 17.8 % (20.0-45.0); MEAN CORPUSCULAR VOLUME 82 FL (80-99); MONOCYTES % (AUTO) 4.3 % (1.0-10.0); NEUTROPHILS % (AUTO) 76.1 % (45.0-75.0); PLATELET COUNT 298 K/UL (150-450); RED BLOOD COUNT 5.28 M/UL (4.20-5.40); RED CELL DISTRIBUTION WIDTH 9.5 % (11.6-14.8)
--- NOTE | 2019-02-15 19:23 | Diagnostic Imaging Report ---
Indication: Headache Technique: Contiguous 5 mm thick transaxial imaging of the head obtained in a Siemens Sensation [address] scanner. Soft tissue and bone windows generated. Automatic Exposure Control was utilized. Total Dose length Product (DLP): [address] Dose Index Volume (CTDIvol): 62.7 mGy Comparison: none Findings: Minimal, patchy, nonspecific, white matter hypoattenuation is noted throughout the brain presumably on the basis of chronic small vessel disease. There is a focus of calcification in the left occipital lobe which may be due to cysticercosis. There is no interval change. There is no midline shift, edema, acute hemorrhage, mass effect, or abnormal extra-axial fluid collections. Bones and extra osseous soft tissues are unremarkable. Impression: No acute intracranial bleed, mass effect or edema. Nonspecific white matter hypoattenuation probably due to chronic small vessel disease. Cysticercosis The CT scanner at [facility] is accredited by the [employer] and the scans are performed using dose optimization techniques as appropriate to a performed exam including Automatic Exposure control.
--- NOTE | 2019-02-15 19:24 | NUR ---
HAND-OFF: Report given to MIGUEL Delgado. No orders to be carried out.
[2019-02-15 19:57] LABS: ALANINE AMINOTRANSFERASE 42 U/L (12-78); ALBUMIN 4.7 G/DL (3.4-5.0); ALBUMIN/GLOBULIN RATIO 1.2 (1.0-2.7); ALKALINE PHOSPHATASE 194 U/L (46-116); ANION GAP 8 mmol/L (5-15); ASPARTATE AMINO TRANSFERASE 19 U/L (15-37); BILIRUBIN,TOTAL 0.5 MG/DL (0.2-1.0); BLOOD UREA NITROGEN 17 mg/dL (7-18); CARBON DIOXIDE 30 MMOL/L (21-32); CHLORIDE 94 MMOL/L (98-107); POTASSIUM 4.2 MMOL/L (3.5-5.1); SODIUM 132 MMOL/L (136-145)
[2019-02-15] MEDS ORDERED: Insulin Human Regular 100units/ml 3ml IV ONE (20:15)
[2019-02-15 21:14] VITALS: BP 148/98
[2019-02-15 21:15] VITALS: BP 148/98
--- NOTE | 2019-02-15 21:16 | NUR ---
ED Nurse Note: Pt cleared by health care Provider for discharge. DC instructions/prescription was given and explained to pt and verbalized understanding of teachings. All medical deviecs such as ID band and IV removed. Pt is AAO x4, ambulatory and left with all personal belongings.
== END 2019-02-15 21:27 | disposition home or self-care (01) ==
LOC: EMR 18:51
DX: H53.8 Other visual disturbances (principal); E11.65 Type 2 diabetes mellitus with hyperglycemia; I10 Essential (primary) hypertension; H91.3 Deaf nonspeaking, not elsewhere classified
CPT/HCPCS: 36415; 70450; 80053; 81003; 82009; 83735; 84484; 85025; 96361; 96374; 96375; J1815; J7030; Z7502; 99284

== ENCOUNTER 2019-02-16 23:31 | Inpatient (IN) | payer MEDICAID ==
[~2019-02-16] VITALS: Ht 144.8 cm; Wt 56.2 kg
[2019-02-17] VITALS (8 sets, daily range): BP systolic 124–157; BP diastolic 60–82
[2019-02-17 02:06] LABS: BASOPHILS % (AUTO) 0.8 % (0.0-2.0); EOSINOPHILS % (AUTO) 1.2 % (0.0-3.0); HEMATOCRIT 43.1 % (37.0-47.0); HEMOGLOBIN 14.6 G/DL (12.0-16.0); LYMPHOCYTES % (AUTO) 25.8 % (20.0-45.0); MEAN CORPUSCULAR VOLUME 86 FL (80-99); MONOCYTES % (AUTO) 4.7 % (1.0-10.0); NEUTROPHILS % (AUTO) 67.5 % (45.0-75.0); PLATELET COUNT 256 K/UL (150-450); RED BLOOD COUNT 5.02 M/UL (4.20-5.40); RED CELL DISTRIBUTION WIDTH 10.9 % (11.6-14.8); WHITE BLOOD COUNT 10.5 K/UL (4.8-10.8)
--- NOTE | 2019-02-17 02:12 | Emergency Room Report ---
History of Present Illness General Chief Complaint: Eye Problems Source: Patient Present Illness HPI Patient is a 58-year-old female patient presented after increased blurred vision. Patient had similar symptoms and had a recent ER visit yesterday for similar symptoms. She had been previously taking metformin. She had several missed doses several days ago but had been given medications yesterday. Patient is normally followed at [facility]. She had blood sugar check at home which showed high. She had not been vomiting or having any diarrhea. She had some discomfort to her chest. Allergies: Coded Allergies: No Known Allergies (Unverified , 01/08/17) Patient History Past Medical History: see triage record Reviewed Nursing Documentation: PMH: Agreed; PSxH: Agreed Nursing Documentation-PMH Hx Hypertension: Yes Hx Diabetes: Yes Hx Cancer: No Hx Gastrointestinal Problems: No Hx Neurological Problems: No Review of Systems All Other Systems: negative except mentioned in HPI Physical Exam Vital Signs Date Time Temp Pulse Resp B/P (MAP) Pulse Ox O2 Delivery O2 Flow Rate FiO2 02/17/19 00:00 98.6 74 20 157/78 (104) 97 Room Air Sp02 EP Interpretation: reviewed, normal General Appearance: normal inspection, well appearing, no apparent distress, alert, GCS 15, non-toxic Head: atraumatic ENT: normal ENT inspection, normal voice Neck: normal inspection, full range of motion, supple, no bony tend Respiratory: normal inspection, lungs clear, normal breath sounds, no respiratory distress, no retraction, no wheezing Cardiovascular #1: regular rate, rhythm, no edema Gastrointestinal: normal inspection, normal bowel sounds, non tender, soft, no guarding, no hernia Genitourinary: no CVA tenderness Musculoskeletal: normal inspection, back normal, normal range of motion Neurologic: alert, motor strength/tone normal, hvac estimator III-XII nml as tested, responsive, normal inspection, other - signs Psychiatric: normal inspection, judgement/insight normal, mood/affect normal Medical Decision Making Diagnostic Impression: Primary Impression: Deaf nonspeaking, not elsewhere classifiable Additional Impression: Uncontrolled diabetes mellitus ER Course Patient presented for increased blurred vision and high blood sugar. Differential diagnosis include was not limited to myocardial infarction, medication noncompliance, dietary indiscretion, infection among others. Because of complexity of patient's case laboratory tests and imaging studies were ordered. Patient noted to have initially elevated blood sugar. Patient started on IV fluids. She was given IV insulin. Patient was noted to have some improvement in her blood sugars. Patient had recently been seen in the emergency department. She had fairly rapid recurrence of symptoms. Patient will be admitted for further and adjustment of medications. Labs Test 02/17/19 01:06 02/17/19 02:40 White Blood Count 10.5 K/UL (4.8-10.8) Red Blood Count 5.02 M/UL (4.20-5.40) Hemoglobin 14.6 G/DL (12.0-16.0) Hematocrit 43.1 % (37.0-47.0) Mean Corpuscular Volume 86 FL (80-99) Mean Corpuscular Hemoglobin 29.1 PG (27.0-31.0) Mean Corpuscular Hemoglobin Concent 33.9 G/DL (32.0-36.0) Red Cell Distribution Width 10.9 % (11.6-14.8) Platelet Count 256 K/UL (150-450) Mean Platelet Volume 8.5 FL (6.5-10.1) Neutrophils (%) (Auto) 67.5 % (45.0-75.0) Lymphocytes (%) (Auto) 25.8 % (20.0-45.0) Monocytes (%) (Auto) 4.7 % (1.0-10.0) Eosinophils (%) (Auto) 1.2 % (0.0-3.0) Basophils (%) (Auto) 0.8 % (0.0-2.0) Sodium Level 132 MMOL/L (136-145) Potassium Level 4.0 MMOL/L (3.5-5.1) Chloride Level 94 MMOL/L (98-107) Carbon Dioxide Level 34 MMOL/L (21-32) Anion Gap 4 mmol/L (5-15) Blood Urea Nitrogen 20 mg/dL (7-18) Creatinine 1.1 MG/DL (0.55-1.30) Estimat Glomerular Filtration Rate 51.2 mL/min (>60) Glucose Level 520 MG/DL (74-106) Calcium Level 9.8 MG/DL (8.5-10.1) Total Bilirubin 0.4 MG/DL (0.2-1.0) Aspartate Amino Transf (AST/SGOT) 16 U/L (15-37) Alanine Aminotransferase (ALT/SGPT) 35 U/L (12-78) Alkaline Phosphatase 164 U/L (46-116) Troponin I 0.000 ng/mL (0.000-0.056) Total Protein 8.1 G/DL (6.4-8.2) Albumin 4.1 G/DL (3.4-5.0) Globulin 4.0 g/dL Albumin/Globulin Ratio 1.0 (1.0-2.7) Urine Color Pale yellow Urine Appearance Clear Urine pH 6.5 (4.5-8.0) Urine Specific [place] 1.005 (1.005-1.035) Urine Protein Negative (NEGATIVE) Urine Glucose (UA) 4+ (NEGATIVE) Urine Ketones Negative (NEGATIVE) Urine Blood Negative (NEGATIVE) Urine Nitrite Negative (NEGATIVE) Urine Bilirubin Negative (NEGATIVE) Urine Urobilinogen Normal MG/DL (0.0-1.0) Urine Leukocyte Esterase 1+ (NEGATIVE) Urine RBC 0-2 /HPF (0 - 2) Urine WBC 2-4 /HPF (0 - 2) Urine Squamous Epithelial Cells Few /LPF (NONE/OCC) Urine Bacteria None /HPF (NONE) Last Vital Signs Date Time Temp Pulse Resp B/P (MAP) Pulse Ox O2 Delivery O2 Flow Rate FiO2 02/17/19 01:15 98.6 78 20 157/78 97 Room Air Status: improved Disposition: HOME, SELF-CARE Condition: Stable Referrals: [facility],REFERRING (PCP) Carl Jones MD Feb 17, 2019 02:12
[2019-02-17 02:17] LABS: ALANINE AMINOTRANSFERASE 35 U/L (12-78); ALBUMIN 4.1 G/DL (3.4-5.0); ALKALINE PHOSPHATASE 164 U/L (46-116); ANION GAP 4 mmol/L (5-15); ASPARTATE AMINO TRANSFERASE 16 U/L (15-37); BILIRUBIN,TOTAL 0.4 MG/DL (0.2-1.0); BLOOD UREA NITROGEN 20 mg/dL (7-18); CALCIUM 9.8 MG/DL (8.5-10.1); CARBON DIOXIDE 34 MMOL/L (21-32); CHLORIDE 94 MMOL/L (98-107); CREATININE 1.1 MG/DL (0.55-1.30); SODIUM 132 MMOL/L (136-145)
[2019-02-17] MEDS ORDERED: Insulin Human Regular 100units/ml 3ml IV ONE (02:30)
[2019-02-17 02:57] LABS: APPEARANCE,URINE CLEAR; BILIRUBIN, URINE NEGATIVE (NEGATIVE); COLOR,URINE PALE YELLOW; GLUCOSE, URINE (UA) 4+ (NEGATIVE); KETONES,URINE NEGATIVE (NEGATIVE); LEUKOCYTE ESTERASE ,URINE 1+ (NEGATIVE); NITRITE,URINE NEGATIVE (NEGATIVE); PH,URINE 6.5 (4.5-8.0); PROTEIN,URINE NEGATIVE (NEGATIVE); UROBILINOGEN,URINE NORMAL MG/DL (0.0-1.0)
[2019-02-17] MEDS ORDERED: Sodium Chloride 550 ML IV SCH (05:06)
[2019-02-17] MEDS ORDERED: Enalapril 5mg tab ONE (09:45)
[2019-02-17] MEDS: Aspirin EC 81mg tab ORAL SCH (09:51)
[2019-02-17] MEDS: metFORMIN 500mg tab ORAL SCH ×3 (09:52→17:10)
[2019-02-17] MEDS: Enoxaparin 40mg Inj SUBQ SCH (10:01)
[2019-02-17] MEDS: Levemir Flexpen SUBQ SCH ×2 (10:02→21:23)
[2019-02-17] MEDS ORDERED: NovoLOG Insulin Flexpen SUBQ SCH (11:00)
[2019-02-17] MEDS: NovoLOG Insulin Flexpen SUBQ SCH ×3 (11:30→21:22)
--- NOTE | 2019-02-17 12:06 | Consultation ---
History of Present Illness General Date patient seen: Feb 17, 2019 Chief Complaint: Eye Problems Present Illness HPI 58 y/o F with hx of Dm2, HTN presented to ED on 02/17 with increased blurry vision and chest pain. Denied vomiting, diarrhea Allergies: Coded Allergies: No Known Allergies (Unverified , 01/08/17) Medication History Scheduled Aspirin* (Aspir 81*), 81 MG ORAL DAILY, (Reported) Atorvastatin Calcium* (Atorvastatin Calcium*), 40 MG ORAL BEDTIME, (Reported) Enalapril Maleate* (Enalapril Maleate*), 20 MG ORAL DAILY, (Reported) Ibuprofen* (Motrin*), 600 MG ORAL THREE TIMES A DAY Metformin Hcl* (Metformin Hcl*), 1,000 MG ORAL DAILY, (Reported) Ranitidine Hcl* (Zantac*), 150 MG ORAL TWICE A DAY, (Reported) Discontinued Medications Alprazolam* (Xanax*), 0.5 MG ORAL QHS Discontinued Reason: Therapy completed Hydrocodone/Acetaminophen 5-325* (Hydrocodone/Acetaminophen 5-325*), 1 TAB ORAL Q6H PRN for For Pain Discontinued Reason: Therapy completed Patient History Healthcare decision maker Resuscitation status Full Code Advanced Directive on File Patient History Narrative Pmhx: as above Shx: reviewed Fhx: non contributory Review of Systems All Other Systems: negative except mentioned in HPI Physical Exam Physical Exam Narrative General Appearance: normal inspection, well appearing, no apparent distress, alert, GCS 15, non-toxic Head: atraumatic ENT: normal ENT inspection, normal voice Neck: normal inspection, full range of motion, supple, no bony tend Respiratory: normal inspection, lungs clear, normal breath sounds, no respiratory distress, no retraction, no wheezing Cardiovascular #1: regular rate, rhythm, no edema Gastrointestinal: normal inspection, normal bowel sounds, non tender, soft, no guarding, no hernia Genitourinary: no CVA tenderness Musculoskeletal: normal inspection, back normal, normal range of motion Neurologic: alert, motor strength/tone normal, k 12 principal III-XII nml as tested, responsive, normal inspection, other - signs Psychiatric: normal inspection, judgement/insight normal, mood/affect normal Last 24 Hour Vital Signs Date Time Temp Pulse Resp B/P (MAP) Pulse Ox O2 Delivery O2 Flow Rate FiO2 02/17/19 09:52 124/65 02/17/19 08:00 58 02/17/19 08:00 98.2 65 18 124/65 (84) 98 02/17/19 06:53 98.1 64 20 136/82 (100) 94 02/17/19 06:48 Room Air 02/17/19 05:39 98.2 75 14 137/78 98 Room Air 02/17/19 03:15 98.6 72 16 143/72 97 Room Air 02/17/19 01:15 98.6 78 20 157/78 97 Room Air 02/17/19 00:00 98.6 74 20 157/78 (104) 97 Room Air Laboratory Tests Test 02/17/19 01:06 02/17/19 02:40 White Blood Count 10.5 K/UL (4.8-10.8) Red Blood Count 5.02 M/UL (4.20-5.40) Hemoglobin 14.6 G/DL (12.0-16.0) Hematocrit 43.1 % (37.0-47.0) Mean Corpuscular Volume 86 FL (80-99) Mean Corpuscular Hemoglobin 29.1 PG (27.0-31.0) Mean Corpuscular Hemoglobin Concent 33.9 G/DL (32.0-36.0) Red Cell Distribution Width 10.9 % (11.6-14.8) L Platelet Count 256 K/UL (150-450) Mean Platelet Volume 8.5 FL (6.5-10.1) Neutrophils (%) (Auto) 67.5 % (45.0-75.0) Lymphocytes (%) (Auto) 25.8 % (20.0-45.0) Monocytes (%) (Auto) 4.7 % (1.0-10.0) Eosinophils (%) (Auto) 1.2 % (0.0-3.0) Basophils (%) (Auto) 0.8 % (0.0-2.0) Sodium Level 132 MMOL/L (136-145) L Potassium Level 4.0 MMOL/L (3.5-5.1) Chloride Level 94 MMOL/L (98-107) L Carbon Dioxide Level 34 MMOL/L (21-32) H Anion Gap 4 mmol/L (5-15) L Blood Urea Nitrogen 20 mg/dL (7-18) H Creatinine 1.1 MG/DL (0.55-1.30) Estimat Glomerular Filtration Rate 51.2 mL/min (>60) Glucose Level 520 MG/DL (74-106) *H Calcium Level 9.8 MG/DL (8.5-10.1) Total Bilirubin 0.4 MG/DL (0.2-1.0) Aspartate Amino Transf (AST/SGOT) 16 U/L (15-37) Alanine Aminotransferase (ALT/SGPT) 35 U/L (12-78) Alkaline Phosphatase 164 U/L (46-116) H Troponin I 0.000 ng/mL (0.000-0.056) Total Protein 8.1 G/DL (6.4-8.2) Albumin 4.1 G/DL (3.4-5.0) Globulin 4.0 g/dL Albumin/Globulin Ratio 1.0 (1.0-2.7) Urine Color Pale yellow Urine Appearance Clear Urine pH 6.5 (4.5-8.0) Urine Specific [place] 1.005 (1.005-1.035) Urine Protein Negative (NEGATIVE) Urine Glucose (UA) 4+ (NEGATIVE) H Urine Ketones Negative (NEGATIVE) Urine Blood Negative (NEGATIVE) Urine Nitrite Negative (NEGATIVE) Urine Bilirubin Negative (NEGATIVE) Urine Urobilinogen Normal MG/DL (0.0-1.0) Urine Leukocyte Esterase 1+ (NEGATIVE) H Urine RBC 0-2 /HPF (0 - 2) Urine WBC 2-4 /HPF (0 - 2) Urine Squamous Epithelial Cells Few /LPF (NONE/OCC) Urine Bacteria None /HPF (NONE) Height (Feet): 4 Height (Inches): 9.00 Weight (Pounds): 124 Medications Current Medications Medications (Trade) Dose Ordered Sig/Olegario Route PRN Reason Start Time Stop Time Status Last Admin Dose Admin Acetaminophen (Tylenol) 650 mg Q4H PRN ORAL Mild Pain (Pain Scale 1-3) 02/17/19 08:30 03/19/19 08:29 Aspirin (Ecotrin) 81 mg DAILY ORAL 02/17/19 09:00 03/19/19 08:59 02/17/19 09:51 Atorvastatin Calcium (Lipitor) 40 mg BEDTIME ORAL 02/17/19 21:00 03/19/19 20:59 Dextrose (Dextrose 50%) 25 ml Q30M PRN IV Hypoglycemia 02/17/19 08:30 03/19/19 08:29 Dextrose (Dextrose 50%) 50 ml Q30M PRN IV Hypoglycemia 02/17/19 08:30 03/19/19 08:29 Enalapril Maleate (Vasotec) 10 mg EVERY 12 HOURS ORAL 02/17/19 09:00 03/19/19 08:59 02/17/19 09:52 Enoxaparin Sodium (Lovenox) 40 mg DAILY SUBQ 02/17/19 09:30 03/19/19 09:29 02/17/19 10:01 Famotidine (Pepcid) 20 mg DAILY ORAL 02/17/19 09:00 03/19/19 08:59 02/17/19 09:51 Insulin Aspart (NovoLOG) BEFORE MEALS AND HS SUBQ 02/17/19 11:30 03/19/19 11:29 Insulin Aspart (NovoLOG) 14 units ONCE SUBQ 02/17/19 11:00 02/17/19 13:00 02/17/19 11:05 Insulin Detemir (Levemir) 11 units Q12HR SUBQ 02/17/19 09:30 03/19/19 09:29 02/17/19 10:02 Metformin HCl (Glucophage) 1,000 mg TIAC ORAL 02/17/19 08:30 03/19/19 08:29 02/17/19 09:52 Ondansetron HCl (Zofran) 4 mg Q6H PRN IVP Nausea & Vomiting 02/17/19 08:30 03/19/19 08:29 Sodium Chloride 1,000 ml @ 100 mls/hr Q10H IV 02/17/19 08:45 03/19/19 08:44 02/17/19 09:52 Assessment/Plan Assessment/Plan: Abx: None Assessment: Afebrile No leukocytosis Hyperglycemia blurry vision Dm2 HTN Plan: -Continue to monitor off abx -f/u cx -Monitor CBC/CMP, temperatures Thank you for this consultation. Will continue to follow along with you. Discussed with Siobhan Spencer M.D. Feb 17, 2019 12:06
--- NOTE | 2019-02-17 12:45 | Cardiology Report ---
APPROVED REPORT EKG Measurement Heart [id number] Normal sinus rhythm Incomplete right bundle branch block Anterior infarct, age undetermined Abnormal ECG
--- NOTE | 2019-02-17 16:00 | History and Physical Report ---
DATE OF ADMISSION: 02/17/2019 TIME SEEN: 11 a.m. CONSULTANTS: 1. Carlos Lmoas M.D. 2. Davonte Borrego M.D. CHIEF COMPLAINT: Diabetes, hyperglycemia, and blurry vision. BRIEF HISTORY: This is a 58-year-old female, who presented to [facility] last night with above-mentioned diagnosis. Currently very sleepy in bed, refusing to answer questions. REVIEW OF SYSTEMS: Unavailable. PAST MEDICAL HISTORY: Diabetes, hypertension, ACS, and deafness. PAST SURGICAL HISTORY: Unknown. ALLERGIES: Denies. MEDICATIONS: Include Ativan, insulin, famotidine, enalapril, Tylenol, dextrose, metformin, and insulin. SOCIAL HISTORY: Unable to obtain secondary to the patient's condition. PHYSICAL EXAMINATION: GENERAL: Sleeping in bed, not responding to questions. VITAL SIGNS: Temperature is 98 degrees, pulse 65, respirations 18, and blood pressure 124/65. CARDIOVASCULAR: No murmur. LUNGS: Distant and clear. ABDOMEN: Bowel sound positive. Nontender. Nondistended. EXTREMITIES: No cyanosis, clubbing, or edema. NEUROLOGIC: The patient is deaf, otherwise moving all extremities without problems. LABORATORY AND DIAGNOSTIC DATA: Labs at this time show CBC is normal. Sodium 132, chloride 94, CO2 34, BUN and creatinine 20/1.1. Glucose 520. Troponin 0.00. Urinalysis show 1+ leukocyte esterase. ASSESSMENT: 1. Diabetes. 2. Hyperglycemia. 3. Blurry vision. 4. Hypertension. 5. ACS. 6. Deafness. 7. UTI. PLAN: 1. Continue previous medications. 2. Blood sugar control. 3. Blood pressure control. 4. Resume home medications. 5. Dietary followup. 6. Antibiotics per Infectious Disease. Mason Villalobos D.O. DR: ASHA JOB#: [id number] CC:
--- NOTE | 2019-02-17 16:45 | Consultation ---
DATE OF CONSULTATION: 02/17/2019 CONSULTING PHYSICIAN: Carlos Lomas M.D. REFERRING PHYSICIAN: aMson Villalobos D.O. REASON FOR CONSULTATION: 1. Hyponatremia. 2. Dehydration. HISTORY OF PRESENT ILLNESS: The patient is a 58-year-old female, who presented to the emergency room overnight after increased blurry vision. The patient had similar symptoms at her recent ER visit due to uncontrolled high glycemia. The patient does take metformin, but has not been taking her diabetic medications over the last several days. Normally followed at the Clinic. In the emergency room, blood sugar check showed extremely high and as such, she was admitted for further evaluation and care. No chest pain, nausea, vomiting, or diarrhea. She had a low serum sodium of 132. ALLERGIES: No known drug allergies. PAST MEDICAL HISTORY: 1. Diabetes mellitus. 2. Hypertension. 3. Hyperlipidemia PAST SURGICAL HISTORY: Noncontributory FAMILY HISTORY: Positive for hypertension and diabetes. REVIEW OF SYSTEMS: Cannot obtain as the patient is hard of hearing. LABORATORY DATA: Labs dated February 17, 2019, white cell count 10.5, hemoglobin 14.6, and platelet count 256,000. Sodium 132, creatinine 1.1, and glucose 520. PHYSICAL EXAMINATION: VITAL SIGNS: Blood pressure 124/65, respiratory rate 18, pulse 65, and temperature 98.2. GENERAL: The patient is somnolent, but arousable, fatigued. HEENT: Extraocular muscles intact. No lymphadenopathy noted. CARDIOVASCULAR: S1, S2. PULMONARY: Clear to auscultation bilaterally. No rales, rhonchi, or wheezes. ABDOMEN: Nontender. EXTREMITIES: No edema. ASSESSMENT AND PLAN: 1. Hyponatremia, at this time due to pseudohyponatremia from severe hyperglycemia. We will hydrate the patient with isotonic solution and correct the underlying glycemia. 2. Hyperglycemia. Defer management to Endocrinology. We will start long-acting insulin along with her metformin with Accu-Cheks. 3. Hypertension. We will continue HANNAH inhibitor. 4. Severe dehydration with hyperglycemia. We have initiated aggressive hydration. Let me take this opportunity to thank Dr. Mason Villalobos. Carlos Lomas MD DR: KIRSTIN JOB#: [id number] CC:
[2019-02-17] MEDS ORDERED: Atorvastatin 20mg tab ORAL SCH (21:00)
[2019-02-18] VITALS: BP 129/72
[2019-02-18 04:00] VITALS: BP 123/76
[2019-02-18] MEDS: metFORMIN 500mg tab ORAL SCH (06:13)
[2019-02-18] MEDS: NovoLOG Insulin Flexpen SUBQ SCH ×3 (06:14→16:30)
[2019-02-18 08:00] VITALS: BP 138/78
--- NOTE | 2019-02-18 08:06 | Nephrology Progress Note ---
Assessment/Plan Assessment/Plan: A/P 1) Hyponatremia - pseudo due to hyperglycemia - am labs pending 2) E- ABN - replace on prn basis - am labs pending 3) Hyperglycemia- low carb diet, insulin and endo to follow Subjective Date patient seen: Feb 18, 2019 Time patient seen: 08:04 ROS Limited/Unobtainable: Yes Allergies: Coded Allergies: No Known Allergies (Unverified , 01/08/17) Subjective Patient [place], in no apparent distress Objective Last 24 Hour Vital Signs Date Time Temp Pulse Resp B/P (MAP) Pulse Ox O2 Delivery O2 Flow Rate FiO2 02/18/19 04:00 97.6 76 19 123/76 (92) 96 02/18/19 04:00 58 02/18/19 00:07 99.3 02/18/19 00:00 97.9 72 18 129/72 (91) 97 02/18/19 00:00 69 02/17/19 21:16 128/70 02/17/19 21:00 Room Air 02/17/19 20:00 73 02/17/19 20:00 99.3 74 18 128/70 (89) 98 02/17/19 16:00 79 02/17/19 16:00 98.2 78 18 139/60 (86) 98 02/17/19 12:00 67 02/17/19 12:00 98.2 64 20 136/73 (94) 98 02/17/19 09:52 124/65 02/17/19 09:00 Room Air Intake and Output 02/17/19 02/18/19 18:59 06:59 Intake Total 360 ml 1100 ml Balance 360 ml 1100 ml Intake Oral 360 ml IV Total 1100 ml # Voids 3 3 # Bowel Movements 2 1 Height (Feet): 4 Height (Inches): 9.00 Weight (Pounds): 124 General Appearance: no apparent distress, alert EENT: normal ENT inspection Neck: normal alignment, supple Cardiovascular: normal rate, regular rhythm Respiratory/Chest: lungs clear, normal breath sounds Abdomen: non tender, soft Edema: no edema noted Arm (L), no edema noted Arm (R), no edema noted Leg (L), no edema noted Leg (R), no edema noted Pedal (L), no edema noted Pedal (R), no edema noted Generalized Carlos Lomas MD Feb 18, 2019 08:06
[2019-02-18] MEDS: Aspirin EC 81mg tab ORAL SCH (09:03)
[2019-02-18] MEDS: Enoxaparin 40mg Inj SUBQ SCH (09:04)
[2019-02-18] MEDS: Levemir Flexpen SUBQ SCH (09:05)
[2019-02-18 09:20] LABS: ANION GAP 9 mmol/L (5-15); BLOOD UREA NITROGEN 16 mg/dL (7-18); CALCIUM 9.1 MG/DL (8.5-10.1); CARBON DIOXIDE 27 MMOL/L (21-32); CHLORIDE 105 MMOL/L (98-107); CREATININE 0.8 MG/DL (0.55-1.30); POTASSIUM 3.9 MMOL/L (3.5-5.1); SODIUM 141 MMOL/L (136-145)
--- NOTE | 2019-02-18 09:51 | General Progress Note ---
Assessment/Plan Problem List: (1) Diabetes mellitus ICD Codes: E11.9 - Type 2 diabetes mellitus without complications SNOMED: 50665506 (2) HTN (hypertension), malignant ICD Codes: I10 - Essential (primary) hypertension SNOMED: 98266821 (3) ACS (acute coronary syndrome) ICD Codes: I24.9 - Acute ischemic heart disease, unspecified SNOMED: 000335814 (4) Hyperglycemia ICD Codes: R73.9 - Hyperglycemia, unspecified SNOMED: 43388834 (5) Uncontrolled diabetes mellitus ICD Codes: E11.65 - Type 2 diabetes mellitus with hyperglycemia SNOMED: 56829736, 711421946 Status: stable, progressing Assessment/Plan: bs control pt diet cbc bmp am dc if clear Subjective Constitutional: Reports: weakness Allergies: Coded Allergies: No Known Allergies (Unverified , 01/08/17) All Systems: reviewed and negative except above Subjective calm in bed Objective Last 24 Hour Vital Signs Date Time Temp Pulse Resp B/P (MAP) Pulse Ox O2 Delivery O2 Flow Rate FiO2 02/18/19 09:04 138/78 02/18/19 08:00 73 02/18/19 08:00 99.5 73 18 138/78 (98) 98 02/18/19 04:00 97.6 76 19 123/76 (92) 96 02/18/19 04:00 58 02/18/19 00:07 99.3 02/18/19 00:00 97.9 72 18 129/72 (91) 97 02/18/19 00:00 69 02/17/19 21:16 128/70 02/17/19 21:00 Room Air 02/17/19 20:00 73 02/17/19 20:00 99.3 74 18 128/70 (89) 98 02/17/19 16:00 79 02/17/19 16:00 98.2 78 18 139/60 (86) 98 02/17/19 12:00 67 02/17/19 12:00 98.2 64 20 136/73 (94) 98 02/17/19 09:52 124/65 Intake and Output 02/17/19 02/18/19 19:00 07:00 Intake Total 460 ml 1100 ml Balance 460 ml 1100 ml Intake Oral 360 ml IV Total 100 ml 1100 ml # Voids 3 3 # Bowel Movements 2 1 Laboratory Tests 02/18/19 08:15: Sodium Level 141, Potassium Level 3.9, Chloride Level 105, Carbon Dioxide Level 27, Anion Gap 9, Blood Urea Nitrogen 16, Creatinine 0.8, Estimat Glomerular Filtration Rate > 60, Glucose Level 177#H, Calcium Level 9.1 Height (Feet): 4 Height (Inches): 9.00 Weight (Pounds): 124 General Appearance: alert EENT: normal ENT inspection Neck: normal alignment Cardiovascular: normal peripheral pulses, normal rate, regular rhythm Respiratory/Chest: chest wall non-tender, lungs clear, normal breath sounds Abdomen: normal bowel sounds, non tender, soft Extremities: normal inspection Edema: no edema noted Arm (L), no edema noted Arm (R), no edema noted Leg (L), no edema noted Leg (R), no edema noted Pedal (L), no edema noted Pedal (R), no edema noted Generalized Neurologic: responsive, motor weakness Skin: normal pigmentation, warm/dry Mason Villalobos DO Feb 18, 2019 09:51
[2019-02-18 12:00] VITALS: BP 147/73
--- NOTE | 2019-02-18 12:38 | Infectious Diseases Prog Note ---
Assessment/Plan Assessment/Plan Abx: None Assessment: Afebrile No leukocytosis Hyperglycemia; improving blurry vision Dm2 HTN Plan: -Continue to monitor off abx -f/u cx -Monitor CBC/CMP, temperatures Thank you for this consultation. Will continue to follow along with you. Discussed with RN Subjective Allergies: Coded Allergies: No Known Allergies (Unverified , 01/08/17) Subjective afebrile no leukocytosis hyperglycemia improved Objective Vital Signs Last 24 Hour Vital Signs Date Time Temp Pulse Resp B/P (MAP) Pulse Ox O2 Delivery O2 Flow Rate FiO2 02/18/19 12:00 98.2 73 16 147/73 (97) 99 02/18/19 09:04 138/78 02/18/19 09:00 Room Air 02/18/19 08:00 73 02/18/19 08:00 99.5 73 18 138/78 (98) 98 02/18/19 04:00 97.6 76 19 123/76 (92) 96 02/18/19 04:00 58 02/18/19 00:07 99.3 02/18/19 00:00 97.9 72 18 129/72 (91) 97 02/18/19 00:00 69 02/17/19 21:16 128/70 02/17/19 21:00 Room Air 02/17/19 20:00 73 02/17/19 20:00 99.3 74 18 128/70 (89) 98 02/17/19 16:00 79 02/17/19 16:00 98.2 78 18 139/60 (86) 98 Height (Feet): 4 Height (Inches): 9.00 Weight (Pounds): 124 Objective General Appearance: normal inspection, well appearing, no apparent distress, alert, GCS 15, non-toxic Head: atraumatic ENT: normal ENT inspection, normal voice Neck: normal inspection, full range of motion, supple, no bony tend Respiratory: normal inspection, lungs clear, normal breath sounds, no respiratory distress, no retraction, no wheezing Cardiovascular #1: regular rate, rhythm, no edema Gastrointestinal: normal inspection, normal bowel sounds, non tender, soft, no guarding, no hernia Genitourinary: no CVA tenderness Musculoskeletal: normal inspection, back normal, normal range of motion Neurologic: alert, motor strength/tone normal, study assistant III-XII nml as tested, responsive, normal inspection, other - signs Laboratory Tests Test 02/18/19 08:15 Sodium Level 141 MMOL/L (136-145) Potassium Level 3.9 MMOL/L (3.5-5.1) Chloride Level 105 MMOL/L (98-107) Carbon Dioxide Level 27 MMOL/L (21-32) Anion Gap 9 mmol/L (5-15) Blood Urea Nitrogen 16 mg/dL (7-18) Creatinine 0.8 MG/DL (0.55-1.30) Estimat Glomerular Filtration Rate > 60 mL/min (>60) Glucose Level 177 MG/DL (74-106) #H Calcium Level 9.1 MG/DL (8.5-10.1) Current Medications Medications (Trade) Dose Ordered Sig/Olegario Route PRN Reason Start Time Stop Time Status Last Admin Dose Admin Acetaminophen (Tylenol) 650 mg Q4H PRN ORAL Mild Pain (Pain Scale 1-3) 02/17/19 08:30 03/19/19 08:29 02/17/19 23:37 Aspirin (Ecotrin) 81 mg DAILY ORAL 02/17/19 09:00 03/19/19 08:59 02/18/19 09:03 Atorvastatin Calcium (Lipitor) 40 mg BEDTIME ORAL 02/17/19 21:00 03/19/19 20:59 02/17/19 21:16 Dextrose (Dextrose 50%) 25 ml Q30M PRN IV Hypoglycemia 02/17/19 08:30 03/19/19 08:29 Dextrose (Dextrose 50%) 50 ml Q30M PRN IV Hypoglycemia 02/17/19 08:30 03/19/19 08:29 Enalapril Maleate (Vasotec) 10 mg EVERY 12 HOURS ORAL 02/17/19 09:00 03/19/19 08:59 02/18/19 09:04 Enoxaparin Sodium (Lovenox) 40 mg DAILY SUBQ 02/17/19 09:30 03/19/19 09:29 02/18/19 09:04 Famotidine (Pepcid) 20 mg DAILY ORAL 02/17/19 09:00 03/19/19 08:59 02/18/19 09:03 Insulin Aspart (NovoLOG) BEFORE MEALS AND HS SUBQ 02/17/19 11:30 03/19/19 11:29 02/18/19 11:42 Insulin Detemir (Levemir) 11 units Q12HR SUBQ 02/17/19 09:30 03/19/19 09:29 02/18/19 09:05 Metformin HCl (Glucophage) 850 mg TIAC ORAL 02/18/19 11:30 03/19/19 08:29 02/18/19 11:41 Ondansetron HCl (Zofran) 4 mg Q6H PRN IVP Nausea & Vomiting 02/17/19 08:30 03/19/19 08:29 02/17/19 12:51 Sodium Chloride 1,000 ml @ 100 mls/hr Q10H IV 02/17/19 08:45 03/19/19 08:44 02/18/19 05:02 Siobhan Mosquera M.D. Feb 18, 2019 12:38
[2019-02-18 16:03] VITALS: BP 123/71
--- NOTE | 2019-02-18 21:15 | Consultation ---
DATE OF CONSULTATION: 02/18/2019 ENDOCRINOLOGY CONSULTATION CONSULTING PHYSICIAN: Davonte Borrego M.D. REFERRING PHYSICIAN: Mason Villalobos D.O. REASON FOR CONSULTATION: Diabetes management. HISTORY OF PRESENT ILLNESS: The patient is a 58-year-old female with past medical history of diabetes, has increased blurred vision. The patient had a similar presentation to the emergency room the day before with same symptomatology. The patient has been out of her medication for a few days and normally followed up as [facility]. Glucose at home showed high. She came to the hospital with glucose over 400. I was called to manage diabetes. PAST MEDICAL HISTORY: Diabetes, hypertension. PAST SURGICAL HISTORY: None. REVIEW OF SYSTEMS: As per HPI. MEDICATIONS: Reviewed and reconciled. PHYSICAL EXAMINATION: VITAL SIGNS: Blood pressure 150/70, pulse 70, temperature 98.2, respiratory rate 18. HEENT: Pupils are equal and reactive to light. Sclerae are anicteric. NECK: No JVD. No thyromegaly. LUNGS: Clear. HEART: Regular rate and rhythm. ABDOMEN: Positive bowel sounds. EXTREMITIES: No clubbing, cyanosis, or edema. LABORATORY DATA: WBC 10.5, hemoglobin 14, hematocrit 43.1, and platelet count of 256,000. Sodium 141, potassium 3.9, chloride 105, bicarbonate 27, BUN 16, creatinine 0.8, glucose on presentation 520, and currently is 177. DIAGNOSIS: 1. Diabetes, out of control due to noncompliance. 2. Vision disturbances, improved. PLAN: 1. Continue Levemir 11 units daily. 2. Change metformin to 850 mg three times a day. 3. NovoLog sliding scale before meals and at bedtime. Thank you, Dr. Villalobos, for the courtesy of this consultation. Davonte Borrego M.D. DR: PASTORA JOB#: [id number] CC: [place]
--- NOTE | 2019-02-20 16:33 | Discharge Summary ---
Discharge Summary Discharge Summary _ DATE OF ADMISSION: 02/17/2019 DATE OF DISCHARGE: 02/18/2019 DISCHARGED BY: Dr. Mason Villalobos CONSULTANTS: Dr. Davonte Lomas [facility] HOSPITAL COURSE: The patient is a 58-year-old female, who presented to [place] due to blurry vision. The patient had similar symptoms and presented to ED the day prior. She has medical history of diabetes who has missed several doses of metformin. She is normally being followed at the [facility]. She had a home blood sugar reading that was high. She had not been vomiting, no diarrhea, no discomfort. Upon evaluation at the ED, blood pressure was elevated to 157/78. Blood work did not show any leukocytosis. Hemoglobin and hematocrit were stable. Sodium 132. Chloride 94. BUN was 20, creatinine 1.1. Glucose level was 520. Anion gap 4. Carbon dioxide level 34. Urinalysis showed leukocyte esterase +1, 0-2 urine RBC, 2-4 urine WBC. She was started on IV fluids. She was given IV insulin. Rail Bender was consulted. Patient has pseudohyponatremia, from severe hyperglycemia. She was given isotonic IV hydration. Blood glucose was monitored. She was given long-acting insulin as well as metformin. She was given HANNAH inhibitor for blood pressure control. Metformin was increased to 850 mg daily. She was given Levemir twice daily. She was observed off antibiotics. Blood glucose levels improved. She was eventually discharged home. FINAL DIAGNOSES: Diabetes type 2 out of control due to noncompliance Visual disturbance, improved Hypertension Pseudo-hyponatremia due to severe hyperglycemia DISPOSITION: Patient was discharged home. DISCHARGE MEDICATIONS: Refer to Discharge Medication List. DISCHARGE INSTRUCTIONS: Follow-up in a week. I have been assigned to complete a discharge summary on this account, I was not involved with the patient's management.--JO Espinal Jacqueline Robles NP Feb 20, 2019 16:33
== END 2019-02-18 18:00 | disposition home health service (06) | DRG 420 ==
LOC: EMR 02-17 00:55 → 2E 02-17 04:36 → EDBEDREQ 02-17 04:54
DX: E11.65 Type 2 diabetes mellitus with hyperglycemia (principal); I10 Essential (primary) hypertension; Z79.4 Long term (current) use of insulin; Z79.84 Long term (current) use of oral hypoglycemic drugs; Z91.14 Patient's other noncompliance with medication regimen; H91.93 Unspecified hearing loss, bilateral; E87.1 Hypo-osmolality and hyponatremia; E86.0 Dehydration; I24.9 Acute ischemic heart disease, unspecified; H53.8 Other visual disturbances
CPT/HCPCS: 36415; 80048; 80053; 81001; 82962; 84484; 85025; 93005; 96361; 96374; 99285; J1815; J2405; J7030; S5561

== ENCOUNTER 2019-04-21 21:59 | Emergency (ER) | payer MEDICAID ==
[~2019-04-21] VITALS: Ht 144.8 cm; Wt 59.0 kg
[~2019-04-21 21:59] MED LIST changes: +ALBUTEROL SULF8.5 GM INH; +TYLENOL EXTRA500 MG ORAL
[2019-04-21 22:08] VITALS: BP 154/80
--- NOTE | 2019-04-21 22:08 | NUR ---
ED Nurse Note: wALK-IN PATIENT FROM GROUP [facility] REPORTS FLU LIKE SYMPTOMS FOR `1 WEEK WORSENING TODAY. PATIENT IS ASL AND HAS CAREGIVER AT BEDSIDE.
[2019-04-21] MEDS ORDERED: Metoclopramide 10mg/2ml Inj IVP ONE (22:45)
[2019-04-21] MEDS ORDERED: Ketorolac 30mg Inj IV ONE (22:45)
[2019-04-21] MEDS ORDERED: DiphenhydrAMINE 50mg/ml Inj IVP ONE (22:45)
--- NOTE | 2019-04-21 22:52 | Emergency Room Report ---
History of Present Illness General Chief Complaint: Flu Like Symptoms Source: Patient Present Illness HPI Patient presents with 2 weeks of illness. She had a cough, sore throat and now has nausea vomiting and diarrhea. The cough is nonproductive. She denies chest pain per se but has total body aches. She feels weak. There is no headache. No neck pain. No rashes. The pain is rated 8/10 and aching throughout her body. She denies dysuria. Patient is diabetic. She has total body aches at this time also. The patient has hypertension. In the past she is been treated for pneumonia. Patient admitted February of last year with these discharge diagnoses: Diabetes type 2 out of control due to noncompliance Visual disturbance, improved Hypertension Pseudo-hyponatremia due to severe hyperglycemia Allergies: Coded Allergies: No Known Allergies (Unverified , 01/08/17) Patient History Past Medical History: see triage record, old chart reviewed Social History: Denies: smoking, alcohol use, drug use Social History Narrative With friends Last Menstrual Period: na Reviewed Nursing Documentation: PMH: Agreed; PSxH: Agreed Nursing Documentation-PMH Past Medical History: No History, Except For Hx Hypertension: Yes Hx Diabetes: Yes Hx Cancer: No Hx Gastrointestinal Problems: No Hx Neurological Problems: No Review of Systems All Other Systems: negative except mentioned in HPI Physical Exam Vital Signs Date Time Temp Pulse Resp B/P (MAP) Pulse Ox O2 Delivery O2 Flow Rate FiO2 04/21/19 22:08 98.4 84 18 154/80 (104) 97 Room Air Sp02 EP Interpretation: reviewed, normal General Appearance: no apparent distress, GCS 15, thin, other - Frail Head: normocephalic Eyes: bilateral eye normal inspection, bilateral eye PERRL, bilateral eye EOMI ENT: normal pharynx, moist mucus membranes Neck: full range of motion, supple, no meningismus Respiratory: chest non-tender, lungs clear, normal breath sounds Cardiovascular #1: regular rate, rhythm Cardiovascular #2: 2+ radial (R) Gastrointestinal: normal inspection, normal bowel sounds, no mass, non- distended, no guarding, no rebound, tenderness - Minimal Genitourinary: no CVA tenderness Musculoskeletal: back normal, normal range of motion, gait/station normal Neurologic: alert, oriented x3, grossly normal Psychiatric: mood/affect normal Skin: no rash, warm/dry Medical Decision Making Diagnostic Impression: Primary Impression: Colitis Additional Impressions: Diabetes Qualified Codes: E11.9 - Type 2 diabetes mellitus without complications Viral syndrome ER Course The patient presents with 2 weeks of illness. Initially this began as upper respiratory and now has progressed to nausea vomiting and diarrhea. Differential includes viral syndrome, influenza, diabetic ketoacidosis, gastroenteritis amongst others. Evaluation with EKG, chest x-ray, abdominal film and labs. Treatment with IV hydration, Reglan, Benadryl and Toradol. Patient is placed on project management advisor. EKG without injury. Chest x-ray no infiltrates. Abdomen no obstruction but gas throughout. White count elevated. No left shift. Glucose normal. Urinalysis unremarkable. Patient still with 5/10 pain at this time. Also she has right lower quadrant guarding. White count is elevated and therefore CT scan of the abdomen is indicated. Also morphine ordered. CT back at 515. Possible colitis. Patient improved. Discussed findings and treatment plan. Stable for outpatient observation and treatment. Laboratory Tests Test 04/21/19 22:45 04/21/19 22:55 Urine Color Pale yellow Urine Appearance Clear Urine pH 7 (4.5-8.0) Urine Specific [place] 1.005 (1.005-1.035) Urine Protein Negative (NEGATIVE) Urine Glucose (UA) Negative (NEGATIVE) Urine Ketones Negative (NEGATIVE) Urine Blood Negative (NEGATIVE) Urine Nitrite Negative (NEGATIVE) Urine Bilirubin Negative (NEGATIVE) Urine Urobilinogen Normal MG/DL (0.0-1.0) Urine Leukocyte Esterase 1+ (NEGATIVE) H Urine RBC 0 /HPF (0 - 2) Urine WBC 0-2 /HPF (0 - 2) Urine Squamous Epithelial Cells Few /LPF (NONE/OCC) Urine Bacteria Few /HPF (NONE) White Blood Count 12.0 K/UL (4.8-10.8) H Red Blood Count 4.14 M/UL (4.20-5.40) L Hemoglobin 12.9 G/DL (12.0-16.0) Hematocrit 35.0 % (37.0-47.0) L Mean Corpuscular Volume 84 FL (80-99) Mean Corpuscular Hemoglobin 31.2 PG (27.0-31.0) H Mean Corpuscular Hemoglobin Concent 37.0 G/DL (32.0-36.0) H Red Cell Distribution Width 11.0 % (11.6-14.8) L Platelet Count 268 K/UL (150-450) Mean Platelet Volume 8.0 FL (6.5-10.1) Neutrophils (%) (Auto) 69.8 % (45.0-75.0) Lymphocytes (%) (Auto) 23.4 % (20.0-45.0) Monocytes (%) (Auto) 4.8 % (1.0-10.0) Eosinophils (%) (Auto) 1.2 % (0.0-3.0) Basophils (%) (Auto) 0.8 % (0.0-2.0) Prothrombin Time 9.9 SEC (9.30-11.50) Prothrombin Time INR 0.9 (0.9-1.1) Activated Partial Thromboplast Time 26 SEC (23-33) Sodium Level 142 MMOL/L (136-145) Potassium Level 3.5 MMOL/L (3.5-5.1) Chloride Level 102 MMOL/L (98-107) Carbon Dioxide Level 31 MMOL/L (21-32) Anion Gap 9 mmol/L (5-15) Blood Urea Nitrogen 19 mg/dL (7-18) H Creatinine 0.8 MG/DL (0.55-1.30) Estimate Glomerular Filtration Rate > 60 mL/min (>60) Glucose Level 95 MG/DL (74-106) Calcium Level 9.7 MG/DL (8.5-10.1) Total Bilirubin 0.3 MG/DL (0.2-1.0) Aspartate Amino Transferase (AST) 19 U/L (15-37) Alanine Aminotransferase (ALT) 34 U/L (12-78) Alkaline Phosphatase 87 U/L (46-116) Total Protein 7.9 G/DL (6.4-8.2) Albumin 4.1 G/DL (3.4-5.0) Globulin 3.8 g/dL Albumin/Globulin Ratio 1.1 (1.0-2.7) Lipase 128 U/L (73-393) Microbiology Date/Time Source Procedure Growth Status 04/21/19 22:55 Nose - Final Complete 04/21/19 22:55 Nose - Final Complete EKG Diagnostic Results Rate: normal Rhythm: NSR ST Segments: no acute changes Rhythm Strip Diag. Results EP Interpretation: yes Rhythm: NSR, no PVC's, no ectopy Chest X-Ray Diagnostic Results Chest X-Ray Diagnostic Results : Chest X-Ray Ordered: Yes Indication: Other EP Interpretation: Yes Interpretation: no consolidation, no effusion, no pneumothorax Impression: No acute disease Electronically Signed by: Electronically signed by Jorje Rae MD Other X-Ray Diagnostic Results Other X-Ray Diagnostic Results : X-Ray ordered: abd # of Views/Limited Vs Complete: 1 View Indication: Pain EP Interpretation: Yes Interpretation: nonspecific bowel gas, no sbo, other - Gas throughout Impression: Other Electronically Signed by: Electronically signed by Jorje Rae MD CT/MRI/US Diagnostic Results CT/MRI/US Diagnostic Results : Imaging Test Ordered: Abdomen pelvis Impression Suspected right ovarian cyst measuring 3.4 cm. Tiny nonobstructive stones suspected within the lower pole the left kidney. right renal cyst. Atherosclerotic vascular disease. Tiny cystic lucency at the left lung base nonspecific. This could be a pneumatocele. Last Vital Signs Date Time Temp Pulse Resp B/P (MAP) Pulse Ox O2 Delivery O2 Flow Rate FiO2 04/22/19 06:28 98.5 84 18 154/80 97 Room Air Status: improved Disposition: HOME, SELF-CARE Condition: Improved Scripts Ondansetron Odt* (ZOFRAN ODT*) 4 Mg Tab.rapdis 4 MG BC EVERY 8 HOURS PRN for Nausea & Vomiting, #6 TAB 0 Refills Prov: Jorje Rae MD 04/22/19 Ibuprofen* (MOTRIN*) 600 Mg Tablet 600 MG ORAL Q8H PRN for For Pain, #12 TAB 0 Refills Prov: Jorje Rae MD 04/22/19 Tramadol Hcl* (ULTRAM*) 50 Mg Tablet 50 MG ORAL Q6H PRN for For Pain, #6 TAB 0 Refills Prov: Jorje Rae MD 04/22/19 Jorje Rae MD Apr 21, 2019 22:52
--- NOTE | 2019-04-21 23:08 | NUR ---
ED Nurse Note: PATIENT RESTING COMFORTABLY WITH NO S/S OF ACUTE DISTRESS. WILL CONTINUE TO MONITOR.
[2019-04-21 23:13] LABS: BASOPHILS % (AUTO) 0.8 % (0.0-2.0); EOSINOPHILS % (AUTO) 1.2 % (0.0-3.0); HEMOGLOBIN 12.9 G/DL (12.0-16.0); LYMPHOCYTES % (AUTO) 23.4 % (20.0-45.0); MEAN CORPUSCULAR VOLUME 84 FL (80-99); MONOCYTES % (AUTO) 4.8 % (1.0-10.0); NEUTROPHILS % (AUTO) 69.8 % (45.0-75.0); PLATELET COUNT 268 K/UL (150-450); RED BLOOD COUNT 4.14 M/UL (4.20-5.40)
[2019-04-21 23:16] LABS: APPEARANCE,URINE CLEAR; BILIRUBIN, URINE NEGATIVE (NEGATIVE); COLOR,URINE PALE YELLOW; GLUCOSE, URINE (UA) NEGATIVE (NEGATIVE); KETONES,URINE NEGATIVE (NEGATIVE); LEUKOCYTE ESTERASE ,URINE 1+ (NEGATIVE); NITRITE,URINE NEGATIVE (NEGATIVE); PH,URINE 7 (4.5-8.0); PROTEIN,URINE NEGATIVE (NEGATIVE); UROBILINOGEN,URINE NORMAL MG/DL (0.0-1.0)
[2019-04-21 23:26] LABS: ANION GAP 9 mmol/L (5-15); BLOOD UREA NITROGEN 19 mg/dL (7-18); CALCIUM 9.7 MG/DL (8.5-10.1); CARBON DIOXIDE 31 MMOL/L (21-32); CHLORIDE 102 MMOL/L (98-107); CREATININE 0.8 MG/DL (0.55-1.30); INR 0.9 (0.9-1.1); POTASSIUM 3.5 MMOL/L (3.5-5.1); SODIUM 142 MMOL/L (136-145)
[2019-04-21 23:30] LABS: ALANINE AMINOTRANSFERASE 34 U/L (12-78); ALBUMIN 4.1 G/DL (3.4-5.0); ALBUMIN/GLOBULIN RATIO 1.1 (1.0-2.7); ALKALINE PHOSPHATASE 87 U/L (46-116); ASPARTATE AMINO TRANSFERASE 19 U/L (15-37); BILIRUBIN,TOTAL 0.3 MG/DL (0.2-1.0)
--- NOTE | 2019-04-21 23:41 | NUR ---
ED Nurse Note: pATIENT HAD HCANGE OF CARE GIVERS. WATER SYSTEMS DESIGNER #2 AT BEDSIDE.
--- NOTE | 2019-04-21 23:58 | NUR ---
ED Nurse Note: PATIENT ABLE TO AMBULATE TO THE RESTROOM WITH STEADY GAIT, ACCOMPANIED BY DEV OPS ENGINEER
--- NOTE | 2019-04-22 01:00 | NUR ---
ED Nurse Note:\ Patient reports recurrent pain, ERMd informed.
[2019-04-22] MEDS ORDERED: Morphine Sulfate 4mg/ml Inj (IV USE ONLY) IVP ONE (01:30)
[2019-04-22] MEDS ORDERED: Omnipaque-300 100ml vial INJ PRN (01:30)
--- NOTE | 2019-04-22 02:00 | NUR ---
ED Nurse Note: Patient resting comfortably without moaning or moving around in pain. Will continue to monitor.
--- NOTE | 2019-04-22 03:01 | NUR ---
ED Nurse Note: Patient sleeping, will continue to monitor.
--- NOTE | 2019-04-22 04:12 | NUR ---
ED Nurse Note: Patient departed with lamination technician for CT.
--- NOTE | 2019-04-22 04:32 | NUR ---
ED Nurse Note: Patient returned from radioloy accompanied by polytechnic registrar.
--- NOTE | 2019-04-22 05:05 | Diagnostic Imaging Report ---
INDICATION: Abdominal pain TECHNIQUE: Continuous helical transaxial imaging of the abdomen and pelvis was obtained from the lung bases to the pubic symphysis during intravenous contrast administration. Coronal 2-D reformats were also obtained. Study obtained in a Siemens sensation [address] Automatic Exposure Control was utilized. Total Dose length Product (DLP): 1144.[address] Dose Index Volume (CTDIvol): 20.3 mGy COMPARISON: None FINDINGS: Lungs: The visualized lung bases are clear. Small cystic lucency at the left lung base noted. Liver: Unremarkable Gallbladder/biliary system: No gallstones are identified. There is no evidence of intrahepatic or extrahepatic biliary ductal dilatation. Spleen: Unremarkable Pancreas: Unremarkable Kidneys/Bladder: There is a 1 cm cyst within the right kidney. There is a punctate calcification in the lower pole the left kidney which could be a tiny nonobstructive stone. There is no hydronephrosis.. Adrenal glands: Unremarkable Aorta/IVC: Mild calcification of aorta and iliac arteries noted. There is no aneurysm. Bowel: The appendix is normal. Bowel gas pattern is nonobstructive. Peritoneum: There is no free fluid. There is a cyst right adnexa probably ovarian measuring 3.4 x 2.5 cm. Uterus is noted in the unremarkable. There is a small soft tissue attenuation focus within what appears to be a small left inguinal hernia. Bones: Narrowing of the L5-S1 disc demonstrated. Hypertrophied facets noted. IMPRESSION: Suspected right ovarian cyst measuring 3.4 cm. Tiny nonobstructive stones suspected within the lower pole the left kidney. Graph right renal cyst. Atherosclerotic vascular disease. Tiny cystic lucency at the left lung base nonspecific. This could be a pneumatocele. [facility] has communicated the preliminary results to the Emergency Department. Their findings are largely concordant with this report. Note: There is moderate spray artifact from something external to the patient not visualized on this study. This limits evaluation of the lower abdomen. There is narrowing. The CT scanner at [facility] is accredited by the [employer] and the scans are performed using dose optimization techniques as appropriate to a performed exam including Automatic Exposure control.
--- NOTE | 2019-04-22 05:32 | NUR ---
ED Nurse Note: Patient able to ambulate with steady gait to restroom.
[2019-04-22] MEDS ORDERED: ONDANSETRON ODT4 MG BC (06:15)
[2019-04-22] MEDS ORDERED: TRAMADOL HCL50 MG ORAL (06:15)
[2019-04-22] MEDS ORDERED: IBUPROFEN600 MG ORAL (06:15)
[2019-04-22 06:28] VITALS: BP 154/80
--- NOTE | 2019-04-22 06:28 | NUR ---
ER DISCHARGE NOTE: Patient is cleared to be discharged per ERMD, pt is aox4, on room air, with stable vital signs. pt was given dc and prescription instructions, pt was able to verbalize understanding, pt id band and iv site removed without complications. pt is able to ambulate with steady gait. pt took all belongings.
--- NOTE | 2019-04-22 11:31 | Diagnostic Imaging Report ---
Indication: Abdominal pain Comparison: None Single view of the abdomen obtained Findings: Bowel gas pattern is nonspecific. No mass, ectopic calcifications, or abnormal gas collections are identified. The bones are unremarkable. Impression: No acute findings
--- NOTE | 2019-04-22 11:31 | Diagnostic Imaging Report ---
Indication: Dyspnea Comparison: 05/16/2018 A single view chest radiograph was obtained. Findings: No definite infiltrate or pulmonary vascular congestion identified. The heart is enlarged. The aorta is mildly enlarged consistent with atherosclerotic vascular disease. The bones are osteopenic. Impression: No acute disease
== END 2019-04-22 06:28 | disposition home or self-care (01) ==
LOC: EMR 23:01
DX: K52.9 Noninfective gastroenteritis and colitis, unspecified (principal); B34.9 Viral infection, unspecified; E11.9 Type 2 diabetes mellitus without complications; I10 Essential (primary) hypertension
CPT/HCPCS: 36415; 71045; 74018; 74177; 80053; 81003; 82962; 83690; 85025; 85610; 85730; 86710; 93005; 96361; 96374; 96375; J1200; J1885; J2270; J2765; J7030; Q9967; Z7502; 99284

== ENCOUNTER 2019-05-01 16:59 | Emergency (ER) | payer SELFPAY ==
[~2019-05-01] VITALS: Ht 144.8 cm; Wt 56.7 kg
[~2019-05-01 16:59] MED LIST changes: +ONDANSETRON ODT4 MG BC; +TRAMADOL HCL50 MG ORAL
[2019-05-01] MEDS ORDERED: NORVASC10 MG ORAL (17:30)
[2019-05-01] MEDS ORDERED: TRAZODONE HCL300 MG ORAL (17:30)
--- NOTE | 2019-05-01 17:57 | NUR ---
ED Nurse Note: pt care assumed, pt with ecg done by glass cutting machine feeder.
--- NOTE | 2019-05-01 18:11 | Emergency Room Report ---
History of Present Illness General Chief Complaint: Syncope Source: Patient, Friend Present Illness HPI Disclaimer: Please note that this report is being documented using [employer] technology. This can lead to erroneous entry secondary to incorrect interpretation by the dictating instrument. HPI: 58-year-old female with history of hearing impairment, diabetes presents for evaluation of coughing and syncope. Patient states she has been sick for approximately 2 weeks. Diagnosed with a "stomach flu" 2 weeks ago though the symptoms originally resolved. Complaining of a persistent cough over the past few weeks that is been worsening over the past couple days. She notes a lot of phlegm and choking on this phlegm causing her to pass out earlier today. Friend states she had a witnessed loss of consciousness approximately 1 to 2 minutes. No seizure-like activity noted. She has had these coughing fits on and off for the past few days and getting worse. Denies any fever. Denies diarrhea. Reported 1 episode of emesis. PMH: Diabetes, hypertension PSH: Reviewed Allergies: Denies Social Hx: Non-smoker Allergies: Coded Allergies: No Known Allergies (Unverified , 01/08/17) Nursing Documentation-PMH Hx Hypertension: Yes Hx Diabetes: Yes Hx Cancer: No Hx Gastrointestinal Problems: No Hx Neurological Problems: No Review of Systems All Other Systems: negative except mentioned in HPI Physical Exam Vital Signs Date Time Temp Pulse Resp B/P (MAP) Pulse Ox O2 Delivery O2 Flow Rate FiO2 1620 17:20 98.4 86 18 134/83 (100) 95 Room Air General: Awake and alert, uncomfortable, coughing HEENT: NC/AT. EOMI. decreased hearing acuity, deaf bilaterally Neck: Supple, trachea midline Chest Wall: No tenderness, no deformity Cardiovascular: RRR. S1 and S2 normal. No murmur appreciated Resp: Coughing uncontrollably. No wheezing. Few crackles at the bases bilaterally. Abdomen: Abdomen is soft, nondistended. Nontender Skin: Intact. No abrasions, laceration or rash over the exposed skin MSK: Normal tone and bulk. Moving all extremities. No obvious deformity. Neuro: Awake and alert. Mentating appropriately. Medical Decision Making Diagnostic Impression: Primary Impression: Bronchitis ER Course This a 58-year-old female presenting for evaluation of syncopal episode after coughing paroxysmal. Differential includes was not limited to upper respiratory illness, secondary pneumonia, bronchitis, asthma exacerbation, COPD exacerbation, ACS, arrhythmia, dehydration, hypoxia. Start a broad metabolic infectious cardiac work-up. Obtain a chest x-ray to evaluate for pneumonia. Will treat symptomatically with antitussives. Laboratory Tests Test 05/01/19 18:00 White Blood Count 13.5 K/UL (4.8-10.8) H Red Blood Count 4.48 M/UL (4.20-5.40) Hemoglobin 13.5 G/DL (12.0-16.0) Hematocrit 38.6 % (37.0-47.0) Mean Corpuscular Volume 86 FL (80-99) Mean Corpuscular Hemoglobin 30.0 PG (27.0-31.0) Mean Corpuscular Hemoglobin Concent 34.8 G/DL (32.0-36.0) Red Cell Distribution Width 11.4 % (11.6-14.8) L Platelet Count 191 K/UL (150-450) Mean Platelet Volume 9.5 FL (6.5-10.1) Neutrophils (%) (Auto) 73.1 % (45.0-75.0) Lymphocytes (%) (Auto) 19.6 % (20.0-45.0) L Monocytes (%) (Auto) 5.5 % (1.0-10.0) Eosinophils (%) (Auto) 1.2 % (0.0-3.0) Basophils (%) (Auto) 0.6 % (0.0-2.0) Urine Color Pale yellow Urine Appearance Clear Urine pH 8 (4.5-8.0) Urine Specific Ald[place] 1.015 (1.005-1.035) Urine Protein 1+ (NEGATIVE) H Urine Glucose (UA) Negative (NEGATIVE) Urine Ketones Negative (NEGATIVE) Urine Blood 1+ (NEGATIVE) H Urine Nitrite Negative (NEGATIVE) Urine Bilirubin Negative (NEGATIVE) Urine Urobilinogen Normal MG/DL (0.0-1.0) Urine Leukocyte Esterase Negative (NEGATIVE) Urine RBC 0-2 /HPF (0 - 2) Urine WBC 0-2 /HPF (0 - 2) Urine Squamous Epithelial Cells Few /LPF (NONE/OCC) Urine Bacteria None /HPF (NONE) Sodium Level 144 MMOL/L (136-145) Potassium Level 3.6 MMOL/L (3.5-5.1) Chloride Level 103 MMOL/L (98-107) Carbon Dioxide Level 29 MMOL/L (21-32) Anion Gap 13 mmol/L (5-15) Blood Urea Nitrogen 20 mg/dL (7-18) H Creatinine 0.8 MG/DL (0.55-1.30) Estimate Glomerular Filtration Rate > 60 mL/min (>60) Glucose Level 119 MG/DL (74-106) H Calcium Level 10.2 MG/DL (8.5-10.1) H Total Bilirubin 0.3 MG/DL (0.2-1.0) Aspartate Amino Transferase (AST) 21 U/L (15-37) Alanine Aminotransferase (ALT) 32 U/L (12-78) Alkaline Phosphatase 95 U/L (46-116) Troponin I 0.000 ng/mL (0.000-0.056) Pro-B-Type Natriuretic Peptide 98 pg/mL (0-125) Total Protein 8.1 G/DL (6.4-8.2) Albumin 4.2 G/DL (3.4-5.0) Globulin 3.9 g/dL Albumin/Globulin Ratio 1.1 (1.0-2.7) Microbiology Date/Time Source Procedure Growth Status 05/01/19 18:35 Nasal Nares - Final Complete 05/01/19 18:35 Nasal Nares - Final Complete EKG Diagnostic Results EKG Time: 17:59 Rate: normal Rhythm: NSR ST Segments: no acute changes Other Impression Sinus rhythm, normal axis, normal intervals, no ST segment changes ASA given to the pt in ED: Yes Rhythm Strip Diag. Results Rhythm Strip Time: 17:59 EP Interpretation: yes Rate: 70s Rhythm: NSR, no PVC's, no ectopy Chest X-Ray Diagnostic Results Chest X-Ray Diagnostic Results : Chest X-Ray Ordered: Yes # of Views/Limited/Complete: 1 View Indication: Shortness of Breath EP Interpretation: Yes Interpretation: no consolidation, no effusion, no pneumothorax, no acute cardiopulmonary disease Impression: No acute disease Electronically Signed by: Electronically signed by Dr. Graeme Desai Reevaluation Time: 20:45 Last Vital Signs Date Time Temp Pulse Resp B/P (MAP) Pulse Ox O2 Delivery O2 Flow Rate FiO2 05/01/19 17:20 98.4 86 18 134/83 (100) 95 Room Air Status: improved Reevaluation Impression No evidence of infiltrate on chest x-ray. EKG and labs are largely within normal limits. No significant white count, troponin negative. Duration of symptom severity believe is likely a bronchitis after a viral illness. She will be started on doxycycline. She had significant improvement in her symptoms after receiving presents to the and with codeine. Will continue on an outpatient basis. We will also prescribe Zofran for nausea. I discussed observation admission versus home management with the patient and family using master cook. At this time she would like to return home and try symptomatic care and promised to return with any new or worsening symptoms. She has close follow-up with her PMD. She understands and agrees with this treatment plan was discharged home Disposition: HOME, SELF-CARE Condition: Improved Scripts Doxycycline Monohydrate* (DOXYCYCLINE MONOHYDRATE*) 100 Mg Capsule 100 MG ORAL Q12H for 7 Days, #14 CAP 0 Refills Prov: Graeme Desai MD 05/01/19 Codeine/Promethazine Hcl* (PROMETHAZINE-CODEINE SYRUP*) 118 Ml Syrup 5 ML ORAL Q6H PRN for For Cough, #118 ML 0 Refills Prov: Graeme Desai MD 05/01/19 Ondansetron Odt* (ZOFRAN ODT*) 4 Mg Tab.rapdis 4 MG BC EVERY 6 HOURS PRN for Nausea & Vomiting, #10 TAB 0 Refills Prov: Graeme Desai MD 05/01/19 Graeme Desai MD May 01, 2019 18:10
[2019-05-01 18:15] VITALS: BP 147/82
[2019-05-01] MEDS ORDERED: Promethazine/Codeine 5ml UD ORAL ONE (18:15)
--- NOTE | 2019-05-01 18:23 | NUR ---
ED Nurse Note: pt wiht coarse cough with wheezes that produces clear sputum. pt relates throat is sore. relates that she is coughing so hard that it makes her gag and vomit up sputum.
[2019-05-01 18:25] LABS: BASOPHILS % (AUTO) 0.6 % (0.0-2.0); EOSINOPHILS % (AUTO) 1.2 % (0.0-3.0); HEMATOCRIT 38.6 % (37.0-47.0); HEMOGLOBIN 13.5 G/DL (12.0-16.0); LYMPHOCYTES % (AUTO) 19.6 % (20.0-45.0); MEAN CORPUSCULAR VOLUME 86 FL (80-99); MONOCYTES % (AUTO) 5.5 % (1.0-10.0); NEUTROPHILS % (AUTO) 73.1 % (45.0-75.0); PLATELET COUNT 191 K/UL (150-450); RED BLOOD COUNT 4.48 M/UL (4.20-5.40); RED CELL DISTRIBUTION WIDTH 11.4 % (11.6-14.8); WHITE BLOOD COUNT 13.5 K/UL (4.8-10.8)
[2019-05-01 18:27] LABS: APPEARANCE,URINE CLEAR; BILIRUBIN, URINE NEGATIVE (NEGATIVE); COLOR,URINE PALE YELLOW; GLUCOSE, URINE (UA) NEGATIVE (NEGATIVE); KETONES,URINE NEGATIVE (NEGATIVE); LEUKOCYTE ESTERASE ,URINE NEGATIVE (NEGATIVE); NITRITE,URINE NEGATIVE (NEGATIVE); PH,URINE 8 (4.5-8.0); PROTEIN,URINE 1+ (NEGATIVE); UROBILINOGEN,URINE NORMAL MG/DL (0.0-1.0)
[2019-05-01] MEDS ORDERED: Albuterol/Ipratropium 3ml neb HHN ONE (18:30)
--- NOTE | 2019-05-01 18:41 | NUR ---
ED Nurse Note: flu swab obtained and sent. resp therapist here to olen[facility].
[2019-05-01 18:45] LABS: ANION GAP 13 mmol/L (5-15); BLOOD UREA NITROGEN 20 mg/dL (7-18); CALCIUM 10.2 MG/DL (8.5-10.1); CARBON DIOXIDE 29 MMOL/L (21-32); CHLORIDE 103 MMOL/L (98-107); CREATININE 0.8 MG/DL (0.55-1.30); POTASSIUM 3.6 MMOL/L (3.5-5.1); SODIUM 144 MMOL/L (136-145)
[2019-05-01 18:50] VITALS: BP 170/73
[2019-05-01 18:54] LABS: ALANINE AMINOTRANSFERASE 32 U/L (12-78); ALBUMIN 4.2 G/DL (3.4-5.0); ALBUMIN/GLOBULIN RATIO 1.1 (1.0-2.7); ALKALINE PHOSPHATASE 95 U/L (46-116); ASPARTATE AMINO TRANSFERASE 21 U/L (15-37); BILIRUBIN,TOTAL 0.3 MG/DL (0.2-1.0)
[2019-05-01] MEDS ORDERED: PROMETHAZINE-C118 M1 ORAL (19:48)
[2019-05-01] MEDS ORDERED: DOXYCYCLINE MO100 MG ORAL (19:48)
[2019-05-01] MEDS ORDERED: ONDANSETRON ODT4 MG BC (19:48)
[2019-05-01 20:45] VITALS: BP 170/73
--- NOTE | 2019-05-01 20:45 | NUR ---
ER DISCHARGE NOTE: Patient is cleared to be discharged per ERMD, pt is aox4, on room air, with stable vital signs. pt was given dc and prescription instructions, pt was able to verbalize understanding, pt id band and iv site removed without complications. pt is able to ambulate with steady gait. pt took all belongings. accompanied by daughter
--- NOTE | 2019-05-02 09:24 | Diagnostic Imaging Report ---
Indication: Shortness of breath Technique: One view of the chest Comparison: 04/21/2019 Findings: Heart is upper limits normal in size. The lungs and pleural spaces are clear. Impression: Negative
== END 2019-05-01 20:45 | disposition home or self-care (01) ==
LOC: EMR 18:21
DX: J20.9 Acute bronchitis, unspecified (principal); E11.9 Type 2 diabetes mellitus without complications; I10 Essential (primary) hypertension; R55 Syncope and collapse
CPT/HCPCS: 36415; 71045; 80053; 81003; 83880; 84484; 85025; 86710; 93005; 96360; 99284; J7030; J7620

== ENCOUNTER 2019-05-06 14:19 | Emergency (ER) | payer MEDICAID ==
[~2019-05-06] VITALS: Ht 152.4 cm; Wt 52.2 kg
[~2019-05-06 14:19] MED LIST changes: +DOXYCYCLINE MO100 MG ORAL; +NORVASC10 MG ORAL; +TRAZODONE HCL300 MG ORAL
--- NOTE | 2019-05-06 14:35 | NUR ---
ED Nurse Note: Patient came to ED complaining of low back pain, cough, headache, and sore throat for about a week. Patient is deaf and mute, she speaks Iranian Sign Language. Patient came with her friend and an official coroner/medical examiner at bedside. Patient AxO x 4, no s/s of acute distress.
--- NOTE | 2019-05-06 14:57 | Emergency Room Report ---
History of Present Illness General Chief Complaint: Sore Throat Source: Patient Present Illness HPI History is obtained through use of two-handed designer/writer. Patient presents with 5 days of cough. She is producing yellow and green phlegm with possibly little bit of blood. She coughs so hard she nearly vomits. She feels her head is exploding when she coughs. She also is complaining about lower back pain. She was seen on Thursday (05/01) and given Robitussin-DM and doxycycline. She is also complaining about a sore throat. She states she is having difficulty eating food. She is able to tolerate small amounts of liquids. She does not feel dizzy when she stands up. She is felt feverish but no documented temperature. She denies ear pain. She occasionally has a headache when she coughs. She rates the pain in her lower back and chest is 10/10. She has used an inhaler in the past but is not using one at this time. Patient is deaf. Patient is diabetic and controlled on oral medication. No polyuria or polydipsia. Extensive work up for abdominal pain and diarrhea 04/21. Diarrhea has improved. No palpitations, dysuria, abdominal pain, shortness of breath, rashes, depression, anxiety, visual changes, dizziness. Allergies: Coded Allergies: No Known Allergies (Unverified , 01/08/17) Patient History Past Medical History: see triage record, old chart reviewed Social History: Denies: smoking, alcohol use, drug use Social History Narrative Has caretakers present with her Reviewed Nursing Documentation: PMH: Agreed; PSxH: Agreed Nursing Documentation-PM Past Medical History: No History, Except For Hx Hypertension: Yes Hx Diabetes: Yes Hx Cancer: No Hx Gastrointestinal Problems: No Hx Neurological Problems: Yes - deaf mute Review of Systems All Other Systems: negative except mentioned in HPI Physical Exam Vital Signs Date Time Temp Pulse Resp B/P (MAP) Pulse Ox O2 Delivery O2 Flow Rate FiO2 05/06/19 14:27 98.4 78 17 136/78 (97) 99 Room Air Sp02 EP Interpretation: reviewed, normal General Appearance: well appearing, no apparent distress, GCS 15, non-toxic Head: normocephalic Eyes: bilateral eye normal inspection, bilateral eye PERRL, bilateral eye EOMI ENT: no angioedema, TMs + canals normal, moist mucus membranes, other - Uvula swollen Neck: full range of motion, supple, no meningismus, other - No anterior tenderness Respiratory: wheezing - Posttussive, other - Mild chest wall tenderness Cardiovascular #1: regular rate, rhythm, no edema Cardiovascular #2: 2+ radial (R) Gastrointestinal: normal inspection, normal bowel sounds, non tender, no mass, non-distended Genitourinary: no CVA tenderness Musculoskeletal: normal range of motion, no calf tenderness, gait/station normal, tender - Lumbar area muscular, no bony tenderness Neurologic: alert, oriented x3, grossly normal - Except for decreased hearing Psychiatric: mood/affect normal Skin: no rash, warm/dry Medical Decision Making Diagnostic Impression: Primary Impression: Cough Additional Impressions: Bronchospasm History of diabetes mellitus ER Course Patient presents with cough for for 5 days not improved with doxycycline started Thursday with bronchospasm at this time. She also complains about chest pain. Differential includes acute myocardial infarction, pneumonia, bronchospasm bronchitis amongst others. EKG chest x-ray are indicated. In addition breathing treatments and prednisone and Robitussin with codeine ordered. 1 dose of prednisone administered. All of procedures, planned work- up and exam explained via designer/writer. EKG without injury. Patient only tolerated part of the breathing treatment. Feels slightly better after. CXR pending. Chest x-ray no infiltrates. Labs from May 01 reviewed. At that time she had elevated white count without left shift. Glucose glucose was 116. Discussed findings and treatment plan in detail with patient. All questions answered. Previous medications given to patient as she wondered what she had received during prior treatment episodes. Patient stable for outpatient observation and treatment. Labs reviewed from May 01 EKG Diagnostic Results Rate: normal Rhythm: NSR ST Segments: no acute changes Rhythm Strip Diag. Results EP Interpretation: yes Rhythm: NSR, no PVC's, no ectopy Chest X-Ray Diagnostic Results Chest X-Ray Diagnostic Results : Chest X-Ray Ordered: Yes # of Views/Limited/Complete: 1 View Indication: Other EP Interpretation: Yes Interpretation: no consolidation, no effusion, no pneumothorax Impression: No acute disease Electronically Signed by: Electronically signed by Jorje Rae MD Last Vital Signs Date Time Temp Pulse Resp B/P (MAP) Pulse Ox O2 Delivery O2 Flow Rate FiO2 05/06/19 16:45 98.4 64 20 136/78 100 Room Air 21 Status: improved Disposition: HOME, SELF-CARE Condition: Improved Scripts Acetaminophen (Tylenol) 325 Mg Tablet 650 MG ORAL Q6H PRN for Prn Pain/Headache/Temp > 101, #20 TAB 0 Refills Prov: Jorje Rae MD 05/06/19 Guaifenesin/Codeine Phos* (ROBITUSSIN AC*) 118 Ml Liquid 5 ML ORAL Q6H PRN for For Cough, #90 ML 0 Refills Prov: Jorje Rae MD 05/06/19 Prednisone* (PREDNISONE*) 20 Mg Tablet 40 MG ORAL DAILY, #10 TAB Prov: Jorje Rae MD 05/06/19 Albuterol Sulfate* (ALBUTEROL SULFATE MDI*) 8.5 Gm Hfa.aer.ad 2 PUFF INH Q6H, #1 EA 0 Refills Prov: Jorje Rae MD 05/06/19 Jorje Rae MD May 06, 2019 14:57
[2019-05-06] MEDS ORDERED: Albuterol/Ipratropium 3ml neb HHN ONE (15:00)
[2019-05-06] MEDS ORDERED: guaiFENesin w/Codeine 5ml Liq ud ORAL PRN (15:00)
--- NOTE | 2019-05-06 15:10 | NUR ---
ED Nurse Note: [facility] computer brought into patient room to communicate with patient. Patient refused using the [facility] device, stating that she "prefers to have a store manager in person". Patient advised that she would like to only use the medical staffing coordinator who was with her at bedside.
[2019-05-06] MEDS ORDERED: GUAIFENESIN-CO118 M1 ORAL (16:24)
[2019-05-06] MEDS ORDERED: ALBUTEROL SULF8.5 GM INH (16:24)
[2019-05-06] MEDS ORDERED: PREDNISONE20 MG ORAL (16:24)
[2019-05-06] MEDS ORDERED: TYLENOL325 MG ORAL (16:24)
--- NOTE | 2019-05-06 16:32 | Diagnostic Imaging Report ---
Indication: Cough Technique: One view of the chest Comparison: 05/01/2019 Findings: Lungs and pleural spaces are clear. Heart size is normal. No significant change Impression: No acute process
[2019-05-06 16:45] VITALS: BP 136/78
--- NOTE | 2019-05-06 16:45 | NUR ---
ED Nurse Note: Patient cleared for DC by Dr Rae. Patient AxO x 4, no s/s of acute distress. ID band removed. Patient walks with steady gait, took all belongings.
== END 2019-05-06 16:45 | disposition home or self-care (01) ==
LOC: EMR 14:40
DX: R05 Cough (principal); J98.01 Acute bronchospasm; E11.9 Type 2 diabetes mellitus without complications; I10 Essential (primary) hypertension; H91.3 Deaf nonspeaking, not elsewhere classified
CPT/HCPCS: 71045; 93005; J7512; Z7502; 99283; J7620

== ENCOUNTER 2019-07-04 18:37 | Emergency (ER) | payer MEDICAID ==
[~2019-07-04] VITALS: Ht 144.8 cm; Wt 66.2 kg
[~2019-07-04 18:37] MED LIST changes: +GUAIFENESIN-CO118 M1 ORAL; +PREDNISONE20 MG ORAL; +TYLENOL325 MG ORAL
--- NOTE | 2019-07-04 19:37 | Emergency Room Report ---
History of Present Illness General Chief Complaint: Chest Pain Source: Patient Present Illness HPI Patient is a 58-year-old female brought in by self after increased chest tightness. Reports having intermittent episodes lasting approximately 15 minutes. Denies any exertional component. Reports having associated rapid heartbeat. Previous history of diabetes and hypertension. Denies any dizziness or lightheadedness. Denies any leg pain or swelling. Had not been having any diarrhea. Reports having some increased difficulty with swallowing both solids and liquids. Allergies: Coded Allergies: No Known Allergies (Unverified , 01/08/17) COVID-19 Screening Contact w/high risk pt: No Recent Travel to affected area: No Experienced COVID-19 symptoms?: No Patient History Past Medical History: see triage record, DM, HTN Now: No Reviewed Nursing Documentation: PMH: Agreed; PSxH: Agreed Nursing Documentation-PMH Hx Hypertension: Yes Hx Diabetes: Yes Hx Cancer: No Hx Gastrointestinal Problems: No Hx Neurological Problems: Yes - deaf mute Review of Systems All Other Systems: negative except mentioned in HPI Physical Exam Vital Signs Date Time Temp Pulse Resp B/P (MAP) Pulse Ox O2 Delivery O2 Flow Rate FiO2 07/04/19 19:06 98.2 77 20 150/88 (108) 96 Room Air Sp02 EP Interpretation: reviewed, normal General Appearance: normal inspection, alert, GCS 15 Head: atraumatic ENT: normal ENT inspection, normal voice, other - Patient is deaf. Neck: normal inspection, full range of motion, supple, no bony tend Respiratory: normal inspection, lungs clear, normal breath sounds, no respiratory distress, no retraction, no wheezing Cardiovascular #1: regular rate, rhythm, no edema Gastrointestinal: normal inspection, normal bowel sounds, non tender, soft, no guarding, no hernia Genitourinary: no CVA tenderness Musculoskeletal: normal inspection, back normal, normal range of motion Neurologic: alert, motor strength/tone normal, dehydrator operator III-XII nml as tested, oriented x3, responsive, speech normal, normal inspection Psychiatric: normal inspection, judgement/insight normal, mood/affect normal Medical Decision Making Diagnostic Impression: Primary Impression: Diabetes mellitus Additional Impression: Nonspecific chest pain ER Course Patient presented for chest pain. Differential diagnosis included but was not limited to acute coronary syndrome, pulmonary embolism, pneumonia, aortic dissection, shingles, pneumothorax, aortic dissection, esophageal rupture, pericarditis. EKG showed normal sinus rhythm without acute ST or T wave changes. CXR showed no acute infiltrate. Patient appears to have chest pain which is likely esophageal due to symptoms consistent with achalasia. Patient was advised to follow-up with primary care physician for GI referral. Given patient's prior history of diabetes and hypertension patient was noted to have some cardiac risk factors. EKG appears to be unchanged from previous. Patient was advised that she should have outpatient cardiac evaluation. Patient was agreeable with discharge plan and states will return if worse. The patient is advised to follow up with primary care doctor in 1-2 days. Patient is advised to return if any worsening condition or if any changes in status that are concerning. This report is dictated with [employer] ([employer]CD[employer]) data processing supervisor software which may occasionally lead to discrepancies related to use of this software. Labs Test 07/04/19 19:50 White Blood Count 9.9 K/UL (4.8-10.8) Red Blood Count 4.34 M/UL (4.20-5.40) Hemoglobin 12.7 G/DL (12.0-16.0) Hematocrit 38.7 % (37.0-47.0) Mean Corpuscular Volume 89 FL (80-99) Mean Corpuscular Hemoglobin 29.3 PG (27.0-31.0) Mean Corpuscular Hemoglobin Concent 32.9 G/DL (32.0-36.0) Red Cell Distribution Width 12.6 % (11.6-14.8) Platelet Count 66 K/UL (150-450) Mean Platelet Volume 14.1 FL (6.5-10.1) Neutrophils (%) (Auto) % (45.0-75.0) Lymphocytes (%) (Auto) % (20.0-45.0) Monocytes (%) (Auto) % (1.0-10.0) Eosinophils (%) (Auto) % (0.0-3.0) Basophils (%) (Auto) % (0.0-2.0) Differential Total Cells Counted 100 Neutrophils % (Manual) 63 % (45-75) Lymphocytes % (Manual) 32 % (20-45) Monocytes % (Manual) 5 % (1-10) Eosinophils % (Manual) 0 % (0-3) Basophils % (Manual) 0 % (0-2) Band Neutrophils 0 % (0-8) Platelet Estimate Adequate Platelet Morphology Normal Clumped Platelets 3+ Red Blood Cell Morphology Normal Prothrombin Time 9.5 SEC (9.30-11.50) Prothromb Time International Ratio 0.9 (0.9-1.1) Activated Partial Thromboplast Time 25 SEC (23-33) Sodium Level 145 MMOL/L (136-145) Potassium Level 4.0 MMOL/L (3.5-5.1) Chloride Level 104 MMOL/L (98-107) Carbon Dioxide Level 29 MMOL/L (21-32) Anion Gap 13 mmol/L (5-15) Blood Urea Nitrogen 16 mg/dL (7-18) Creatinine 0.9 MG/DL (0.55-1.30) Estimat Glomerular Filtration Rate > 60 mL/min (>60) Glucose Level 141 MG/DL (74-106) Calcium Level 9.4 MG/DL (8.5-10.1) Total Bilirubin 0.3 MG/DL (0.2-1.0) Aspartate Amino Transf (AST/SGOT) 30 U/L (15-37) Alanine Aminotransferase (ALT/SGPT) 38 U/L (12-78) Alkaline Phosphatase 106 U/L (46-116) Troponin I 0.000 ng/mL (0.000-0.056) Pro-B-Type Natriuretic Peptide 172 pg/mL (0-125) Total Protein 7.4 G/DL (6.4-8.2) Albumin 4.2 G/DL (3.4-5.0) Globulin 3.2 g/dL Albumin/Globulin Ratio 1.3 (1.0-2.7) Lipase 131 U/L (73-393) Thyroid Stimulating Hormone (TSH) 0.570 uiU/mL (0.358-3.740) Last Vital Signs Date Time Temp Pulse Resp B/P (MAP) Pulse Ox O2 Delivery O2 Flow Rate FiO2 07/04/19 19:06 98.2 77 20 150/88 (108) 96 Room Air Status: improved Disposition: HOME, SELF-CARE Condition: Stable Scripts Omeprazole (OMEPRAZOLE) 20 Mg Tablet. 20 MG ORAL DAILY, #30 TAB Prov: Carl Jones MD 07/04/19 Carl Jones MD Jul 04, 2019 19:37
[2019-07-04 20:15] VITALS: BP 151/77
[2019-07-04 20:16] LABS: HEMATOCRIT 38.7 % (37.0-47.0); HEMOGLOBIN 12.7 G/DL (12.0-16.0); MEAN CORPUSCULAR VOLUME 89 FL (80-99); PLATELET COUNT 66 K/UL (150-450); RED BLOOD COUNT 4.34 M/UL (4.20-5.40); RED CELL DISTRIBUTION WIDTH 12.6 % (11.6-14.8); WHITE BLOOD COUNT 9.9 K/UL (4.8-10.8)
[2019-07-04 20:23] LABS: ANION GAP 13 mmol/L (5-15); BLOOD UREA NITROGEN 16 mg/dL (7-18); CALCIUM 9.4 MG/DL (8.5-10.1); CARBON DIOXIDE 29 MMOL/L (21-32); CHLORIDE 104 MMOL/L (98-107); CREATININE 0.9 MG/DL (0.55-1.30); SODIUM 145 MMOL/L (136-145)
[2019-07-04 20:32] LABS: INR 0.9 (0.9-1.1)
[2019-07-04 20:35] LABS: ALANINE AMINOTRANSFERASE 38 U/L (12-78); ALBUMIN 4.2 G/DL (3.4-5.0); ALBUMIN/GLOBULIN RATIO 1.3 (1.0-2.7); ALKALINE PHOSPHATASE 106 U/L (46-116); ASPARTATE AMINO TRANSFERASE 30 U/L (15-37); BILIRUBIN,TOTAL 0.3 MG/DL (0.2-1.0)
[2019-07-04 22:00] VITALS: BP 141/70
[2019-07-04] MEDS ORDERED: OMEPRAZOLE20 M3 ORAL (22:37)
[2019-07-04 22:45] VITALS: BP 140/61
[2019-07-04 23:00] VITALS: BP 140/61
--- NOTE | 2019-07-05 10:57 | Diagnostic Imaging Report ---
Indication: Shortness of breath Technique: One view of the chest Comparison: 05/06/2019 Findings: Lungs and pleural spaces are clear. Heart size is normal. No significant change Impression: No acute process
== END 2019-07-04 23:00 | disposition home or self-care (01) ==
LOC: EMR 19:25
DX: E11.9 Type 2 diabetes mellitus without complications (principal); I10 Essential (primary) hypertension; H91.3 Deaf nonspeaking, not elsewhere classified
CPT/HCPCS: 36415; 71045; 80053; 83690; 83880; 84443; 84484; 85007; 85025; 85610; 85730; 93005; Z7502; 99284

== ENCOUNTER 2019-12-06 17:46 | Emergency (ER) | payer MEDICAID ==
[~2019-12-06] VITALS: Ht 152.4 cm; Wt 54.4 kg
[~2019-12-06 17:46] MED LIST changes: +ACETAMINOPHEN325 M1 ORAL; +OMEPRAZOLE20 M3 ORAL; +ROBAXIN-750750 MG PO
[2019-12-06 18:01] VITALS: BP 126/66
--- NOTE | 2019-12-06 18:01 | NUR ---
ED Nurse Note: Patient from home and walked in due to left side CP that radiates to her left arm x 4 days. Pain is worse when pressing pt's chest and arm. Pt also states she is short of breath at night. AAO x4, ambulatory with non labored breathing.
[2019-12-06] MEDS ORDERED: Acetaminophen 500mg (ES) tab ORAL ONE (18:30)
--- NOTE | 2019-12-06 18:31 | NUR ---
ED Nurse Note: Blood collected then sent.
--- NOTE | 2019-12-06 18:31 | NUR ---
ED Nurse Note: Sign language interpeter used # [id number]
[2019-12-06 18:39] LABS: EOSINOPHILS % (AUTO) 1.3 % (0.0-3.0); HEMATOCRIT 38.6 % (37.0-47.0); HEMOGLOBIN 13.2 G/DL (12.0-16.0); LYMPHOCYTES % (AUTO) 23.4 % (20.0-45.0); MEAN CORPUSCULAR VOLUME 88 FL (80-99); MONOCYTES % (AUTO) 4.1 % (1.0-10.0); NEUTROPHILS % (AUTO) 70.2 % (45.0-75.0); PLATELET COUNT 197 K/UL (150-450); RED CELL DISTRIBUTION WIDTH 11.9 % (11.6-14.8)
[2019-12-06 18:45] LABS: ANION GAP 11 mmol/L (5-15); BLOOD UREA NITROGEN 18 mg/dL (7-18); CALCIUM 10.1 MG/DL (8.5-10.1); CARBON DIOXIDE 28 MMOL/L (21-32); CHLORIDE 100 MMOL/L (98-107); CREATININE 0.9 MG/DL (0.55-1.30); POTASSIUM 3.4 MMOL/L (3.5-5.1); SODIUM 139 MMOL/L (136-145)
--- NOTE | 2019-12-06 18:50 | NUR ---
ED Nurse Note: technology officer Abrahan at the bed side for CXR.
[2019-12-06 18:56] LABS: ALANINE AMINOTRANSFERASE 34 U/L (12-78); ALBUMIN 4.3 G/DL (3.4-5.0); ALBUMIN/GLOBULIN RATIO 1.6 (1.0-2.7); ALKALINE PHOSPHATASE 107 U/L (46-116); ASPARTATE AMINO TRANSFERASE 20 U/L (15-37); BILIRUBIN,TOTAL 0.4 MG/DL (0.2-1.0)
--- NOTE | 2019-12-06 18:56 | Emergency Room Report ---
History of Present Illness General Chief Complaint: Chest Pain Source: Patient Present Illness HPI 59-year-old female presents the ED complaining of chest pain. States she has been having chest pain for the last 4 days. Left-sided, dull, 7 out of 10, nonradiating. Also notes pain in her shoulder. Denies shortness of breath. History of diabetes and hypertension. States she is compliant with her medications. No other aggravating relieving factors. Denies any other associated symptoms Allergies: Coded Allergies: No Known Allergies (Unverified , 01/08/17) COVID-19 Screening Contact w/high risk pt: No Recent Travel to affected area: No Experienced COVID-19 symptoms?: No COVID-19 Testing performed WETLAND SCIENTIST: No Patient History Past Medical History: DM, HTN, other - deaf Past Surgical History: none Pertinent Family History: none Social History: Denies: smoking, alcohol use, drug use Last Menstrual Period: n/a Now: No Immunizations: UTD Reviewed Nursing Documentation: PMH: Agreed; PSxH: Agreed Nursing Documentation-PMH Past Medical History: No History, Except For Hx Hypertension: Yes Hx Diabetes: Yes Hx Cancer: No Hx Gastrointestinal Problems: No Hx Neurological Problems: Yes - deaf mute Review of Systems All Other Systems: negative except mentioned in HPI Physical Exam Vital Signs Date Time Temp Pulse Resp B/P (MAP) Pulse Ox O2 Delivery O2 Flow Rate FiO2 12/06/19 17:51 98.6 77 18 127/75 (92) 96 Room Air Sp02 EP Interpretation: reviewed, normal General Appearance: no apparent distress, alert, GCS 15, non-toxic Head: normocephalic, atraumatic Eyes: bilateral eye normal inspection, bilateral eye PERRL ENT: normal pharynx, no angioedema, normal voice, other Neck: full range of motion, supple/symm/no masses Respiratory: lungs clear, normal breath sounds, speaking full sentences, other - reproducible L sided chest wall pain Cardiovascular #1: regular rate, rhythm, no edema Cardiovascular #2: 2+ carotid (R), 2+ carotid (L), 2+ radial (R), 2+ radial (L), 2+ dorsalis pedis (R), 2+ dorsalis pedis (L) Gastrointestinal: normal bowel sounds, non tender, soft, non-distended, no guarding, no rebound Rectal: deferred Genitourinary: normal inspection, no CVA tenderness Musculoskeletal: back normal, normal range of motion, gait/station normal, non- tender Neurologic: alert, motor strength/tone normal, oriented x3, sensory intact, responsive, speech normal, other - patient deaf Psychiatric: judgement/insight normal, memory normal, mood/affect normal, no suicidal/homicidal ideation Reflexes: 3+ bicep (R), 3+ bicep (L), 3+ tricep (R), 3+ tricep (L), 3+ knee (R), 3+ knee (L) Skin: no rash Lymphatic: no adenopathy Medical Decision Making Diagnostic Impression: Primary Impression: Chest pain Qualified Codes: R07.9 - Chest pain, unspecified Additional Impression: Deaf nonspeaking, not elsewhere classifiable ER Course Hospital Course 59-year-old female presents ED complaining of reproducible chest wall pain Differential diagnoses include: Rib fracture, NV/unstable angina, contusion, muscle strain Clinical course Patient placed on stretcher. After initial history and physical I ordered labs, EKG, chest x-ray, tylenol. labs reviewed- all electrolytes normal, troponins negative, no leukocytosis, hemoglobin/hematocrit stable EKG - NSR, no acute ischemic changes interpretd by me Chest x-ray-no cardiomegaly, no rib fracture, no pneumothorax, no acute process I discussed findings with patient. Via manager of development video screen. Patient is deaf. Explained that exam was consistent with muscular pain. Work-up negative. EKG unremarkable. I believe patient can be safely discharged to home. Patient is comfortable with the plan. We contacted patient's social media intern who will arrange transport to take patient home. I. I feel this is a highly complex case requiring extensive working including EKG/Rhythm strip, Xray/CT/US, Blood/urine lab work, repeat exams while in ED, and administration of strong opiates/narcotics for pain control, admission to hospital or close patient follow up. Diagnosis - chest pain, deaf nonspeaking Stable and discharged to home with prescription for Tylenol, RObaxin, lidoderm. Instructed to followup with PMD. Return to ED if symptoms recur or worsen Laboratory Tests Test 12/06/19 18:05 White Blood Count 10.0 K/UL (4.8-10.8) Red Blood Count 4.40 M/UL (4.20-5.40) Hemoglobin 13.2 G/DL (12.0-16.0) Hematocrit 38.6 % (37.0-47.0) Mean Corpuscular Volume 88 FL (80-99) Mean Corpuscular Hemoglobin 30.0 PG (27.0-31.0) Mean Corpuscular Hemoglobin Concent 34.2 G/DL (32.0-36.0) Red Cell Distribution Width 11.9 % (11.6-14.8) Platelet Count 197 K/UL (150-450) Mean Platelet Volume 10.6 FL (6.5-10.1) H Neutrophils (%) (Auto) 70.2 % (45.0-75.0) Lymphocytes (%) (Auto) 23.4 % (20.0-45.0) Monocytes (%) (Auto) 4.1 % (1.0-10.0) Eosinophils (%) (Auto) 1.3 % (0.0-3.0) Basophils (%) (Auto) 1.0 % (0.0-2.0) Sodium Level 139 MMOL/L (136-145) Potassium Level 3.4 MMOL/L (3.5-5.1) L Chloride Level 100 MMOL/L (98-107) Carbon Dioxide Level 28 MMOL/L (21-32) Anion Gap 11 mmol/L (5-15) Blood Urea Nitrogen 18 mg/dL (7-18) Creatinine 0.9 MG/DL (0.55-1.30) Estimat Glomerular Filtration Rate > 60 mL/min (>60) Glucose Level 133 MG/DL (74-106) H Calcium Level 10.1 MG/DL (8.5-10.1) Total Bilirubin 0.4 MG/DL (0.2-1.0) Aspartate Amino Transf (AST/SGOT) 20 U/L (15-37) Alanine Aminotransferase (ALT/SGPT) 34 U/L (12-78) Alkaline Phosphatase 107 U/L (46-116) Troponin I 0.000 ng/mL (0.000-0.056) Pro-B-Type Natriuretic Peptide 50 pg/mL (0-125) Total Protein 7.0 G/DL (6.4-8.2) Albumin 4.3 G/DL (3.4-5.0) Globulin 2.7 g/dL Albumin/Globulin Ratio 1.6 (1.0-2.7) EKG Diagnostic Results Rate: normal Rhythm: NSR ST Segments: no acute changes Rhythm Strip Diag. Results EP Interpretation: yes Rhythm: NSR, no PVC's, no ectopy Chest X-Ray Diagnostic Results Chest X-Ray Diagnostic Results : Chest X-Ray Ordered: Yes # of Views/Limited/Complete: 1 View Indication: Chest Pain EP Interpretation: Yes Interpretation: no consolidation, no effusion, no pneumothorax, no acute cardiopulmonary disease Impression: No acute disease Electronically Signed by: Electronically signed by Telly Correia MD Last Vital Signs Date Time Temp Pulse Resp B/P (MAP) Pulse Ox O2 Delivery O2 Flow Rate FiO2 12/06/19 18:01 98.6 77 16 126/66 99 Room Air Status: improved Disposition: HOME, SELF-CARE Condition: Stable Scripts Methocarbamol* (ROBAXIN-750*) 750 Mg Tablet 750 MG PO TID, #21 TAB 0 Refills Prov: Telly Correia MD 12/06/19 Lidocaine Patch* (Lidoderm Patch*) 1 Each Adh..patch 1 PATCH TOPIC DAILY, #7 PATCH 0 Refills Patch(es) may remain in place for up to 12 hours in any 24-hour period. Prov: Telly Correia MD 12/06/19 Acetaminophen* (TYLENOL EXTRA STRENGTH*) 500 Mg Tablet 500 MG ORAL Q8H PRN for Prn Headache/Temp > 101, #30 TAB 0 Refills Prov: Telly Correia MD 12/06/19 Referrals: NON PHYSICIAN (PCP) Telly Correia MD Dec 06, 2019 18:56
--- NOTE | 2019-12-06 19:02 | NUR ---
HAND-OFF: Report given to Cornelius RN.
--- NOTE | 2019-12-06 19:03 | NUR ---
ED Nurse Note: Report received from ARMANDO Nice RN
--- NOTE | 2019-12-06 19:45 | NUR ---
ED Nurse Note: organ builder at [facility] used. ERMD at bedside
[2019-12-06] MEDS ORDERED: LIDODERM700 M1 TOPIC (20:01)
[2019-12-06] MEDS ORDERED: TYLENOL EXTRA500 MG ORAL (20:01)
[2019-12-06] MEDS ORDERED: ROBAXIN-750750 MG PO (20:01)
[2019-12-06 21:40] VITALS: BP 124/78
--- NOTE | 2019-12-06 21:40 | NUR ---
ER DISCHARGE NOTE: Patient is cleared to be discharged per ERMD, pt is aox4, on room air, with stable vital signs. pt was given dc and prescription instructions, pt was able to verbalize understanding, pt id band and iv site removed without complications. pt is able to ambulate with steady gait. pt took all belongings. pt was picked up by an UBER arranged by a family welfare social work professor.
--- NOTE | 2019-12-07 10:50 | Diagnostic Imaging Report ---
Procedure: XRAY Chest 1v Reason for study: Chest pain Comparison films: 07/04/2019. FINDINGS: A single one view chest is obtained. Vascularity is normal. The lung cole are clear bilaterally. Cardiac and mediastinal silhouette are within normal limits. CP angles are sharp. The bony thorax appear unremarkable. IMPRESSION: NO ACUTE CARDIOPULMONARY DISEASE.
== END 2019-12-06 21:40 | disposition home or self-care (01) ==
LOC: EMR 18:05
DX: R07.9 Chest pain, unspecified (principal); H91.3 Deaf nonspeaking, not elsewhere classified; E11.9 Type 2 diabetes mellitus without complications; I10 Essential (primary) hypertension
CPT/HCPCS: 36415; 71045; 80053; 83880; 84484; 85025; 93005; Z7502; 99283

== ENCOUNTER 2019-12-29 16:48 | Inpatient (IN) | payer MEDICAID ==
[~2019-12-29] VITALS: Ht 154.9 cm; Wt 53.9 kg
[~2019-12-29 16:48] MED LIST changes: +LIDODERM700 M1 TOPIC
--- NOTE | 2019-12-29 17:30 | NUR ---
ED Nurse Note: Pt walked into ED for chest pain for 5 days. Pt describes CP as spasms. Pt also states she has R hand weakness 2/5 ROM. Pt is alert and orientedx4, ambulatory. Pt is deaf adn knows [place] sign language. Set up on monitor.
--- NOTE | 2019-12-29 17:40 | NUR ---
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 Gabby [id number]. JOCELIN Alvarado and RN Shellie in room to speak with patient and ask questions. Pt verbalizes no further questions.
[2019-12-29 17:55] VITALS: BP 146/76
[2019-12-29] MEDS ORDERED: Morphine Sulfate 2mg/ml Inj(IV/IM USE ONLY) IVP ONE (18:00)
[2019-12-29 18:06] LABS: APPEARANCE,URINE CLEAR; BASOPHILS % (AUTO) 0.8 % (0.0-2.0); BILIRUBIN, URINE NEGATIVE (NEGATIVE); COLOR,URINE PALE YELLOW; EOSINOPHILS % (AUTO) 0.7 % (0.0-3.0); GLUCOSE, URINE (UA) NEGATIVE (NEGATIVE); HEMATOCRIT 38.1 % (37.0-47.0); KETONES,URINE NEGATIVE (NEGATIVE); LEUKOCYTE ESTERASE ,URINE NEGATIVE (NEGATIVE); LYMPHOCYTES % (AUTO) 20.2 % (20.0-45.0); MEAN CORPUSCULAR VOLUME 88 FL (80-99); MONOCYTES % (AUTO) 4.5 % (1.0-10.0); NEUTROPHILS % (AUTO) 73.7 % (45.0-75.0); NITRITE,URINE NEGATIVE (NEGATIVE); PH,URINE 7 (4.5-8.0); PLATELET COUNT 143 K/UL (150-450); PROTEIN,URINE NEGATIVE (NEGATIVE); RED BLOOD COUNT 4.35 M/UL (4.20-5.40); RED CELL DISTRIBUTION WIDTH 11.7 % (11.6-14.8); UROBILINOGEN,URINE NORMAL MG/DL (0.0-1.0); WHITE BLOOD COUNT 8.7 K/UL (4.8-10.8)
[2019-12-29 18:18] LABS: ANION GAP 9 mmol/L (5-15); BLOOD UREA NITROGEN 19 mg/dL (7-18); CALCIUM 9.8 MG/DL (8.5-10.1); CARBON DIOXIDE 31 MMOL/L (21-32); CHLORIDE 100 MMOL/L (98-107); CREATININE 0.9 MG/DL (0.55-1.30); POTASSIUM 3.4 MMOL/L (3.5-5.1); SODIUM 140 MMOL/L (136-145)
--- NOTE | 2019-12-29 18:20 | Emergency Room Report ---
History of Present Illness General Chief Complaint: Chest Pain Source: Patient (Christiano Perez) Present Illness HPI 59-year-old female with history of type 2 diabetes and hypertension currently on at an unknown blood pressure medication here complaining of 5 days of chest pain with radiation to left arm and numbness. Patient is deaf and request translation services. Translation services recently was recontacted and I had a toll line mechanic examination, history taking. Patient was also updated with our assessment. Patient reported to the translatorher chest pain started 5 days ago at rest now is radiating to left arm feeling tingling sensation in left arm. Reports that the pain in left arm is intermittent and is really bad. Patient shows me follow-up with prescription that were given to her here not too long ago for muscle spasm, such as Robaxin and Tylenol and reports that they do not help. Patient reports that they were given to her" by a social scientist here.". Patient also has followed up with primary Dr. [facility] since and was diagnosed with muscle pain. Denies any abdominal pain, nausea vomiting diarrhea. Denies any cough or congestion or shortness of breath. Reports that she checked her sugar and blood pressure swelling there were "good. Does not recall the name of the blood pressure medication. Denies any dizziness. Denies any unilateral weakness. Denies any headache, unsteady gait. Patient is neurovascularly intact. Patient has lower strength left upper extremity were asked to squeeze both my hands. Denies any tobacco smoking or drug use. Denies alcohol intake. Denies taking any blood thinners. Reports that she takes Robaxin, Tylenol, omeprazole as well as Metformin and her blood pressure medication on daily basis. Has not been sent to a enforcement manager or physical therapist by primary doctor. Patient also reports that she can read lips however announced to her that due to COVID-19 pandemic it is not recommended for mass to be taken out and we are going to contact sign language translation ser vices for proper assessment and plan. Patient agrees with this assessment. Also the beginning of her arrival due to her pointing at her chest and reporting pain by use. Cardiovascular for her pain level. I believe due to emergency level of patient complaint it was appropriate to communicate with patient via paper until translation services were contacted. (Christiano Perez) Allergies: Coded Allergies: No Known Allergies (Unverified , 01/08/17) COVID-19 Screening Contact w/high risk pt: No Recent Travel to affected area: No Experienced COVID-19 symptoms?: No COVID-19 Testing performed ART APPRAISER: No (Christiano Perez) Patient History Past Medical History: see triage record Past Surgical History: none Pertinent Family History: none Now: No Immunizations: UTD Reviewed Nursing Documentation: PMH: Agreed; PSxH: Agreed (Christiano Perez) Nursing Documentation-PMH Past Medical History: No History, Except For Hx Hypertension: Yes Hx Diabetes: Yes Hx Cancer: No Hx Gastrointestinal Problems: No Hx Neurological Problems: Yes - deaf mute (Christiano Perez) Review of Systems All Other Systems: negative except mentioned in HPI (Christiano Perez) Physical Exam Vital Signs Date Time Temp Pulse Resp B/P (MAP) Pulse Ox O2 Delivery O2 Flow Rate FiO2 12/29/19 16:58 98.2 73 19 158/80 (106) 95 Room Air Sp02 EP Interpretation: reviewed, normal General Appearance: no apparent distress, alert, GCS 15, non-toxic Head: normocephalic, atraumatic Eyes: bilateral eye normal inspection, bilateral eye PERRL ENT: hearing grossly normal, normal pharynx, no angioedema, normal voice Neck: full range of motion, supple/symm/no masses Respiratory: chest non-tender, lungs clear, normal breath sounds, speaking full sentences Cardiovascular #1: regular rate, rhythm, no edema Gastrointestinal: normal bowel sounds, non tender, soft, non-distended, no guarding, no rebound Rectal: deferred Genitourinary: no CVA tenderness Musculoskeletal: back normal, no calf tenderness Neurologic: alert, motor strength/tone normal, oriented x3, sensory intact, responsive, speech normal, other - low Strength left hand Psychiatric: judgement/insight normal, memory normal, mood/affect normal, no suicidal/homicidal ideation Skin: no rash Lymphatic: no adenopathy (Christiano Perez) Medical Decision Making PA Attestation All diagnosis and treatment plans were discussed and reviewed by my supervising physician Dr. Coe (Christiano Perez) Diagnostic Impression: Primary Impression: Chest pain Additional Impressions: Palpitation Unilateral weakness ER Course 59-year-old female with history of type 2 diabetes and hypertension currently on at an unknown blood pressure medication here complaining of 5 days of chest pain with radiation to left arm and numbness. Patient is deaf and request translation services. Translation services recently was recontacted and I had a toll line mechanic examination, history taking. Patient was also updated with our assessment. Patient reported to the translatorher chest pain started 5 days ago at rest now is radiating to left arm feeling tingling sensation in left arm. Reports that the pain in left arm is intermittent and is really bad. Patient shows me follow-up with prescription that were given to her here not too long ago for muscle spasm, such as Robaxin and Tylenol and reports that they do not help. Patient reports that they were given to her" by a social scientist here.". Patient also has followed up with primary Dr. Foster [facility] since and was diagnosed with muscle pain. Denies any abdominal pain, nausea vomiting diarrhea. Denies any cough or congestion or shortness of breath. Reports that she checked her sugar and blood pressure swelling there were "good. Does not recall the name of the blood pressure medication. Denies any dizziness. Denies any unilateral weakness. Denies any headache, unsteady gait. Patient is neurovascularly intact. Patient has lower strength left upper extremity were asked to squeeze both my hands. Denies any tobacco smoking or drug use. Denies alcohol intake. Denies taking any blood thinners. Reports that she takes Robaxin, Tylenol, omeprazole as well as Metformin and her blood pressure medication on daily basis. Has not been sent to a enforcement manager or physical therapist by primary doctor. Patient also reports that she can read lips however announced to her that due to COVID-19 pandemic it is not recommended for mass to be taken out and we are going to contact sign language translation services for proper assessment and plan. Patient agrees with this assessment. Also the beginning of her arrival due to her pointing at her chest and reporting pain by use. Cardiovascular for her pain level. I believe due to emergency level of patient complaint it was appropriate to communicate with patient via paper until translation services were contacted. Ddx considered but are not limited to: ID, Angina, COPD, GERD, CVA, TIA Vital signs: are WNL, pt. is afebrile H&PE are most consistent with chest pain palpitations, unilateral weakness Shellie, nurse, was my witness during hx taking and assessment while sign poster present ORDERS: EKG, Chest XR, cardiac labs, head CT no contrast ED INTERVENTIONS: Morphine, aspirin, Zofran Patient was admitted with diagnosis of chest pain, palpitation, unilateral weakness to Dr. Rivas under supervision of :Saravanan pt stable at time of admission (Christiano Perez) ER Course I spoke with Dr. Jaramillo, and reviewed the patients presentation, workup, results, and treatment. They will admit the patient for further care and evaluation, and assume care of the patient at this time. (Yaritza Coe D.O.) EKG Diagnostic Results Rate: normal Rhythm: NSR ST Segments: no acute changes Other Impression No acute ST changes ASA given to the pt in ED: No (Christiano Perez) Chest X-Ray Diagnostic Results Chest X-Ray Diagnostic Results : Chest X-Ray Ordered: Yes # of Views/Limited/Complete: 1 View EP Interpretation: Yes PA Xray: Interpretation reviewed, by supervising MD, and agrees with findings. Interpretation: no consolidation, no effusion, no pneumothorax Impression: No acute disease Electronically Signed by: Christiano Murray PA-C (Christiano Perez) CT/MRI/US Diagnostic Results CT/MRI/US Diagnostic Results : Imaging Test Ordered: head CT no contrast Impression TECHNIQUE: Axial computed tomography images of the head/brain without intravenous contrast. CTDI is 53.4 mGy and DLP is 912 mGy-cm. One or more of the following dose reduction techniques were used: automated exposure control, adjustment of the mA and/or kV according to patient size, use of iterative reconstruction technique. COMPARISON: Head CT 02/15/2019 FINDINGS: Brain: No hemorrhage, extra-axial fluid collection, mass effect, or edema. Ventricles: Unremarkable. Bones/joints: Unremarkable. No fracture. Soft tissues: Unremarkable. Sinuses: Unremarkable as visualized. Mastoid air cells: Unremarkable as visualized. IMPRESSION: 1. No acute intracranial abnormality. (Christiano Perez) Last Vital Signs Date Time Temp Pulse Resp B/P (MAP) Pulse Ox O2 Delivery O2 Flow Rate FiO2 12/29/19 16:58 98.2 73 19 158/80 (106) 95 Room Air (Christiano Perez) Disposition: ADMITTED INPATIENT Condition: Stable Referrals: NON PHYSICIAN (PCP) Christiano Perez Dec 29, 2019 18:20 Yaritza Coe D.O. Dec 29, 2019 20:12
[2019-12-29 18:22] LABS: INR 0.9 (0.9-1.1)
[2019-12-29 18:28] LABS: ALANINE AMINOTRANSFERASE 21 U/L (12-78); ALBUMIN 4.1 G/DL (3.4-5.0); ALBUMIN/GLOBULIN RATIO 1.4 (1.0-2.7); ALKALINE PHOSPHATASE 90 U/L (46-116); ASPARTATE AMINO TRANSFERASE 20 U/L (15-37); BILIRUBIN,TOTAL 0.4 MG/DL (0.2-1.0)
--- NOTE | 2019-12-29 18:31 | Diagnostic Imaging Report ---
EXAM: CT Head Without Intravenous Contrast CLINICAL HISTORY: CVA TECHNIQUE: Axial computed tomography images of the head/brain without intravenous contrast. CTDI is 53.4 mGy and DLP is 912 mGy-cm. One or more of the following dose reduction techniques were used: automated exposure control, adjustment of the mA and/or kV according to patient size, use of iterative reconstruction technique. COMPARISON: Head CT 02/15/2019 FINDINGS: Brain: No hemorrhage, extra-axial fluid collection, mass effect, or edema. Ventricles: Unremarkable. Bones/joints: Unremarkable. No fracture. Soft tissues: Unremarkable. Sinuses: Unremarkable as visualized. Mastoid air cells: Unremarkable as visualized. IMPRESSION: 1. No acute intracranial abnormality.
--- NOTE | 2019-12-29 19:35 | NUR ---
ED Nurse Note: Utilized [employer] quill machine tender #[id number] with Christiano to explain to pt that she is being admitted and to update her on her status, Christiano answered all questions,pt given sandwhich and juice per request
[2019-12-29] MEDS ORDERED: Morphine Sulfate 2mg/ml Inj(IV/IM USE ONLY) IVP PRN (20:00)
--- NOTE | 2019-12-29 21:11 | NUR ---
NURSE NOTES: Received hand-off report from MIGUEL Simmons from ED. Transfer via gurney was done safely to room 209-2, patient alert and oriented x3-4, demonstrated left arm weakness 3/5, bilateral lower legs 5/5 strength and right arm 5/5, patient in stable condition, able to verbalize needs through physical gestures, IV on right antecubital 20g intact, clean, dry and intact, flushing, no pain, no tenderness, no swelling, no redness noted. Bilateral pupils are reactive, round, brisk and equal. monitoring specialist in place, vital signs WNL: (BP: 118/66, T: 99.0, spO2: 97%, RR: 16, HR: 90). Patient belongings all accounted for in front of MIGUEL Simmons and patient. Skin is intact. Steady gait. Bed in lowest and locked position, bed alarm on, call light within reach.
--- NOTE | 2019-12-29 21:11 | NUR ---
TRANSFER TO FLOOR: Patient transferred to as ordered, per Dr Rivas. Report given to MIGUEL Meadows. Belongings and medications given to . Family and or S/O informed of transfer.
--- NOTE | 2019-12-29 21:20 | NUR ---
NURSE NOTES: Called and left a voicemail for Dr. Rivas. Awaiting orders and callback.
--- NOTE | 2019-12-29 21:40 | NUR ---
NURSE NOTES: Dr. Jaramillo ordered the following: cancel inpatient and put patient for OBS, DVT prophylaxis: ambulation, troponin every 6 hours, EKG 04:00, NPO after midnight for possible stress test tomrrow, ASA 81mg in the morning, sliding scale insulin.
[2019-12-30] VITALS: BP 113/57
[2019-12-30] MEDS: Albuterol 90mcg Inhaler 8gm INH SCH ×4 (01:00→18:09)
[2019-12-30 04:00] VITALS: BP 115/60
[2019-12-30] MEDS: traMADol 50mg tab ORAL PRN ×2 (05:50→23:05)
[2019-12-30] MEDS: NovoLOG Insulin Flexpen SUBQ SCH ×4 (06:27→20:41)
--- NOTE | 2019-12-30 06:59 | NUR ---
NURSE NOTES: Called and left a voicemail for Dr. Rivas regarding potassium 3.4 and EKG NSR with incomplete right bundle branch block. Awaiting callback and potential orders.
--- NOTE | 2019-12-30 07:00 | NUR ---
NURSE HAND-OFF REPORT: Important Events on Shift: left arm weakness and pain Patient Status: full code, stable condition Diet: NPO for possible procedure per Dr. Jaramillo Pending Orders: Pending Results/Labs: Pending MD notification: Latest Vital Signs: Temperature 97.9 , Pulse 67 , B/P 115 /60 , Respiratory Rate 20 , O2 SAT 95 , Room Air, O2 Flow Rate . Vital Sign Comment: EKG Rhythm: Sinus Rhythm Rhythm change?: N MD Notified?: - MD Response: Latest Loja Fall Score: 15 Fall Risk: Low Risk Safety Measures: Call light Within Reach, Bed Alarm Zone 2, Side Rails Side Rails x2, Bed position Low and Locked. Fall Precautions: Yellow Socks Yellow Gown Door Sign Patient Fall Education Report given to Hollie Mills RN.
--- NOTE | 2019-12-30 07:39 | History and Physical ---
History of Present Illness General Date patient seen: Dec 30, 2019 Reason for Hospitalization: Chest Pain Present Illness HPI History is obtained from reviewing the medical chart. Patient is deaf, at the time of my exam no meaningful ways of translation available at the hospital. P er review of ER records patient is a 59-year-old female who has type 2 diabetes and hypertension who presented to the ER with complaints of 5 days of chest pain that radiates to the left arm accompanied by numbness. Patient had reported that her chest pain started 5 days prior to presentation, occurred at rest and radiated to the left arm with a tingling sensation in her left arm. Pain is intermittent. She was recently prescribed Robaxin and Tylenol for muscle spasms. Denies shortness of breath, cough, nausea, vomiting or abdominal pain., headache, weakness, dizziness, palpitations At the time of my evaluation patient keeps pointing to her chest and left arm. She is in no distress and found sleeping comfortably upon entering the room. Past medical history: DM 2 controlled, hypertension Past surgical history: Denies Social history: Denies smoking tobacco, EtOH or illicit drug use Family history: Denies family history of heart disease In the ER Viatls: 158/80, 73, 19,98.1 Received ASA, Morphine and Zofran Allergies: Coded Allergies: No Known Allergies (Unverified , 01/08/17) COVID-19 Screening Contact w/high risk pt: No Recent Travel to affected area: No Experienced COVID-19 symptoms?: No Medication History Scheduled Albuterol Sulfate* (Albuterol Sulfate Mdi*), 2 PUFF INH Q6H Amlodipine Besylate (Norvasc), 10 MG ORAL DAILY, (Reported) Aspirin* (Aspir 81*), 81 MG ORAL DAILY, (Reported) Atorvastatin Calcium* (Atorvastatin Calcium*), 40 MG ORAL BEDTIME, (Reported) Enalapril Maleate* (Enalapril Maleate*), 20 MG ORAL DAILY, (Reported) Ibuprofen (Motrin), 600 MG ORAL THREE TIMES A DAY Lidocaine Patch* (Lidoderm Patch*), 1 PATCH TOPIC DAILY Metformin Hcl* (Metformin Hcl*), 1,000 MG ORAL DAILY, (Reported) Methocarbamol* (Robaxin-750*), 750 MG PO TID Omeprazole (Omeprazole), 20 MG ORAL DAILY Prednisone* (Prednisone*), 40 MG ORAL DAILY Ranitidine Hcl* (Zantac*), 150 MG ORAL TWICE A DAY, (Reported) Trazodone Hcl (Trazodone Hcl), 50 MG ORAL BEDTIME, (Reported) Scheduled PRN Acetaminophen* (Acetaminophen 325MG Tablet*), 650 MG ORAL Q4H PRN for For Pain Ondansetron Odt* (Zofran Odt*), 4 MG BC EVERY 8 HOURS PRN for Nausea & Vomiting Tramadol Hcl* (Ultram*), 50 MG ORAL Q6H PRN for For Pain Discontinued Medications Acetaminophen (Tylenol), 650 MG ORAL Q6H PRN for Prn Pain/Headache/Temp > 101 Discontinued Reason: MD discontinued med Acetaminophen* (Tylenol Extra Strength*), 500 MG ORAL Q8H Discontinued Reason: MD discontinued med Acetaminophen* (Tylenol Extra Strength*), 500 MG ORAL Q8H PRN for Prn Headache/Temp > 101 Discontinued Reason: MD discontinued med Albuterol Sulfate* (Albuterol Sulfate Mdi*), 2 PUFF INH Q6H Discontinued Reason: MD discontinued med Codeine/Promethazine Hcl* (Promethazine-Codeine Syrup*), 5 ML ORAL Q6H PRN for For Cough Discontinued Reason: Therapy completed Codeine/Promethazine Hcl* (Promethazine-Codeine Syrup*), 5 ML ORAL Q6H PRN for For Cough Discontinued Reason: Therapy completed Doxycycline Monohydrate* (Doxycycline Monohydrate*), 100 MG ORAL Q12H Discontinued Reason: Therapy completed Guaifenesin/Codeine Phos* (Robitussin Ac*), 5 ML ORAL Q6H PRN for For Cough Discontinued Reason: Therapy completed Ibuprofen (Motrin), 600 MG ORAL Q8H PRN for For Pain Discontinued Reason: Medication dose changed Methocarbamol* (Robaxin-750*), 750 MG PO TID Discontinued Reason: Therapy completed Ondansetron Odt* (Zofran Odt*), 4 MG BC EVERY 6 HOURS PRN for Nausea & Vomiting Discontinued Reason: Therapy completed Patient History Healthcare decision maker N Resuscitation status Advanced Directive on File Review of Systems Constitutional: Denies: no symptoms, see HPI, chills, sweats, fever, malaise, weakness, other Eye: Denies: no symptoms, see HPI, eye pain, blurred vision, tearing, double vision, nose pain, nose congestion, acuity changes, discharge, other ENT: Denies: no symptoms, see HPI, ear pain, ear discharge, nose pain, nose congestion, throat pain, throat swelling, mouth pain, hearing loss, nasal discharge, other Respiratory: Denies: no symptoms, see HPI, cough, orthopnea, shortness of breath, stridor, wheezing, MIXON, sputum, other Cardiovascular: Reports: no symptoms, see HPI, chest pain, edema, palpitations, syncope, PND, other Gastrointestinal: Denies: no symptoms, see HPI, abdominal pain, constipation, diarrhea, nausea, vomiting, melena, hematemesis, other Genitourinary: Denies: no symptoms, see HPI, discharge, dysuria, frequency, hematuria, pain, retention, incontinence, urgency, vag bleed/dc, other Musculoskeletal: Denies: no symptoms, see HPI, back pain, gout, joint pain, joint swelling, muscle pain, muscle stiffness, other Skin: Denies: no symptoms, see HPI, rash, change in color, change in hair/nails, dryness, lesions, other Psychiatric: Denies: no symptoms, see HPI, prior hx, anxiety, depressed feelings, emotional problems, SI, HI, hallucinations, other Neurological: Denies: no symptoms, see HPI, headache, numbness, paresthesia, seizure, tingling, tremors, focal weakness, syncope, dizziness, other Endocrine: Denies: no symptoms, see HPI, excessive sweating, flushing, i ntolerance to temperature, increased thirst, increased urine, unexplained weight loss, other Hematologic/Lymphatic: Denies: no symptoms, see HPI, anemia, blood clots, easy bleeding, easy bruising, swollen glands, diathesis, other Physical Exam General Appearance: WD/WN, no apparent distress, alert Lines, tubes and drains: peripheral HEENT: normocephalic, atraumatic, anicteric, mucous membranes moist, PERRL, EOMI Neck: non-tender, normal alignment, supple, normal inspection Respiratory/Chest: chest wall non-tender, lungs clear, normal breath sounds, no respiratory distress, no accessory muscle use Cardiovascular/Chest: normal peripheral pulses, normal rate, regular rhythm, no JVD Abdomen: normal bowel sounds, non tender, soft, no organomegaly, no mass Extremities: normal range of motion, non-tender, normal inspection, no calf tenderness, normal capillary refill, non-pitting, no edema Skin Exam: normal pigmentation 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 grossly normal, no motor/sensory deficits, abnormal gait, other - deaf Musculoskeletal: normal muscle bulk Last 24 Hour Vital Signs Date Time Temp Pulse Resp B/P (MAP) Pulse Ox O2 Delivery O2 Flow Rate FiO2 12/30/19 06:20 97.9 12/30/19 04:00 67 12/30/19 04:00 97.9 67 20 115/60 (78) 95 12/30/19 00:00 99.9 69 20 113/57 (75) 96 12/30/19 00:00 69 12/29/19 22:12 Room Air 12/29/19 21:44 80 12/29/19 21:12 98.2 78 16 142/70 100 Room Air 98 12/29/19 18:41 98.2 12/29/19 17:55 80 18 Room Air 98 12/29/19 17:55 98.2 80 18 146/76 98 Room Air 12/29/19 16:58 98.2 73 19 158/80 (106) 95 Room Air Intake and Output 12/29/19 12/30/19 19:00 07:00 Intake Total 300 ml Balance 300 ml Intake Oral 300 ml # Voids 1 2 Laboratory Tests Test 12/29/19 17:22 12/30/19 00:15 12/30/19 05:45 12/30/19 05:54 White Blood Count 8.7 K/UL (4.8-10.8) Red Blood Count 4.35 M/UL (4.20-5.40) Hemoglobin 13.0 G/DL (12.0-16.0) Hematocrit 38.1 % (37.0-47.0) Mean Corpuscular Volume 88 FL (80-99) Mean Corpuscular Hemoglobin 29.9 PG (27.0-31.0) Mean Corpuscular Hemoglobin Concent 34.1 G/DL (32.0-36.0) Red Cell Distribution Width 11.7 % (11.6-14.8) Platelet Count 143 K/UL (150-450) L Mean Platelet Volume 12.2 FL (6.5-10.1) H Neutrophils (%) (Auto) 73.7 % (45.0-75.0) Lymphocytes (%) (Auto) 20.2 % (20.0-45.0) Monocytes (%) (Auto) 4.5 % (1.0-10.0) Eosinophils (%) (Auto) 0.7 % (0.0-3.0) Basophils (%) (Auto) 0.8 % (0.0-2.0) Prothrombin Time 10.5 SEC (9.30-11.50) Prothromb Time International Ratio 0.9 (0.9-1.1) Activated Partial Thromboplast Time 25 SEC (23-33) D-Dimer 0.37 mg/L FEU (0.00-0.49) Urine Color Pale yellow Urine Appearance Clear Urine pH 7 (4.5-8.0) Urine Specific [place] 1.005 (1.005-1.035) Urine Protein Negative (NEGATIVE) Urine Glucose (UA) Negative (NEGATIVE) Urine Ketones Negative (NEGATIVE) Urine Blood Negative (NEGATIVE) Urine Nitrite Negative (NEGATIVE) Urine Bilirubin Negative (NEGATIVE) Urine Urobilinogen Normal MG/DL (0.0-1.0) Urine Leukocyte Esterase Negative (NEGATIVE) Sodium Level 140 MMOL/L (136-145) Potassium Level 3.4 MMOL/L (3.5-5.1) L Chloride Level 100 MMOL/L (98-107) Carbon Dioxide Level 31 MMOL/L (21-32) Anion Gap 9 mmol/L (5-15) Blood Urea Nitrogen 19 mg/dL (7-18) H Creatinine 0.9 MG/DL (0.55-1.30) Estimat Glomerular Filtration Rate > 60 mL/min (>60) Glucose Level 199 MG/DL (74-106) H Calcium Level 9.8 MG/DL (8.5-10.1) Total Bilirubin 0.4 MG/DL (0.2-1.0) Aspartate Amino Transf (AST/SGOT) 20 U/L (15-37) Alanine Aminotransferase (ALT/SGPT) 21 U/L (12-78) Alkaline Phosphatase 90 U/L (46-116) Troponin I 0.000 ng/mL (0.000-0.056) 0.000 ng/mL (0.000-0.056) 0.000 ng/mL (0.000-0.056) Pro-B-Type Natriuretic Peptide 45 pg/mL (0-125) Total Protein 7.1 G/DL (6.4-8.2) Albumin 4.1 G/DL (3.4-5.0) Globulin 3.0 g/dL Albumin/Globulin Ratio 1.4 (1.0-2.7) Urine Opiates Screen Negative (NEGATIVE) Urine Barbiturates Screen Negative (NEGATIVE) Phencyclidine (PCP) Screen Negative (NEGATIVE) Urine Amphetamines Screen Negative (NEGATIVE) Urine Benzodiazepines Screen Negative (NEGATIVE) Urine Cocaine Screen Negative (NEGATIVE) Urine Marijuana (THC) Screen Negative (NEGATIVE) POC Whole Blood Glucose 119 MG/DL (74-106) H Height (Feet): 5 Height (Inches): 1.00 Weight (Pounds): 116 Medications Current Medications Medications (Trade) Dose Ordered Sig/Olegario Route PRN Reason Start Time Stop Time Status Last Admin Dose Admin Acetaminophen (Tylenol) 650 mg Q4H PRN ORAL Mild Pain (Pain Scale 1-3) 12/29/19 22:30 01/28/20 22:29 Albuterol Sulfate (Proventil MDI) 2 puff Q6HRT INH 12/30/19 01:00 03/29/20 00:59 Amlodipine Besylate (Norvasc) 10 mg DAILY ORAL 12/30/19 09:00 01/29/20 08:59 Aspirin (Ecotrin) 81 mg DAILY ORAL 12/30/19 09:00 02/13/20 08:59 Atorvastatin Calcium (Lipitor) 40 mg BEDTIME ORAL 12/30/19 21:00 03/29/20 20:59 Dextrose (Dextrose 50%) 25 ml Q30M PRN IV Hypoglycemia 12/29/19 22:30 03/28/20 22:29 Dextrose (Dextrose 50%) 50 ml Q30M PRN IV Hypoglycemia 12/29/19 22:30 03/28/20 22:29 Insulin Aspart (NovoLOG) BEFORE MEALS AND HS SUBQ 12/30/19 06:30 03/29/20 06:29 Lidocaine (Lidoderm 5% PATCH) 1 patch DAILY TDERMAL 12/30/19 09:00 03/29/20 08:59 Methocarbamol (Robaxin) 750 mg TID ORAL 12/30/19 09:00 01/29/20 08:59 Ondansetron HCl (Zofran ODT) 4 mg EVERY 8 HOURS PRN ORAL Nausea & Vomiting 12/29/19 22:30 01/28/20 22:29 Prednisone (predniSONE) 40 mg DAILY ORAL 12/30/19 09:00 01/29/20 08:59 Tramadol HCl (Ultram) 50 mg Q6H PRN ORAL Moderate Pain (Pain Scale 4-6) 12/29/19 22:30 01/05/20 22:29 12/30/19 05:50 Trazodone HCl (Desyrel) 50 mg BEDTIME ORAL 12/30/19 21:00 01/29/20 20:59 Assessment/Plan Status: stable Assessment/Plan: 59 year old female with deafness, HTN, DM II presented with chest pain radiating to LUE for 5 days. EKG NSR, no acute ST-T changes, Troponin negative x3. CT head negative for any acute abnormality, CXR, no acute disease. She will be placed on observation to rule out ACS. #Chest pain rule out ACS -Place on observation telemetry -Serial EKG/Trop -2D Echo to look for any regional WMA -Cardiology consult Dr. Marques -BP control -Continue ASA #HTN #HLD continue amlodipine Continue Atorvastatin #DM II- controlled -HbA1C 6 -hold metformin -GREGORIO while in the hospital #Deafness -please provide translating services VTE ppx; Heparin Diet: Diabetic Code status: Full code I spent 72 minutes on this encounter. 35 minutes spent on counselling and care coordination. Plan of care discussed with RN and consultants. Giuseppe Smith M.D. Dec 30, 2019 07:39
--- NOTE | 2019-12-30 07:45 | NUR ---
NURSE NOTES: pt received from Reyes RIVERA. Pt in bed awake and alert. She is hearing impaired but does not indicate any distress, only indicates that she wants a tv remote. bed low and locked call light within reach. She can read lips.
[2019-12-30 08:00] VITALS: BP 116/63
[2019-12-30] MEDS ORDERED: Aspirin Baby 81mg ORAL SCH (09:00)
[2019-12-30] MEDS: Aspirin EC 81mg tab ORAL SCH (10:11)
[2019-12-30] MEDS: Methocarbamol 750mg tab ORAL SCH ×3 (10:40→18:10)
[2019-12-30 12:00] VITALS: BP 118/71
[2019-12-30] MEDS ORDERED: Lexiscan 0.4mg/5ml syringe IV PRN ×2 (13:06→13:38)
--- NOTE | 2019-12-30 13:32 | Cardiac Electrophysiology PN ---
Subjective Subjective [id number] Objective Last 24 Hour Vital Signs Date Time Temp Pulse Resp B/P (MAP) Pulse Ox O2 Delivery O2 Flow Rate FiO2 12/30/19 12:00 98.1 68 18 118/71 (87) 96 12/30/19 12:00 76 12/30/19 09:00 Room Air 12/30/19 09:00 68 116/63 12/30/19 08:00 96.7 64 20 116/63 (80) 95 12/30/19 08:00 64 12/30/19 06:20 97.9 12/30/19 04:00 67 12/30/19 04:00 97.9 67 20 115/60 (78) 95 12/30/19 00:00 99.9 69 20 113/57 (75) 96 12/30/19 00:00 69 12/29/19 22:12 Room Air 12/29/19 21:44 80 12/29/19 21:12 98.2 78 16 142/70 100 Room Air 98 12/29/19 18:41 98.2 12/29/19 17:55 80 18 Room Air 98 12/29/19 17:55 98.2 80 18 146/76 98 Room Air 12/29/19 16:58 98.2 73 19 158/80 (106) 95 Room Air Intake and Output 12/29/19 12/30/19 19:00 07:00 Intake Total 300 ml Balance 300 ml Intake Oral 300 ml # Voids 1 2 Laboratory Tests Test 12/29/19 17:22 12/30/19 00:15 12/30/19 05:45 12/30/19 05:54 White Blood Count 8.7 K/UL (4.8-10.8) Red Blood Count 4.35 M/UL (4.20-5.40) Hemoglobin 13.0 G/DL (12.0-16.0) Hematocrit 38.1 % (37.0-47.0) Mean Corpuscular Volume 88 FL (80-99) Mean Corpuscular Hemoglobin 29.9 PG (27.0-31.0) Mean Corpuscular Hemoglobin Concent 34.1 G/DL (32.0-36.0) Red Cell Distribution Width 11.7 % (11.6-14.8) Platelet Count 143 K/UL (150-450) L Mean Platelet Volume 12.2 FL (6.5-10.1) H Neutrophils (%) (Auto) 73.7 % (45.0-75.0) Lymphocytes (%) (Auto) 20.2 % (20.0-45.0) Monocytes (%) (Auto) 4.5 % (1.0-10.0) Eosinophils (%) (Auto) 0.7 % (0.0-3.0) Basophils (%) (Auto) 0.8 % (0.0-2.0) Prothrombin Time 10.5 SEC (9.30-11.50) Prothromb Time International Ratio 0.9 (0.9-1.1) Activated Partial Thromboplast Time 25 SEC (23-33) D-Dimer 0.37 mg/L FEU (0.00-0.49) Urine Color Pale yellow Urine Appearance Clear Urine pH 7 (4.5-8.0) Urine Specific [place] 1.005 (1.005-1.035) Urine Protein Negative (NEGATIVE) Urine Glucose (UA) Negative (NEGATIVE) Urine Ketones Negative (NEGATIVE) Urine Blood Negative (NEGATIVE) Urine Nitrite Negative (NEGATIVE) Urine Bilirubin Negative (NEGATIVE) Urine Urobilinogen Normal MG/DL (0.0-1.0) Urine Leukocyte Esterase Negative (NEGATIVE) Sodium Level 140 MMOL/L (136-145) Potassium Level 3.4 MMOL/L (3.5-5.1) L Chloride Level 100 MMOL/L (98-107) Carbon Dioxide Level 31 MMOL/L (21-32) Anion Gap 9 mmol/L (5-15) Blood Urea Nitrogen 19 mg/dL (7-18) H Creatinine 0.9 MG/DL (0.55-1.30) Estimat Glomerular Filtration Rate > 60 mL/min (>60) Glucose Level 199 MG/DL (74-106) H Calcium Level 9.8 MG/DL (8.5-10.1) Total Bilirubin 0.4 MG/DL (0.2-1.0) Aspartate Amino Transf (AST/SGOT) 20 U/L (15-37) Alanine Aminotransferase (ALT/SGPT) 21 U/L (12-78) Alkaline Phosphatase 90 U/L (46-116) Troponin I 0.000 ng/mL (0.000-0.056) 0.000 ng/mL (0.000-0.056) 0.000 ng/mL (0.000-0.056) Pro-B-Type Natriuretic Peptide 45 pg/mL (0-125) Total Protein 7.1 G/DL (6.4-8.2) Albumin 4.1 G/DL (3.4-5.0) Globulin 3.0 g/dL Albumin/Globulin Ratio 1.4 (1.0-2.7) Urine Opiates Screen Negative (NEGATIVE) Urine Barbiturates Screen Negative (NEGATIVE) Phencyclidine (PCP) Screen Negative (NEGATIVE) Urine Amphetamines Screen Negative (NEGATIVE) Urine Benzodiazepines Screen Negative (NEGATIVE) Urine Cocaine Screen Negative (NEGATIVE) Urine Marijuana (THC) Screen Negative (NEGATIVE) POC Whole Blood Glucose 119 MG/DL (74-106) H Test 12/30/19 05:55 12/30/19 11:49 Hemoglobin A1c 6.0 % (4.3-6.0) Troponin I 0.000 ng/mL (0.000-0.056) Benjamín Waggoner MD Dec 30, 2019 13:32
--- NOTE | 2019-12-30 14:42 | NUR ---
CASE MANAGEMENT:REVIEW 59 YR OLD FEMALE WALKED INTO ER CC; CHEST PAIN RADIATING TO ARM. PALPITATIONS SI: ACS. PALPITATIONS. WEAKNESS 98.2 73 19 158/80 95% ON RA PLT-143 BUN+19 GLUCOSE+199 IS: IV MORPHINE X2 IV ZOFRAN ASA PO CT HEAD : TO TELEMETRY PLAN: STRESS TEST
[2019-12-30] MEDS ORDERED: Lexiscan 0.4mg/5ml syringe IV ONE (14:45)
--- NOTE | 2019-12-30 15:30 | NUR ---
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 Additionally clarified that she has no allergies and al of her hx. Per pt, she had asthma about a year ago but it resolved. per pt she is taking inhalers due to laryngopharyngeal reflux. Additionally she is taking prednisone because she has a lump in her throat, Has an appointment later this month to determine if it is cancer. Per pt she had a fall 4/5 months ago. Weakness in left arm has been about 1 week.
--- NOTE | 2019-12-30 15:45 | Consultation ---
DATE OF CONSULTATION: 12/30/2019 CARDIOLOGY CONSULTATION CONSULTING PHYSICIAN: Benjamín Waggoner MD REFERRING PHYSICIAN: Kanu Rivas MD REASON FOR CONSULTATION: Chest pain. HISTORY OF PRESENT ILLNESS: Patient is a 59-year-old lady who has hypertension and diabetes, presented to emergency room with 5 days of chest pain radiating to the left arm and associated with numbness. The pain started 5 days prior to presentation and was intermittent. Patient recently was prescribed Robaxin and Tylenol for muscle spasm. Patient came to the emergency room and the EKG shows normal sinus rhythm with incomplete right bundle-branch block. The patient was ruled out for myocardial infarction with serial cardiac enzymes. Cardiology consultation was requested for further evaluation. REVIEW OF SYSTEMS: Negative other than what is mentioned in history of present illness. PAST MEDICAL HISTORY: As mentioned above. FAMILY HISTORY: Noncontributory. SOCIAL HISTORY: She lives at home. Does not smoke or drink alcohol. PHYSICAL EXAMINATION: VITAL SIGNS: Show blood pressure of 118/71, pulse 76, respirations 18, temperature 98.1. HEAD AND NECK: Showed no JVD. LUNGS: Clear. CARDIOVASCULAR: Shows regular S1 and S2 with no gallop or murmur. ABDOMEN: Soft. EXTREMITIES: No pitting edema. LABORATORY AND DIAGNOSTIC DATA: EKG showed sinus rhythm with incomplete right bundle-branch block and nonspecific ST abnormalities. Labs show white count 8.7, hemoglobin 13, hematocrit 38, and platelet count of 143. Troponin negative x3. Sodium 140, potassium 3.4, BUN of 19, creatinine 0.9. ASSESSMENT AND PLAN: 1. Chest pain. Patient already ruled out for myocardial infarction. Urine toxicology screen is negative. EKG showed incomplete right bundle-branch block. We will get an echocardiogram and we will schedule patient for a stress test for further evaluation and management. Actually preliminary echocardiogram showed ejection fraction of 65%. 2. Hypertension, on amlodipine 10 mg daily. 3. Hyperlipidemia, on Lipitor. 4. Diabetes, on insulin. 5. COPD, on prednisone. 6. Deafness. Thank you very much for allowing me to participate in the care of this patient. Please do not hesitate to contact me for any questions regarding my evaluation. Benjamín Waggoner M.D. DR: GONZALO JOB#: [id number] CC:
[2019-12-30 16:00] VITALS: BP 112/57
--- NOTE | 2019-12-30 16:36 | Diagnostic Imaging Report ---
Indication: Chest pain Technique: One view of the chest Comparison: 12/06/2019 Findings: The heart is borderline enlarged. Lungs and pleural spaces are clear. There is no significant interim change Impression: Cardiomegaly. No acute process
--- NOTE | 2019-12-30 19:22 | NUR ---
NURSE HAND-OFF REPORT: Important Events on Shift:[pt had pain in left side of face, chest, and left arm this morning, pain dissipated after robaxin and lidocain patch] Patient Status: [stable] Diet: [ccho medium] Pending Orders: [] Pending Results/Labs:[] Pending MD notification:[] Latest Vital Signs: Temperature 98.6 , Pulse 83 , B/P 112 /57 , Respiratory Rate 20 , O2 SAT 97 , Room Air, O2 Flow Rate . Vital Sign Comment: [stable] EKG Rhythm: Sinus Rhythm Rhythm change?: N MD Notified?: - MD Response: Latest Loja Fall Score: 15 Fall Risk: Low Risk Safety Measures: Call light Within Reach, Bed Alarm Zone 2, Side Rails Side Rails x2, Bed position Low and Locked. Fall Precautions: Yellow Socks Patient Fall Education Report given to [Reyes RIVERA].
--- NOTE | 2019-12-30 19:30 | NUR ---
NURSE NOTES: Received hand-off report from Hollie Mills RN. Patient in stable condition, alert and oriented x4, on room air, breathing even and unlabored. Denies chest pain and left arm pain at this time. Patient able to communicate needs through gestures. engine monitor is on, IV is patent, flushing, no redness, no tenderness, no swelling, no leaking noted. Bed in lowest and locked position, bed alarm on, call light within reach.
[2019-12-30 20:00] VITALS: BP 114/56
--- NOTE | 2019-12-30 20:23 | NUR ---
NURSE NOTES: Per pharmacy, trazadone and atorvastatin was returned so that I may get medications that would not need a pill cutter. Both medications was returned to the [facility].
[2019-12-30] MEDS: Atorvastatin 20mg tab ORAL SCH (20:41)
[2019-12-30] MEDS: TraZODone 50mg tab ORAL SCH (20:41)
[2019-12-30] MEDS ORDERED: TraZODone 100mg tab ORAL SCH (21:00)
--- NOTE | 2019-12-30 22:45 | NUR ---
NURSE NOTES: Called Dr. Rivas and left a voicemail regarding whether potassium replacement be done for K level 3.4 or if labs should be ordered for tomorrow. Awaiting callback / potential orders.
--- NOTE | 2019-12-30 22:55 | NUR ---
NURSE NOTES: Dr. Jaramillo ordered KCl 40mEq orally one time and BMP in the morning one time. Noted and will carry out.
--- NOTE | 2019-12-30 23:07 | NUR ---
NURSE NOTES: Dr. Jaramillo canceled the order of KCl 40 mEq 1 time because potassium was given already earlier today. Returned potassium in the [facility].
[2019-12-31] VITALS: BP 117/62
[2019-12-31] MEDS: Albuterol 90mcg Inhaler 8gm INH SCH ×4 (01:46→18:19)
--- NOTE | 2019-12-31 03:10 | NUR ---
NURSE HAND-OFF REPORT: Important Events on Shift: Patient Status: full code, stable condition, alert and orientedx4 Diet: CCHO medium Pending Orders: Pending Results/Labs: Pending MD notification: Latest Vital Signs: Temperature 97.9 , Pulse 69 , B/P 117 /62 , Respiratory Rate 18 , O2 SAT 96 , Room Air, O2 Flow Rate . Vital Sign Comment: EKG Rhythm: Sinus Rhythm Rhythm change?: N MD Notified?: - MD Response: Latest Loja Fall Score: 15 Fall Risk: Low Risk Safety Measures: Call light Within Reach, Bed Alarm Zone 2, Side Rails Side Rails x2, Bed position Low and Locked. Fall Precautions: Yellow Socks Door Sign Patient Fall Education Report given to MIGUEL Pelaez.
[2019-12-31 04:00] VITALS: BP 112/66
[2019-12-31] MEDS: NovoLOG Insulin Flexpen SUBQ SCH ×4 (06:15→20:29)
[2019-12-31 06:46] LABS: CALCIUM 8.8 MG/DL (8.5-10.1); CREATININE 1.1 MG/DL (0.55-1.30)
--- NOTE | 2019-12-31 07:14 | NUR ---
NURSE HAND-OFF REPORT: Important Events on Shift:n/a Patient Status: stable Diet: CCHO MEDIUM Pending Orders: [] Pending Results/Labs:[] Pending MD notification:[] Latest Vital Signs: Temperature 98.0 , Pulse 66 , B/P 112 /66 , Respiratory Rate 20 , O2 SAT 98 , Room Air, O2 Flow Rate . Vital Sign Comment: [] EKG Rhythm: Sinus Rhythm Rhythm change?: N MD Notified?: - MD Response: Latest Loja Fall Score: 15 Fall Risk: Low Risk Safety Measures: Call light Within Reach, Bed Alarm Zone 2, Side Rails Side Rails x2, Bed position Low and Locked. Fall Precautions: Yellow Socks Door Sign Patient Fall Education Report given to MIGUEL VEGA.
--- NOTE | 2019-12-31 07:16 | NUR ---
NURSE NOTES: pt received from Latanya Brown RN. Pt in bed awake and alert eating breakfast. She is hearing impaired and indicates that she may be experiencing some minor pain in the head. Will use performance improvement coordinator to assess within the hour. bed low and locked call light within reach.
--- NOTE | 2019-12-31 07:36 | NUR ---
NURSE NOTES: Amlodapine held as bp is 103/52
[2019-12-31 08:00] VITALS: BP 103/52
--- NOTE | 2019-12-31 08:10 | NUR ---
NURSE NOTES: Used tool turret lathe set up operator (ID # [id number]) to do morning assessment. Pt complains of 8/10 pain in head, shoulder, left arm, and chest. Per pt, left shoulder now weak compared to yesterday (only left arm). Tingling in right wrist, asked about arthritis. Informed her that we are monitoring heart and will relay concerns about joints to MD.
[2019-12-31] MEDS: Aspirin EC 81mg tab ORAL SCH (08:55)
[2019-12-31] MEDS: Methocarbamol 750mg tab ORAL SCH ×3 (08:55→18:18)
--- NOTE | 2019-12-31 09:20 | History and Physical ---
History of Present Illness General Date patient seen: Dec 31, 2019 Reason for Hospitalization: Chest Pain Present Illness HPI 59-year-old female who has type 2 diabetes and hypertension who presented to the ER with complaints of 5 days of chest pain that radiates to the left arm acco mpanied by numbness. Patient had reported that her chest pain started 5 days prior to presentation, occurred at rest and radiated to the left arm with a tingling sensation in her left arm. Pain is intermittent. She was recently prescribed Robaxin and Tyl enol for muscle spasms. Denies shortness of breath, cough, nausea, vomiting or abdominal pain., headache, weakness, dizziness, palpitations At the time of my evaluation patient keeps pointing to her chest and left arm. She is in no distress and found sleeping comfortably upon entering the room. Past medical history: DM 2 controlled, hypertension Past surgical history: Denies Social history: Denies smoking tobacco, EtOH or illicit drug use Family history: Denies family history of heart disease In the ER Viatls: 158/80, 73, 19,98.1 Received ASA, Morphine and Zofran Patient was placed on observation. ACS ruled out. Seen by cardiology. TTE showed EF 65%. Due to risk factors patient should undergo stress test, which will be done on monday 01/01. She will be admitted. Allergies: Coded Allergies: No Known Allergies (Unverified , 01/08/17) COVID-19 Screening Contact w/high risk pt: No Recent Travel to affected area: No Experienced COVID-19 symptoms?: No Medication History Scheduled Albuterol Sulfate* (Albuterol Sulfate Mdi*), 2 PUFF INH Q6H Amlodipine Besylate (Norvasc), 10 MG ORAL DAILY, (Reported) Aspirin* (Aspir 81*), 81 MG ORAL DAILY, (Reported) Atorvastatin Calcium* (Atorvastatin Calcium*), 40 MG ORAL BEDTIME, (Reported) Enalapril Maleate* (Enalapril Maleate*), 20 MG ORAL DAILY, (Reported) Ibuprofen (Motrin), 600 MG ORAL THREE TIMES A DAY Lidocaine Patch* (Lidoderm Patch*), 1 PATCH TOPIC DAILY Metformin Hcl* (Metformin Hcl*), 1,000 MG ORAL DAILY, (Reported) Methocarbamol* (Robaxin-750*), 750 MG PO TID Omeprazole (Omeprazole), 20 MG ORAL DAILY Prednisone* (Prednisone*), 40 MG ORAL DAILY Ranitidine Hcl* (Zantac*), 150 MG ORAL TWICE A DAY, (Reported) Trazodone Hcl (Trazodone Hcl), 50 MG ORAL BEDTIME, (Reported) Scheduled PRN Acetaminophen* (Acetaminophen 325MG Tablet*), 650 MG ORAL Q4H PRN for For Pain Ondansetron Odt* (Zofran Odt*), 4 MG BC EVERY 8 HOURS PRN for Nausea & Vomiting Tramadol Hcl* (Ultram*), 50 MG ORAL Q6H PRN for For Pain Discontinued Medications Acetaminophen (Tylenol), 650 MG ORAL Q6H PRN for Prn Pain/Headache/Temp > 101 Discontinued Reason: MD discontinued med Acetaminophen* (Tylenol Extra Strength*), 500 MG ORAL Q8H Discontinued Reason: MD discontinued med Acetaminophen* (Tylenol Extra Strength*), 500 MG ORAL Q8H PRN for Prn Hea dache/Temp > 101 Discontinued Reason: MD discontinued med Albuterol Sulfate* (Albuterol Sulfate Mdi*), 2 PUFF INH Q6H Discontinued Reason: MD discontinued med Codeine/Promethazine Hcl* (Promethazine-Codeine Syrup*), 5 ML ORAL Q6H PRN for For Cough Discontinued Reason: Therapy completed Codeine/Promethazine Hcl* (Promethazine-Codeine Syrup*), 5 ML ORAL Q6H PRN for For Cough Discontinued Reason: Therapy completed Doxycycline Monohydrate* (Doxycycline Monohydrate*), 100 MG ORAL Q12H Discontinued Reason: Therapy completed Guaifenesin/Codeine Phos* (Robitussin Ac*), 5 ML ORAL Q6H PRN for For Cough Discontinued Reason: Therapy completed Ibuprofen (Motrin), 600 MG ORAL Q8H PRN for For Pain Discontinued Reason: Medication dose changed Methocarbamol* (Robaxin-750*), 750 MG PO TID Discontinued Reason: Therapy completed Ondansetron Odt* (Zofran Odt*), 4 MG BC EVERY 6 HOURS PRN for Nausea & Vomiting Discontinued Reason: Therapy completed Patient History Healthcare decision maker N Resuscitation status Advanced Directive on File Review of Systems Constitutional: Denies: no symptoms, see HPI, chills, sweats, fever, malaise, weakness, other Eye: Denies: no symptoms, see HPI, eye pain, blurred vision, tearing, double vision, nose pain, nose congestion, acuity changes, discharge, other ENT: Denies: no symptoms, see HPI, ear pain, ear discharge, nose pain, nose congestion, throat pain, throat swelling, mouth pain, hearing loss, nasal discharge, other Respiratory: Denies: no symptoms, see HPI, cough, orthopnea, shortness of breath, stridor, wheezing, MIXON, sputum, other Cardiovascular: Reports: chest pain Gastrointestinal: Denies: no symptoms, see HPI, abdominal pain, constipation, diarrhea, nausea, vomiting, melena, hematemesis, other Genitourinary: Denies: no symptoms, see HPI, discharge, dysuria, frequency, hematuria, pain, retention, incontinence, urgency, vag bleed/dc, other Musculoskeletal: Denies: no symptoms, see HPI, back pain, gout, joint pain, joint swelling, muscle pain, muscle stiffness, other Skin: Denies: no symptoms, see HPI, rash, change in color, change in hair/nails, dryness, lesions, other Psychiatric: Denies: no symptoms, see HPI, prior hx, anxiety, depressed feelings, emotional problems, SI, HI, hallucinations, other Neurological: Denies: no symptoms, see HPI, headache, numbness, paresthesia, seizure, tingling, tremors, focal weakness, syncope, dizziness, other Endocrine: Denies: no symptoms, see HPI, excessive sweating, flushing, intolerance to temperature, increased thirst, increased urine, unexplained weight loss, other Hematologic/Lymphatic: Denies: no symptoms, see HPI, anemia, blood clots, easy bleeding, easy bruising, swollen glands, diathesis, other Physical Exam General Appearance: no apparent distress Lines, tubes and drains: peripheral HEENT: normocephalic, atraumatic, anicteric, mucous membranes moist, PERRL, EOMI Neck: non-tender, normal alignment, supple, normal inspection Respiratory/Chest: chest wall non-tender, lungs clear, normal breath sounds, no respiratory distress, no accessory muscle use Cardiovascular/Chest: normal peripheral pulses, normal rate, regular rhythm Abdomen: normal bowel sounds, non tender, soft, no organomegaly Extremities: normal range of motion, non-tender, normal inspection, no calf tenderness Skin Exam: normal pigmentation, warm/dry 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 II-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 grossly normal, oriented x 3, other - deaf Last 24 Hour Vital Signs Date Time Temp Pulse Resp B/P (MAP) Pulse Ox O2 Delivery O2 Flow Rate FiO2 12/31/19 08:00 70 12/31/19 08:00 97.5 91 18 103/52 (69) 95 12/31/19 04:00 98.0 66 20 112/66 (81) 98 12/31/19 04:00 69 12/31/19 00:00 69 12/31/19 00:00 97.9 80 18 117/62 (80) 96 12/30/19 23:35 98.1 12/30/19 21:00 Room Air 12/30/19 20:00 98.1 77 20 114/56 (75) 97 12/30/19 20:00 83 12/30/19 16:00 83 12/30/19 16:00 98.6 78 20 112/57 (75) 97 12/30/19 12:00 98.1 68 18 118/71 (87) 96 12/30/19 12:00 76 Intake and Output 12/30/19 12/31/19 19:00 07:00 Intake Total 400 ml Balance 400 ml Intake Oral 400 ml # Voids 3 2 Laboratory Tests Test 12/30/19 11:49 12/30/19 19:05 12/30/19 20:33 12/30/19 23:00 Troponin I 0.000 ng/mL (0.000-0.056) 0.000 ng/mL (0.000-0.056) POC Whole Blood Glucose 349 MG/DL (74-106) H Pending Test 12/31/19 00:25 12/31/19 06:00 12/31/19 06:10 Troponin I 0.000 ng/mL (0.000-0.056) 0.000 ng/mL (0.000-0.056) Sodium Level 139 MMOL/L (136-145) Potassium Level 4.0 MMOL/L (3.5-5.1) Chloride Level 104 MMOL/L (98-107) Carbon Dioxide Level 27 MMOL/L (21-32) Anion Gap 8 mmol/L (5-15) Blood Urea Nitrogen 27 mg/dL (7-18) H Creatinine 1.1 MG/DL (0.55-1.30) Estimat Glomerular Filtration Rate 51.0 mL/min (>60) Glucose Level 254 MG/DL (74-106) H Calcium Level 8.8 MG/DL (8.5-10.1) POC Whole Blood Glucose 245 MG/DL (74-106) H Height (Feet): 5 Height (Inches): 1.00 Weight (Pounds): 116 Medications Current Medications Medications (Trade) Dose Ordered Sig/Olegario Route PRN Reason Start Time Stop Time Status Last Admin Dose Admin Acetaminophen (Tylenol) 650 mg Q4H PRN ORAL Mild Pain (Pain Scale 1-3) 12/29/19 22:30 01/28/20 22:29 Albuterol Sulfate (Proventil MDI) 2 puff Q6HRT INH 12/30/19 01:00 03/29/20 00:59 12/31/19 08:08 Amlodipine Besylate (Norvasc) 10 mg DAILY ORAL 12/30/19 09:00 01/29/20 08:59 Aspirin (Ecotrin) 81 mg DAILY ORAL 12/30/19 09:00 02/13/20 08:59 12/31/19 08:55 Atorvastatin Calcium (Lipitor) 40 mg BEDTIME ORAL 12/30/19 21:00 03/29/20 20:59 12/30/19 20:41 Dextrose (Dextrose 50%) 25 ml Q30M PRN IV Hypoglycemia 12/29/19 22:30 03/28/20 22:29 Dextrose (Dextrose 50%) 50 ml Q30M PRN IV Hypoglycemia 12/29/19 22:30 03/28/20 22:29 Insulin Aspart (NovoLOG) BEFORE MEALS AND HS SUBQ 12/30/19 06:30 03/29/20 06:29 12/31/19 06:15 Lidocaine (Lidoderm 5% PATCH) 1 patch DAILY TDERMAL 12/30/19 09:00 03/29/20 08:59 12/31/19 08:56 Methocarbamol (Robaxin) 750 mg TID ORAL 12/30/19 09:00 01/29/20 08:59 12/31/19 08:55 Ondansetron HCl (Zofran ODT) 4 mg EVERY 8 HOURS PRN ORAL Nausea & Vomiting 12/29/19 22:30 11/14/20 22:29 Prednisone (predniSONE) 40 mg DAILY ORAL 12/30/19 09:00 01/29/20 08:59 12/31/19 08:55 Regadenoson (Lexiscan) 0.4 mg ONCE PRN IV CARDIOLOGY 12/30/19 13:38 01/02/20 23:59 Tramadol HCl (Ultram) 50 mg Q6H PRN ORAL Moderate Pain (Pain Scale 4-6) 12/29/19 22:30 01/05/20 22:29 12/30/19 23:05 Trazodone HCl (Desyrel) 50 mg BEDTIME ORAL 12/30/19 21:00 01/29/20 20:59 12/30/19 20:41 Assessment/Plan Problem List: (1) Hypertension ICD Codes: I10 - Essential (primary) hypertension SNOMED: 71607087 (2) Diabetes mellitus ICD Codes: E11.9 - Type 2 diabetes mellitus without complications SNOMED: 25656457 (3) Deaf nonspeaking, not elsewhere classifiable ICD Codes: H91.3 - Deaf nonspeaking, not elsewhere classified SNOMED: 52408492 (4) Chest pain ICD Codes: R07.9 - Chest pain, unspecified SNOMED: 93056534 Status: stable Assessment/Plan: 59 year old female with deafness, HTN, DM II presented with chest pain radiating to LUE for 5 days. EKG NSR, no acute ST-T changes, Troponin negative x3. CT head negative for any acute abnormality, CXR, no acute disease. She will be placed on observation to rule out ACS, ACS rule dout. Patient with risk factors and will be admitted to undergo stress testing. #Chest pain rule out ACS- rued out - telemetry -Serial EKG/Trop -2D Echo to look for any regional WMA- ef 65% -Cardiology consult Dr. Marques -BP control -Continue ASA -Stress test 01/01 #HTN #HLD continue amlodipine Continue Atorvastatin #DM II- controlled -HbA1C 6 -hold metformin -GREGORIO while in the hospital #Deafness -please provide translating services #COPD -continue prednisone VTE ppx; Heparin Diet: Diabetic Code status: Full code I spent 72 minutes on this encounter. 35 minutes spent on counselling and care coordination. Plan of care discussed with RN and consultants. Giuseppe Smith M.D. Dec 31, 2019 09:20
[2019-12-31 12:00] VITALS: BP 125/64
--- NOTE | 2019-12-31 13:02 | NUR ---
NURSE NOTES: Used cattle manager (ID [id number]) to discuss pain in chest and shoulder. Per pt, pain is now 4-5/10. This information was relayed to Dr. Smith. Gave pt tylenol in addition to 1pm scheduled Robaxin. Per [facility] pharmacists, giving both together is ok.
[2019-12-31 16:00] VITALS: BP 132/78
--- NOTE | 2019-12-31 16:36 | Cardiac Electrophysiology PN ---
Assessment/Plan Assessment/Plan 1. Chest pain. Patient already ruled out for myocardial infarction. Urine toxicology screen is negative. EKG showed incomplete right bundle-branch block. Echocardiogram showed ejection fraction of 65%. Stress test pending on Thursday 2. Hypertension, on amlodipine 10 mg daily. 3. Hyperlipidemia, on Lipitor. 4. Diabetes, on insulin. 5. COPD, on prednisone. 6. Deafness. DW RN Subjective Subjective Has Left shoulder and finger pain. Deaf. In SR Objective Last 24 Hour Vital Signs Date Time Temp Pulse Resp B/P (MAP) Pulse Ox O2 Delivery O2 Flow Rate FiO2 12/31/19 16:00 98.1 75 20 132/78 (96) 97 12/31/19 16:00 64 12/31/19 13:15 97.7 12/31/19 13:00 Room Air 21 12/31/19 12:45 Room Air 21 12/31/19 12:00 97.7 62 20 125/64 (84) 97 12/31/19 12:00 60 12/31/19 09:00 Nasal Cannula 2.0 12/31/19 08:09 72 18 95 Room Air 21 12/31/19 08:08 71 18 95 Room Air 21 12/31/19 08:00 70 12/31/19 08:00 97.5 91 18 103/52 (69) 95 12/31/19 04:00 98.0 66 20 112/66 (81) 98 12/31/19 04:00 69 12/31/19 00:00 69 12/31/19 00:00 97.9 80 18 117/62 (80) 96 12/30/19 23:35 98.1 12/30/19 21:00 Room Air 12/30/19 20:00 98.1 77 20 114/56 (75) 97 12/30/19 20:00 83 Intake and Output 12/30/19 12/31/19 19:00 07:00 Intake Total 400 ml Balance 400 ml Intake Oral 400 ml # Voids 3 2 Laboratory Tests Test 12/30/19 19:05 12/30/19 20:33 12/30/19 23:00 12/31/19 00:25 Troponin I 0.000 ng/mL (0.000-0.056) 0.000 ng/mL (0.000-0.056) POC Whole Blood Glucose 349 MG/DL (74-106) H Pending Test 12/31/19 06:00 12/31/19 06:10 12/31/19 14:05 Sodium Level 139 MMOL/L (136-145) Potassium Level 4.0 MMOL/L (3.5-5.1) Chloride Level 104 MMOL/L (98-107) Carbon Dioxide Level 27 MMOL/L (21-32) Anion Gap 8 mmol/L (5-15) Blood Urea Nitrogen 27 mg/dL (7-18) H Creatinine 1.1 MG/DL (0.55-1.30) Estimat Glomerular Filtration Rate 51.0 mL/min (>60) Glucose Level 254 MG/DL (74-106) H Calcium Level 8.8 MG/DL (8.5-10.1) Troponin I 0.000 ng/mL (0.000-0.056) 0.009 ng/mL (0.000-0.056) POC Whole Blood Glucose 245 MG/DL (74-106) H Objective HEAD AND NECK: Showed no JVD. LUNGS: Clear. CARDIOVASCULAR: Shows regular S1 and S2 with no gallop or murmur. ABDOMEN: Soft. EXTREMITIES: No pitting edema. Benjamín Waggoner MD Dec 31, 2019 16:36
--- NOTE | 2019-12-31 19:20 | NUR ---
NURSE HAND-OFF REPORT: Important Events on Shift:[chest pain, pain in right side of head. mostly pain in arm pit area and left arm. Shoulder now weak compared to yesterday when it was only left arm. also complained of being hot, fan on in room] Patient Status: [stable alert awake no distress] Diet: [CCHO M] Pending Orders: [] Pending Results/Labs:[troponin] Pending MD notification:[] Latest Vital Signs: Temperature 98.1 , Pulse 75 , B/P 132 /78 , Respiratory Rate 20 , O2 SAT 97 , Nasal Cannula, O2 Flow Rate 2.0 . Vital Sign Comment: [stable, did not give amlodapine this morning as bp was 103] EKG Rhythm: Sinus Rhythm Rhythm change?: N MD Notified?: - MD Response: Latest Loja Fall Score: 15 Fall Risk: Low Risk Safety Measures: Call light Within Reach, Bed Alarm Zone 2, Side Rails Side Rails x2, Bed position Low and Locked. Fall Precautions: Yellow Socks Patient Fall Education Report given to [Yvette Graf RN]. Addendum: 12/31/19 at 1925 by Hollie Mills RN 2 liters NS given this morning as she was complaining of slight SOB. 2 liters helped and she was more comfortable with it.
--- NOTE | 2019-12-31 19:32 | NUR ---
NURSE NOTES: Patient received from MIGUEL Browne. Patient is awake, communicates in Hungarian sign language, cyracom present in the room. Patient is on 2 L nasal cannula. Patient has a 20 gauge IV on her right AC, patent and flushed. Patient asking for her IV to be placed on her wrist or hand. Fan present in the room. Bed is in lowest position and locked, call light within reach. Will continue to monitor.
[2019-12-31 20:00] VITALS: BP 130/73
[2019-12-31] MEDS: TraZODone 50mg tab ORAL SCH (20:15)
[2019-12-31] MEDS: Atorvastatin 20mg tab ORAL SCH (20:16)
[2020-01-01 00:08] VITALS: BP 133/65
[2020-01-01] MEDS: Albuterol 90mcg Inhaler 8gm INH SCH ×4 (01:27→20:23)
[2020-01-01 04:01] VITALS: BP 146/64
[2020-01-01] MEDS: NovoLOG Insulin Flexpen SUBQ SCH ×4 (06:04→20:23)
--- NOTE | 2020-01-01 07:00 | NUR ---
NURSE NOTES: Received report from MIGUEL Velásquez. Pt is stable and sitting up in bed eating breakfast. Pt is on 2LPM NC with no s/s or complaints of distress at this time. Pt is deaf, utilizing dental services director and paper to communicate with Pt. Pt has a R wrist 20g SL, asymptomatic and intact. Bed low and locked, bed alarm on and call light in reach.
--- NOTE | 2020-01-01 07:28 | NUR ---
NURSE HAND-OFF REPORT: Important Events on Shift:[] Patient Status: [] Diet: [CCHO medium] Pending Orders: [] Pending Results/Labs:[] Pending MD notification:[] Latest Vital Signs: Temperature 97.0 , Pulse 65 , B/P 146 /64 , Respiratory Rate 18 , O2 SAT 97 , Nasal Cannula, O2 Flow Rate 2.0 . Vital Sign Comment: [] EKG Rhythm: Sinus Rhythm Rhythm change?: N MD Notified?: N - MD Response: Latest Loja Fall Score: 15 Fall Risk: Low Risk Safety Measures: Call light Within Reach, Bed Alarm Zone 2, Side Rails Side Rails x2, Bed position Low and Locked. Fall Precautions: Yellow Socks Patient Fall Education Report given to [MIGUEL Maldonado].
[2020-01-01 08:00] VITALS: BP 129/73
[2020-01-01] MEDS: Methocarbamol 750mg tab ORAL SCH ×3 (08:11→17:30)
[2020-01-01] MEDS: Aspirin EC 81mg tab ORAL SCH (08:12)
--- NOTE | 2020-01-01 08:15 | NUR ---
NURSE NOTES: During H2T assessment, Pt complained of pain that was throbbing and tender where there was previous IV insertion attempt. Pt given ice pack at this time to alleviate swelling. Area appears pink, and slightly swollen. Ortho/Prosthetic Aide used,
--- NOTE | 2020-01-01 08:58 | Cardiology Report ---
APPROVED REPORT EXAM: Two-dimensional and M-mode echocardiogram with Doppler and color Doppler. INDICATION Hypertension M-Mode DIMENSIONS IVSd1.4 (0.7-1.1cm)Left Atrium (MM)3.1 (1.6-4.0cm) LVDd3.7 (3.5-5.6cm)Aortic Root2.5 (2.0-3.7cm) PWd1.4 (0.7-1.1cm)Aortic Cusp Exc.1.7 (1.5-2.0cm) IVSs2.4 cmEPSS0.5 (>1.0cm) LVDs1.7 (2.5-4.0cm) PWs2.1 cm <Conclusion> Normal left ventricular chamber size, systolic function and wall motion. Left ventricular ejection fraction estimated to be 65 %. Mild to moderate left ventricular hypertrophy. Anterior Echo-free space, may be due to pericardial fat or effusion. All other cardiac chamber sizes are within normal limits. Focal aortic valve sclerosis with adequate cusp excursion. Thickened mitral valve leaflets with normal excursion. Mitral annulus and aortic root calcification. Normal pulmonic valve structure. Normal tricuspid valve structure. IVC at normal size with physiologic collapsing. A color flow and spectral Doppler study was performed and revealed: No aortic regurgitation. Mitral diastolic velocities suggest notmal diastolic function. Trace mitral regurgitation. Mild tricuspid regurgitation. Tricuspid systolic velocities suggests peak right ventricular systolic pressure of 24 mmHg. Trace pulmonic regurgitation present.
--- NOTE | 2020-01-01 09:06 | General Progress Note ---
Subjective Date patient seen: Jan 01, 2020 ROS Limited/Unobtainable: No Constitutional: Reports: other - left shoulder pain HEENT: Denies: no symptoms, eye pain, blurred vision, tearing, double vision, ear pain, ear discharge, nose pain, nose congestion, throat pain, throat swelling, mouth pain, mouth swelling, other Cardiovascular: Denies: no symptoms, chest pain, edema, irregular heart rate, lightheadedness, palpitations, syncope, other Respiratory: Denies: no symptoms, cough, orthopnea, shortness of breath, SOB with excertion, SOB at rest, sputum, stridor, wheezing, other Genitourinary: Denies: no symptoms, burning, discharge, frequency, flank pain, hematuria, incontinence, pain, urgency, other Neurologic/Psychiatric: Denies: no symptoms, anxiety, depressed, emotional problems, headache, numbness, paresthesia, pre-existing deficit, seizure, tingling, tremors, weakness, other Endocrine: Denies: no symptoms, excessive sweating, flushing, intolerance to cold, intolerance to heat, increased hunger, increased thirst, increased urine, unexplained weight gain, unexplained weight loss, other Hematologic/Lymphatic: Denies: no symptoms, anemia, easy bleeding, easy bruising, other Allergies: Coded Allergies: No Known Allergies (Unverified , 01/08/17) Subjective AFVSS waiting for stress test interviewed using healthcare translator for sign language c/o left shoulder pain. denies cp,sob, palpitations Objective Last 24 Hour Vital Signs Date Time Temp Pulse Resp B/P (MAP) Pulse Ox O2 Delivery O2 Flow Rate FiO2 01/01/20 08:54 77 18 99 Nasal Cannula 2.0 28 01/01/20 08:54 77 18 99 Nasal Cannula 2.0 28 01/01/20 08:12 67 129/73 01/01/20 08:00 96.8 67 19 129/73 (91) 97 01/01/20 04:01 97.0 65 18 146/64 (91) 97 01/01/20 04:00 61 01/01/20 01:31 66 18 98 Nasal Cannula 2.0 28 01/01/20 01:29 66 18 98 Nasal Cannula 2.0 28 01/01/20 00:08 97.9 64 20 133/65 (87) 98 01/01/20 00:00 57 12/31/19 21:00 Nasal Cannula 2.0 12/31/19 20:45 98.1 12/31/19 20:00 67 12/31/19 20:00 97.9 67 18 130/73 (92) 97 12/31/19 16:00 98.1 75 20 132/78 (96) 97 12/31/19 16:00 64 12/31/19 13:15 97.7 12/31/19 13:00 Room Air 21 12/31/19 12:45 Room Air 21 12/31/19 12:00 97.7 62 20 125/64 (84) 97 12/31/19 12:00 60 Intake and Output 12/31/19 01/01/20 19:00 07:00 Intake Total 480 ml 120 ml Balance 480 ml 120 ml Intake Oral 480 ml 120 ml # Voids 3 4 Laboratory Tests 12/31/19 14:05: Troponin I 0.009 12/31/19 20:24: POC Whole Blood Glucose [Pending] 12/31/19 21:50: Troponin I 0.000 Height (Feet): 5 Height (Inches): 1.00 Weight (Pounds): 116 General Appearance: WD/WN, no apparent distress, alert EENT: PERRL/EOMI, normal ENT inspection, TMs normal Neck: non-tender, normal alignment, supple, normal inspection Cardiovascular: normal peripheral pulses, normal rate, regular rhythm, no gallop/murmur, no JVD Respiratory/Chest: chest wall non-tender, lungs clear, normal breath sounds, no respiratory distress Abdomen: normal bowel sounds, non tender, soft, no organomegaly Extremities: normal range of motion, non-tender, normal inspection, no calf tenderness, other - left shoulder exam completely normal, can rotate, adduct, abduct. 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 grossly normal, no motor/sensory deficits, alert, oriented x 3 Skin: normal pigmentation Assessment/Plan Problem List: (1) Chest pain ICD Codes: R07.9 - Chest pain, unspecified SNOMED: 83340933 (2) Hypertension ICD Codes: I10 - Essential (primary) hypertension SNOMED: 73017061 (3) Diabetes mellitus ICD Codes: E11.9 - Type 2 diabetes mellitus without complications SNOMED: 98891521 (4) Deaf nonspeaking, not elsewhere classifiable ICD Codes: H91.3 - Deaf nonspeaking, not elsewhere classified SNOMED: 88951980 Status: stable Assessment/Plan: 59 year old female with deafness, HTN, DM II presented with chest pain radiating to LUE for 5 days. EKG NSR, no acute ST-T changes, Troponin negative x3. CT he ad negative for any acute abnormality, CXR, no acute disease. She will be placed on observation to rule out ACS, ACS rule dout. Patient with risk factors and will be admitted to undergo stress testing. #Chest pain rule out ACS- rued out #Left shoulder pain - telemetry -Serial EKG/Trop-negative -2D Echo to look for any regional WMA- ef 65% -Cardiology consult Dr. Marques -BP control -Continue ASA -Stress test 01/01 -left shoulder XR #HTN #HLD continue amlodipine Continue Atorvastatin #DM II- controlled -HbA1C 6 -hold metformin -GREGORIO while in the hospital #Deafness -please provide translating services #COPD -continue prednisone VTE ppx; Heparin Diet: Diabetic Code status: Full code I spent 72 minutes on this encounter. 35 minutes spent on counselling and care coordination. Plan of care discussed with RN and consultants. Giuseppe Smith M.D. Jan 01, 2020 09:06
--- NOTE | 2020-01-01 09:30 | NUR ---
NURSE NOTES: Pt NC of 2LPM discontinued. Pt tolerating room air well, 97-99% w/ unlabored and even breathing. pt tolerating RA ambulating from bathroom to bed as well. Addendum: 01/01/20 at 1343 by Erica Varela RN RN Pt on RA and tolerating well still, unlabored and even breathing. 17RR. no s/s or complaint of distress at this time.
[2020-01-01 12:00] VITALS: BP 140/66
--- NOTE | 2020-01-01 15:09 | Cardiac Electrophysiology PN ---
Assessment/Plan Assessment/Plan 1. Chest pain. Already ruled out for myocardial infarction. Urine toxicology screen is negative. EKG showed incomplete right bundle-branch block. Echocardiogram showed ejection fraction of 65%. Stress test pending on Thursday 2. Hypertension, on amlodipine 10 mg daily. 3. Hyperlipidemia, on Lipitor. 4. Diabetes, on insulin. 5. COPD, on prednisone. 6. Deafness. ANTHONY RN Subjective Subjective Deaf. In SR. No events Objective Last 24 Hour Vital Signs Date Time Temp Pulse Resp B/P (MAP) Pulse Ox O2 Delivery O2 Flow Rate FiO2 01/01/20 13:57 77 18 95 Nasal Cannula 2.0 28 01/01/20 13:56 77 18 95 Nasal Cannula 2.0 28 01/01/20 12:00 98.1 64 20 140/66 (90) 95 01/01/20 12:00 57 01/01/20 09:00 Room Air 01/01/20 08:54 77 18 99 Nasal Cannula 2.0 28 01/01/20 08:54 77 18 99 Nasal Cannula 2.0 28 01/01/20 08:12 67 129/73 01/01/20 08:00 85 01/01/20 08:00 96.8 67 19 129/73 (91) 97 01/01/20 04:01 97.0 65 18 146/64 (91) 97 01/01/20 04:00 61 01/01/20 01:31 66 18 98 Nasal Cannula 2.0 28 01/01/20 01:29 66 18 98 Nasal Cannula 2.0 28 01/01/20 00:08 97.9 64 20 133/65 (87) 98 01/01/20 00:00 57 12/31/19 21:00 Nasal Cannula 2.0 12/31/19 20:45 98.1 12/31/19 20:00 67 12/31/19 20:00 97.9 67 18 130/73 (92) 97 12/31/19 16:00 98.1 75 20 132/78 (96) 97 12/31/19 16:00 64 Intake and Output 12/31/19 01/01/20 19:00 07:00 Intake Total 480 ml 120 ml Balance 480 ml 120 ml Intake Oral 480 ml 120 ml # Voids 3 4 Laboratory Tests Test 12/31/19 20:24 12/31/19 21:50 01/01/20 05:59 01/01/20 12:02 POC Whole Blood Glucose Pending 176 MG/DL (74-106) H 189 MG/DL (74-106) H Troponin I 0.000 ng/mL (0.000-0.056) Objective HEAD AND NECK: No JVD. LUNGS: Clear. CARDIOVASCULAR: Regular S1 and S2 with no gallop or murmur. ABDOMEN: Soft. EXTREMITIES: No pitting edema. Benjamín Waggoner MD Jan 01, 2020 15:09
[2020-01-01 16:00] VITALS: BP 139/70
[2020-01-01] MEDS: Miralax 17gm pkt ORAL PRN (16:03)
--- NOTE | 2020-01-01 19:14 | NUR ---
NURSE HAND-OFF REPORT: Important Events on Shift: cardiac stress test tmr PT HAS ASTHMA notify Md Waggoner , SB 57 Patient Status: fc, stable Diet: NPO after midnight, after cont. cardiac diet Pending Orders: Pending Results/Labs: Pending MD notification: PT HAS ASTHMA-- CI TO LEXISCAN Latest Vital Signs: Temperature 98.4 , Pulse 75 , B/P 139 /70 , Respiratory Rate 18 , O2 SAT 95 , Room Air, O2 Flow Rate 2.0 . Vital Sign Comment: EKG Rhythm: Sinus Rhythm Rhythm change?: Millicent ALANIZ Notified?: Adamaris Hurtado MD Response: Latest Loja Fall Score: 15 Fall Risk: Low Risk Safety Measures: Call light Within Reach, Bed Alarm Zone 2, Side Rails Side Rails x2, Bed position Low and Locked. Fall Precautions: Yellow Socks Patient Fall Education Report given to MIGUEL High.
--- NOTE | 2020-01-01 19:29 | NUR ---
NURSE NOTES: Report received from Erica RIVERA. Patient is noted to be awake and alert x 4. Patient is noted to be deaf, [employer] video crisis therapist is set up at bedside and was utilized by Lennox RIVERA and Erica RIVERA. Patient is no complaints of chest pain or shortness of breath at this time. Patient does have complaints of pain in her left foot. Lennox RIVERA informed that patient that he will bring pain medication as ordered. Patient also requesting for social secretary to speak with her prior to discharge to provide detailed summary of her care. Will endorse to morning shift. Patient is noted to have right wrist 20 zach IV access. Patient is noted to be NPO at midnight due to LexiScan Stress Test in the morning. Will complete procedure checklist. Bed is locked and in lowest position. Call light in reach. Will continue to follow plan of care.
--- NOTE | 2020-01-01 19:34 | Cardiology Report ---
APPROVED REPORT EKG Measurement Heart [id number] <Conclusion> Normal sinus rhythm Incomplete right bundle branch block Possible Anterior infarct, age undetermined Abnormal ECG
--- NOTE | 2020-01-01 19:36 | Cardiology Report ---
APPROVED REPORT EKG Measurement Heart [id number] <Conclusion> Normal sinus rhythm Incomplete right bundle branch block Nonspecific ST abnormality Abnormal ECG
[2020-01-01 20:00] VITALS: BP 148/73
[2020-01-01] MEDS: Atorvastatin 20mg tab ORAL SCH (20:17)
[2020-01-01] MEDS: TraZODone 50mg tab ORAL SCH (20:18)
[2020-01-01] MEDS: traMADol 50mg tab ORAL PRN (20:18)
--- NOTE | 2020-01-01 20:48 | NUR ---
NURSE NOTES: Patient reports that pain is unchanged in left foot after administration of pain medication. Pain continues to be 6/6. Lennox RIVERA offered ice and recommended for patient to elevate foot. Patient declined at at this time.
[2020-01-02] VITALS: BP 134/63
--- NOTE | 2020-01-02 00:11 | NUR ---
NURSE NOTES: patient noted to continue to have a temperature of 99.7 degrees Fahrenheit oral. Ice packs put in place and blankets removed for cooling measures.
[2020-01-02] MEDS: Albuterol 90mcg Inhaler 8gm INH SCH ×4 (02:08→19:47)
[2020-01-02 04:00] VITALS: BP 136/74
[2020-01-02] MEDS: traMADol 50mg tab ORAL PRN (06:09)
[2020-01-02] MEDS: NovoLOG Insulin Flexpen SUBQ SCH ×4 (06:19→21:02)
[2020-01-02 06:38] LABS: BASOPHILS % (AUTO) 0.7 % (0.0-2.0); EOSINOPHILS % (AUTO) 0.4 % (0.0-3.0); HEMATOCRIT 31.2 % (37.0-47.0); HEMOGLOBIN 11.2 G/DL (12.0-16.0); LYMPHOCYTES % (AUTO) 21.2 % (20.0-45.0); MEAN CORPUSCULAR VOLUME 84 FL (80-99); MONOCYTES % (AUTO) 4.9 % (1.0-10.0); NEUTROPHILS % (AUTO) 72.8 % (45.0-75.0); PLATELET COUNT 138 K/UL (150-450); RED BLOOD COUNT 3.73 M/UL (4.20-5.40); RED CELL DISTRIBUTION WIDTH 11.1 % (11.6-14.8); WHITE BLOOD COUNT 13.1 K/UL (4.8-10.8)
--- NOTE | 2020-01-02 06:40 | NUR ---
NURSE NOTES: Spoke with Doctor Waggoner via telephone. Lennox RIVERA made him aware that patient has asthma. Doctor Waggoner is aware and informed Lennox RIVERA to still continue with the LexiScan stress test this morning.
[2020-01-02 06:54] LABS: ANION GAP 7 mmol/L (5-15); BLOOD UREA NITROGEN 21 mg/dL (7-18); CALCIUM 8.4 MG/DL (8.5-10.1); CARBON DIOXIDE 26 MMOL/L (21-32); CHLORIDE 105 MMOL/L (98-107); CREATININE 0.8 MG/DL (0.55-1.30); POTASSIUM 3.5 MMOL/L (3.5-5.1); SODIUM 138 MMOL/L (136-145)
--- NOTE | 2020-01-02 07:13 | NUR ---
NURSE HAND-OFF REPORT: Important Events on Shift: Patient was slightly febrile throughout the shift. cooling measures in place. patient has complaints of right foot pain, pain medication not working per patient. Doctor Rosaline is aware that patient has asthma, continue with lexiscan. NPO since midnight. Patient Status: full code Diet: NPO Pending Orders: lexiscan this morning Pending Results/Labs: none Pending MD notification:none Latest Vital Signs: Temperature 99.7 , Pulse 60 , B/P 136 /74 , Respiratory Rate 14 , O2 SAT 97 , Room Air, O2 Flow Rate 2.0 . Vital Sign Comment: note temperature of 99.7, cooling measures in place EKG Rhythm: Sinus Rhythm Rhythm change?: N MD Notified?: MD Response: Latest Loja Fall Score: 15 Fall Risk: Low Risk Safety Measures: Call light Within Reach, Bed Alarm Zone 2, Side Rails Side Rails x2, Bed position Low and Locked. Fall Precautions: Yellow Socks Patient Fall Education Report given to Hazel RIVERA.
--- NOTE | 2020-01-02 07:17 | NUR ---
NURSE NOTES: Received report from Lennox/MIGUEL. Pt sleeping comfortably, in semi-reyes position. On room air, no distress or SOB noted. Pt is NPO waiting for a Lexiscan today. IV on right wrist 20G SL, patent and clean. Bed in the lowest position and locked. Call light within reach, side rails upx3. Will continue plan of care.
[2020-01-02 08:00] VITALS: BP 137/76
[2020-01-02] MEDS: Methocarbamol 750mg tab ORAL SCH ×3 (09:07→17:49)
[2020-01-02] MEDS: Aspirin EC 81mg tab ORAL SCH (09:07)
--- NOTE | 2020-01-02 09:13 | General Progress Note ---
Subjective Date patient seen: Jan 02, 2020 Allergies: Coded Allergies: No Known Allergies (Unverified , 01/08/17) Subjective AFVSS waiting for stress test today interviewed using client liaison for sign language c/o left shoulder pain. denies cp,sob, palpitations Objective Last 24 Hour Vital Signs Date Time Temp Pulse Resp B/P (MAP) Pulse Ox O2 Delivery O2 Flow Rate FiO2 01/02/20 09:06 73 137/76 01/02/20 08:00 98.6 73 20 137/76 (96) 98 01/02/20 07:47 Room Air 21 01/02/20 07:47 Room Air 21 01/02/20 04:00 60 01/02/20 04:00 99.7 61 14 136/74 (94) 97 01/02/20 02:10 72 18 97 Room Air 21 01/02/20 02:00 70 18 94 Room Air 21 01/02/20 00:00 99.7 57 16 134/63 (86) 97 01/02/20 00:00 61 01/01/20 21:00 Room Air 01/01/20 20:51 99.0 01/01/20 20:00 84 18 95 Room Air 21 01/01/20 20:00 86 18 96 Room Air 21 01/01/20 20:00 90 01/01/20 20:00 99.9 86 17 148/73 (98) 97 01/01/20 16:00 98.4 70 18 139/70 (93) 95 01/01/20 16:00 75 01/01/20 13:57 77 18 95 Nasal Cannula 2.0 28 01/01/20 13:56 77 18 95 Nasal Cannula 2.0 28 01/01/20 12:00 98.1 64 20 140/66 (90) 95 01/01/20 12:00 57 Intake and Output 01/01/20 01/02/20 19:00 07:00 Intake Total 950 ml 240 ml Balance 950 ml 240 ml Intake Oral 950 ml 240 ml # Voids 5 3 # Bowel Movements 1 Laboratory Tests 01/01/20 12:02: POC Whole Blood Glucose 189H 01/01/20 16:05: POC Whole Blood Glucose 296H 01/01/20 20:05: POC Whole Blood Glucose 393H 01/02/20 05:40: White Blood Count 13.1H, Red Blood Count 3.73L, Hemoglobin 11.2L, Hematocrit 31.2L, Mean Corpuscular Volume 84, Mean Corpuscular Hemoglobin 30.1, Mean Corpuscular Hemoglobin Concent 35.9, Red Cell Distribution Width 11.1L, Platelet Count 138L, Mean Platelet Volume 9.8, Neutrophils (%) (Auto) 72.8, Lymphocytes (%) (Auto) 21.2, Monocytes (%) (Auto) 4.9, Eosinophils (%) (Auto) 0.4, Basophils (%) (Auto) 0.7, Sodium Level 138, Potassium Level 3.5, Chloride Level 105, Carbon Dioxide Level 26, Anion Gap 7, Blood Urea Nitrogen 21H, Creatinine 0.8, Estimat Glomerular Filtration Rate > 60, Glucose Level 168H, Calcium Level 8.4L 01/02/20 06:04: POC Whole Blood Glucose 158H Height (Feet): 5 Height (Inches): 1.00 Weight (Pounds): 116 Objective General Appearance: WD/WN, no apparent distress, alert EENT: PERRL/EOMI, normal ENT inspection, TMs normal Neck: non-tender, normal alignment, supple, normal inspection Cardiovascular: normal peripheral pulses, normal rate, regular rhythm, no gallop/murmur, no JVD Respiratory/Chest: chest wall non-tender, lungs clear, normal breath sounds, no respiratory distress Abdomen: normal bowel sounds, non tender, soft, no organomegaly Extremities: normal range of motion, non-tender, normal inspection, no calf tenderness, other - left shoulder exam completely normal, can rotate, adduct, abduct. 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, no motor/sensory deficits, alert, oriented x 3 Skin: normal pigmentation Assessment/Plan Problem List: (1) Chest pain ICD Codes: R07.9 - Chest pain, unspecified SNOMED: 63556775 (2) Hypertension ICD Codes: I10 - Essential (primary) hypertension SNOMED: 96736257 (3) Diabetes mellitus ICD Codes: E11.9 - Type 2 diabetes mellitus without complications SNOMED: 09833939 (4) Deaf nonspeaking, not elsewhere classifiable ICD Codes: H91.3 - Deaf nonspeaking, not elsewhere classified SNOMED: 05911468 Status: stable Assessment/Plan: 59 year old female with deafness, HTN, DM II presented with chest pain radiating to LUE for 5 days. EKG NSR, no acute ST-T changes, Troponin negative x3. CT head negative for any acute abnormality, CXR, no acute disease. She will be placed on observation to rule out ACS, ACS rule dout. Patient with risk factors and will be admitted to undergo stress testing. #Chest pain rule out ACS- rued out #Left shoulder pain - telemetry -Serial EKG/Trop-negative -2D Echo to look for any regional WMA- ef 65% -Cardiology consult Dr. Marques -BP control -Continue ASA -Stress test 01/01 -left shoulder XR #HTN #HLD continue amlodipine Continue Atorvastatin #DM II- controlled -HbA1C 6 -hold metformin -GREGORIO while in the hospital #Deafness -please provide translating services #COPD- exacerbation -continue prednisone 40 mg daily for 5 days disposition: Can be discharged if stress test normal VTE ppx; Heparin Diet: Diabetic Code status: Full code I spent 42 minutes on this encounter. 25 minutes spent on counselling and care coordination. Plan of care discussed with RN and consultants. Giuseppe Smith M.D. Jan 02, 2020 09:13
--- NOTE | 2020-01-02 11:23 | NUR ---
CASE MANAGEMENT:REVIEW 01/02/20 SI:CHEST PAIN. HTN. DM DEAF NONSPEAKING 99.7 61 14 136/74 97% ON RA WBC+13.1 PLT-138 BUN+21 IS: IV LEXISCAN X1 TRAZODONE PO QHS PREDNISONE PO QD ASA PO QD NORVASC PO QD : TELEMETRY STATUS DCP: FROM HOME PLAN: STRESS TEST FOR TODAY
[2020-01-02 12:00] VITALS: BP 131/68
[2020-01-02] MEDS: Miralax 17gm pkt ORAL PRN (12:28)
--- NOTE | 2020-01-02 13:06 | Cardiac Electrophysiology PN ---
Assessment/Plan Assessment/Plan 1. Chest pain. Already ruled out for myocardial infarction. Urine toxicology screen is negative. EKG showed incomplete right bundle-branch block. Echocardiogram showed ejection fraction of 65%. Nuclear Stress test results from today is pending 2. Hypertension, on amlodipine 10 mg daily. 3. Hyperlipidemia, on Lipitor. 4. Diabetes, on insulin. 5. COPD, on prednisone. 6. Deafness. ANTHONY RN Subjective Subjective In SR. Had stress test today. Results are pending Objective Last 24 Hour Vital Signs Date Time Temp Pulse Resp B/P (MAP) Pulse Ox O2 Delivery O2 Flow Rate FiO2 01/02/20 12:44 87 18 96 Room Air 21 01/02/20 12:44 86 16 97 Room Air 21 01/02/20 12:00 70 01/02/20 12:00 97.7 78 20 131/68 (89) 93 01/02/20 09:06 73 137/76 01/02/20 09:00 Room Air 01/02/20 08:00 73 01/02/20 08:00 98.6 73 20 137/76 (96) 98 01/02/20 07:47 Room Air 21 01/02/20 07:47 Room Air 21 01/02/20 04:00 60 01/02/20 04:00 99.7 61 14 136/74 (94) 97 01/02/20 02:10 72 18 97 Room Air 21 01/02/20 02:00 70 18 94 Room Air 21 01/02/20 00:00 99.7 57 16 134/63 (86) 97 01/02/20 00:00 61 01/01/20 21:00 Room Air 01/01/20 20:51 99.0 01/01/20 20:00 84 18 95 Room Air 21 01/01/20 20:00 86 18 96 Room Air 21 01/01/20 20:00 90 01/01/20 20:00 99.9 86 17 148/73 (98) 97 01/01/20 16:00 98.4 70 18 139/70 (93) 95 01/01/20 16:00 75 01/01/20 13:57 77 18 95 Nasal Cannula 2.0 28 01/01/20 13:56 77 18 95 Nasal Cannula 2.0 28 Intake and Output 01/01/20 01/02/20 19:00 07:00 Intake Total 950 ml 240 ml Balance 950 ml 240 ml Intake Oral 950 ml 240 ml # Voids 5 3 # Bowel Movements 1 Laboratory Tests Test 01/01/20 16:05 01/01/20 20:05 01/02/20 05:40 01/02/20 06:04 POC Whole Blood Glucose 296 MG/DL (74-106) H 393 MG/DL (74-106) H 158 MG/DL (74-106) H White Blood Count 13.1 K/UL (4.8-10.8) H Red Blood Count 3.73 M/UL (4.20-5.40) L Hemoglobin 11.2 G/DL (12.0-16.0) L Hematocrit 31.2 % (37.0-47.0) L Mean Corpuscular Volume 84 FL (80-99) Mean Corpuscular Hemoglobin 30.1 PG (27.0-31.0) Mean Corpuscular Hemoglobin Concent 35.9 G/DL (32.0-36.0) Red Cell Distribution Width 11.1 % (11.6-14.8) L Platelet Count 138 K/UL (150-450) L Mean Platelet Volume 9.8 FL (6.5-10.1) Neutrophils (%) (Auto) 72.8 % (45.0-75.0) Lymphocytes (%) (Auto) 21.2 % (20.0-45.0) Monocytes (%) (Auto) 4.9 % (1.0-10.0) Eosinophils (%) (Auto) 0.4 % (0.0-3.0) Basophils (%) (Auto) 0.7 % (0.0-2.0) Sodium Level 138 MMOL/L (136-145) Potassium Level 3.5 MMOL/L (3.5-5.1) Chloride Level 105 MMOL/L (98-107) Carbon Dioxide Level 26 MMOL/L (21-32) Anion Gap 7 mmol/L (5-15) Blood Urea Nitrogen 21 mg/dL (7-18) H Creatinine 0.8 MG/DL (0.55-1.30) Estimat Glomerular Filtration Rate > 60 mL/min (>60) Glucose Level 168 MG/DL (74-106) H Calcium Level 8.4 MG/DL (8.5-10.1) L Test 01/02/20 11:59 POC Whole Blood Glucose 155 MG/DL (74-106) H Objective HEAD AND NECK: No JVD. LUNGS: Clear. CARDIOVASCULAR: Regular S1 and S2 with no gallop or murmur. ABDOMEN: Soft. EXTREMITIES: No pitting edema. Benjamín Waggoner MD Jan 02, 2020 13:06
--- NOTE | 2020-01-02 14:44 | Diagnostic Imaging Report ---
Indications: Chest pain Technique: See cardiology report for details of LexiScan stress testing. During LexiScan infusion, IV administration 30.5 mCi 99 M technetium Myoview. SPECT and planar images obtained. SPECT images gated to 8 phases of the cardiac cycle were also obtained, and reformatted into cine images for evaluation of ejection fraction. On the subsequent day, resting images obtained using IV administration 10 mCi 99 M technetium alveolar. Comparison: 02/19/2018 Findings: Calculated ejection fraction of 74%. No definite focal fixed or reversible perfusion defect is appreciated. No discrete abnormality appreciated on the generated defect blackout maps. IMPRESSION: Nonischemic clinical response to pharmacologic stress, per cardiology report Nonischemic electrocardiographic response to pharmacologic stress, per cardiology report No imaging findings to suggest ischemia, at level of stress achieved. Calculated post stress ejection fraction 74%
[2020-01-02 15:48] VITALS: BP 117/64
--- NOTE | 2020-01-02 19:16 | CDS Physician Query ---
Clarification is required for compliance, coding accuracy, and to reflect severity of illness for this patient Dear Giuseppe Muñoz M.D Date: 01/02/2020 CDIS Name Charly Love Clinical Documentation Statement: 59 YOF who has type 2 diabetes and hypertension who presented to the ER with complaints of 5 days of chest pain that radiates to the left arm accompanied by numbness. ASSESSMENT: Chest pain rule out ACS, HTN, HLD, DM II- controlled, Deafness [ H&P Giuseppe Smith M.D. on 12/30/19 @ 10:10] COPD- exacerbation Lexiscan Nuclear stress test( 01/01): Conclusions : NON-ISCHEMIC Echo showed(12/29): EF of 65%. Mild left ventricular hypertrophy, focal aortic valve sclerosis LABORATORY DATA(12/27): Troponin 0.00. BNP 45, Potassium 3.4 Medications: Morphine Sulfate 2mg IVP, Tramadol 50 mg PO, Ibuprofen 600mg PO Please document the suspected etiology of Chest Pain: [] Aortic dissection [] Acute myocardial infarction [] Acute Coronary Syndrome [] Pericarditis [] Anxiety [] Cancer [] Pneumonia [] Costochondritis [] Pneumothorax [] GERD/Esophagitis [] Pulmonary embolism [] Other: [] Unable to determine Present on Admission: [] Yes [] No [] Clinically Undetermined Physician signature Date Please also document in your Progress Notes and/or Discharge Summary and indicate if the condition was present on admission. ROME
--- NOTE | 2020-01-02 19:30 | NUR ---
NURSE HAND-OFF REPORT: Important Events on Shift:LexiScan done today Patient Status: Stable Diet: CCHO medium Pending Orders: Pending Results/Labs: Pending MD notification: Latest Vital Signs: Temperature 99.0 , Pulse 84 , B/P 117 /64 , Respiratory Rate 16 , O2 SAT 96 , Room Air, O2 Flow Rate 2.0 . Vital Sign Comment: Stable EKG Rhythm: Sinus Rhythm Rhythm change?: N MD Notified?: Adamaris Hurtado MD Response: Latest Loja Fall Score: 15 Fall Risk: Low Risk Safety Measures: Call light Within Reach, Bed Alarm Zone 2, Side Rails Side Rails x2, Bed position Low and Locked. Fall Precautions: Yellow Socks Patient Fall Education Report given to Veronica/RN.
--- NOTE | 2020-01-02 19:58 | NUR ---
NURSES NOTES: Received report from MIGUEL Oliva. Pt is A/O x 4. Pt is Deaf and Non-verbal. PT is able to read, right and use sign language to make needs known. PT is able to ambulate with steady gait. No pain noted. No SOB or acute distress noted. PT IV site is right wrist 20G S/L Patent and flushed. No bleeding or erythema noted. Bed in lowest position and locked with bed alarm on. Call light with in reach. PT understand to use call light when needing assistance. Will continue plan of care.
[2020-01-02 20:00] VITALS: BP 137/74
[2020-01-02] MEDS: TraZODone 50mg tab ORAL SCH (21:00)
[2020-01-02] MEDS: Atorvastatin 20mg tab ORAL SCH (21:01)
--- NOTE | 2020-01-02 21:06 | NUR ---
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 Patch was removed at 21:06, no redness or irritation noted on the skin, and skin was cleansed. Will continue to monitor patient.
[2020-01-03] VITALS: BP 144/70
[2020-01-03] MEDS: traMADol 50mg tab ORAL PRN ×2 (00:13→06:37)
[2020-01-03] MEDS: Albuterol 90mcg Inhaler 8gm INH SCH ×2 (00:42→08:00)
[2020-01-03 04:00] VITALS: BP 155/76
[2020-01-03] MEDS: NovoLOG Insulin Flexpen SUBQ SCH ×2 (06:38→11:50)
--- NOTE | 2020-01-03 07:25 | NUR ---
NURSE HAND-OFF REPORT: Important Events on Shift:N/a Patient Status: Stable Diet: CCHO Pending Orders: [] Pending Results/Labs:[] Pending MD notification:[] Latest Vital Signs: Temperature 98.4 , Pulse 62 , B/P 155 /76 , Respiratory Rate 19 , O2 SAT 98 , Room Air, O2 Flow Rate 2.0 . Vital Sign Comment: [] EKG Rhythm: Sinus Rhythm Rhythm change?: N Notified?: Adamaris Hurtado MD Response: Latest Loja Fall Score: 15 Fall Risk: Low Risk Safety Measures: Call light Within Reach, Bed Alarm Zone 2, Side Rails Side Rails x2, Bed position Low and Locked. Fall Precautions: Yellow Socks Patient Fall Education Report given to Hazel RIVERA.
--- NOTE | 2020-01-03 07:29 | NUR ---
NURSE NOTES: Received report from Veronica/RN. Pt sleeping comfortably, in semi-reyes position. On room air, no distress or SOB noted. IV on right wrist 20G SL, patent and clean. Bed in the lowest position and locked. Call light within reach, side rails upx3. Will continue plan of care.
[2020-01-03 08:00] VITALS: BP 138/77
[2020-01-03] MEDS: Aspirin EC 81mg tab ORAL SCH (08:21)
[2020-01-03] MEDS: Methocarbamol 750mg tab ORAL SCH (08:21)
[2020-01-03 09:22] LABS: EOSINOPHILS % (AUTO) 0.5 % (0.0-3.0); HEMATOCRIT 33.6 % (37.0-47.0); HEMOGLOBIN 12.1 G/DL (12.0-16.0); LYMPHOCYTES % (AUTO) 23.1 % (20.0-45.0); MEAN CORPUSCULAR VOLUME 83 FL (80-99); MONOCYTES % (AUTO) 6.3 % (1.0-10.0); NEUTROPHILS % (AUTO) 68.1 % (45.0-75.0); PLATELET COUNT 203 K/UL (150-450); RED BLOOD COUNT 4.03 M/UL (4.20-5.40); RED CELL DISTRIBUTION WIDTH 11.1 % (11.6-14.8); WHITE BLOOD COUNT 12.6 K/UL (4.8-10.8)
[2020-01-03 09:46] LABS: CALCIUM 8.8 MG/DL (8.5-10.1); POTASSIUM 3.3 MMOL/L (3.5-5.1)
--- NOTE | 2020-01-03 10:25 | Discharge Instructions ---
Discharge Instructions Discharge Instructions Services at Discharge: other - Home assistant to the director living Diet: diabetic calorie control, cardiac 2 GM Na, low fat, low cholesterol Resume Normal Activity?: Yes Activity: resume normal activities, light activity Follow Up Orders Follow up with PCP on Jan 26 as confirmed by patient For Congestive Heart Failure Reminder Report to your physician any weight gain of 5 pounds or more in one week. Josh Brock D.O Jan 03, 2020 10:25
--- NOTE | 2020-01-03 10:37 | Discharge Summary ---
Discharge Summary Hospital Course Date of Admission Dec 29, 2019 at 19:16 Date of Discharge Admitting Diagnosis palpitations, unilateral weakness HPI Stella Horne is a 59 year old female who was admitted on Dec 29, 2019 at 19:16 for Palpitations,Unilateral Weakness Hospital Course Mrs. Steve Horne is a 59F who is deaf with a PMH of DM, HTN, and HLD whom initially presented for chest pain and admitted for ACS r/o. Chest pain has been exertional for last 5 days that radiated to left arm. EKG NSR, no acute ST-T changes, Troponin negative x3. ECHO showed no regional wall motion abnormalities and preserved EF. Lexiscan was negative for ischemic flow changes. Chest pain has now resolved. Patient otherwise remained hemodynamically stable with no respiratory decompensation. She is stable for discharge today back to her assisted living facility. #Chest pain rule out ACS- rued out #Left shoulder pain -Serial EKG/Trop-negative -2D Echo neg regional WMA- ef 65% -Cardiology consult Dr. Marques -BP control -Continue ASA -Stress test 01/01 -Nonischemic clinical response to pharmacologic stress, per cardiology report Nonischemic electrocardiographic response to pharmacologic stress, per cardiology report No imaging findings to suggest ischemia, at level of stress achieved. Calculated post stress ejection fraction 74% #HTN #HLD continue amlodipine Continue Atorvastatin #DM II- controlled -HbA1C 6 -continue metformin #Deafness -please provide translating services #COPD- exacerbation -albuterol prn Patient to be discharged today back to assisted living facility. She has a scheduled appointment with her PCP on Jan 26 which she will follow up on. TIme spent on this encounter 35 min with 25 minutes spent on counseling and coordination. 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
--- NOTE | 2020-01-03 11:53 | Cardiac Electrophysiology PN ---
Assessment/Plan Assessment/Plan 1. Chest pain. Already ruled out for myocardial infarction. Urine toxicology screen is negative. EKG showed incomplete right bundle-branch block. Echocardiogram showed ejection fraction of 65%. Nuclear Stress test showed no ischemia 2. Hypertension, on amlodipine 10 mg daily. 3. Hyperlipidemia, on Lipitor. 4. Diabetes, on insulin. 5. COPD, on prednisone. 6. Deafness. ANTHONY RN DC today Subjective Subjective In SR. Had stress test yesterday that showed no ischemia. DC in progress Objective Last 24 Hour Vital Signs Date Time Temp Pulse Resp B/P (MAP) Pulse Ox O2 Delivery O2 Flow Rate FiO2 01/03/20 08:21 79 138/77 01/03/20 08:15 Room Air 01/03/20 08:00 98.4 79 18 138/77 (97) 96 01/03/20 08:00 72 01/03/20 07:58 78 16 96 Room Air 21 01/03/20 07:58 72 18 95 Room Air 21 01/03/20 04:00 98.4 62 19 155/76 (102) 98 01/03/20 04:00 56 01/03/20 00:43 79 16 96 Room Air 21 01/03/20 00:42 76 18 96 Room Air 21 01/03/20 00:00 57 01/03/20 00:00 97.7 64 19 144/70 (94) 98 01/02/20 21:00 Room Air 01/02/20 20:00 80 01/02/20 20:00 98.2 73 18 137/74 (95) 98 01/02/20 19:48 84 16 96 Room Air 21 01/02/20 19:47 81 18 95 Room Air 21 01/02/20 16:00 67 01/02/20 15:48 99.0 76 21 117/64 (81) 97 01/02/20 12:44 87 18 96 Room Air 21 01/02/20 12:44 86 16 97 Room Air 21 01/02/20 12:00 70 01/02/20 12:00 97.7 78 20 131/68 (89) 93 Intake and Output 01/02/20 01/03/20 18:59 06:59 Intake Total 600 ml 400 ml Balance 600 ml 400 ml Intake Oral 600 ml 400 ml # Voids 5 4 # Bowel Movements 1 Laboratory Tests Test 01/02/20 11:59 01/02/20 16:08 01/02/20 20:17 01/03/20 06:32 POC Whole Blood Glucose 155 MG/DL (74-106) H 365 MG/DL (74-106) H Pending Pending Test 01/03/20 09:10 01/03/20 10:54 White Blood Count 12.6 K/UL (4.8-10.8) H Red Blood Count 4.03 M/UL (4.20-5.40) L Hemoglobin 12.1 G/DL (12.0-16.0) Hematocrit 33.6 % (37.0-47.0) L Mean Corpuscular Volume 83 FL (80-99) Mean Corpuscular Hemoglobin 29.9 PG (27.0-31.0) Mean Corpuscular Hemoglobin Concent 35.9 G/DL (32.0-36.0) Red Cell Distribution Width 11.1 % (11.6-14.8) L Platelet Count 203 K/UL (150-450) Mean Platelet Volume 8.9 FL (6.5-10.1) Neutrophils (%) (Auto) 68.1 % (45.0-75.0) Lymphocytes (%) (Auto) 23.1 % (20.0-45.0) Monocytes (%) (Auto) 6.3 % (1.0-10.0) Eosinophils (%) (Auto) 0.5 % (0.0-3.0) Basophils (%) (Auto) 2.0 % (0.0-2.0) Sodium Level 138 MMOL/L (136-145) Potassium Level 3.3 MMOL/L (3.5-5.1) L Chloride Level 102 MMOL/L (98-107) Carbon Dioxide Level 27 MMOL/L (21-32) Anion Gap 9 mmol/L (5-15) Blood Urea Nitrogen 22 mg/dL (7-18) H Creatinine 1.0 MG/DL (0.55-1.30) Estimat Glomerular Filtration Rate 56.9 mL/min (>60) Glucose Level 264 MG/DL (74-106) H Calcium Level 8.8 MG/DL (8.5-10.1) Phosphorus Level 3.0 MG/DL (2.5-4.9) Magnesium Level 1.9 MG/DL (1.8-2.4) POC Whole Blood Glucose 219 MG/DL (74-106) H Objective HEAD AND NECK: No JVD. LUNGS: Clear. CARDIOVASCULAR: Regular S1 and S2 with no gallop or murmur. ABDOMEN: Soft. EXTREMITIES: No pitting edema. Benjamín Waggoner MD Jan 03, 2020 11:52
[2020-01-03 12:28] VITALS: BP 143/64
--- NOTE | 2020-01-03 12:48 | NUR ---
NURSE NOTES: Pt discharged and left by herself via private vehicle. discharge instructions given and pt verbalized understanding. Pt in stable condition, no distress or SOB noted. property assessment monitor, IV access, and ID band removed. Belongings check list done and signed by pt.
--- NOTE | 2020-01-03 16:16 | NUR ---
INSURANCE CLINICALS/REVIEW/ DC SUMMARY FAXED TO [facility] T: [phone] [id number] F: [phone] [facility] F: [phone]
== END 2020-01-03 12:49 | disposition home or self-care (01) | DRG 203 ==
LOC: EMR 17:37 → 2E 19:16 → EDBEDREQ 20:23
DX: R07.9 Chest pain, unspecified (principal); J44.1 Chronic obstructive pulmonary disease with (acute) exacerbation; I10 Essential (primary) hypertension; E11.9 Type 2 diabetes mellitus without complications; I45.10 Unspecified right bundle-branch block; M25.512 Pain in left shoulder; E87.6 Hypokalemia; H91.3 Deaf nonspeaking, not elsewhere classified; Z79.84 Long term (current) use of oral hypoglycemic drugs; Z79.82 Long term (current) use of aspirin; E78.5 Hyperlipidemia, unspecified
CPT/HCPCS: 36415; 70450; 71045; 78452; 80048; 80053; 80307; 81003; 82962; 83036; 83735; 83880; 84100; 84484; 85025; 85379; 85610; 85730; 93005; 93017; 93306; 94640; 96374; 96375; 99285; J1815; J2405; J2785; J8499

== ENCOUNTER 2020-01-23 17:50 | Emergency (ER) | payer MEDICAID ==
[~2020-01-23] VITALS: Ht 144.8 cm; Wt 56.7 kg
--- NOTE | 2020-01-23 19:00 | NUR ---
ED Nurse Note: Pt ambulated to ER with case operator, grayson ASL was utilized (potato seed cutter [id number]) for triage. Pt c/o headaches, sore throat, coughing, diffculty eating with left wrist pain for 3 days starting last thursday. Pt is A&Ox4, VSS. Chest xray at bedside
--- NOTE | 2020-01-23 19:32 | Emergency Room Report ---
History of Present Illness General Chief Complaint: Flu Like Symptoms Source: Patient Present Illness HPI 59 YO female presents to the ED brought by her catalytic case operator. Pt. is deaf and uses sign language. A sign language video cob sawyer was utilized via [employer] system. Patient reports 6 out of 10 severity sore throat, body aches, nonproductive cough, and generalized progressive JACKSON x3 days. She reports pain is worse with swallowing. Patient reports she has a history of asthma, diabetes and high cholesterol. Patient denies fevers or chills. Denies ear pain, high fevers, severe lethargy, neck pain/stiffness, irritability, photophobia dehydration, N/V/D. Denies Cp, Palpitations,Dizziness, LOC, AMS, seizures, paresthesias, or changes in vision, no Sudden onset of a severe JACKSON. Denies hx of smoking. Denies recent travel. Denies contact with persons who have tested positive for or are under investigation/quarantine for COVID-19. She has an appt. with her PCP for Jan 26. Allergies: Coded Allergies: No Known Allergies (Unverified , 01/08/17) COVID-19 Screening Contact w/high risk pt: No Recent Travel to affected area: No Experienced COVID-19 symptoms?: No COVID-19 Testing performed RADIO ENGINEER: No Patient History Past Medical History: see triage record, DM, HTN Past Surgical History: none Pertinent Family History: none Now: No Reviewed Nursing Documentation: PMH: Agreed; PSxH: Agreed Nursing Documentation-PMH Past Medical History: No History, Except For Hx Hypertension: Yes Hx Asthma: Yes Hx Diabetes: Yes Hx Cancer: No Hx Gastrointestinal Problems: No Hx Neurological Problems: Yes Hx Speech Problem: Yes - Deaf Hx Headaches: Yes Review of Systems All Other Systems: negative except mentioned in HPI Physical Exam Vital Signs Date Time Temp Pulse Resp B/P (MAP) Pulse Ox O2 Delivery O2 Flow Rate FiO2 01/23/20 18:09 97.9 76 16 128/72 (90) 97 Room Air Sp02 EP Interpretation: reviewed, normal General Appearance: no apparent distress, alert, GCS 15, non-toxic Head: normocephalic, atraumatic Eyes: bilateral eye normal inspection, bilateral eye PERRL ENT: hearing grossly normal, normal pharynx, normal voice, pharyngeal erythema, other - no exudates. Neck: full range of motion Respiratory: chest non-tender, lungs clear, normal breath sounds, no respiratory distress, no accessory muscle use, speaking full sentences, wheezing - scant wheezes on expiration Cardiovascular #1: regular rate, rhythm, no edema, normal capillary refill Musculoskeletal: normal range of motion, gait/station normal, non-tender Neurologic: alert, motor strength/tone normal, oriented x3, sensory intact, responsive, speech normal Psychiatric: judgement/insight normal Skin: no rash, normal color Lymphatic: no adenopathy Medical Decision Making PA Attestation Dr. Guerrero Is my supervising Physician whom patient management has been discussed with. Diagnostic Impression: Primary Impression: Viral upper respiratory tract infection with cough ER Course 59 YO female presents to the ED brought by her catalytic case operator. Pt. is deaf and uses sign language. A sign language video cob sawyer was utilized via [employer] system. Patient reports 6 out of 10 severity sore throat, body aches, nonproductive cough, and generalized progressive JACKSON x3 days. She reports pain is worse with swallowing. Patient reports she has a history of asthma, diabetes and high cholesterol. Patient denies fevers or chills. Denies ear pain, high fevers, severe lethargy, neck pain/stiffness, irritability, photophobia dehydration, N/V/D. Denies Cp, Palpitations,Dizziness, LOC, AMS, seizures, paresthesias, or changes in vision, no Sudden onset of a severe JACKSON. Denies hx of smoking. Denies recent travel. Denies contact with persons who have tested positive for or are under investigation/quarantine for COVID-19. She has an appt. with her PCP for Jan 26. Ddx considered but are not limited to URI, pneumonia, PE, strep pharyngitis, meningitis, COVID-19 Vital signs: Pt. is afebrile, the remaining VS are WNL H&PE are most consistent with URI- no meningeal signs, oropharynx is not involved, no evidence of bacterial infection at this time. ORDERS: -CXR: Unremarkable ED INTERVENTIONS: None required at this time. --PT. EDUCATION: Discussed antibiotic resistance with inappropriate prescribing of antibiotics for viral illnesses. Discussed signs and symptoms to indicate viral illness versus bacterial illness. DISCHARGE: At this time pt. is stable for d/c to home. Will provide printed pa tient care instructions, and any necessary prescriptions. Care plan and follow up instructions have been discussed with the patient prior to discharge. Chest X-Ray Diagnostic Results Chest X-Ray Diagnostic Results : Chest X-Ray Ordered: Yes # of Views/Limited/Complete: 1 View Indication: Other - COUGH EP Interpretation: Yes PA Xray: Interpretation reviewed, by supervising MD, and agrees with findings. Interpretation: no consolidation, no effusion, no pneumothorax, no acute cardiopulmonary disease Impression: No acute disease Electronically Signed by: Cristiane Devlin PA-C Last Vital Signs Date Time Temp Pulse Resp B/P (MAP) Pulse Ox O2 Delivery O2 Flow Rate FiO2 01/23/20 18:09 97.9 76 16 128/72 (90) 97 Room Air Status: improved Disposition: HOME, SELF-CARE Condition: Stable Scripts Codeine/Promethazine Hcl* (PROMETHAZINE-CODEINE SYRUP*) 118 Ml Syrup 5 ML ORAL Q6H PRN for For Cough, #120 ML 0 Refills Prov: Cristiane Devlin 01/23/20 Prednisone* (PREDNISONE*) 20 Mg Tablet 40 MG ORAL DAILY for 4 Days, #8 TAB Prov: Cristiane Devlin 01/23/20 Albuterol Sulfate* (Albuterol Sulfate Hfa*) 8.5 Gm Hfa.aer.ad 2 PUFF INH Q6H, #1 INH Prov: Cristiane Devlin 01/23/20 Acetaminophen* (TYLENOL EXTRA STRENGTH*) 500 Mg Tablet 500 MG ORAL Q6H PRN for Mild Pain/Temp > 100.5, #20 TAB 0 Refills Prov: Cristiane Devlin 01/23/20 Referrals: Mellisa Me[facility] + [facility] Patient Instructions: Upper Respiratory Infection, Adult Additional Instructions: Take medications as directed. Do not drink alcohol, drive, or operate heavy machinery while taking Cough Syrup as this may cause drowsiness. Follow up with a Primary Care Provider in 3-5 days, even if your symptoms have resolved. --Please review list of primary care clinics, if you do not already have a primary care provider Return sooner to ED if new symptoms occur, or current symptoms become worse. - Please note that this Emergency Department Report was dictated using Tianjistretch press operator technology software, occasionally this can lead to erroneous entry secondary to interpretation by the dictation equipment. Cristiane Devlin Jan 23, 2020 19:32
[2020-01-23] MEDS ORDERED: TYLENOL EXTRA500 MG ORAL (19:33)
[2020-01-23] MEDS ORDERED: PROMETHAZINE-C118 M1 ORAL (19:33)
[2020-01-23] MEDS ORDERED: PREDNISONE20 MG ORAL (19:33)
[2020-01-23] MEDS ORDERED: ALBUTEROL SULF8.5 G1 INH (19:33)
[2020-01-23 19:49] VITALS: BP 128/72
--- NOTE | 2020-01-23 19:50 | NUR ---
ER DISCHARGE NOTE: Patient is cleared to be discharged per ERMD, pt is aox4, on room air, with stable vital signs. pt was given dc and prescription instructions, pt was able to verbalize understanding, pt id band removed. pt is able to ambulate with steady gait. pt took all belongings. [employer] [facility] sign language interpreter used with Cristiane to discuss discharge. Pt understood
--- NOTE | 2020-01-24 15:43 | Diagnostic Imaging Report ---
Indication: Chest pain Technique: One view of the chest Comparison: 12/29/2019 Findings: Lungs and pleural spaces are clear. Heart size is normal. Impression: No acute process
== END 2020-01-23 19:50 | disposition home or self-care (01) ==
LOC: EMR 18:35
DX: J06.9 Acute upper respiratory infection, unspecified (principal); B97.89 Other viral agents as the cause of diseases classified elsewhere; E11.9 Type 2 diabetes mellitus without complications; I10 Essential (primary) hypertension; J45.909 Unspecified asthma, uncomplicated
CPT/HCPCS: 71045; Z7502; 99283

== ENCOUNTER 2020-01-29 20:59 | Emergency (ER) | payer MEDICAID ==
[~2020-01-29] VITALS: Ht 157.5 cm; Wt 68.0 kg
[~2020-01-29 20:59] MED LIST changes: +ALBUTEROL SULF8.5 G1 INH
[2020-01-29 21:15] VITALS: BP 125/70
--- NOTE | 2020-01-29 21:15 | NUR ---
Nurse Note: PT arrived with sore throat, fever, cough for 3 days. Pt was seen at a hospital recently d/t similar symptoms. Pt stated she followed up with PCP on but s/s has not improved. No cough, no fever, no signs of acute upper resp distress at triage. Pt ambulatory, VSS.
--- NOTE | 2020-01-29 22:02 | Diagnostic Imaging Report ---
EXAM: XR Chest, 1 View CLINICAL HISTORY: COUGH TECHNIQUE: Frontal view of the chest. COMPARISON: None FINDINGS: Lungs: Unremarkable. No consolidation. Pleural space: Unremarkable. No pneumothorax. Heart: Unremarkable. No cardiomegaly. Mediastinum: Unremarkable. Bones/joints: Unremarkable. IMPRESSION: No acute cardiopulmonary process.
--- NOTE | 2020-01-29 22:37 | Emergency Room Report ---
History of Present Illness General Chief Complaint: Flu Like Symptoms Present Illness HPI 59-year-old female here with sore throat and dry cough. Patient says her symptoms have been ongoing for 5 days. She has already followed up at another hospital and with her primary care provider and is here in the emergency department saying she has not yet improved. Denies fevers, chills, chest pain, palpitations, shortness of breath, back pain, abdominal pain, nausea, vomiting, diarrhea, dysuria. She has been swabbed for Covid already which was negative. Denies any known sick contacts. Allergies: Coded Allergies: No Known Allergies (Unverified , 01/08/17) COVID-19 Screening Contact w/high risk pt: No Recent Travel to affected area: No Experienced COVID-19 symptoms?: Yes COVID-19 Testing performed STORAGE WHARFAGE CLERK: No Nursing Documentation-PMH Hx Hypertension: Yes Hx Asthma: Yes Hx Diabetes: Yes Hx Cancer: No Hx Gastrointestinal Problems: No Hx Neurological Problems: Yes - deaf Hx Speech Problem: Yes - Deaf Hx Headaches: Yes Review of Systems All Other Systems: negative except mentioned in HPI Physical Exam Vital Signs Date Time Temp Pulse Resp B/P (MAP) Pulse Ox O2 Delivery O2 Flow Rate FiO2 01/29/20 21:07 98.1 72 16 125/70 (88) 98 Room Air Sp02 EP Interpretation: reviewed, normal General Appearance: no apparent distress, alert, non-toxic Head: normocephalic, atraumatic Eyes: bilateral eye normal inspection, bilateral eye PERRL ENT: hearing grossly normal, normal pharynx, no angioedema, normal voice Neck: full range of motion, supple/symm/no masses Respiratory: chest non-tender, lungs clear, normal breath sounds, speaking full sentences Cardiovascular #1: regular rate, rhythm, no edema Cardiovascular #2: 2+ carotid (R), 2+ carotid (L), 2+ radial (R), 2+ radial (L), 2+ dorsalis pedis (R), 2+ dorsalis pedis (L) Gastrointestinal: normal bowel sounds, non tender, soft, non-distended, no guarding, no rebound Rectal: deferred Genitourinary: normal inspection, no CVA tenderness Musculoskeletal: back normal, normal range of motion, gait/station normal, non- tender Neurologic: alert, motor strength/tone normal, oriented x3, sensory intact, responsive, speech normal Psychiatric: judgement/insight normal, memory normal, mood/affect normal, no suicidal/homicidal ideation Lymphatic: no adenopathy Medical Decision Making Diagnostic Impression: Primary Impression: Viral upper respiratory tract infection with cough ER Course Procedure: XRAY Chest 1v EXAM: XR Chest, 1 View CLINICAL HISTORY: COUGH TECHNIQUE: Frontal view of the chest. COMPARISON: None FINDINGS: Lungs: Unremarkable. No consolidation. Pleural space: Unremarkable. No pneumothorax. Heart: Unremarkable. No cardiomegaly. Mediastinum: Unremarkable. Bones/joints: Unremarkable. IMPRESSION: No acute cardiopulmonary process. 59-year-old female here with cough and sore throat. Patient had normal physical examination. Chest x-ray unremarkable. Covid swab negative. Influenza swab negative. Patient was told that viral symptoms can last up to 14 days. She was told to follow-up with her primary care provider. Told to come back to the emergency department with any worsening shortness of breath. She expressed understanding and was discharged. The patient is deaf and communication was used with writing and reading. All questions were answered. Last Vital Signs Date Time Temp Pulse Resp B/P (MAP) Pulse Ox O2 Delivery O2 Flow Rate FiO2 01/29/20 21:07 98.1 72 16 125/70 (88) 98 Room Air Disposition: HOME, SELF-CARE Condition: Stable Referrals: NON PHYSICIAN (PCP) [facility] Patient Instructions: Viral Respiratory Infection Additional Instructions: Please follow-up with your primary care doctor in the next 1 to 3 days to discuss this emergency department visit and for reevaluation. If you have any new or worsening symptoms please return to the emergency department for reevaluation. Your chest x-ray was normal. Your Covid swab was negative. Your influenza swab was negative. Your viral illness can last up to 14 days. Please follow-up with your doctor. Ilia Sheehan M.D. Jan 29, 2020 22:37
[2020-01-29 23:15] VITALS: BP 122/78
--- NOTE | 2020-01-29 23:15 | NUR ---
ED Nurse Note: Pt cleared by health care Provider for discharge. DC instructions/prescription was given and explained to pt and understood all teachings. All medical deviecs such as ID band removed. Pt is AAO x4, ambulatory and left with all personal belongings.
== END 2020-01-29 23:15 | disposition home or self-care (01) ==
LOC: EMR 21:11
DX: J06.9 Acute upper respiratory infection, unspecified (principal); B97.89 Other viral agents as the cause of diseases classified elsewhere; E11.9 Type 2 diabetes mellitus without complications; J45.909 Unspecified asthma, uncomplicated; I10 Essential (primary) hypertension; H91.90 Unspecified hearing loss, unspecified ear
CPT/HCPCS: 71045; Z7502; 99283

== ENCOUNTER 2020-03-29 15:17 | Emergency (ER) | payer MEDICAID ==
[~2020-03-29] VITALS: Ht 144.8 cm; Wt 59.0 kg
[2020-03-29] MEDS ORDERED: Ketorolac 30mg Inj IV ONE (15:45)
[2020-03-29] MEDS ORDERED: Acetaminophen 500mg (ES) tab ORAL ONE (15:45)
--- NOTE | 2020-03-29 16:07 | NUR ---
ED Nurse Note: Pt moved from ICO to RME room.
[2020-03-29 16:10] VITALS: BP 140/79
--- NOTE | 2020-03-29 16:15 | NUR ---
ED Nurse Note: Pt walked into ED for weakness, loss of appetite, chills for 1 week. Pt is alert and orientedx4, ambulatroy. Pt is deaf. She has been seen by PA. Pt denies nausea, vomiting.
[2020-03-29 16:47] LABS: BASOPHILS % (AUTO) 1.3 % (0.0-2.0); EOSINOPHILS % (AUTO) 0.5 % (0.0-3.0); HEMATOCRIT 35.6 % (37.0-47.0); HEMOGLOBIN 11.9 G/DL (12.0-16.0); LYMPHOCYTES % (AUTO) 15.5 % (20.0-45.0); MEAN CORPUSCULAR VOLUME 85 FL (80-99); MONOCYTES % (AUTO) 12.9 % (1.0-10.0); NEUTROPHILS % (AUTO) 69.9 % (45.0-75.0); PLATELET COUNT 138 K/UL (150-450); RED BLOOD COUNT 4.16 M/UL (4.20-5.40); RED CELL DISTRIBUTION WIDTH 12.4 % (11.6-14.8); WHITE BLOOD COUNT 6.5 K/UL (4.8-10.8)
--- NOTE | 2020-03-29 16:54 | Diagnostic Imaging Report ---
Indication: Shortness of breath Technique: One view of the chest Comparison: 01/29/2020 Findings: Lungs and pleural spaces are clear. Heart size is normal. No significant change Impression: No acute process
[2020-03-29] MEDS ORDERED: Bamlanivimab 700 MG in NS 275 ML IVPB SCH (17:00)
[2020-03-29] MEDS ORDERED: Bamlanivimab Fact Sheet MISC ONE (17:00)
[2020-03-29 17:03] LABS: ANION GAP 9 mmol/L (5-15); BLOOD UREA NITROGEN 18 mg/dL (7-18); CALCIUM 9.4 MG/DL (8.5-10.1); CARBON DIOXIDE 27 MMOL/L (21-32); CHLORIDE 103 MMOL/L (98-107); CREATININE 0.8 MG/DL (0.55-1.30); POTASSIUM 3.5 MMOL/L (3.5-5.1); SODIUM 139 MMOL/L (136-145)
[2020-03-29 17:10] LABS: ALANINE AMINOTRANSFERASE 65 U/L (12-78); ALBUMIN 3.7 G/DL (3.4-5.0); ALBUMIN/GLOBULIN RATIO 1.1 (1.0-2.7); ALKALINE PHOSPHATASE 108 U/L (46-116); ASPARTATE AMINO TRANSFERASE 39 U/L (15-37); BILIRUBIN,TOTAL 0.3 MG/DL (0.2-1.0)
--- NOTE | 2020-03-29 18:00 | NUR ---
ED Nurse Note: park interpreter Agnes ID [id number] used on SensorWave. Pt showed understanding about care and had no further questions.
--- NOTE | 2020-03-29 18:18 | Emergency Room Report ---
History of Present Illness General Chief Complaint: Flu Like Symptoms Source: Patient Present Illness HPI 59-year-old female history of hypertension, prediabetes hyperlipidemia, presents with cough, congestion, fever/chills, body aches times a few days, patient with now a positive Covid test no known aggravating relieving factors severity is moderate, constant patient presents for evaluation and treatment Allergies: Coded Allergies: No Known Allergies (Unverified , 01/08/17) COVID-19 Screening Contact w/high risk pt: No Recent Travel to affected area: No Experienced COVID-19 symptoms?: Yes COVID-19 Testing performed GRADES 1 THRU 6 VISITING TEACHER: No Patient History Past Medical History: see triage record Reviewed Nursing Documentation: PMH: Agreed; PSxH: Agreed Nursing Documentation-PMH Hx Hypertension: Yes - high cholesterol Hx Asthma: Yes Hx Diabetes: Yes Hx Cancer: No Hx Gastrointestinal Problems: No Hx Neurological Problems: Yes - deaf Hx Speech Problem: Yes - Deaf Hx Headaches: Yes Review of Systems All Other Systems: negative except mentioned in HPI Physical Exam Vital Signs Date Time Temp Pulse Resp B/P (MAP) Pulse Ox O2 Delivery O2 Flow Rate FiO2 03/29/20 15:23 98.1 95 20 142/82 (102) 92 Room Air 03/29/20 16:10 98 Sp02 EP Interpretation: reviewed, normal General Appearance: well appearing, no apparent distress, alert Head: normocephalic, atraumatic Eyes: bilateral eye PERRL, bilateral eye EOMI ENT: uvula midline, moist mucus membranes, nasal congestion Neck: supple, thyroid normal, supple/symm/no masses Respiratory: lungs clear, no respiratory distress, no retraction, no accessory muscle use Cardiovascular #1: normal peripheral pulses, regular rate, rhythm, no edema, no gallop, no murmur Gastrointestinal: non tender, soft, no guarding, no rebound Musculoskeletal: normal inspection Neurologic: alert, oriented x3 Psychiatric: mood/affect normal Skin: no rash, warm/dry Medical Decision Making Diagnostic Impression: Primary Impression: COVID-19 ER Course 59-year-old female presents with constellation of symptoms consistent with a viral process, no evidence of pneumonia, patient found to be Covid positive, patient may eligibility for bamlanivimab therapy Patient given fluids, antibiotic therapy, patient taught procedure well Disposition Home with return precautions follow-up with PCP Laboratory Tests Test 1/14/21 16:20 White Blood Count 6.5 K/UL (4.8-10.8) Red Blood Count 4.16 M/UL (4.20-5.40) L Hemoglobin 11.9 G/DL (12.0-16.0) L Hematocrit 35.6 % (37.0-47.0) L Mean Corpuscular Volume 85 FL (80-99) Mean Corpuscular Hemoglobin 28.6 PG (27.0-31.0) Mean Corpuscular Hemoglobin Concent 33.5 G/DL (32.0-36.0) Red Cell Distribution Width 12.4 % (11.6-14.8) Platelet Count 138 K/UL (150-450) L Mean Platelet Volume 12.6 FL (6.5-10.1) H Neutrophils (%) (Auto) 69.9 % (45.0-75.0) Lymphocytes (%) (Auto) 15.5 % (20.0-45.0) L Monocytes (%) (Auto) 12.9 % (1.0-10.0) H Eosinophils (%) (Auto) 0.5 % (0.0-3.0) Basophils (%) (Auto) 1.3 % (0.0-2.0) Sodium Level 139 MMOL/L (136-145) Potassium Level 3.5 MMOL/L (3.5-5.1) Chloride Level 103 MMOL/L (98-107) Carbon Dioxide Level 27 MMOL/L (21-32) Anion Gap 9 mmol/L (5-15) Blood Urea Nitrogen 18 mg/dL (7-18) Creatinine 0.8 MG/DL (0.55-1.30) Estimated Glomerular Filtration Rate > 60 mL/min (>60) Glucose Level 124 MG/DL (74-106) H Calcium Level 9.4 MG/DL (8.5-10.1) Total Bilirubin 0.3 MG/DL (0.2-1.0) Aspartate Amino Transferase (AST) 39 U/L (15-37) H Alanine Aminotransferase (ALT) 65 U/L (12-78) Alkaline Phosphatase 108 U/L (46-116) Troponin I 0.002 ng/mL (0.000-0.056) Total Protein 7.2 G/DL (6.4-8.2) Albumin 3.7 G/DL (3.4-5.0) Globulin 3.5 g/dL Albumin/Globulin Ratio 1.1 (1.0-2.7) Microbiology Date/Time Source Procedure Growth Status 03/29/20 16:05 Nasopharynx SARS-CoV-2 RdRp Gene Assay - Final Complete EKG Diagnostic Results Troponin ordered: Yes When was troponin ordered?: Mar 29, 2020 EKG Time: 16:17 EP Interpretation: NSR, rate 87, QTc 440, normal axis, no acute escalations Chest X-Ray Diagnostic Results Chest X-Ray Diagnostic Results : Chest X-Ray Ordered: Yes # of Views/Limited/Complete: 1 View Indication: Chest Pain EP Interpretation: Yes Interpretation: no consolidation, no effusion, no pneumothorax, no acute cardiopulmonary disease Impression: No acute disease Electronically Signed by: Chetan Daniels MD Last Vital Signs Date Time Temp Pulse Resp B/P (MAP) Pulse Ox O2 Delivery O2 Flow Rate FiO2 03/29/20 18:08 98.1 03/29/20 16:10 91 16 Room Air 98 03/29/20 16:10 140/79 98 Disposition: HOME, SELF-CARE Condition: Stable [facility]errals: [facility] (PCP) [facility] Mellisa Meade [facility] Patient Instructions: Upper Respiratory Infection, Adult, [id number] Additional Instructions: The patient was provided with discharge instructions, notified to follow-up with a primary care doctor and or specialist in the next 24-48 hours, and to return to the ED if they have worsening of their symptoms. Please note that this report is being documented using Bitbar technology. This can lead to erroneous entry secondary to incorrect interpretation by the dictating instrument. Chetan Daniels MD Mar 29, 2020 18:18
--- NOTE | 2020-03-29 18:25 | NUR ---
ED Nurse Note: Bamlavinab infusion complete. No adverse reactions to medication.
[2020-03-29 18:26] VITALS: BP 137/77
--- NOTE | 2020-03-29 19:15 | NUR ---
ER DISCHARGE NOTE: Patient is cleared to be discharged per ERMD, pt is aox4, on room air, with stable vital signs. pt was given dc and prescription instructions, pt was able to verbalize understanding, pt id band and iv site removed without complications. pt is able to ambulate with steady gait. pt took all belongings.Pt provided d/c COVID packet.
[2020-03-29 19:17] VITALS: BP 131/75
== END 2020-03-29 19:19 | disposition home or self-care (01) ==
LOC: EMR 15:25
DX: U07.1 COVID-19 (principal); R05 Cough; I10 Essential (primary) hypertension; E78.00 Pure hypercholesterolemia, unspecified; J45.909 Unspecified asthma, uncomplicated; E11.9 Type 2 diabetes mellitus without complications; H91.3 Deaf nonspeaking, not elsewhere classified; Z79.899 Other long term (current) drug therapy; Z23 Encounter for immunization
CPT/HCPCS: 36415; 71045; 80053; 84484; 85025; 93005; 96361; 96365; 96375; J1885; J7030; J7050; Q0239; U0002; Z7502; 99284

== ENCOUNTER 2020-05-21 00:14 | Emergency (ER) | payer MEDICAID ==
[~2020-05-21] VITALS: Ht 144.8 cm; Wt 54.4 kg
--- NOTE | 2020-05-21 00:43 | Emergency Room Report ---
History of Present Illness General Chief Complaint: Headache, left hip pain Source: Patient Present Illness HPI Patient's 59-year-old female presents for increased headache and left-sided hip pain. Had a fall approximately 2 weeks ago after slipping. States she fell backwards and struck her head. Had briefly been dazed subsequently. Reports having some bilateral flashing lights subsequently. Has been taking medication for headache without any improvement. Allergies: Coded Allergies: No Known Allergies (Unverified , 01/08/17) COVID-19 Screening Contact w/high risk pt: No Recent Travel to affected area: No Experienced COVID-19 symptoms?: Yes Patient History Reviewed Nursing Documentation: PMH: Agreed; PSxH: Agreed Nursing Documentation-PMH Hx Hypertension: Yes - high cholesterol Hx Asthma: Yes Hx Diabetes: Yes Hx Cancer: No Hx Gastrointestinal Problems: No Hx Neurological Problems: Yes - deaf Hx Speech Problem: Yes - Deaf Hx Headaches: Yes Review of Systems All Other Systems: negative except mentioned in HPI Physical Exam General Appearance: well appearing, no apparent distress, alert, GCS 15 Head: normocephalic, atraumatic ENT: EOM grossly intact, normal voice, other - Deaf Neck: full range of motion, supple Respiratory: no respiratory distress, speaking full sentences Cardiovascular #1: normal inspection, regular rate, rhythm, no edema Gastrointestinal: normal inspection Musculoskeletal: normal inspection, no calf tenderness, other - Antalgic gait Neurologic: motor strength/tone normal, tow mate III-XII nml as tested, oriented x3 Psychiatric: mood/affect normal Skin: normal inspection, no rash Medical Decision Making Diagnostic Impression: Primary Impression: Fall Additional Impressions: Head injury Low back pain ER Course Patient presents for headache and hip pain after a fall. Differential diagnosis include was not limited to contusion, head injury, intracranial hemorrhage, fracture among others. Because of complexity of patient's case laboratory te sts and imaging studies were ordered.CT imaging of the head read by radiology showed no evidence of acute cranial process. Patient was given medications for pain. left hip x-rays read by radiology showed no evidence of acute fracture or dislocation. Patient was noted to have improvement in symptoms over time. She is discharged back to her facility. This medical record is generated with [employer] tongsman software. There may be some tongsman discrepancies related to use of this software Status: improved Disposition: HOME, SELF-CARE Condition: Stable Scripts Methocarbamol* (ROBAXIN-500*) 500 Mg Tablet 500 MG ORAL TID PRN for For Pain, #15 TAB 0 Refills Prov: Carl Jones MD 05/21/20 Carl Jones MD May 21, 2020 00:43
--- NOTE | 2020-05-21 00:55 | NUR ---
ED Nurse Note: Patient walked into ED c/o multiple complaints, states that she fell 2 weeks prior to arrival due to a slip and fall, states that she slipped on water. complains of head pain and left hip pain. patient is alert and oriented x4 however is deaf, canceling and cutting control clerk used to triage and get information from patient. will continue to monitor
[2020-05-21 01:00] VITALS: BP 149/78
[2020-05-21] MEDS ORDERED: Ketorolac 60mg Inj IM ONE (01:45)
--- NOTE | 2020-05-21 02:20 | NUR ---
ED Nurse Note: Madina, mining support worker and operations manager in charge of patient. contat number is [phone]
--- NOTE | 2020-05-21 03:16 | Diagnostic Imaging Report ---
EXAM: CT Head Without Intravenous Contrast CLINICAL HISTORY: PAIN TECHNIQUE: Axial computed tomography images of the head/brain without intravenous contrast. CTDI is 53.4 mGy and DLP is 1072.2 mGy-cm. One or more of the following dose reduction techniques were used: automated exposure control, adjustment of the mA and/or kV according to patient size, use of iterative reconstruction technique. COMPARISON: 12/29/2019 FINDINGS: Brain: No hemorrhage or mass effect. Unchanged benign calcification in the left parietal lobe. Ventricles: No hydrocephalus. Bones/joints: Unremarkable. Soft tissues: Unremarkable. Sinuses: Unremarkable. Mastoid air cells: Clear. IMPRESSION: No acute hemorrhage, hydrocephalus, or mass effect.
--- NOTE | 2020-05-21 03:23 | Diagnostic Imaging Report ---
EXAM: CT Left Lower Extremity Without Intravenous Contrast, Hip CLINICAL HISTORY: PAIN TECHNIQUE: Axial computed tomography images of the left hip without intravenous contrast. CTDI is 4 mGy and DLP is 128 mGy-cm. One or more of the following dose reduction techniques were used: automated exposure control, adjustment of the mA and/or kV according to patient size, use of iterative reconstruction technique. COMPARISON: No relevant prior studies available. FINDINGS: Bones/joints: No acute fracture. No dislocation. Soft tissues: Unremarkable. Other: Severe disc height loss and mild disc bulge at L5-S1 with minimal retrolisthesis. 3 cm cystic lesion in the right adnexa. IMPRESSION: 1. No acute fracture. 2. Severe disc height loss and mild disc bulge at L5-S1 with minimal retrolisthesis. 3. 3 cm cystic lesion in the right adnexa. If postmenopausal status, consider characterization with ultrasound on an outpatient basis.
[2020-05-21] MEDS ORDERED: ROBAXIN-500MG ORAL (03:36)
[2020-05-21 04:10] VITALS: BP 142/72
--- NOTE | 2020-05-21 04:10 | NUR ---
ER DISCHARGE NOTE: Patient is cleared to be discharged per ERMD, pt is aox4, on room air, with stable vital signs. pt was given dc and prescription instructions, pt was able to verbalize understanding, pt id band removed without complications. pt is able to ambulate with steady gait. pt took all belongings.
== END 2020-05-21 04:10 | disposition home or self-care (01) ==
LOC: EMR 00:52
DX: S09.90XA Unspecified injury of head, initial encounter (principal); M54.5 Low back pain; W01.10XA Fall on same level from slipping, tripping and stumbling with subsequent striking against unspecified object, initial encounter; Y92.9 Unspecified place or not applicable; E78.00 Pure hypercholesterolemia, unspecified; E11.9 Type 2 diabetes mellitus without complications; H91.3 Deaf nonspeaking, not elsewhere classified
CPT/HCPCS: 70450; 73700; 96372; Z7502; 99284

== ENCOUNTER 2020-06-01 16:38 | Emergency (ER) | payer MEDICAID ==
[~2020-06-01] VITALS: Ht 144.8 cm; Wt 52.2 kg
[~2020-06-01 16:38] MED LIST changes: +ROBAXIN-500MG ORAL
--- NOTE | 2020-06-01 18:00 | Emergency Room Report ---
History of Present Illness General Chief Complaint: Palpitations Source: Patient, Caregiver Present Illness HPI 59-year-old female presents for evaluation. Patient is deaf. Interpretation occurring through FaceTime with her court interpreter. Outside Upholsterer machine [place] [facility] for use. Patient describes throat tightness. States that 5 days ago she had a "procedure" to her throat and is been feeling the symptoms since. Does not know exactly what the procedure was. Denies chest pain or shortness of breath. Denies cough. Denies any difficulty eating or swallowing. No other aggravating relieving factors. 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 Patient History Past Medical History: DM, HTN, asthma, other - deaf Social History: Denies: smoking, alcohol use, drug use Now: No Immunizations: UTD Reviewed Nursing Documentation: PMH: Agreed; PSxH: Agreed Nursing Documentation-PMH Hx Hypertension: Yes - high cholesterol Hx Asthma: Yes Hx Diabetes: Yes Hx Cancer: No Hx Gastrointestinal Problems: No Hx Neurological Problems: Yes - deaf Hx Speech Problem: Yes - Deaf Hx Headaches: Yes Review of Systems All Other Systems: negative except mentioned in HPI Physical Exam Vital Signs Date Time Temp Pulse Resp B/P (MAP) Pulse Ox O2 Delivery O2 Flow Rate FiO2 06/01/20 16:57 98.1 94 16 145/81 (102) 95 Room Air Sp02 EP Interpretation: reviewed, normal General Appearance: no apparent distress, alert, GCS 15, non-toxic Head: normocephalic, atraumatic Eyes: bilateral eye normal inspection, bilateral eye PERRL ENT: hearing grossly normal, normal pharynx, no angioedema, normal voice Neck: full range of motion, supple/symm/no masses, other - no stridor Respiratory: chest non-tender, lungs clear, normal breath sounds, speaking full sentences Cardiovascular #1: regular rate, rhythm, no edema Cardiovascular #2: 2+ carotid (R), 2+ carotid (L), 2+ radial (R), 2+ radial (L), 2+ dorsalis pedis (R), 2+ dorsalis pedis (L) Gastrointestinal: normal bowel sounds, non tender, soft, non-distended, no gu arding, no rebound Rectal: deferred Genitourinary: normal inspection, no CVA tenderness Musculoskeletal: back normal, normal range of motion, gait/station normal, non- tender Neurologic: alert, motor strength/tone normal, oriented x3, sensory intact, responsive, speech normal Psychiatric: judgement/insight normal, memory normal, mood/affect normal, no suicidal/homicidal ideation Reflexes: 3+ bicep (R), 3+ bicep (L), 3+ tricep (R), 3+ tricep (L), 3+ knee (R), 3+ knee (L) Lymphatic: no adenopathy Medical Decision Making Diagnostic Impression: Primary Impression: Throat pain ER Course Patient stating that she has throat tightness, palpitations after receiving throat procedure 5 days [address] interpretation taking place via her phone with [employer]. our court interpreter machine here is unavailable for use. Spoke to her project analyst. States that she had a thyroid biopsy done about 5 days ago with an ENT. On exam patient has no stridor. Vitals stable. Able to breathe without difficulty. EKGnormal sinus rhythm no acute ischemic changes interpreted by me discussed my concerns with project analyst and patient via interpretation. Patient would likely require a CT with contrast to evaluate the throat status post a biopsy. There is currently no IV contrast at this time. I explained that we can attempt other diagnostic studies including chest x-rays and noncontrast CTs. Patient along with project analyst and court interpreter decided that they would prefer to go to another hospital at this time. Patient states she wishes to go home. Understands the risks of leaving. Patient has competency to make her own decisions. Signed AMA form. EKG Diagnostic Results Rate: normal Rhythm: NSR ST Segments: no acute changes ASA given to the pt in ED: No Rhythm Strip Diag. Results EP Interpretation: yes Rhythm: NSR, no PVC's, no ectopy Last Vital Signs Date Time Temp Pulse Resp B/P (MAP) Pulse Ox O2 Delivery O2 Flow Rate FiO2 06/01/20 16:57 98.1 94 16 145/81 (102) 95 Room Air Status: unchanged Disposition: AGAINST MEDICAL ADVICE Condition: Stable Referrals: [facility],REFERR[facility] (PCP) Telly Correia MD Jun 01, 2020 18:00
[2020-06-01 18:05] VITALS: BP 145/81
== END 2020-06-01 18:05 | disposition left against medical advice (07) ==
LOC: EMR 17:30
DX: R07.0 Pain in throat (principal); E11.9 Type 2 diabetes mellitus without complications; E78.00 Pure hypercholesterolemia, unspecified; H91.3 Deaf nonspeaking, not elsewhere classified
CPT/HCPCS: 93005; Z7502; 99282